=== PATIENT | female | born 1940 | race Caucasian/White ===

== ENCOUNTER 2019-12-21 12:44 | Inpatient (IN) | payer MEDICARE, OTHER, SELFPAY ==
[2019-12-14 10:08] VITALS: BMI 32.5
--- NOTE | 2019-12-14 10:16 | ECG_ITS ---
Measurements Intervals [place] Rate: 62 P: 70 IA: 159 QRS: -4 QRSD: 134 T: 3 QT: 373 QTc: 381 SINUS RHYTHM RIGHT BUNDLE BRANCH BLOCK [120+ ms QRS DURATION, UPRIGHT V1, 40+ ms S IN I/aVL/V4/V5/V6] Compared to ECG 12/09/2018 08:31:39 Sinus bradycardia no longer present Electronically Signed On 12-14-2019 15:29:10 ASSEMBLER BONDING by Sofía Flower M.D. [email or web address]
--- NOTE | 2019-12-14 10:28 | P.ANESASSM_ITS ---
Pre-Anesthetic Assessment Pre-Anesthetic Assessment: Height/Weight: Height 1.63 m Weight 86.183 kg Preop Diagnosis: osteoarthritis right hip Proposed Procedure: Operation Date: 12/21/19 09:20 Proposed Procedures p Total Hip Arthroplasty 34743 M16.11(Right) - Brandon Grullon MD Social: Packs per day: 1 Pack years: 65+ Comment: quit 2 y ago Exam: Pre-Anes Outpt Exam: alert, oriented x 3, clear to auscultation bilaterally and regular rate & rhythm Airway: Submandibular: WNL Cervical ROM: Other MP: 2 Dentition: Partials Pulmonary: Pulmonary: COPD Comments: '18 pneumonia, without sequale CV/HEM: CV/HEM: HTN Comments: rx'd 10y stress test ' negative : : UTI Musc/skel: Musc/skel: Lower Back Pain Comments: bilateral radiculopathy PFSH Anesthesia PFSH: Medical History (Updated 12/14/19 @ 10:13 by Marietta Rodriguez) Osteoarthritis of right hip Family History (Updated 11/19/19 @ 15:00 by Shasha Landeros LPN) Brother Diabetes Cancer Son Diabetes Social History (Updated 11/19/19 @ 15:00 by Shasha Landeros LPN) Smoking and tobacco status: former smoker Alcohol intake: current Alcohol intake frequency: holidays/special occasions o nly Female Reproductive History: Date of last menstrual period: 10/21/79 Data Anesthesia Cardiac Studies: No Data to Display
[2019-12-21] VITALS (25 sets, daily range): BP systolic 101–149; BP diastolic 58–84; PULSE 63–73; RESP 13–24; TEMP 36.3–36.9; O2SAT 95–100
--- NOTE | 2019-12-21 08:53 | P.ANESUD_ITS ---
Pre-Anesthetic Update Pre-Anesthetic Assessment: Date of Surgery/Procedure: 12/21/19 Preop Senait gnosis: osteoarthritis right hip Proposed Procedure: Operation Date: 12/21/19 09:30 Proposed Procedures p Total Hip Arthroplasty 58862 M16.11(Right) - Brandon Grullon MD Any changes to Pre-Anesthetic Assessment?: No Last Intake: Intake NPO > 8 hrs Last Liquid Date 12/20/19 Last Solid Date 12/20/19 Vitals: Temperature 98.1 F 12/21/19 08:12 Temperature Source Temporal Artery S can 12/21/19 08:12 Pulse Rate 66 12/21/19 08:12 Pulse Rhythm 12/21/19 08:14 Pulse Strength 3+ Normal 12/21/19 08:14 Respiratory Rate 18 12/21/19 08:12 Blood Pressure 133/82 12/21/19 08:12 Blood Pressure Milly n 99 12/21/19 08:12 Pulse Oximetry 95 12/21/19 08:12 Oxygen Delivery Me thod 12/21/19 08:14 Exam: Pre-Anes Outpt Exam: alert, oriented x 3, clear to auscultation bilaterally and regular rate & rhythm Cardiac Studies: No Data to Display
[2019-12-21] MEDS: sodium chloride 0.9% 1,000 ML 30 ML IV (09:00)
--- NOTE | 2019-12-21 10:11 | W.PM.OPSUD ---
Surgery/Procedure H&P Update DATE OF PROCEDURE: December 21, 2019 DATE H&P PERFORMED: 12/14/19 H&P UPDATE INFORMATION: I have reviewed H&P completed within last 30 days and No changes to prior documentation PREOP DIAGNOSIS: osteoarthritis right hip PRIMARY INDICATION FOR PROCEDURE: Right hip pain due to osteoarthriis PLANNED PROCEDURE: Operation Date: 12/21/19 09:30 Proposed Procedures p Total Hip Arthroplasty 69879 M16.11(Right) - Brandon Grullon MD
--- NOTE | 2019-12-21 12:32 | XR_ITS ---
WS: [id number] XR hip RT 1V wo/w pel [id number] REASON FOR EXAM: s/p R RAJIV FINDINGS: Total hip replacement on the right side. The stem of the prosthesis is satisfactory. The ac etabular prosthesis remains satisfactory. XR/XR hip RT 1V wo/w pel [id number] IMPRESSION: Total hip replacement satisfactory alignment.
--- NOTE | 2019-12-21 12:34 | P.OP_ITS ---
Operative Report Date of procedure: December 21, 2019 Pre-op Diagnosis: osteoarthritis right hip Post-op diagnosis: same Post-op Findings: Same Procedure Done: Right total hip arthroplasty Implants: 1) Fernando 50 mm ADM acetabular shell 2) Size 6 Fernando 127 degree neck angle SecureFit Max stem 3} +2.5 mm 28 mm femoral head 4} Restorationa ADM X3 insert Surgeon: Brandon Grullon Anesthesia: General Estimated blood loss (mL): 200 Findings: Patient severe degenerative changes of the femoral head and acetabulum with eburnated bone over both Condition: stable Disposition: PACU Procedure: The patient was taken to the operating room and anesthesia provided by the anesthesia service. The patient was placed in the lateral position on a beanbag. A timeout was performed. The patient was draped in the usual fashion. A 15 cm long incision was made beginning just proximal to the greater trochanter and extending posteriorly to a point just distal to the trochanter on the posterior border of the trochanter. Dissection was carried down with electrocautery through the subcutaneous fat to the fascia christin which was divided proximally and distally with curved scissors. The anterior two thirds of the gluteus medius and minimus were elevated off the hip with electrocautery. The capsule was divided in a H-like fashion. The hip was dislocated and a neck cut made just above the level of the lesser trochanter. Exposure of the acetabulum was facilitated with the acetabular retractors. Remnants of labrum and peripheral osteophytes were removed with electrocautery and a rongeur. A reamer 2 mm under the size the femoral head was utilized to ream medially to the base of the palm and are. Reaming was then increased in 1 mm intervals until a healthy rim a trabecular bone was encountered. A trial ADM cup was placed and its position marked with electrocautery In the acetabulum. A final was press-fit into place. Attention was then focused on the femur. Sequential reaming was done under power until cortical chatter was encountered. Broaching was then accomplished until a stable broach size was obtained. A trial reduction with the head and neck provided excellent stability. The wound was irrigated with saline and antibiotic solution. The final [place] SecureFit Max stem was press-fit into place. The femoral head was placed and the hip was reduced. The hip was brought through range of motion and found to be free of impingement and stable. The anterior capsule was reapproximated with 1 Ethibond. The gluteus medius and minimus were repaired through bone with 5 Ethibond and reinforced with 1 Ethibond. The fascial christin was closed with 1 Ethibond. The subcutaneous tissue closed with 2-0 Vicryl. The skin was closed with skin payal. A sterile dressing was applied. The patient was taken to the recovery room in an abduction pillow in stable condition.
--- NOTE | 2019-12-21 12:42 | SUR.PHASEI ---
1237 PATIENT TO PACU AT THIS TIME. RR EVEN AND UNLABORED. PLACED ON SIMPLE MASK AT 8L, SPO2 100%. ABD PILLOW IN PLACE, DRESSING TO RIGHT HIP, CDI. WANG IN PLACE, SECURED TO RIGHT LEG. RIGHT PEDAL PULSE INTACT AND MARKED.
[2019-12-21] MEDS: fentaNYL 50 mcg/mL INJ 2mL IVP ×3 (12:47→13:21)
--- NOTE | 2019-12-21 13:28 | SUR.PHASEI ---
1325 PATIENTS SPOUSE UPDATED.
--- NOTE | 2019-12-21 13:58 | SUR.PHASEI ---
1342 PATIENT TO MED SURG AT THIS TIME. A/OX3. RR EVEN AND UNLABORED. DRESSING DRY AND INTACT TO RIGHT HIP. PULSE PALPABLE AND MARKED. ABD PILLOW IN PLACE, WITH FIRST ICE TO RIGHT HIP. SPOUSE PRESENT.
[2019-12-21] MEDS: TRAMadol 50 mg Tablet PO ×2 (14:38→20:58)
[2019-12-21] MEDS: CELEcoxib 200 mg Capsule PO (14:44)
[2019-12-21] MEDS: sennosides-docusate Tablet 2 TAB PO (18:51)
[2019-12-21] MEDS: chlorhexidine gluconate 0.12% Btl 473 mL 30 ML MUCOUS MEM ×2 (18:54→20:58)
[2019-12-22] VITALS (9 sets, daily range): BP systolic 78–148; BP diastolic 51–78; PULSE 73–90; RESP 16–20; TEMP 36.5–37.3; O2SAT 90–93
[2019-12-22] MEDS: CELEcoxib 200 mg Capsule PO ×2 (02:14→16:45)
[2019-12-22] MEDS: TRAMadol 50 mg Tablet PO (03:02)
[2019-12-22 05:45] LABS: Basophils % 0.2 %; Eosinophils % 0.1 %; Hemoglobin 10.8 g/dL (11.5-15.3); Lymphocytes # 1.3 10^3/uL (0.8-4.8); Lymphocytes % 10.6 %; Mean Corpuscular HGB Conc 31.8 g/dL (30.0-36.0); Mean Corpuscular Volume 100.9 fL (81-99); Monocytes # 1.5 10^3/uL (0.2-0.9); Monocytes % 11.9 %; Neutrophils # 9.7 10^3/uL (1.8-7.7); Neutrophils % 76.8 %; Nucleated Red Blood Cells % 0 %; Platelet Count 223 10^3/cmm (130-400); Red Blood Count 3.37 10^6/uL (4.1-5.3); Red Cell Distribution Width 14.8 % (12.1-15.1); White Blood Count 12.6 10^3/uL (4.0-10.0)
[2019-12-22 06:07] LABS: Anion Gap 14.7 (5-19); Blood Urea Nitrogen 12 mg/dL (8-23); Calcium 8.4 mg/dL (8.5-10.5); Carbon Dioxide 25 mmol/L (22-29); Chloride 103 mmol/L (98-107); Glucose 130 mg/dL (65-115); Osmolality Calculated 284 mOsm/kg (285-295); Potassium 4.7 mmol/L (3.5-5.1); Sodium 138 mmol/L (136-145)
[2019-12-22] MEDS: hydroCHLOROthiazide 25 mg Tablet 12.5 MG PO (06:13)
--- NOTE | 2019-12-22 07:54 | P.PN_ITS ---
Subjective Subjective: Interval history: Managing pain with ultam and IV Tylenol. Bartlett discontinued. Tolerated po liquids Vitals/I&O/Wt Last Vital Signs Temp 98.3 F 12/22/19 04:21 Pulse 81 12/22/19 04:21 Resp 17 12/22/19 04:21 BP 112/70 12/22/19 04:21 Pulse Ox 93 12/22/19 04:21 12/21/19 12/22/19 12/22/19 22:59 06:59 14:59 Intake Total 900 / 1060 Output Total 250 / 650 500 / 1150 Balance 650 / 410 -500 / -90 Physical Exam Narrative: EXAM NARRATIVE: Right hip dressing clean and dry. Expected swelling. Urinary Catheter Management^: Bartlett: Cath Placed During This Visit: yes, but has since been removed by the nurse Reason for Continuing Indwelling Catheter: Required Immobilization for Trauma or Surgery or Anesthesia Urinary Catheter Date of Insertion: 12/21/19 Urinary Catheter Time of Insertion: 10:55 Date Urinary Catheter Removed: 12/22/19 Time Urinary Catheter Discontinued: 06:00 Data : 12/22/19 04:15 12/22/19 04:15 A&P Assessment and plan (1) Status post right hip replacement: Continue to mobilize with therapy. Patient's age she will be slow to mobilize. Anticipate discharge in a.m. if all goes well. With multiple drug allergies pain management has been difficult. Continue with Ultram and supplemental IV Tylenol for now. Status: Acute Code(s): Z96.641 - Presence of right artificial hip joint Attestations Medical Necessity Statement*: Patient requiring IV Tylenol for pain control. Will require 1 additional night hospitalization. Anticipate discharge tomorrow. Coding Level of Care Code Acute Turn Out Worker for Margauxg Fwd Diagnoses Status post right hip replacement Z96.641
[2019-12-22] MEDS: atorvastatin 40 mg Tablet 20 MG PO (09:06)
[2019-12-22] MEDS: losartan 50 mg Tablet PO (09:07)
[2019-12-22] MEDS: sennosides-docusate Tablet 2 TAB PO ×2 (09:07→18:33)
[2019-12-22] MEDS: cyclobenzaprine 10 mg Tablet PO ×2 (09:09→21:49)
[2019-12-22] MEDS: aspirin 325 mg EC Tablet PO (09:09)
[2019-12-22] MEDS: chlorhexidine gluconate 0.12% Btl 473 mL 30 ML MUCOUS MEM ×3 (11:44→21:47)
--- NOTE | 2019-12-22 15:33 | PC.CHAP ---
Pastoral Care Encounter/Spiritual Assessment Type of Contact [x] Declined cmo visit [] Patient/Family/Request visit [] Outpatient visit [] Follow-up visit [] Physician referral [] Code/Alert [] Routine visit [] Staff referral [] Actively dying [] Patient sleeping [] Family support [] [] Out of room [] Palliative care [] [x] Receiving care in room [] Pre-surgical visit [] Trauma [] Long length of stay [] ICU visit [] Other: Relational/Emotional Strength [] Patient feels connected with others/family/visitors/staff [] Distress [] Loneliness/isolation [] Abandonment Spirituality of Patient [] Person of Hannah [] Attends [employer] their [place] [] Believes in Prayer [] Reads Bible or Worship materials [] There are Spiritual issues to be addressed Angledozer Operator Interventions [] Prayer [] Active listening [] Non-anxious presence [] Spiritual/emotional support [] Crisis/trauma care [] Spiritual counseling [] Bereavement support [] Provided bereavement packet [] Provided Bible/devotional materials [] Provided toy/stuffed animal, coloring book to patient or family member [] Provided Communion [] Anointing/[place] [] Salvation [x] Completed spiritual assessment [] Other: Impact on Illness or Injury [] Angry [] Fearful [] Anxious [] Often cries [] Exhaustion [] Unable to work [] Unable to attend orthodox [] Unable to walk/stand [] Unable to read [] Unable to drive [] Unable to eat/drink [] Unable to sleep [] Unable to be with family [] Patient intubated [] Other: Summary Pt. was being treated by staff. Family member (3)) requested no cmo visit. Pt in great discomfort and family seemed embarrassed that cmo saw her Time spent with patient 2 min
[2019-12-23] VITALS (8 sets, daily range): BP systolic 90–119; BP diastolic 55–75; PULSE 75–109; RESP 17–20; TEMP 36.6–37.2; O2SAT 89–97
[2019-12-23] MEDS: CELEcoxib 200 mg Capsule PO ×2 (02:38→13:44)
[2019-12-23 03:54] LABS: Basophils % 0.1 %; Eosinophils % 0.1 %; Hematocrit 33.1 % (37.0-47.0); Hemoglobin 10.7 g/dL (11.5-15.3); Lymphocytes # 1.8 10^3/uL (0.8-4.8); Lymphocytes % 13.9 %; Mean Corpuscular HGB Conc 32.3 g/dL (30.0-36.0); Mean Corpuscular Hemoglobin 31.8 pg (28.0-34.0); Mean Corpuscular Volume 98.5 fL (81-99); Mean Platelet Volume 10.8 fL (7.4-10.4); Monocytes # 1.9 10^3/uL (0.2-0.9); Monocytes % 14.9 %; Neutrophils # 9.1 10^3/uL (1.8-7.7); Neutrophils % 70.7 %; Nucleated Red Blood Cells % 0 %; Platelet Count 209 10^3/cmm (130-400); Red Blood Count 3.36 10^6/uL (4.1-5.3); Red Cell Distribution Width 14.5 % (12.1-15.1); White Blood Count 12.9 10^3/uL (4.0-10.0)
[2019-12-23] MEDS: hydroCHLOROthiazide 25 mg Tablet 12.5 MG PO (06:14)
[2019-12-23] MEDS: TRAMadol 50 mg Tablet PO ×3 (07:57→19:45)
[2019-12-23] MEDS: losartan 50 mg Tablet PO (08:04)
[2019-12-23] MEDS: atorvastatin 40 mg Tablet 20 MG PO (08:04)
[2019-12-23] MEDS: sennosides-docusate Tablet 2 TAB PO ×2 (08:05→17:12)
[2019-12-23] MEDS: aspirin 325 mg EC Tablet PO (08:05)
[2019-12-23] MEDS: chlorhexidine gluconate 0.12% Btl 473 mL 30 ML MUCOUS MEM ×4 (08:05→21:34)
--- NOTE | 2019-12-23 10:16 | PC.SOCIAL ---
Patient was given the [facility] Beneficiary Notification Letter. Signed and placed in chart.
--- NOTE | 2019-12-23 17:40 | PM.PN ---
Subjective Subjective: Interval history: Patient ambulating short distances with therapy. Tolerating oral intake. Pain control reasonable with Ultracet. Vitals/I&O/Wt Last Vital Signs Temp 98.2 F 12/23/19 15:38 Pulse 75 12/23/19 15:38 Resp 18 12/23/19 15:38 BP 119/75 12/23/19 15:38 Pulse Ox 93 12/23/19 15:38 12/23/19 12/23/19 12/23/19 06:59 14:59 22:59 Intake Total 200 / 1282 598 / 598 740 / 1338 Output Total 500 / 500 1000 / 1000 Balance -300 / 782 598 / 598 -260 / 338 Physical Exam Narrative: EXAM NARRATIVE: Right hip dressing clean and dry. Minimal swelling right thigh. Urinary Catheter Management^: Bartlett: Cath Placed During This Visit: yes, but has since been removed by the nurse Reason for Continuing Indwelling Catheter: Not indwelling catheter Urinary Catheter Date of Insertion: 12/21/19 Urinary Catheter Time of Insertion: 10:55 Date Urinary Catheter Removed: 12/22/19 Time Urinary Catheter Discontinued: 06:00 Data : 12/23/19 03:10 12/22/19 04:15 A&P Assessment and plan (1) Status post right hip replacement: The patient is slower to progress with therapy. She is really not able to ambulate beyond her room. We will continue with physical therapy and anticipate discharge tomorrow. Status: Acute Code(s): Z96.641 - Presence of right artificial hip joint Attestations Medical Necessity Statement*: With patient's increased age and patient's weight her mobility has been slow to recover. She will require 1 more midnight and anticipate sufficient ambulatory status for discharge tomorrow. Coding Level of Care Code Acute Chemical Dependency Therapist for Zita Root Diagnoses Status post right hip replacement Z96.641
--- NOTE | 2019-12-23 17:48 | PM.DCS ---
Discharge Providers Date of Admission: 12/21/19 12:44 Date of Discharge: December 23, 2019 Attending Provider at Admission: Brandon Grullon MD Attending Provider at Discharge: Brandon Grullon MD Primary Care Provider: Emery Ragland MD Diagnoses at Discharge Discharge Diagnosis (1) Status post right hip replacement: Status: Acute (2) Osteoarthritis of right hip: Status: Resolved Reason for Visit Reason for Visit: Reason For Visit: primary osteoarthritis of hip Hospital Course Hospital Course: The patient underwent elective right total hip arthroplasty on 12/21/2019. She did well. She remained hemodynamically stable. Her pain was tolerated with oral medications by the second postoperative day. Due to her weight and age she was slower to improve with therapy. Ultimately by 12/24/2019 she was thought stable for discharge home. She is met with aspirin and sequential compression dressings for DVT prophylaxis Physical Exam Narrative: EXAM NARRATIVE: On the day 12/24/19 of discharge her incision was clean and free of drainage. She had minimal swelling in her thigh. Urinary Catheter Management^: Bartlett: Cath Placed During This Visit: yes, but has since been removed by the nurse Reason for Continuing Indwelling Catheter: Not indwelling catheter Urinary Catheter Date of Insertion: 12/21/19 Urinary Catheter Time of Insertion: 10:55 Date Urinary Catheter Removed: 12/22/19 Time Urinary Catheter Discontinued: 06:00 Discharge Data Data Completed and Pending: Completed Studies During Hospitalization Category Date Time Status XR hip RT 1V wo/w pel [id number] Routine Exams 12/21/19 12:32 Completed Pending at discharge Category Date Time Status Complete Blood Co unt w/Auto AM LABS Lab 12/24/19 04:00 Ordered Labs from last 24 hours 12/23/19 03:10 WBC 12.9 H RBC 3.36 L Hgb 10.7 L Hct 33.1 L MCV 98.5 MCH 31.8 MCHC 32.3 RDW 14.5 Plt Count 209 MPV 10.8 H Neut % (Auto) 70.7 Lymph % (Auto) 13.9 [place] % (Auto) 14.9 Eos % (Auto) 0.1 Baso % (Auto) 0.1 Neut # (Auto) 9.1 H Lymph # (Auto) 1.8 [place] # (Auto) 1.9 H Eos # (Auto) 0.0 Baso # (Auto) 0.0 Nucleated RBC % (a uto) 0 Nucleated RBCs # 0.0 Vitals: Last Vital Signs Temp 98.2 F 12/23/19 15:38 Pulse 75 12/23/19 15:38 Resp 18 12/23/19 15:38 BP 119/75 12/23/19 15:38 Pulse Ox 93 12/23/19 15:38 Discharge Plan Discharge Patient Disposition: Home, Self-Care Condition: Stable Prescriptions: New tramadol 50 mg Tablet 50 mg PO Q4H PRN (Reason: Mild To Moderate Pain) Qty: 40 RF: 0 aspirin 325 mg Tablet,Delayed Release (Dr/Ec) 325 mg PO DAILY Qty: 30 RF: 0 Continued hydrochlorothiazide 12.5 mg tablet 12.5 mg PO QAM RF: 0 sulindac 150 mg tablet 150 mg PO BID RF: 0 mupirocin 2 % ointment 1 applic TOPICAL BID Qty: 30 RF: 0 losartan 50 mg tablet 50 mg PO QDAY 90 Days Qty: 90 RF: 3 simvastatin 10 mg tablet 10 mg PO QDAY 90 Days Qty: 90 RF: 0 acetaminophen [Tylenol 8 Hour] 650 mg Tablet Extended Release 650 mg PO Q8H PRN (Reason: Pain) RF: 0 albuterol sulfate 90 mcg/actuation HFA aerosol inhaler 1 puff INHALATION PRN PRN (Reason: Shortness Of Breath) RF: 0 fluticasone furoate 27.5 mcg/actuation [place],Suspension 1 spray INTRANASAL PRN PRN (Reason: Nasal Congestion) RF: 0 Discharge Orders: Discharge Order (Routine); Ordered 12/24/19 Ordered By: Brandon Grullon Other Ambulatory Orders: DME: Kevin (Order) Location: None Selected Ordered By: Brandon Grullon Referrals: [facility] ([facility]) [Outside] Discharge Diet: Advance as tolerated Discharge Activity: As per PT/OT instructions Activity Restrictions/Additional Instructions: May shower once incisions completely free of drainage. Discontinue right hip dressing in 24-48 hours. Replaced dressings as needed. Take Celebrex twice a day for the next 15 days for pain , discontinue other anti-inflammatories bg oxycodone for breakthrough pain. Exercises per physical therapy. May discontinue abduction pillow Discharge Attestations Time Spent in Discharge Care*: other Quality Metrics Clinical Quality Measures During this hospital stay, did patient experience: None Coding Level of Care Code Acute Solo Truck Driver for Margauxg Fwd Diagnoses Status post right hip replacement Z96.641 Osteoarthritis of right hip M16.11
[2019-12-24] VITALS (8 sets, daily range): BP systolic 97–120; BP diastolic 60–87; PULSE 70–79; RESP 16–18; TEMP 36.4–36.9; O2SAT 90–95
[2019-12-24] MEDS: CELEcoxib 200 mg Capsule PO ×2 (02:07→13:40)
[2019-12-24 05:14] LABS: Basophils % 0.3 %; Eosinophils # 0.1 10^3/uL (0.0-0.8); Eosinophils % 0.7 %; Hemoglobin 10.4 g/dL (11.5-15.3); Lymphocytes # 1.3 10^3/uL (0.8-4.8); Mean Corpuscular HGB Conc 31.5 g/dL (30.0-36.0); Mean Corpuscular Volume 101.5 fL (81-99); Mean Platelet Volume 11.2 fL (7.4-10.4); Monocytes # 1.6 10^3/uL (0.2-0.9); Monocytes % 13.8 %; Neutrophils # 8.6 10^3/uL (1.8-7.7); Neutrophils % 73.8 %; Nucleated Red Blood Cells % 0 %; Platelet Count 200 10^3/cmm (130-400); Red Blood Count 3.25 10^6/uL (4.1-5.3); Red Cell Distribution Width 14.3 % (12.1-15.1); White Blood Count 11.7 10^3/uL (4.0-10.0)
[2019-12-24] MEDS: hydroCHLOROthiazide 25 mg Tablet 12.5 MG PO (06:24)
[2019-12-24] MEDS: losartan 50 mg Tablet PO (09:39)
[2019-12-24] MEDS: atorvastatin 40 mg Tablet 20 MG PO (09:39)
[2019-12-24] MEDS: chlorhexidine gluconate 0.12% Btl 473 mL 30 ML MUCOUS MEM (09:40)
[2019-12-24] MEDS: TRAMadol 50 mg Tablet PO ×2 (09:40→12:53)
[2019-12-24] MEDS: aspirin 325 mg EC Tablet PO (09:40)
--- NOTE | 2019-12-24 11:00 | PC.SOCIAL ---
Pg 2 IMM Explained to pt Pg 2 IMM & provided pt a copy. No questions voiced. Signed, dated, timed, & placed in pt's chart.
== END 2019-12-24 16:00 | disposition home or self-care (01) | DRG 470 ==
LOC: MEDSURG 12:45
PROVIDERS: Admitting Provider Orthopaedic Surgery; Family Provider Family Medicine; PCP Family Medicine; Visit Provider Orthopaedic Surgery
PROC: 0SR90J9 Replacement of Right Hip Joint with Synthetic Substitute, Cemented, Open Approach (ICD-10-PCS; CPT 27130; principal; 2019-12-21 09:30)
DX: M16.11 Unilateral primary osteoarthritis, right hip (principal)
CPT/HCPCS: 12345; 36415; 51702; 73501; 80048; 85025; 93005; 96365; 97110; 97116; 97162; 97166; 97530; 97535; C1776; J0131; J0690; J1580; J2405; J2704; J3010; J3490; J7030

== ENCOUNTER 2020-01-26 06:00 | Outpatient (RCR) | payer MEDICARE, OTHER, SELFPAY | END 2020-02-18 23:59 | disposition home or self-care (01) | LOC: SPT 06:00 | PROVIDERS: Family Provider Family Medicine; PCP Family Medicine; Referring Provider Orthopaedic Surgery; Visit Provider Orthopaedic Surgery | DX: Z47.1 Aftercare following joint replacement surgery (principal); Z96.641 Presence of right artificial hip joint | CPT/HCPCS: 97110; 97161 ==

== ENCOUNTER → 2020-02-01 13:53 | Outpatient (BNVA) | payer MEDICARE, OTHER, SELFPAY | PROVIDERS: Family Provider Family Medicine; PCP Family Medicine; Visit Provider Orthopaedic Surgery | DX: Z48.89 Encounter for other specified surgical aftercare (principal); Z96.641 Presence of right artificial hip joint | CPT/HCPCS: 73502 ==

== ENCOUNTER 2020-03-10 06:00 | Outpatient (RCR) | payer MEDICARE, OTHER, SELFPAY | END 2020-03-20 23:59 | disposition home or self-care (01) | LOC: SPT 06:00 | PROVIDERS: PCP Family Medicine; Referring Provider Orthopaedic Surgery; Visit Provider Orthopaedic Surgery | DX: Z47.1 Aftercare following joint replacement surgery (principal); Z96.641 Presence of right artificial hip joint; M25.551 Pain in right hip | CPT/HCPCS: 97110; 97161 ==

== ENCOUNTER 2020-03-21 06:00 | Outpatient (RCR) | payer MEDICARE, OTHER, SELFPAY | END 2020-04-19 23:59 | disposition home or self-care (01) | LOC: SPT 06:00 | PROVIDERS: PCP Family Medicine; Visit Provider Orthopaedic Surgery | DX: Z47.1 Aftercare following joint replacement surgery (principal); Z96.641 Presence of right artificial hip joint | CPT/HCPCS: 97110 ==

== ENCOUNTER → 2020-04-04 16:01 | Outpatient (BNVA) | payer MEDICARE, OTHER, SELFPAY | PROVIDERS: PCP Family Medicine; Visit Provider Orthopaedic Surgery | DX: Z96.641 Presence of right artificial hip joint (principal) | CPT/HCPCS: 72100 ==

== ENCOUNTER 2020-04-20 06:00 | Outpatient (RCR) | payer MEDICARE, OTHER, SELFPAY | END 2020-05-20 23:59 | disposition home or self-care (01) | LOC: SPT 06:00 | PROVIDERS: PCP Family Medicine; Visit Provider Orthopaedic Surgery | DX: Z47.1 Aftercare following joint replacement surgery (principal); Z96.641 Presence of right artificial hip joint | CPT/HCPCS: 97110 ==

== ENCOUNTER 2020-05-02 14:47 | Outpatient (CLI) | payer MEDICARE, OTHER, SELFPAY ==
--- NOTE | 2020-05-02 14:56 | XR_ITS ---
WS: [id number] Right hip, AP and frog-leg views standing, AP pelvis standing, 05/02/2020 Clinical Data: right total hip arthroplasty Comparison: Right hip, 02/01/2020. Findings: The right hip total arthroplasty is in good position. The components are in satisfactory alignment. T he left hip shows moderate osteoarthritic narrowing. There are no fractures seen. XR/XR hip RT 2-3V wo/w pel* [id number] Impression: 1. Total right hip arthroplasty. 2. Narrowing of the left hip joint.
== END 2020-05-02 14:48 | disposition home or self-care (01) ==
LOC: RAD 14:51
PROVIDERS: PCP Family Medicine; Visit Provider Orthopaedic Surgery
DX: Z96.641 Presence of right artificial hip joint (principal)
CPT/HCPCS: 73502

== ENCOUNTER → 2020-05-03 10:53 | Outpatient (BNVA) | payer MEDICARE, OTHER, SELFPAY | PROVIDERS: PCP Family Medicine; Visit Provider Dermatology | DX: D48.9 Neoplasm of uncertain behavior, unspecified (principal); L57.0 Actinic keratosis; L82.0 Inflamed seborrheic keratosis; D18.01 Hemangioma of skin and subcutaneous tissue; Z85.828 Personal history of other malignant neoplasm of skin | CPT/HCPCS: 11102; 11310; 17000; 17003; 17110; 88305; 99203 ==

== ENCOUNTER 2020-05-12 10:50 | Outpatient (CLI) | payer MEDICARE, OTHER, SELFPAY ==
--- NOTE | 2020-05-12 11:00 | MR_ITS ---
WS: [id number] MRI LUMBAR SPINE NONCONTRAST HISTORY: M54.5 Low back pain COMPARISON: None available. TECHNIQUE: Sagittal and axial multisequence imaging is submitted. Straightening and reversal of the normal cervical lordosis. Mild straightening of the normal lumbar lordosis. No marrow edema or fracture. Mild disc desiccation throughout the lumbar spine. Small nodes superior endplate of L1 and inferior e ndplate of L2. Conus terminates normally at L1-2 disc level. L1-L2: Small amount of fluid in the RIGHT facet joint and mild facet hypertrophy. Mild LEFT foraminal stenosis. L2-L3: Mild annular disc bulging with ligamentum flavum disease and facet arthritis. Very mild bilate ral foraminal narrowing. L3-L4: Mild annular disc bulging with facet and ligamentum flavum arthritis. Fluid in the facet joint s bilaterally. Small nerve root sleeve diverticulum in the LEFT foramen. L4-L5: Mild annular disc bulging and facet arthritis. Moderate ligamentum flavum hypertrophy. Fluid i n the facet joints bilaterally. There is encroachment upon the ventral thecal sac with mild central, bilateral subarticular recess and foraminal stenosis. L5-S1: Mild annular disc bulging. Small amount of fluid in the facet joints bilaterally. Mild narrowi ng of the foramen bilaterally. Cholelithiasis. Bilateral renal cysts. Mild enlargement of the liver. MR/MR lumbar spine wo con* [id number] IMPRESSION: 1. No significant central or foraminal stenosis or disc protrusions. 2. Facet arthritis throughout the lumbar spine and ligamentum flavum hypertrop hy and osteophytes contribute to mild central and foraminal stenosis as above. Most significant at the L4-5 level. 3. Cholelithiasis.
== END 2020-05-12 10:51 | disposition home or self-care (01) ==
LOC: RADSHAW 10:57
PROVIDERS: PCP Family Medicine; Visit Provider Orthopaedic Surgery
DX: M54.5 Low back pain (principal); K80.20 Calculus of gallbladder without cholecystitis without obstruction; M13.88 Other specified arthritis, other site
CPT/HCPCS: 72148

== ENCOUNTER → 2020-06-22 13:14 | Outpatient (BNVA) | payer MEDICARE, OTHER, SELFPAY | PROVIDERS: PCP Family Medicine; Visit Provider Urology | DX: N30.20 Other chronic cystitis without hematuria (principal); R33.9 Retention of urine, unspecified | CPT/HCPCS: 80053; 81001 ==

== ENCOUNTER 2020-06-23 11:10 | Outpatient (CLI) | payer MEDICARE, OTHER, SELFPAY ==
--- NOTE | 2020-06-23 11:16 | XR_ITS ---
WS: [id number] PROCEDURE: XR chest 2V* [id number] CLINICAL INFORMATION: shortness of breath COMPARISON: FINDINGS: Heart: Normal cardiac silhouette. Lungs: Moderate chronic emphysematous changes. No acute pulmonary infiltrates. No focal pneumonia. Bones: Reversed left TSA. XR/XR chest 2V* [id number] IMPRESSION: 1. Moderate chronic emphysematous changes. No acute pulmonary infiltrates. 2. No acute chest findings.
== END 2020-06-23 11:11 | disposition home or self-care (01) ==
LOC: RADWPI 11:14
PROVIDERS: Family Provider Family Medicine; PCP Family Medicine; Visit Provider Family Medicine
DX: R06.02 Shortness of breath (principal)
CPT/HCPCS: 71046

== ENCOUNTER 2020-07-14 10:50 | Outpatient (CLI) | payer MEDICARE, OTHER, SELFPAY ==
--- NOTE | 2020-07-14 10:57 | MM_ITS ---
WS: [id number] BILATERAL DIGITAL SCREENING MAMMOGRAPHY WITH CAD CLINICAL INFORMATION: SCREENING HISTORY: Screening mammogram. No current complaints. COMPARISON: TECHNIQUE: Bilateral CC and MLO views. FINDINGS: Scattered fibroglandular densities bilaterally. No suspicious focal mass, asymmetry, calcifications, or architectural distortion. No evidence of malignancy. Incidental stable axillary tail lymph nodes. Vascular calcification. MM/[place] [id number] IMPRESSION: BI-RADS: 2-Benign FOLLOW UP: 1 Year Follow-up Recommend return to annual screening mammography.
== END 2020-07-14 10:51 | disposition home or self-care (01) ==
LOC: RADSHAW 10:55
PROVIDERS: PCP Family Medicine; Visit Provider Family Medicine
DX: Z12.31 Encounter for screening mammogram for malignant neoplasm of breast (principal)
CPT/HCPCS: 77067

== ENCOUNTER → 2020-09-01 11:07 | Outpatient (BNVA) | payer MEDICARE, OTHER, SELFPAY | PROVIDERS: PCP Family Medicine; Visit Provider Family Medicine | DX: I10 Essential (primary) hypertension (principal); I48.0 Paroxysmal atrial fibrillation; J41.0 Simple chronic bronchitis; G44.229 Chronic tension-type headache, not intractable; D50.0 Iron deficiency anemia secondary to blood loss (chronic) | CPT/HCPCS: 80053; 83880; 85025 ==

== ENCOUNTER 2020-09-13 11:54 | Inpatient (IN) | payer MEDICARE, OTHER, SELFPAY ==
[2020-09-13] VITALS (49 sets, daily range): BP systolic 108–132; BP diastolic 65–85; PULSE 60–75; RESP 15–36; TEMP 36.5–36.7; O2SAT 89–96; BMI 34.9
--- NOTE | 2020-09-13 12:09 | XR_ITS ---
WS: [id number] XR chest 1V portable [id number] REASON FOR EXAM: syncope FINDINGS: The chest is unchanged compared to 06/23/2020. Moderate tortuosity and ectasia of the thoracic aorta. The heart is nonenlarged. Calcified granulomatous changes in both hemithoraces. Chronic interstitial changes in both lung bases . Symmetric apical pleural scarring. No active pulmonary parenchymal or pleural disease. Left shoulder reverse arthroplasty. XR/XR chest 1V portable [id number] IMPRESSION: No acute chest abnormality.
--- NOTE | 2020-09-13 12:10 | ECG_ITS ---
[facility] Test Date: 2020-09-13 Pat Name: Brijesh Middleton Department: Room: Gender: Female Laborer Syrup Machine: : [id number] Requested By: Andra Sutton Order Number: [id number] Jacque MD: WILIAM SIBLEY Measurements Intervals [place] Rate: 67 P: 73 DC: 160 QRS: 30 QRSD: 129 T: 55 QT: 401 QTc: 426 Interpretive Statements SINUS RHYTHM RIGHT BUNDLE BRANCH BLOCK [120+ ms QRS DURATION, UPRIGHT V1, 40+ ms S IN I/aVL/V4/V5/V6] Compared to ECG 12/14/2019 10:22:03 No significant changes Electronically Signed On 09-15-2020 15:26:35 HEAT REGULATOR by WILIAM SIBLEY [email or web address]
--- NOTE | 2020-09-13 12:10 | W.ED.SOB ---
Documented by User: Andra Sutton SKYLER Arauz 09/13/20 16:43 HPI - SOB/Dyspnea General: Chief Complaint: Shortness of Breath/Dyspnea Stated Complaint: SHORT OF BREATH Time Seen by Provider: 09/13/20 12:08 Source: patient and EMS Mode of arrival: EMS Limitations: physical limitation (weakness) History of Present Illness: HPI Narrative: 80-year-old female patient presents to the emergency department via EMS. She reports shortness of breath x3 days with nausea. Per EMS, patient is oxygen saturation 88% on room air, increased to 95% on 4 L nasal cannula. She reports light green cough for 3 months, work-up by her primary care physician Dr. Ragland for possible COPD. She reports decreased appetite, body aches all over, nausea with decreased appetite. Reports negative Covid contacts with exception of going to the grocery store 5 days ago. Her spouse is also evaluated today for similar symptoms. EMS questioned carbon monoxide poisoning but fire department investigated without positive findings. MD elicited complaint: shortness of breath and cough Pertinent past history: COPD Onset (ago): day(s) (3) Timing: constant and progressively worsening Severity: severe Exacerbating factors: movement and talking Relieving factors: oxygen and rest Known history of: COPD Associated symptoms: Reports chest congestion, cough, myalgias and nausea; Deny abdominal pain, chest pain, diaphoresis, fever(s), palpitations or vomiting Treatment prior to arrival: oxygen Review of Systems General: Reports: 10 or more systems reviewed and unremarkable except in HPI and below Const: Denies: fever(s), chills or diaphoresis Eyes: Denies: blurry vision or eye redness ENMT: Denies: throat pain, dental pain or disequilibrium Card: Denies: chest pain, palpitations or irregular heart rhythm Resp: Reports: dyspnea, productive cough and chest congestion; Denies: non-productive cough or wheezing GI: Reports: nausea; Denies: abdominal pain, vomiting or early satiety : Denies: difficulty voiding or dysuria Musc: Reports: joint pain (generalized arthritis); Denies: neck pain or back pain Skin/Breast: Denies: rash or pruritus Neuro: Denies: headache(s), weakness in extremities or behavioral changes Psych: Reports: anxiety and change in appetite; Denies: depression Joe/Lymph: Denies: easy bruising PFSH ED PFSH: Medical History (Updated 09/13/20 @ 15:17 by Quirino Decker MD) Asthma Atrial fibrillation Chronic cystitis COPD (chronic obstructive pulmonary disease) Dyslipidemia History of deviated nasal septum Hypertension Incomplete bladder emptying Osteoarthritis of right hip Vaginal prolapse Surgical History (Updated 09/13/20 @ 15:08 by Quirino Decker MD) H/O shoulder replacement left H/O: hysterectomy History of appendectomy History of hip replacement Hx of bilateral cataract extraction Hx of foot surgery BUNIONS EXCISED BILATERAL FEET Family History Brother Diabetes Cancer Son Diabetes Father , AT AGE 75 Lung disease Mother , AT AGE 37 Complications specific to or after delivery Social History Smoking and tobacco status: former smoker Alcohol intake: current Alcohol intake frequency: holidays/special occasions only Household members: spouse Marital status: Current occupational status: retired History of recent travel: No Female Reproductive History: Date of last menstrual period: 10/21/79 Physical Exam Const: COMMON NORMALS: patient oriented x3, healthy appearing and alert GENERAL APPEARANCE: cooperative, well kempt, in distress and well hydrated NUTRITIONAL APPEARANCE: obese ORIENTATION/CONSCIOUSNESS: Yes awake, Yes oriented to person, Yes oriented to place and Yes oriented to time HENMT: COMMON NORMALS: normocephalic, atraumatic, Normal external nose present and moist oral mucous membranes HEAD & SCALP: normocephalic and atraumatic FACE & SINUS: normal facial exam and face symmetric NOSE: Normal external nose present and Normal nares present MOUTH: Normal oral and palatal mucosa present THROAT: posterior oropharynx normal Eye: COMMON NORMALS: Equal, round and reactive pupils present and EOMs intact bilaterally GENERAL EYE: appearance normal, both eyes and all related structures PUPIL: Yes Equal, round and reactive pupils present Neck/C-Spine: COMMON NORMALS: full ROM and no lymphadenopathy GENERAL: Yes normal visual inspection and Yes trachea midline CERVICAL SPINE: Yes cervical ROM normal Lymph: LYMPHATIC: no lymphadenopathy noted Chest: COMMONS NORMALS: normal inspection of the chest and normal palpation of entire chest wall Resp: COMMON NORMALS: No retractions EFFORT & INSPECTION: Yes able to speak in complete sentences, Yes symmetric chest movement, Yes tachypneic, Yes respiratory distress, Yes uses accessory muscles, No paradoxical thoraco-abdominal movements, No tracheal deviation and No tripod positioning AUSCULTATION: diminished lung sounds bilateral throughout Cardio: COMMON NORMALS: regular rate, regular rhythm, S1 normal heart sound present, S2 normal heart sound present and Peripheral pulses 2+ throughout RATE: regular rate RHYTHM: regular rhythm HEART SOUNDS: S1 normal heart sound present and S2 normal heart sound present PERIPHERAL PULSES: Peripheral pulses 2+ throughout GI: COMMON NORMALS: Normal to inspection, nondistended, normoactive bowel sounds present, Soft to palpation and non-tender INSPECTION: Yes normal to inspection PALPATION: Yes Soft to palpation : COMMON NORMALS: Yes no CVA tenderness BLADDER/KIDNEY EXAM: Yes no CVA tenderness Back/Pelvis: COMMON NORMALS: no CVA tenderness and thoracic and lumbar spine normal to inspection Extremity: COMMON NORMALS: normal to inspection GENERAL: No edema and Yes other findings (pale discoloration perioral area) Neuro: COMMON NORMALS: patient oriented x3 and no focal motor deficits SENSORIUM/ORIENTATION: Yes alert, Yes oriented to person, Yes oriented to place and Yes oriented to time Psych: COMMON NORMALS: mental status grossly normal, Normal thought process present and cooperative APPEARANCE: Yes well kempt ACTIVITY/MOTOR BEHAVIOR: Yes appropriate eye contact THOUGHT PROCESS: Normal thought process present Skin: COMMON NORMALS: no rashes or lesions noted GENERAL SKIN EXAM: no rashes or lesions noted RASHES: no rashes HAIR: normal NAILS: normal Course Vital Signs: Vital signs: Vital Signs Temperature 98.1 F 09/13/20 12:07 Pulse Rate 65 09/13/20 15:17 Respiratory Rate 22 H 09/13/20 15:17 Blood Pressure 109/65 09/13/20 15:17 Pulse Oximetry 92 09/13/20 15:17 MDM - SOB/Dyspnea Lab Data: Labs: Lab Results 09/13/20 09/13/20 09/13/20 Range/Units 11:24 11:24 11:24 WBC 6.4 (4.0-10.0) 10^3/ uL RBC 4.43 (4.1-5.3) 10^6/u L Hgb 13.7 (11.5-15.3) g/dL Hct 41.7 (37.0-47.0) % MCV 94.1 (81-99) fL MCH 30.9 (28.0-34.0) pg MCHC 32.9 (30.0-36.0) g/dL RDW 14.0 (12.1-15.1) % Plt Count 188 (130-400) 10^3/c mm MPV 11.4 H (7.4-10.4) fL Neut % (Auto) 52.9 % Lymph % (Auto) 27.1 % [place] % (Auto) 18.9 % Eos % (Auto) 0.6 % Baso % (Auto) 0.3 % Neut # (Auto) 3.39 (1.8-7.7) 10^3/u L Lymph # (Auto) 1.7 (0.8-4.8) 10^3/u L [place] # (Auto) 1.2 H (0.2-0.9) 10^3/u L Eos # (Auto) 0.0 (0.0-0.8) 10^3/u L Baso # (Auto) 0.0 (0.0-0.1) 10^3/u L Nucleated RBC % (a uto) 0 % Nucleated RBCs # 0.0 /100WBC ESR 24 H (0-15) mm/hr PT (12.1-14.9) SECO NDS INR (0.8-1.2) APTT (23.9-36.7) SECO NDS D-Dimer (0-0.59) ug/mIFE U Specimen Type Sample Site ABG pH (7.35-7.45) ABG pCO2 (35-45) mmHg ABG pO2 (80.0-100.0) mmH g ABG HCO3 (22-26) mmol/L ABG O2 Saturation ABG Base Excess (-2.0-2.0) mmol/ L Clement Test A-a O2 Gradient (5-10) mmHg Hematocrit (37-47) % Hgb O2 Saturation (95-100) % Carboxyhemoglobin (0.4-20.1) %THgb Methemoglobin (0.4-1.5) % Total Hemoglobin (12-16) g/dL Ionized Calcium (1.1-1.4) mmol/L O2 Delivery Device O2 Liters/Min % FiO2 % Profiling Machine Setup Operator ID Sodium 131 L (136-145) mmol/L Potassium 4.4 (3.5-5.1) mmol/L Chloride 95 L (98-107) mmol/L Carbon Dioxide 21 L (22-29) mmol/L Anion Gap 19.4 H (5-19) BUN 27 H (8-23) mg/dL Creatinine 1.4 H (0.5-0.9) mg/dL GFR Calculation Not Reportable Glucose 99 (65-115) mg/dL Calculated Osmolal ity 277 L (285-295) mOsm/k g Lactate (0.5-2.2) mmol/L Calcium 8.7 (8.5-10.5) mg/dL Iron (37-145) ug/dL TIBC mcg/dl % Saturation (20-50) % Unsat Iron Binding (112-347) ug/dL Total Bilirubin 0.3 (0.15-1.2) mg/dL AST 29 (0-32) U/L ALT 17 (0-33) U/L Alkaline Phosphata se 78 (35-105) IU/L Troponin T Baselin e (0-10) ng/L Troponin T 120 Min elim ira (0-10) ng/L Delta Troponin T (0-10) ABS# C-Reactive Protein 59.3 H (0.0-4.9) mg/L NT-Pro-B Natriuret Pep 607 H (0-450) pg/mL Total Protein 7.4 (6.6-8.7) g/dL Albumin 3.9 (3.5-5.2) g/dL Globulin 3.5 (1.3-4.6) g/dL Procalcitonin 0.16 (0-0.5) ng/mL TSH (0.27-4.20) uIU/ mL Influenza Type A A g (Negative) Influenza Type B A g (Negative) SARS-CoV-2 Ag (Rap id) (Negative) 09/13/20 09/13/20 09/13/20 Range/Units 11: 11: 11:24 WBC (4.0-10.0) 10^3/ uL RBC (4.1-5.3) 10^6/u L Hgb (11.5-15.3) g/dL Hct (37.0-47.0) % MCV (81-99) fL MCH (28.0-34.0) pg MCHC (30.0-36.0) g/dL RDW (12.1-15.1) % Plt Count (130-400) 10^3/c mm MPV (7.4-10.4) fL Neut % (Auto) % Lymph % (Auto) % [place] % (Auto) % Eos % (Auto) % Baso % (Auto) % Neut # (Auto) (1.8-7.7) 10^3/u L Lymph # (Auto) (0.8-4.8) 10^3/u L [place] # (Auto) (0.2-0.9) 10^3/u L Eos # (Auto) (0.0-0.8) 10^3/u L Baso # (Auto) (0.0-0.1) 10^3/u L Nucleated RBC % (a uto) % Nucleated RBCs # /100WBC ESR (0-15) mm/hr PT 14.00 (12.1-14.9) SECO NDS INR 1.05 (0.8-1.2) APTT 36.7 (23.9-36.7) SECO NDS D-Dimer 1.07 H (0-0.59) ug/mIFE U Specimen Type Sample Site ABG pH (7.35-7.45) ABG pCO2 (35-45) mmHg ABG pO2 (80.0-100.0) mmH g ABG HCO3 (22-26) mmol/L ABG O2 Saturation ABG Base Excess (-2.0-2.0) mmol/ L Clement Test A-a O2 Gradient (5-10) mmHg Hematocrit (37-47) % Hgb O2 Saturation (95-100) % Carboxyhemoglobin (0.4-20.1) %THgb Methemoglobin (0.4-1.5) % Total Hemoglobin (12-16) g/dL Ionized Calcium (1.1-1.4) mmol/L O2 Delivery Device O2 Liters/Min % FiO2 % Profiling Machine Setup Operator ID Sodium (136-145) mmol/L Potassium (3.5-5.1) mmol/L Chloride (98-107) mmol/L Carbon Dioxide (22-29) mmol/L Anion Gap (5-19) BUN (8-23) mg/dL Creatinine (0.5-0.9) mg/dL GFR Calculation Glucose (65-115) mg/dL Calculated Osmolal ity (285-295) mOsm/k g Lactate (0.5-2.2) mmol/L Calcium (8.5-10.5) mg/dL Iron 26 L (37-145) ug/dL TIBC 221 mcg/dl % Saturation 11.7 L (20-50) % Unsat Iron Binding 195 (112-347) ug/dL Total Bilirubin (0.15-1.2) mg/dL AST (0-32) U/L ALT (0-33) U/L Alkaline Phosphata se (35-105) IU/L Troponin T Baselin e 29 H (0-10) ng/L Troponin T 120 Min elim ira (0-10) ng/L Delta Troponin T (0-10) ABS# C-Reactive Protein (0.0-4.9) mg/L NT-Pro-B Natriuret Pep (0-450) pg/mL Total Protein (6.6-8.7) g/dL Albumin (3.5-5.2) g/dL Globulin (1.3-4.6) g/dL Procalcitonin 0.17 (0-0.5) ng/mL TSH 3.74 (0.27-4.20) uIU/ mL Influenza Type A A g (Negative) Influenza Type B A g (Negative) SARS-CoV-2 Ag (Rap id) (Negative) 09/13/20 09/13/20 09/13/20 Range/Units 12:20 12:20 12:20 WBC (4.0-10.0) 10^3/ uL RBC (4.1-5.3) 10^6/u L Hgb (11.5-15.3) g/dL Hct (37.0-47.0) % MCV (81-99) fL MCH (28.0-34.0) pg MCHC (30.0-36.0) g/dL RDW (12.1-15.1) % Plt Count (130-400) 10^3/c mm MPV (7.4-10.4) fL Neut % (Auto) % Lymph % (Auto) % [place] % (Auto) % Eos % (Auto) % Baso % (Auto) % Neut # (Auto) (1.8-7.7) 10^3/u L Lymph # (Auto) (0.8-4.8) 10^3/u L [place] # (Auto) (0.2-0.9) 10^3/u L Eos # (Auto) (0.0-0.8) 10^3/u L Baso # (Auto) (0.0-0.1) 10^3/u L Nucleated RBC % (a uto) % Nucleated RBCs # /100WBC ESR (0-15) mm/hr PT (12.1-14.9) SECO NDS INR (0.8-1.2) APTT (23.9-36.7) SECO NDS D-Dimer (0-0.59) ug/mIFE U Specimen Type Sample Site ABG pH (7.35-7.45) ABG pCO2 (35-45) mmHg ABG pO2 (80.0-100.0) mmH g ABG HCO3 (22-26) mmol/L ABG O2 Saturation ABG Base Excess (-2.0-2.0) mmol/ L Clement Test A-a O2 Gradient (5-10) mmHg Hematocrit (37-47) % Hgb O2 Saturation (95-100) % Carboxyhemoglobin (0.4-20.1) %THgb Methemoglobin (0.4-1.5) % Total Hemoglobin (12-16) g/dL Ionized Calcium (1.1-1.4) mmol/L O2 Delivery Device O2 Liters/Min % FiO2 % Profiling Machine Setup Operator ID Sodium (136-145) mmol/L Potassium (3.5-5.1) mmol/L Chloride (98-107) mmol/L Carbon Dioxide (22-29) mmol/L Anion Gap (5-19) BUN (8-23) mg/dL Creatinine (0.5-0.9) mg/dL GFR Calculation Glucose (65-115) mg/dL Calculated Osmolal ity (285-295) mOsm/k g Lactate 0.9 (0.5-2.2) mmol/L Calcium (8.5-10.5) mg/dL Iron (37-145) ug/dL TIBC mcg/dl % Saturation (20-50) % Unsat Iron Binding (112-347) ug/dL Total Bilirubin (0.15-1.2) mg/dL AST (0-32) U/L ALT (0-33) U/L Alkaline Phosphata se (35-105) IU/L Troponin T Baselin e (0-10) ng/L Troponin T 120 Min elim ira (0-10) ng/L Delta Troponin T (0-10) ABS# C-Reactive Protein (0.0-4.9) mg/L NT-Pro-B Natriuret Pep (0-450) pg/mL Total Protein (6.6-8.7) g/dL Albumin (3.5-5.2) g/dL Globulin (1.3-4.6) g/dL Procalcitonin (0-0.5) ng/mL TSH (0.27-4.20) uIU/ mL Influenza Type A A g Negative (Negative) Influenza Type B A g Negative (Negative) SARS-CoV-2 Ag (Rap id) Positive H (Negative) 09/13/20 09/13/20 Range/Units 12:23 13:53 WBC (4.0-10.0) 10^3/ uL RBC (4.1-5.3) 10^6/u L Hgb (11.5-15.3) g/dL Hct (37.0-47.0) % MCV (81-99) fL MCH (28.0-34.0) pg MCHC (30.0-36.0) g/dL RDW (12.1-15.1) % Plt Count (130-400) 10^3/c mm MPV (7.4-10.4) fL Neut % (Auto) % Lymph % (Auto) % [place] % (Auto) % Eos % (Auto) % Baso % (Auto) % Neut # (Auto) (1.8-7.7) 10^3/u L Lymph # (Auto) (0.8-4.8) 10^3/u L [place] # (Auto) (0.2-0.9) 10^3/u L Eos # (Auto) (0.0-0.8) 10^3/u L Baso # (Auto) (0.0-0.1) 10^3/u L Nucleated RBC % (a uto) % Nucleated RBCs # /100WBC ESR (0-15) mm/hr PT (12.1-14.9) SECO NDS INR (0.8-1.2) APTT (23.9-36.7) SECO NDS D-Dimer (0-0.59) ug/mIFE U Specimen Type Arterial Sample Site Radial, right ABG pH 7.43 (7.35-7.45) ABG pCO2 34.4 L (35-45) mmHg ABG pO2 63.8 L (80.0-100.0) mmH g ABG HCO3 22.7 (22-26) mmol/L ABG O2 Saturation 94.7 ABG Base Excess -1.1 (-2.0-2.0) mmol/ L Clement Test Pos A-a O2 Gradient 21.3 H (5-10) mmHg Hematocrit 42.1 (37-47) % Hgb O2 Saturation 93.0 L (95-100) % Carboxyhemoglobin 1.2 (0.4-20.1) %THgb Methemoglobin 0.6 (0.4-1.5) % Total Hemoglobin 13.7 (12-16) g/dL Ionized Calcium 1.2 (1.1-1.4) mmol/L O2 Delivery Device Nc O2 Liters/Min 4.5 % FiO2 38.0 % Profiling Machine Setup Operator ID Monro Sodium 130.0 L (136-145) mmol/L Potassium 4.0 (3.5-5.1) mmol/L Chloride (98-107) mmol/L Carbon Dioxide (22-29) mmol/L Anion Gap (5-19) BUN (8-23) mg/dL Creatinine (0.5-0.9) mg/dL GFR Calculation Glucose 102.0 (65-115) mg/dL Calculated Osmolal ity (285-295) mOsm/k g Lactate (0.5-2.2) mmol/L Calcium (8.5-10.5) mg/dL Iron (37-145) ug/dL TIBC mcg/dl % Saturation (20-50) % Unsat Iron Binding (112-347) ug/dL Total Bilirubin (0.15-1.2) mg/dL AST (0-32) U/L ALT (0-33) U/L Alkaline Phosphata se (35-105) IU/L Troponin T Baselin e (0-10) ng/L Troponin T 120 Min elim ira 27.31 H (0-10) ng/L Delta Troponin T -1.69 L (0-10) ABS# C-Reactive Protein (0.0-4.9) mg/L NT-Pro-B Natriuret Pep (0-450) pg/mL Total Protein (6.6-8.7) g/dL Albumin (3.5-5.2) g/dL Globulin (1.3-4.6) g/dL Procalcitonin (0-0.5) ng/mL TSH (0.27-4.20) uIU/ mL Influenza Type A A g (Negative) Influenza Type B A g (Negative) SARS-CoV-2 Ag (Rap id) (Negative) Imaging Data^: CXR: Radiologist's impression: [address] [address] XRay Report Signed Patient: Brijesh Middleton Unit #: [id number] : [id number] Age/Sex: 80 / F ADM Date: 09/13/20 Loc: ER Room/Bed: Attending Dr: Ordering Provider/Ordering MD: Andra Arauz Date of Service: 09/13/20 Procedure(s): XR chest 1V portable [id number] Accession Number(s): [id number] Report Number: [id number] WS: [id number] XR chest 1V portable [id number] REASON FOR EXAM: syncope FINDINGS: The chest is unchanged compared to 06/23/2020. Moderate tortuosity and ectasia of the thoracic aorta. The heart is nonenlarged. Calcified granulomatous changes in both hemithoraces. Chronic interstitial changes in both lung bases. Symmetric apical pleural scarring. No active pulmonary parenchymal or pleural disease. Left shoulder reverse arthroplasty. XR/XR chest 1V portable [id number] IMPRESSION: No acute chest abnormality. Dictated By: Mahad Hussein Jr, MD Signed By: Mahad Hussein Jr, MD Signed Date/Time: 09/13/20 1245 DD/ 1242 EKG Data^: EKG 1: EKG Interpretation Date: 09/13/20 EKG interpretation time: 12:25 Other EKG Comments: Sinus rhythm, right bundle branch block, abnormal ECG, ventricular rate 67 Discharge Plan Discharge Prescriptions: No Action furosemide 40 mg tablet 40 mg PO DAILY Qty: 20 RF: 1 hydrochlorothiazide 12.5 mg tablet 12.5 mg PO QAM Qty: 90 RF: 2 losartan 50 mg tablet 50 mg PO QDAY 90 Days Qty: 90 RF: 3 potassium chloride 20 mEq tablet extended release 20 meq PO DAILY Qty: 30 RF: 1 acetaminophen [Tylenol 8 Hour] 650 mg Tablet Extended Release 650 mg PO Q8H PRN (Reason: Pain) RF: 0 albuterol sulfate 90 mcg/actuation HFA aerosol inhaler 1 puff INHALATION PRN PRN (Reason: Shortness Of Breath) RF: 0 fluticasone furoate 27.5 mcg/actuation Hines,Suspension 1 spray INTRANASAL PRN PRN (Reason: Nasal Congestion) RF: 0 tramadol 50 mg Tablet 50 mg PO Q4H PRN (Reason: Mild To Moderate Pain) Qty: 40 RF: 0 aspirin 325 mg Tablet,Delayed Release (Dr/Ec) 325 mg PO DAILY Qty: 30 RF: 0 One-A-Day 50 Plus Tablet 1 tab PO DAILY RF: 0 Vitamin D3 1 tab PO DAILY RF: 0 Coding Level of Care Code ED Supervisor Color Making for Chg Fwd Exam Comprehensive Documented by User: Alia Rogers MD 09/13/20 16:37 HPI - SOB/Dyspnea General: Chief Complaint: Shortness of Breath/Dyspnea Stated Complaint: SHORT OF BREATH Time Seen by Provider: 09/13/20 12:08 PFSH ED PFSH: Medical History (Updated 09/13/20 @ 15:17 by Quirino Decker MD) Asthma Atrial fibrillation Chronic cystitis COPD (chronic obstructive pulmonary disease) Dyslipidemia History of deviated nasal septum Hypertension Incomplete bladder emptying Osteoarthritis of right hip Vaginal prolapse Surgical History (Updated 09/13/20 @ 15:08 by Quirino Decker MD) H/O shoulder replacement left H/O: hysterectomy History of appendectomy History of hip replacement Hx of bilateral cataract extraction Hx of foot surgery BUNIONS EXCISED BILATERAL FEET Family History Brother Diabetes Cancer Son Diabetes Father , AT AGE 75 Lung disease Mother , AT AGE 37 Complications specific to or after delivery Social History Smoking and tobacco status: former smoker Alcohol intake: current Alcohol intake frequency: holidays/special occasions only Household members: spouse Marital status: Current occupational status: retired History of recent travel: No Course ED course: I assumed care of this patient from Andra Bonilla NP. It is clear that she is going to need to be admitted. She is tachypneic and was hypoxic on arrival however she is now satting 95% on 5 L nasal cannula. Chest x-ray is fairly unremarkable. Her labs are most significant for a slightly elevated D-dimer at 1.07 and a CRP of 59. Her Covid test was positive. ABG showed a pH of 7.43, PaCO2 at 34, PaO2 63, bicarb 23 with a base excess of -1. She looks quite dry clinically. She and her are both here in the hospital with Covid. They are both going to be admitted. She will be getting Decadron and remdesivir as well as a dose of Lovenox. Vital Signs: Vital signs: Vital Signs Temperature 98.1 F 09/13/20 12:07 Pulse Rate 65 09/13/20 15:17 Respiratory Rate 22 H 09/13/20 15:17 Blood Pressure 109/65 09/13/20 15:17 Pulse Oximetry 92 09/13/20 15:17 MDM - SOB/Dyspnea Lab Data: Labs: Lab Results 09/13/20 09/13/20 09/13/20 Range/Units 11:24 11:24 11:24 WBC 6.4 (4.0-10.0) 10^3/ uL RBC 4.43 (4.1-5.3) 10^6/u L Hgb 13.7 (11.5-15.3) g/dL Hct 41.7 (37.0-47.0) % MCV 94.1 (81-99) fL MCH 30.9 (28.0-34.0) pg MCHC 32.9 (30.0-36.0) g/dL RDW 14.0 (12.1-15.1) % Plt Count 188 (130-400) 10^3/c mm MPV 11.4 H (7.4-10.4) fL Neut % (Auto) 52.9 % Lymph % (Auto) 27.1 % [place] % (Auto) 18.9 % Eos % (Auto) 0.6 % Baso % (Auto) 0.3 % Neut # (Auto) 3.39 (1.8-7.7) 10^3/u L Lymph # (Auto) 1.7 (0.8-4.8) 10^3/u L [place] # (Auto) 1.2 H (0.2-0.9) 10^3/u L Eos # (Auto) 0.0 (0.0-0.8) 10^3/u L Baso # (Auto) 0.0 (0.0-0.1) 10^3/u L Nucleated RBC % (a uto) 0 % Nucleated RBCs # 0.0 /100WBC ESR 24 H (0-15) mm/hr PT (12.1-14.9) SECO NDS INR (0.8-1.2) APTT (23.9-36.7) SECO NDS D-Dimer (0-0.59) ug/mIFE U Specimen Type Sample Site ABG pH (7.35-7.45) ABG pCO2 (35-45) mmHg ABG pO2 (80.0-100.0) mmH g ABG HCO3 (22-26) mmol/L ABG O2 Saturation ABG Base Excess (-2.0-2.0) mmol/ L Clement Test A-a O2 Gradient (5-10) mmHg Hematocrit (37-47) % Hgb O2 Saturation (95-100) % Carboxyhemoglobin (0.4-20.1) %THgb Methemoglobin (0.4-1.5) % Total Hemoglobin (12-16) g/dL Ionized Calcium (1.1-1.4) mmol/L O2 Delivery Device O2 Liters/Min % FiO2 % Profiling Machine Setup Operator ID Sodium 131 L (136-145) mmol/L Potassium 4.4 (3.5-5.1) mmol/L Chloride 95 L (98-107) mmol/L Carbon Dioxide 21 L (22-29) mmol/L Anion Gap 19.4 H (5-19) BUN 27 H (8-23) mg/dL Creatinine 1.4 H (0.5-0.9) mg/dL GFR Calculation Not Reportable Glucose 99 (65-115) mg/dL Calculated Osmolal ity 277 L (285-295) mOsm/k g Lactate (0.5-2.2) mmol/L Calcium 8.7 (8.5-10.5) mg/dL Iron (37-145) ug/dL TIBC mcg/dl % Saturation (20-50) % Unsat Iron Binding (112-347) ug/dL Total Bilirubin 0.3 (0.15-1.2) mg/dL AST 29 (0-32) U/L ALT 17 (0-33) U/L Alkaline Phosphata se 78 (35-105) IU/L Troponin T Baselin e (0-10) ng/L Troponin T 120 Min elim ira (0-10) ng/L Delta Troponin T (0-10) ABS# C-Reactive Protein 59.3 H (0.0-4.9) mg/L NT-Pro-B Natriuret Pep 607 H (0-450) pg/mL Total Protein 7.4 (6.6-8.7) g/dL Albumin 3.9 (3.5-5.2) g/dL Globulin 3.5 (1.3-4.6) g/dL Procalcitonin 0.16 (0-0.5) ng/mL TSH (0.27-4.20) uIU/ mL Influenza Type A A g (Negative) Influenza Type B A g (Negative) SARS-CoV-2 Ag (Rap id) (Negative) 09/13/20 09/13/20 09/13/20 Range/Units 11:24 11: 11:24 WBC (4.0-10.0) 10^3/ uL RBC (4.1-5.3) 10^6/u L Hgb (11.5-15.3) g/dL Hct (37.0-47.0) % MCV (81-99) fL MCH (28.0-34.0) pg MCHC (30.0-36.0) g/dL RDW (12.1-15.1) % Plt Count (130-400) 10^3/c mm MPV (7.4-10.4) fL Neut % (Auto) % Lymph % (Auto) % [place] % (Auto) % Eos % (Auto) % Baso % (Auto) % Neut # (Auto) (1.8-7.7) 10^3/u L Lymph # (Auto) (0.8-4.8) 10^3/u L [place] # (Auto) (0.2-0.9) 10^3/u L Eos # (Auto) (0.0-0.8) 10^3/u L Baso # (Auto) (0.0-0.1) 10^3/u L Nucleated RBC % (a uto) % Nucleated RBCs # /100WBC ESR (0-15) mm/hr PT 14.00 (12.1-14.9) SECO NDS INR 1.05 (0.8-1.2) APTT 36.7 (23.9-36.7) SECO NDS D-Dimer 1.07 H (0-0.59) ug/mIFE U Specimen Type Sample Site ABG pH (7.35-7.45) ABG pCO2 (35-45) mmHg ABG pO2 (80.0-100.0) mmH g ABG HCO3 (22-26) mmol/L ABG O2 Saturation ABG Base Excess (-2.0-2.0) mmol/ L Clement Test A-a O2 Gradient (5-10) mmHg Hematocrit (37-47) % Hgb O2 Saturation (95-100) % Carboxyhemoglobin (0.4-20.1) %THgb Methemoglobin (0.4-1.5) % Total Hemoglobin (12-16) g/dL Ionized Calcium (1.1-1.4) mmol/L O2 Delivery Device O2 Liters/Min % FiO2 % Profiling Machine Setup Operator ID Sodium (136-145) mmol/L Potassium (3.5-5.1) mmol/L Chloride (98-107) mmol/L Carbon Dioxide (22-29) mmol/L Anion Gap (5-19) BUN (8-23) mg/dL Creatinine (0.5-0.9) mg/dL GFR Calculation Glucose (65-115) mg/dL Calculated Osmolal ity (285-295) mOsm/k g Lactate (0.5-2.2) mmol/L Calcium (8.5-10.5) mg/dL Iron 26 L (37-145) ug/dL TIBC 221 mcg/dl % Saturation 11.7 L (20-50) % Unsat Iron Binding 195 (112-347) ug/dL Total Bilirubin (0.15-1.2) mg/dL AST (0-32) U/L ALT (0-33) U/L Alkaline Phosphata se (35-105) IU/L Troponin T Baselin e 29 H (0-10) ng/L Troponin T 120 Min elim ira (0-10) ng/L Delta Troponin T (0-10) ABS# C-Reactive Protein (0.0-4.9) mg/L NT-Pro-B Natriuret Pep (0-450) pg/mL Total Protein (6.6-8.7) g/dL Albumin (3.5-5.2) g/dL Globulin (1.3-4.6) g/dL Procalcitonin 0.17 (0-0.5) ng/mL TSH 3.74 (0.27-4.20) uIU/ mL Influenza Type A A g (Negative) Influenza Type B A g (Negative) SARS-CoV-2 Ag (Rap id) (Negative) 09/13/20 09/13/20 09/13/20 Range/Units 12:20 12:20 12:20 WBC (4.0-10.0) 10^3/ uL RBC (4.1-5.3) 10^6/u L Hgb (11.5-15.3) g/dL Hct (37.0-47.0) % MCV (81-99) fL MCH (28.0-34.0) pg MCHC (30.0-36.0) g/dL RDW (12.1-15.1) % Plt Count (130-400) 10^3/c mm MPV (7.4-10.4) fL Neut % (Auto) % Lymph % (Auto) % [place] % (Auto) % Eos % (Auto) % Baso % (Auto) % Neut # (Auto) (1.8-7.7) 10^3/u L Lymph # (Auto) (0.8-4.8) 10^3/u L [place] # (Auto) (0.2-0.9) 10^3/u L Eos # (Auto) (0.0-0.8) 10^3/u L Baso # (Auto) (0.0-0.1) 10^3/u L Nucleated RBC % (a uto) % Nucleated RBCs # /100WBC ESR (0-15) mm/hr PT (12.1-14.9) SECO NDS INR (0.8-1.2) APTT (23.9-36.7) SECO NDS D-Dimer (0-0.59) ug/mIFE U Specimen Type Sample Site ABG pH (7.35-7.45) ABG pCO2 (35-45) mmHg ABG pO2 (80.0-100.0) mmH g ABG HCO3 (22-26) mmol/L ABG O2 Saturation ABG Base Excess (-2.0-2.0) mmol/ L Clement Test A-a O2 Gradient (5-10) mmHg Hematocrit (37-47) % Hgb O2 Saturation (95-100) % Carboxyhemoglobin (0.4-20.1) %THgb Methemoglobin (0.4-1.5) % Total Hemoglobin (12-16) g/dL Ionized Calcium (1.1-1.4) mmol/L O2 Delivery Device O2 Liters/Min % FiO2 % Profiling Machine Setup Operator ID Sodium (136-145) mmol/L Potassium (3.5-5.1) mmol/L Chloride (98-107) mmol/L Carbon Dioxide (22-29) mmol/L Anion Gap (5-19) BUN (8-23) mg/dL Creatinine (0.5-0.9) mg/dL GFR Calculation Glucose (65-115) mg/dL Calculated Osmolal ity (285-295) mOsm/k g Lactate 0.9 (0.5-2.2) mmol/L Calcium (8.5-10.5) mg/dL Iron (37-145) ug/dL TIBC mcg/dl % Saturation (20-50) % Unsat Iron Binding (112-347) ug/dL Total Bilirubin (0.15-1.2) mg/dL AST (0-32) U/L ALT (0-33) U/L Alkaline Phosphata se (35-105) IU/L Troponin T Baselin e (0-10) ng/L Troponin T 120 Min elim ira (0-10) ng/L Delta Troponin T (0-10) ABS# C-Reactive Protein (0.0-4.9) mg/L NT-Pro-B Natriuret Pep (0-450) pg/mL Total Protein (6.6-8.7) g/dL Albumin (3.5-5.2) g/dL Globulin (1.3-4.6) g/dL Procalcitonin (0-0.5) ng/mL TSH (0.27-4.20) uIU/ mL Influenza Type A A g Negative (Negative) Influenza Type B A g Negative (Negative) SARS-CoV-2 Ag (Rap id) Positive H (Negative) 09/13/20 09/13/20 Range/Units 12:23 13:53 WBC (4.0-10.0) 10^3/ uL RBC (4.1-5.3) 10^6/u L Hgb (11.5-15.3) g/dL Hct (37.0-47.0) % MCV (81-99) fL MCH (28.0-34.0) pg MCHC (30.0-36.0) g/dL RDW (12.1-15.1) % Plt Count (130-400) 10^3/c mm MPV (7.4-10.4) fL Neut % (Auto) % Lymph % (Auto) % [place] % (Auto) % Eos % (Auto) % Baso % (Auto) % Neut # (Auto) (1.8-7.7) 10^3/u L Lymph # (Auto) (0.8-4.8) 10^3/u L [place] # (Auto) (0.2-0.9) 10^3/u L Eos # (Auto) (0.0-0.8) 10^3/u L Baso # (Auto) (0.0-0.1) 10^3/u L Nucleated RBC % (a uto) % Nucleated RBCs # /100WBC ESR (0-15) mm/hr PT (12.1-14.9) SECO NDS INR (0.8-1.2) APTT (23.9-36.7) SECO NDS D-Dimer (0-0.59) ug/mIFE U Specimen Type Arterial Sample Site Radial, right ABG pH 7.43 (7.35-7.45) ABG pCO2 34.4 L (35-45) mmHg ABG pO2 63.8 L (80.0-100.0) mmH g ABG HCO3 22.7 (22-26) mmol/L ABG O2 Saturation 94.7 ABG Base Excess -1.1 (-2.0-2.0) mmol/ L Clement Test Pos A-a O2 Gradient 21.3 H (5-10) mmHg Hematocrit 42.1 (37-47) % Hgb O2 Saturation 93.0 L (95-100) % Carboxyhemoglobin 1.2 (0.4-20.1) %THgb Methemoglobin 0.6 (0.4-1.5) % Total Hemoglobin 13.7 (12-16) g/dL Ionized Calcium 1.2 (1.1-1.4) mmol/L O2 Delivery Device Nc O2 Liters/Min 4.5 % FiO2 38.0 % Profiling Machine Setup Operator ID Monro Sodium 130.0 L (136-145) mmol/L Potassium 4.0 (3.5-5.1) mmol/L Chloride (98-107) mmol/L Carbon Dioxide (22-29) mmol/L Anion Gap (5-19) BUN (8-23) mg/dL Creatinine (0.5-0.9) mg/dL GFR Calculation Glucose 102.0 (65-115) mg/dL Calculated Osmolal ity (285-295) mOsm/k g Lactate (0.5-2.2) mmol/L Calcium (8.5-10.5) mg/dL Iron (37-145) ug/dL TIBC mcg/dl % Saturation (20-50) % Unsat Iron Binding (112-347) ug/dL Total Bilirubin (0.15-1.2) mg/dL AST (0-32) U/L ALT (0-33) U/L Alkaline Phosphata se (35-105) IU/L Troponin T Baselin e (0-10) ng/L Troponin T 120 Min elim ira 27.31 H (0-10) ng/L Delta Troponin T -1.69 L (0-10) ABS# C-Reactive Protein (0.0-4.9) mg/L NT-Pro-B Natriuret Pep (0-450) pg/mL Total Protein (6.6-8.7) g/dL Albumin (3.5-5.2) g/dL Globulin (1.3-4.6) g/dL Procalcitonin (0-0.5) ng/mL TSH (0.27-4.20) uIU/ mL Influenza Type A A g (Negative) Influenza Type B A g (Negative) SARS-CoV-2 Ag (Rap id) (Negative) Discharge Plan Discharge Prescriptions: No Action furosemide 40 mg tablet 40 mg PO DAILY Qty: 20 RF: 1 hydrochlorothiazide 12.5 mg tablet 12.5 mg PO QAM Qty: 90 RF: 2 losartan 50 mg tablet 50 mg PO QDAY 90 Days Qty: 90 RF: 3 potassium chloride 20 mEq tablet extended release 20 meq PO DAILY Qty: 30 RF: 1 acetaminophen [Tylenol 8 Hour] 650 mg Tablet Extended Release 650 mg PO Q8H PRN (Reason: Pain) RF: 0 albuterol sulfate 90 mcg/actuation HFA aerosol inhaler 1 puff INHALATION PRN PRN (Reason: Shortness Of Breath) RF: 0 fluticasone furoate 27.5 mcg/actuation Hines,Suspension 1 spray INTRANASAL PRN PRN (Reason: Nasal Congestion) RF: 0 tramadol 50 mg Tablet 50 mg PO Q4H PRN (Reason: Mild To Moderate Pain) Qty: 40 RF: 0 aspirin 325 mg Tablet,Delayed Release (Dr/Ec) 325 mg PO DAILY Qty: 30 RF: 0 One-A-Day 50 Plus Tablet 1 tab PO DAILY RF: 0 Vitamin D3 1 tab PO DAILY RF: 0 Coding Level of Care Code ED Supervisor Color Making for Chg Fwd Exam Comprehensive
[2020-09-13 12:20] LABS: Basophils % 0.3 %; Eosinophils % 0.6 %; Hematocrit 41.7 % (37.0-47.0); Hemoglobin 13.7 g/dL (11.5-15.3); Lymphocytes # 1.7 10^3/uL (0.8-4.8); Lymphocytes % 27.1 %; Mean Corpuscular HGB Conc 32.9 g/dL (30.0-36.0); Mean Corpuscular Hemoglobin 30.9 pg (28.0-34.0); Mean Corpuscular Volume 94.1 fL (81-99); Mean Platelet Volume 11.4 fL (7.4-10.4); Monocytes # 1.2 10^3/uL (0.2-0.9); Monocytes % 18.9 %; Neutrophils # 3.39 10^3/uL (1.8-7.7); Neutrophils % 52.9 %; Nucleated Red Blood Cells % 0 %; Platelet Count 188 10^3/cmm (130-400); Red Blood Count 4.43 10^6/uL (4.1-5.3); White Blood Count 6.4 10^3/uL (4.0-10.0)
[2020-09-13 12:29] LABS: INR 1.05 (0.8-1.2)
[2020-09-13 12:30] LABS: Partial Thromboplastin Time 36.7 SECONDS (23.9-36.7)
[2020-09-13 12:32] LABS: D Dimer 1.07 ug/mIFEU (0-0.59)
[2020-09-13 12:37] LABS: ABG PCO2 34.4 mmHg (35-45); ABG PH Result 7.43 (7.35-7.45); Alveolar-Arterial Oxygen Gradi 21.3 mmHg (5-10); Arterial Blood Gas Hematocrit 42.1 % (37-47); Base Excess ABG -1.1 mmol/L (-2.0-2.0); Blood Gas Allen Test Pos; Blood Gas LPM 4.5 %; Blood Gas Operator Identificat MONRO; Blood Gas Sample Site Radial, right; Blood Gas Sample Type Arterial; Carboxyhemoglobin 1.2 %THgb (0.4-20.1); HCO3 ABG 22.7 mmol/L (22-26); Ionized Calcium Level - ABG 1.2 mmol/L (1.1-1.4); Methemoglobin 0.6 % (0.4-1.5); Oxygen Device NC; Oxygen Saturation ABG 94.7; PO2 ABG 63.8 mmHg (80.0-100.0); Total Hemoglobin 13.7 g/dL (12-16)
[2020-09-13 12:43] LABS: Troponin(5th) Baseline 29 ng/L (0-10)
[2020-09-13] MEDS: sodium chloride 0.9% 500 ML 999 ML IV (12:45)
[2020-09-13 12:49] LABS: Lactate (Lactic Acid level) 0.9 mmol/L (0.5-2.2)
[2020-09-13 12:54] LABS: NT Pro B Type Natriuretic Pept 607 pg/mL (0-450); Procalcitonin 0.16 ng/mL (0-0.5)
[2020-09-13 13:02] LABS: Influenza A by IFA Negative (Negative); Influenza B by IFA Negative (Negative); SARS Covid-2 Antigen Positive (Negative)
[2020-09-13 13:02] LABS: Alanine Aminotransferase 17 U/L (0-33); Albumin Level 3.9 g/dL (3.5-5.2); Alkaline Phosphatase 78 IU/L (35-105); Anion Gap 19.4 (5-19); Aspartate Amino Transferase 29 U/L (0-32); Blood Urea Nitrogen 27 mg/dL (8-23); C Reactive Protein 59.3 mg/L (0.0-4.9); Calcium 8.7 mg/dL (8.5-10.5); Carbon Dioxide 21 mmol/L (22-29); Chloride 95 mmol/L (98-107); Globulin 3.5 g/dL (1.3-4.6); Glucose 99 mg/dL (65-115); Osmolality Calculated 277 mOsm/kg (285-295); Potassium 4.4 mmol/L (3.5-5.1); Sodium 131 mmol/L (136-145); Total Bilirubin 0.3 mg/dL (0.15-1.2); Total Protein 7.4 g/dL (6.6-8.7)
--- NOTE | 2020-09-13 13:08 | CT_ITS ---
WS: [id number] CT CHEST ANGIOGRAPHY WITH REFORMATS HISTORY: COVID with elevated d-dimer TECHNIQUE: Contiguous axial images are obtained through the chest during arterial injection of intrav enous contrast. Images are reconstructed to evaluate the pulmonary arteries. MIP imaging also reviewe d. All CT scans at [facility] use at least one of these dose optimization techniques: aut omated exposure control; mA and/or kV adjustment per patient size (includes targeted exams where dose is matched to clinical indication); or iterative reconstruction. CONTRAST: Visipaque 320; 95 mL IV. DLP: 804.61 mGy.cm COMPARISON: 12/02/2018 Good opacification of the pulmonary arteries. No pulmonary embolism is identified. Normal size pulmon nahum artery. Atherosclerosis and mild ectasia thoracic aorta. Mild enlargement of the LEFT heart chamb ers. No pericardial or pleural effusions. Subsolid opacifications in the upper lobes along the pleural fissures and also in the periphery of th e lower lung culver. Changes are superimposed on chronic emphysema. 8mm nodule superior segment RIGHT lower lobe. Mildly prominent lymphoid tissue at the hilar regions with the largest lymph node measur ing 7 mm. Small hiatal hernia. Exophytic cyst upper pole RIGHT kidney at 2.5 cm. There is an additional loculat ed fluid collection extending posterior to the RIGHT lobe of the liver and along the RIGHT upper abdo men. May be an exophytic cyst from the liver. The cystic mass was not present on the prior studies an d measures 4.[address]/CT angio chest PE protcl [id number] IMPRESSION: 1. No pulmonary embolism. 2. Bilateral subsolid areas of opacification superimposed on chronic emphysema . 3. Mild enlargement of the LEFT heart chambers. 4. Lobulated cystic mass extends inferiorly from the RIGHT lobe of the liver. May be hepatic cysts. Not present on prior studies and of uncertain etiology.
[2020-09-13 13:28] LABS: Erythrocyte Sedimentation Rate 24 mm/hr (0-15)
[2020-09-13] MEDS: iodixanol 320 mg/mL 100mL Btl IV (13:35)
--- NOTE | 2020-09-13 14:10 | ECG_ITS ---
[facility] Test Date: 2020-09-13 Pat Name: Brijesh Middleton Department: Room: Gender: Female Egg Caser: : 1940 Requested By: Andra Sutton Order Number: [id number] Jacque MD: WILIAM SIBLEY Measurements Intervals Markle Rate: 64 P: 73 LA: 162 QRS: 19 QRSD: 134 T: 35 QT: 441 QTc: 458 Interpretive Statements SINUS RHYTHM RIGHT BUNDLE BRANCH BLOCK [120+ ms QRS DURATION, UPRIGHT V1, 40+ ms S IN I/aVL/V4/V5/V6] Compared to ECG 09/13/2020 12:24:57 No significant changes Electronically Signed On 09-15-2020 15:34:10 FIELDWORK COORDINATOR by WILIAM SIBLEY [id number]
[2020-09-13] MEDS: dexamethasone 4 mg/mL INJ 6 MG IVP (14:30)
[2020-09-13] MEDS: enoxaparin 100 mg/mL Syringe 90 MG SUBCUT (14:30)
[2020-09-13 14:32] LABS: Troponin 5 2HR 27.31 ng/L (0-10)
[2020-09-13 14:38] LABS: Troponin 5 2HR Delta -1.69 ABS# (0-10)
--- NOTE | 2020-09-13 15:05 | USCV_ITS ---
Brijesh Middleton Age: 80 Gender: F : 1940 Exam Date: 09/13/2020 15:23 Ordering Phys: Quirino Decker MD Technologist: Frieda Hopkins [place] [facility] [place]: [place] + SOB BP: / HR: 64 Rhythm: Sinus Technical Quality: suboptimal MEASUREMENTS (Male / Female) Normal Values 2D ECHO LV Diastolic Diameter PLAX 3.9 cm 4.2 - 5.9 / 3.9 - 5.3 cm LV Systolic Diameter PLAX 2.1 cm LV Chamber Size 4.2 cm IVS Diastolic Thickness 1.1 cm 0.6 - 1.0 / 0.6 - 0.9 cm IVS Systolic Thickness 1.1 cm LVPW Diastolic Thickness 1.1 cm 0.6 - 1.0 / 0.6 - 0.9 cm LVPW Systolic Thickness 1.4 cm RV Chamber Size 2.1 cm LVOT Diameter 2.1 cm LV Ejection Fraction 2D Teich 77.9 % LV Ejection Fraction MOD 2C 39.7 % LV Ejection Fraction 2C AL 42.9 % LA Diameter 3.4 cm LA Width 2.5 cm LA Height 3.4 cm RA Width 2.5 cm RA Height 2.6 cm Aorta at Sinotubular Diameter 3.0 cm M-MODE LV Diastolic Diameter MM 3.1 cm 4.2 - 5.9 / 3.9 - 5.3 cm LV Systolic Diameter MM 1.7 cm LV Ejection Fraction MM Teich 77.0 % IVS Diastolic Thickness MM 0.8 cm 0.6 - 1.0 / 0.6 - 0.9 cm IVS Systolic Thickness MM 1.2 cm LVPW Diastolic Thickness MM 1.3 cm 0.6 - 1.0 / 0.6 - 0.9 cm LVPW Systolic Thickness MM 1.6 cm RV Diastolic Diameter MM 0.9 cm Aortic Annulus Diameter 3.2 cm LA Ao Ratio MM 1.1 MV E Point Septal Separation 0.3 cm DOPPLER AV Peak Velocity 154.0 cm/s LVOT Peak Velocity 88.0 cm/s AV Area Cont Eq vti 2.2 cm squared AV Area Cont Eq pk 1.9 cm squared MV Area PHT 2.4 cm squared Mitral E to A Ratio 0.9 MV E' Velocity 34.5 cm/s Mitral E to MV E' Ratio 8.1 Mitral E to LV E' Lateral Ratio 7.6 Mitral E to LV E' Septal Ratio 8.8 TR Peak Velocity 252.3 cm/s TR Peak Gradient 25.5 mmHg TR Mean Velocity 176.9 cm/s TR Mean Gradient 14.7 mmHg TR Velocity Time Integral 82.2 cm TV Peak E Velocity 50.0 cm/s Right Atrial Pressure 3.0 mmHg Pulmonary Artery Systolic Pressu 28.5 mmHg PV Peak Velocity 56.0 cm/s RV Acceleration Time 0.1 s RV Ejection Time 0.4 s RV AcT/ET 0.4 FINDINGS Left Ventricle Normal left ventricular cavity size. Normal left ventricular systolic function. Left ventricular ejection fraction is estimated at 55 %. Right Ventricle The right ventricle is normal in size and function. Right Atrium The right atrium is normal in size. Left Atrium The left atrium is normal in size. Mitral Valve Moderately thickened mitral valve. Severe mitral annular calcification. Trace mitral valve regurgitation. Aortic Valve Aortic valve sclerosis without stenosis or regurgitation. Tricuspid Valve Mild tricuspid valve regurgitation. Pulmonic Valve Pulmonic valve not well visualized. Pericardium Normal pericardium without effusion. Aorta Normal ascending aorta dimension. CONCLUSIONS Technical very difficult study with suboptimal images therefore full detailed is not possible 1-Normal left ventricular cavity size. Normal left ventricular systolic function. Left ventricular ejection fraction is estimated at 55 %. 2-Moderately thickened mitral valve. Severe mitral annular calcification. Trace mitral valve regurgitation. 3-Mild tricuspid valve regurgitation. 4-There is no pericardial effusion. 5-Right atrial pressure is around 5 mm of mercury. 6-No significant change since the prior echocardiogram study of 12/07/2018. Gauri Alonzo MD (Electronically Signed) Final Date: 13 September 2020 22:24 S
--- NOTE | 2020-09-13 15:06 | PM.HP ---
Providers/Chief Complaint Primary Care Provider: Emery Ragland MD Chief Complaint: SHORT OF BREATH History of Present Illness Brijesh Middleton is a 80 year old female with past medical history of COPD, chronic smoker, hypertension who presents to the ER today with generalized myalgias, diarrhea, difficulty in breathing, cough, headache worsening for last 4 days. Patient states today she was not able to catch her breath so she presented to the ER. She denies any nausea, vomiting, abdominal pain, dizziness, palpitation, chest pain, known exposure to COVID-19. She was brought into the ER today by EMS. When EMS reached home she was saturating 88% on room air and required up to 5 L to keep oxygen supplementation at 94%. On my examination patient was lying comfortably in bed becomes tachypneic on having small conversations saturating 92% on 2 L nasal cannula with heart rate at 63 bpm and blood pressure of 120/60. She does not seem to be in acute distress. Blood work in the ER showed a white count of 6.4, hemoglobin of 13.7, ESR of 24, D-dimer of 1.07, ABG showing a PCO2 of 34, PO2 of 63 on 4.5 L nasal cannula, sodium of 131, creatinine of 1.4, BUN of 27, baseline troponin of 29, BNP of 607, procalcitonin of 0.16 and her rapid COVID-19 antigen was positive. CTA was done in the ER which showed no pulmonary embolism and bilateral subsolid areas of opacification superimposed with chronic emphysema with mild enlargement of left heart chambers. Review of Systems General: Reports: 10 or more systems reviewed and unremarkable except in HPI and below Const: Denies: fever(s), chills, body aches, change in appetite, change in weight, malaise, night sweats, diaphoresis, change in sleep pattern, daytime sleepiness or snoring Eyes: Denies: change in vision, blurry vision, photophobia, eye discomfort or eye discharge ENMT: Denies: throat pain, enlarged tonsils, hoarseness, mouth pain, oral sores, dry mouth, tinnitus, nasal congestion or post nasal drip Card: Denies: chest pain, palpitations, irregular heart rhythm, edema, swelling of feet/ankles, lightheadedness, syncope, pre-syncope, dyspnea on exertion, orthopnea, leg pain with exertion or acrocyanosis Resp: Denies: dyspnea, productive cough, non-productive cough, wheezing, stridor, pain on inspiration, change in phlegm color, hemoptysis or chest congestion GI: Denies: abdominal pain, nausea, vomiting, hematemesis, coffee ground emesis, dysphagia, heartburn, diarrhea, constipation, bloating, GI cramping, change in bowel habits, pain on defecation, hematochezia or melena : Denies: flank pain, dysuria, urinary frequency, urinary urgency, urinary hesitancy, nocturia or hematuria Musc: Denies: neck pain, back pain, extremity pain, joint pain, joint swelling, joint redness, joint stiffness or limited range of motion Neuro: Denies: headache(s), numbness in extremities, weakness in extremities, sensory changes, lack of coordination, difficulty walking, frequent falls, dizziness, vertigo, confusion, Slurred speech present, difficulty communicating thoughts or seizure-like activity Psych: Denies: anxiety, depression, mood swings, panic attacks, hopelessness or irritability Endo: Denies: polyuria, polydipsia, tired all the time, cold intolerance, excessive sweating, flushing or heat intolerance Joe/Lymph: Denies: easy bruising or easy bleeding All/Imm: Denies: tongue swelling, facial swelling or acute wheezing Medications/Allergies Home Medications Medication Instructions Recorded Confirmed Last Taken Type acetaminophen [Tylenol 8 Hour] 650 mg PO Q8H PRN 12/14/19 09/13/20 09/10/20 History albuterol sulfate 1 puff INHALATION PRN PRN 12/14/19 09/13/20 09/12/20 History fluticasone furoate 1 spray INTRANASAL PRN PRN 12/14/19 09/13/20 Unknown History aspirin 325 mg PO DAILY #30 tab 12/23/19 09/13/20 09/10/20 Rx tramadol 50 mg PO Q4H PRN #40 tab 12/23/19 09/13/20 Unknown Rx hydrochlorothiazide 12.5 mg tablet 12.5 mg PO QAM #90 tab 04/07/20 09/13/20 09/10/20 Rx losartan 50 mg tablet 50 mg PO QDAY 90 Days #90 tab 04/07/20 09/13/20 09/10/20 Rx furosemide 40 mg tablet 40 mg PO DAILY #20 tab 06/23/20 09/13/20 09/10/20 Rx potassium chloride 20 mEq 20 meq PO DAILY #30 tab 09/02/20 09/13/20 09/10/20 Rx tablet,extended release Vitamin D3 1 tab PO DAILY 09/13/20 09/13/20 09/10/20 History geriatric multivitamin-min 1 tab PO DAILY 09/13/20 09/13/20 09/10/20 History [One-A-Day 50 Plus] Allergies Allergy/AdvReac Type Severity Reaction Status Date / Time Opioids - Morphine Analogues Allergy Severe rash/difficulty Verified 09/01/20 07:44 breathing nickel Allergy Mild ALGY-Redness Verified 09/01/20 07:44 of Skin PFSH Acute PFSH: Medical History Atrial fibrillation Chronic cystitis COPD (chronic obstructive pulmonary disease) Dyslipidemia History of deviated nasal septum Hypertension Incomplete bladder emptying Osteoarthritis of right hip Surgical History H/O: hysterectomy History of appendectomy History of hip replacement Hx of bilateral cataract extraction Hx of foot surgery BUNIONS EXCISED BILATERAL FEET Family History Brother Diabetes Cancer Son Diabetes Father , AT AGE 75 Lung disease Mother , AT AGE 37 Complications specific to or after delivery Social History Smoking and tobacco status: former smoker Alcohol intake: current Alcohol intake frequency: holidays/special occasions only Household members: spouse Marital status: Current occupational status: retired History of recent travel: No Female Reproductive History: Date of last menstrual period: 10/21/79 Vitals/I&O/Wt Last Vital Signs Temp 98.1 F 09/13/20 12:07 Pulse 63 09/13/20 14:35 Resp 27 H 09/13/20 14:35 BP 119/68 09/13/20 14:35 Pulse Ox 92 09/13/20 14:35 09/13/20 09/13/20 09/13/20 06:59 14:59 22:59 Intake Total 600 / 600 Balance 600 / 600 Weight last 48 hrs Weight 89.358 kg Weight 89.358 kg Physical Exam Narrative: EXAM NARRATIVE: General: No acute distress, AO x3 HEENT: PERRLA, pupils bilaterally equal and reactive Chest: Normal vesicular breath sounds, diffuse ronchi present all over the lung culver, equal good air entry bilaterally CVS: S1-S2 regular, no murmurs, no tachycardia, no gallops, no rubs Abdomen: Soft, nontender, no organomegaly, bowel sounds present Neuro: No focal deficits, no facial deformity, AO x3, power 5/5 in all limbs Data : 09/13/20 11:24 09/13/20 11:24 A&P Assessment and plan (1) Hypoxia: Status: Acute (2) COVID-19: Status: Acute (3) COPD (chronic obstructive pulmonary disease): Status: Acute Qualifiers: COPD type: chronic bronchitis Chronic bronchitis type: simple Qualified Code(s): J41.0 - Simple chronic bronchitis (4) Diarrhea: Most likely secondary to viral prodrome. We will do stool studies before starting on Lomotil to rule out C. difficile. Status: Acute (5) ZULEMA (acute kidney injury): Status: Acute (6) Iron deficiency anemia due to chronic blood loss: Status: Acute (7) Dyslipidemia: Status: Acute (8) Hypertension: Status: Acute Qualifiers: Hypertension type: essential hypertension Qualified Code(s): I10 - Essential (primary) hypertension Additional A&P Information Hypoxia secondary to COVID-19 pneumonia on baseline COPD/asthma: Moderate disease. Oxygen supplementation keeping saturation over 90%. Antiviral treatment with remdesivir. We will finish a 5-day course. Dexamethasone 6 mg IV daily. Advair, Spiriva. Vitamin C, zinc, Tessalon Perles [id number]. Aggressive pulmonary toilet with incentive spirometry and flutter valve. CTA negative for pulmonary embolism but as patient is extremely tachypneic and COVID-19 positive will start patient on full dose Lovenox for now with 1 mg/kg body weight every 12 hourly. Chances of superimposed bacterial infection are low. Check procalcitonin, MRSA swab, urine Legionella, bacterial antigen, sputum culture, blood culture. For now start patient on azithromycin and ceftriaxone for community-acquired pneumonia. Will de-escalate antibiotics as per the culture results and clinical picture. Strict input output charting, daily weights. Hypertension: Goal blood pressure less than 140/90 millimeters G. At home patient is on hydrochlorothiazide and losartan. For now we will hold off on medications and continue to monitor blood pressures. ZULEMA: Most likely secondary to dehydration from diarrhea, COVID-19, losartan and hydrochlorothiazide at home. Medical reconciliation done for nephrotoxic drugs. IV hydration with normal saline at 50 cc/h. We will continue to trend BMP daily. Check HbA1c, iron panel, lipid panel, TSH. Continue other chronic medications like tramadol. CODE STATUS: Patient states in case she is not able to make her own decisions her will be the one making medical decisions for her. She says no to mechanical ventilation but is okay with chest compressions per ACLS protocols to give it a try. Cardiac diet. Insulin sliding scale at low-dose protocol as patient is on high-dose steroids. Full dose Lovenox. Attestations Medical Necessity Statement*: Admission for more than 2 midnights for hypoxia due to COVID-19 pneumonia. Time Spent in Patient Care: Greater than 35 minutes (>than 50% of time spent in counselling and/or direct pt care on unit). Coding Level of Care Code Acute Special Education Resource Teacher for [facility] Fwd Diagnoses Hypoxia R09.02 COVID-19 U07.1 COPD (chronic obstructive pulmonary disease) J41.0 COPD type: chronic bronchitis Chronic bronchitis type: simple Diarrhea R19.7 ZULEMA (acute kidney injury) N17.9 Iron deficiency anemia due to chronic blood loss D50.0 Dyslipidemia E78.5 Hypertension I10 Hypertension type: essential hypertension
[2020-09-13 15:39] LABS: Procalcitonin 0.17 ng/mL (0-0.5); Thyroid Stimulating Hormone 3.74 uIU/mL (0.27-4.20)
[2020-09-13 15:50] LABS: Iron 26 ug/dL (37-145); Percent Saturation 11.7 % (20-50); Total Iron Binding Capacity 221 mcg/dl; Unsaturated Iron Binding 195 ug/dL (112-347)
[2020-09-13] MEDS: cefTRIAXone 1,000 MG in sodium chloride 0.9% (plus) 50 ML 100 MG IV (17:29)
--- NOTE | 2020-09-13 17:30 | PC.NURSE ---
Pt resting quietly with eyes closed, appears to be asleep. Antibiotics infusing, no immediate needs identified, vss, will continue to monitor.
--- NOTE | 2020-09-13 18:10 | ECG_ITS ---
[facility] Test Date: 2020-09-13 Pat Name: Brijesh Middleton Department: Room: ICU19 Gender: Female Needle Loom Operator: : 1940 Requested By: Andra Sutton Order Number: [id number] Reading MD: WILIAM SIBLEY Measurements Intervals Wiley Rate: 63 P: 71 MO: 163 QRS: 27 QRSD: 138 T: 44 QT: 445 QTc: 458 Interpretive Statements SINUS RHYTHM RIGHT BUNDLE BRANCH BLOCK [120+ ms QRS DURATION, UPRIGHT V1, 40+ ms S IN I/aVL/V4/V5/V6] Compared to ECG 09/13/2020 14:29:56 No significant changes Electronically Signed On 09-15-2020 15:33:41 ASSOCIATE PROFESSOR OF ANTHROPOLOGY by WILIAM SIBLEY [id number]
[2020-09-13 18:55] LABS: Lactic Sepsis W/Reflex 0.7 mmol/L (0.5-2.2); Troponin 5 6HR 23.99 ng/L (0-10)
[2020-09-13 18:57] LABS: Troponin 5 6HR Delta -5.01 ng/L (0-12)
--- NOTE | 2020-09-13 19:38 | PC.NURSE ---
Received report from JADON Arambula
[2020-09-13] MEDS: ascorbic acid 500 mg Tablet 1000 MG PO (20:40)
[2020-09-13] MEDS: sodium chloride 0.9% 1,000 ML 50 ML IV (20:40)
[2020-09-13] MEDS: benzonatate 100 mg Capsule PO (20:41)
[2020-09-14] VITALS (122 sets, daily range): BP systolic 96–154; BP diastolic 57–107; PULSE 59–77; RESP 12–40; TEMP 36.4–36.7; O2SAT 81–96
[2020-09-14 04:57] LABS: Hematocrit 40.1 % (37.0-47.0); Lymphocytes # 0.9 10^3/uL (0.8-4.8); Lymphocytes % 30.1 %; Mean Corpuscular HGB Conc 32.4 g/dL (30.0-36.0); Mean Corpuscular Volume 95.5 fL (81-99); Mean Platelet Volume 11.3 fL (7.4-10.4); Monocytes # 0.5 10^3/uL (0.2-0.9); Monocytes % 17.4 %; Neutrophils # 1.47 10^3/uL (1.8-7.7); Neutrophils % 52.1 %; Nucleated Red Blood Cells % 0 %; Platelet Count 155 10^3/cmm (130-400); Red Cell Distribution Width 13.7 % (12.1-15.1); White Blood Count 2.8 10^3/uL (4.0-10.0)
[2020-09-14 05:17] LABS: INR 1.03 (0.8-1.2)
[2020-09-14 05:26] LABS: Alanine Aminotransferase 18 U/L (0-33); Albumin Level 3.5 g/dL (3.5-5.2); Alkaline Phosphatase 72 IU/L (35-105); Anion Gap 14.8 (5-19); Aspartate Amino Transferase 29 U/L (0-32); Blood Urea Nitrogen 26 mg/dL (8-23); Carbon Dioxide 24 mmol/L (22-29); Chloride 101 mmol/L (98-107); Globulin 3.4 g/dL (1.3-4.6); Glucose 168 mg/dL (65-115); Osmolality Calculated 289 mOsm/kg (285-295); Potassium 4.8 mmol/L (3.5-5.1); Sodium 135 mmol/L (136-145); Total Bilirubin 0.2 mg/dL (0.15-1.2); Total Protein 6.9 g/dL (6.6-8.7)
[2020-09-14 05:28] LABS: Fibrinogen 416 mg/dL (174-498)
[2020-09-14 05:31] LABS: D Dimer 0.76 ug/mIFEU (0-0.59)
[2020-09-14 05:39] LABS: C Reactive Protein 49.6 mg/L (0.0-4.9); Creatine Phosphokinase 190 U/L (26-192); Ferritin 416 ng/mL (15-150); Lactate Dehydrogenase 219 U/L (135-214); NT Pro B Type Natriuretic Pept 509 pg/mL (0-450)
[2020-09-14 05:59] LABS: Calcium 8.7 mg/dL (8.5-10.5)
--- NOTE | 2020-09-14 06:00 | XR_ITS ---
WS: [id number] XR chest 1V portable [id number] REASON FOR EXAM: covid FINDINGS: Compared to the previous days examination there are some patchy areas of consolidation in both lung b ases. Groundglass density along the major fissures of both lungs superimposed on cystic disease was noted o n the CT scan of the prior day is difficult to identify on the plain chest x-ray. There is an area in the right mid lung field which may represent the abnormality in the right lung and does appear to be more prominent than on the prior day. XR/XR chest 1V portable [id number] IMPRESSION: New patchy areas of density in both lower lungs and increased density in the ri ght midlung which may correlate with CT defined abnormalities as above.
[2020-09-14 07:35] LABS: Glucose Point of Care 118 mg/dL (70-110)
[2020-09-14] MEDS: azithromycin 500 MG in sodium chloride 0.9% 250 ML 250 MG IV (08:12)
[2020-09-14] MEDS: benzonatate 100 mg Capsule PO ×2 (08:12→20:01)
[2020-09-14] MEDS: ascorbic acid 500 mg Tablet 1000 MG PO ×2 (08:12→17:56)
[2020-09-14] MEDS: zinc gluconate 50 mg Tablet PO (08:12)
[2020-09-14] MEDS: dexamethasone 4 mg/mL INJ 6 MG IVP (08:12)
[2020-09-14] MEDS: enoxaparin 100 mg/mL Syringe 90 MG SUBCUT ×2 (08:13→20:02)
[2020-09-14 11:04] LABS: Glucose Point of Care 205 mg/dL (70-110)
--- NOTE | 2020-09-14 13:46 | PC.RESP ---
Pulmonary Rehab information sent to patient.
--- NOTE | 2020-09-14 15:19 | P.PN_ITS ---
Subjective Subjective: Interval history: No acute events overnight. Patient is on 3 L nasal cannula saturating more than 90%. He is comfortable but fairly tachypneic on minimal exertion and upon talking. Denies any nausea, vomiting, headache. Working well with incentive spirometry and Acapella. Appetite is fair. Vitals and labs noted. Vitals/I&O/Wt Last Vital Signs Temp 97.5 F L 09/14/20 15:16 Pulse 70 09/14/20 09:04 Resp 18 09/14/20 09:04 BP 96/74 09/14/20 08:00 Pulse Ox 92 09/14/20 09:04 09/14/20 09/14/20 09/14/20 06:59 14:59 22:59 Intake Total 0 / 750 240 / 240 Output Total 100 / 100 Balance -100 / 650 240 / 240 Weight last 48 hrs Weight 89.358 kg Weight 89.358 kg Physical Exam Narrative: EXAM NARRATIVE: General: No acute distress, AO x3 HEENT: PERRLA, pupils bilaterally equal and reactive Chest: Normal vesicular breath sounds, diffuse ronchi present all over the lung culver, equal good air entry bilaterally CVS: S1-S2 regular, no murmurs, no tachycardia, no gallops, no rubs Abdomen: Soft, nontender, no organomegaly, bowel sounds present Neuro: No focal deficits, no facial deformity, AO x3, power 5/5 in all limbs Data : 09/14/20 04:05 09/14/20 04:05 Micro: Microbiology 09/13/20 18:10 Blood Culture - Preliminary Blood SPECIMEN COLLECTED 09/13/20 16:05 Blood Culture - Preliminary Blood SPECIMEN COLLECTED A&P Assessment and plan (1) Hypoxia: Status: Acute (2) COVID-19: Status: Acute (3) COPD (chronic obstructive pulmonary disease): Status: Acute Qualifiers: COPD type: chronic bronchitis Chronic bronchitis type: simple Qualified Code(s): J41.0 - Simple chronic bronchitis (4) Diarrhea: Most likely secondary to viral prodrome. We will do stool studies before starting on Lomotil to rule out C. difficile. Status: Acute (5) ZULEMA (acute kidney injury): Status: Acute (6) Iron deficiency anemia due to chronic blood loss: Status: Acute (7) Dyslipidemia: Status: Acute (8) Hypertension: Status: Acute Qualifiers: Hypertension type: essential hypertension Qualified Code(s): I10 - Essential (primary) hypertension (9) Leukopenia: Most likely secondary to COVID-19 pneumonia. We will continue to monitor for neutropenia. Status: Acute Additional A&P Information Hypoxia secondary to COVID-19 pneumonia on baseline COPD/asthma: Moderate disease. Oxygen supplementation keeping saturation over 90%. Antiviral treatment with remdesivir. We will finish a 5-day course. Dexamethasone 6 mg IV daily. Advair, Spiriva. Vitamin C, zinc, Tessalon Perles [id number]. Aggressive pulmonary toilet with incentive spirometry and flutter valve. CTA negative for pulmonary embolism but as patient is extremely tachypneic and COVID-19 positive will start patient on full dose Lovenox for now with 1 mg/kg body weight every 12 hourly. If hemoglobin remains stable will transition over to Eliquis tomorrow. Chances of superimposed bacterial infection are low. Check procalcitonin, MRSA swab, urine Legionella, bacterial antigen, sputum culture, blood culture. For now start patient on azithromycin and ceftriaxone for community-acquired pneumonia. Will de-escalate antibiotics as per the culture results and clinical picture. Strict input output charting, daily weights. Hypertension: Goal blood pressure less than 140/90 mmhg. At home patient is on hydrochlorothiazide and losartan. For now we will hold off on medications and continue to monitor blood pressures. ZULEMA: Most likely secondary to dehydration from diarrhea, COVID-19, losartan and hydrochlorothiazide at home. Resolved today. Patient is euvolemic. Medical reconciliation done for nephrotoxic drugs. IV hydration with normal saline at 50 cc/h. We will continue to trend BMP daily. Continue other chronic medications like tramadol. CODE STATUS: Patient states in case she is not able to make her own decisions her will be the one making medical decisions for her. She says no to mechanical ventilation but is okay with chest compressions per ACLS protocols to give it a try. Cardiac diet. Insulin sliding scale at low-dose protocol as patient is on high-dose steroids. Full dose Lovenox. Plan for today: Continue to monitor inflammatory markers. Continue with aggressive pulmonary toilet, antibiotic treatment while trying to wean down oxygen keeping saturation over 90%. Continue with gentle IV hydration for r esolving ZULEMA. Continue to monitor blood pressures while holding off on antihypertensives. Attestations Medical Necessity Statement*: Patient requires further hospitalization for management of hypoxia secondary to COVID-19 pneumonia, ZULEMA, leukopenia Time Spent in Patient Care: Greater than 35 minutes (>than 50% of time spent in counselling and/or direct pt care on unit) . Coding Level of Care Code Acute Director Of Materials Management for [facility] Fwd Diagnoses Hypoxia R09.02 COVID-19 U07.1 COPD (chronic obstructive pulmonary disease) J41.0 COPD type: chronic bronchitis Chronic bronchitis type: simple Diarrhea R19.7 ZULEMA (acute kidney injury) N17.9 Iron deficiency anemia due to chronic blood loss D50.0 Dyslipidemia E78.5 Hypertension I10 Hypertension type: essential hypertension Leukopenia D72.819
[2020-09-14] MEDS: cefTRIAXone 1,000 MG in sodium chloride 0.9% (plus) 50 ML 100 MG IV (15:30)
[2020-09-14 15:53] LABS: Glucose Point of Care 209 mg/dL (70-110)
[2020-09-14] MEDS: ferrous gluconate 324 mg Tablet PO (17:56)
[2020-09-14 18:45] LABS: Add Urine Microscopic? NO
[2020-09-14 19:01] LABS: Glucose Urine UA Norm (Normal); Protein Urine Neg (Negative); Specific Gravity, Urine 1.015 (1.005-1.030); Urine Appearance Clear (CLEAR); Urine Color Yellow (Yellow); pH Urine 5 (5-7)
[2020-09-14 19:02] LABS: Bilirubin Urine Neg (Negative); Blood Urine Neg (Negative); Ketones Urine Negative (Negative); Leukocyte Esterase Urine Negative (Negative); Nitrate Urine Negative (Negative); Urobilinogen Urine Neg (Negative)
[2020-09-14 20:12] LABS: Glucose Point of Care 166 mg/dL (70-110)
[2020-09-14] MEDS: TRAMadol 50 mg Tablet PO (21:09)
[2020-09-15] VITALS (190 sets, daily range): BP systolic 115–160; BP diastolic 64–97; PULSE 55–189; RESP 13–46; TEMP 36.3–37.4; O2SAT 87–98
[2020-09-15 04:43] LABS: Hematocrit 38.2 % (37.0-47.0); Hemoglobin 12.6 g/dL (11.5-15.3); Lymphocytes % 16.2 %; Mean Corpuscular Hemoglobin 30.8 pg (28.0-34.0); Mean Corpuscular Volume 93.4 fL (81-99); Mean Platelet Volume 11.9 fL (7.4-10.4); Monocytes % 15.3 %; Neutrophils # 4.27 10^3/uL (1.8-7.7); Neutrophils % 67.9 %; Nucleated Red Blood Cells % 0 %; Platelet Count 174 10^3/cmm (130-400); Red Blood Count 4.09 10^6/uL (4.1-5.3); Red Cell Distribution Width 13.5 % (12.1-15.1); White Blood Count 6.3 10^3/uL (4.0-10.0)
[2020-09-15 05:09] LABS: Fibrinogen 362 mg/dL (174-498)
[2020-09-15 05:13] LABS: D Dimer 0.59 ug/mIFEU (0-0.59)
[2020-09-15 05:21] LABS: Alanine Aminotransferase 20 U/L (0-33); Albumin Level 3.4 g/dL (3.5-5.2); Alkaline Phosphatase 70 IU/L (35-105); Anion Gap 16.1 (5-19); Aspartate Amino Transferase 30 U/L (0-32); Blood Urea Nitrogen 24 mg/dL (8-23); Calcium 8.3 mg/dL (8.5-10.5); Carbon Dioxide 22 mmol/L (22-29); Chloride 103 mmol/L (98-107); Glucose 145 mg/dL (65-115); Osmolality Calculated 291 mOsm/kg (285-295); Potassium 4.1 mmol/L (3.5-5.1); Sodium 137 mmol/L (136-145); Total Bilirubin 0.2 mg/dL (0.15-1.2); Total Protein 6.4 g/dL (6.6-8.7)
[2020-09-15 05:29] LABS: C Reactive Protein 24.6 mg/L (0.0-4.9); Creatine Phosphokinase 138 U/L (26-192); Ferritin 436 ng/mL (15-150); Lactate Dehydrogenase 217 U/L (135-214); NT Pro B Type Natriuretic Pept 1029 pg/mL (0-450)
[2020-09-15] MEDS: ferrous gluconate 324 mg Tablet PO ×2 (09:43→15:00)
[2020-09-15] MEDS: TRAMadol 50 mg Tablet PO (09:44)
[2020-09-15] MEDS: zinc gluconate 50 mg Tablet PO (09:44)
[2020-09-15] MEDS: ascorbic acid 500 mg Tablet 1000 MG PO ×2 (09:44→15:00)
[2020-09-15] MEDS: dexamethasone 4 mg/mL INJ 6 MG IVP (09:45)
[2020-09-15] MEDS: azithromycin 500 MG in sodium chloride 0.9% 250 ML 250 MG IV (09:46)
[2020-09-15] MEDS: benzonatate 100 mg Capsule PO ×3 (09:52→20:56)
[2020-09-15] MEDS: enoxaparin 100 mg/mL Syringe 90 MG SUBCUT (09:52)
[2020-09-15 10:42] LABS: Glucose Point of Care 166 mg/dL (70-110)
[2020-09-15 11:41] LABS: Bilirubin Urine Neg (Negative); Blood Urine Neg (Negative); Glucose Urine UA Norm (Normal); Ketones Urine Negative (Negative); Leukocyte Esterase Urine Negative (Negative); Nitrate Urine Negative (Negative); Protein Urine Neg (Negative); Specific Gravity, Urine 1.005 (1.005-1.030); Urine Appearance Clear (CLEAR); Urine Color Straw (Yellow); Urobilinogen Urine Norm (Negative); pH Urine 6.5 (5-7)
[2020-09-15 11:42] LABS: Add Urine Culture? No; Bacteria Urine TRACE /hpf; WBC Urine 0-4 /hpf (0-5)
[2020-09-15] MEDS: FUROsemide 40 mg Tablet PO (13:06)
[2020-09-15] MEDS: amlodipine 5 mg Tablet PO (13:41)
[2020-09-15] MEDS: cefTRIAXone 1,000 MG in sodium chloride 0.9% (plus) 50 ML 100 MG IV (13:42)
[2020-09-15] MEDS: apixaban 5 mg Tablet PO (15:03)
--- NOTE | 2020-09-15 16:11 | P.PN_ITS ---
Subjective Subjective: Interval history: No acute events overnight. Patient lying comfortably in bed. Able to get up to the bathroom for bowel movements. Denies any nausea, vomiting, headache. States she is feeling better and more energetic. He was able to get her onto room air during the day today. Vitals and labs noted. States she is really worried about her who is also admitted to the hospital with COVID-19 pneumonia. Vitals/I&O/Wt Last Vital Signs Temp 98.8 F 09/15/20 10:36 Pulse 65 09/15/20 15:15 Resp 21 H 09/15/20 15:15 BP 129/71 09/15/20 15:15 Pulse Ox 89 L 09/15/20 15:15 09/15/20 09/15/20 09/15/20 06:59 14:59 22:59 Intake Total 0 / 1207 700 / 700 300 / 1000 Output Total 650 / 1550 700 / 700 781 / 1481 Balance -650 / -343 0 / 0 -481 / -481 Weight last 48 hrs Weight 88.632 kg Physical Exam Narrative: EXAM NARRATIVE: General: No acute distress, AO x3 HEENT: PERRLA, pupils bilaterally equal and reactive Chest: Normal vesicular breath sounds, diffuse ronchi present all over the lung culver, equal good air entry bilaterally CVS: S1-S2 regular, no murmurs, no tachycardia, no gallops, no rubs Abdomen: Soft, nontender, no organomegaly, bowel sounds present Neuro: No focal deficits, no facial deformity, AO x3, power 5/5 in all limbs Data : 09/15/20 03:22 09/15/20 03:22 Micro: Microbiology 09/15/20 09:00 Legionella Urinary Antigen - Final Urine,Clean Catch Bacterial Antigens - Final 09/13/20 18:10 Blood Culture - Preliminary Blood NEGATIVE TO DATE 09/13/20 16:05 Blood Culture - Preliminary Blood NEGATIVE TO DATE A&P Assessment and plan (1) Hypoxia: Status: Acute (2) COVID-19: Status: Acute (3) COPD (chronic obstructive pulmonary disease): Status: Acute Qualifiers: COPD type: chronic bronchitis Chronic bronchitis type: simple Qualified Code(s): J41.0 - Simple chronic bronchitis (4) Diarrhea: Most likely secondary to viral prodrome. We will do stool studies before starting on Lomotil to rule out C. difficile. Status: Acute (5) ZULEMA (acute kidney injury): Status: Acute (6) Iron deficiency anemia due to chronic blood loss: Status: Acute (7) Dyslipidemia: Status: Acute (8) Hypertension: Status: Acute Qualifiers: Hypertension type: essential hypertension Qualified Code(s): I10 - Essential (primary) hypertension (9) Leukopenia: Most likely secondary to COVID-19 pneumonia. We will continue to monitor for neutropenia. Status: Acute Additional A&P Information Hypoxia secondary to COVID-19 pneumonia on baseline COPD/asthma: Moderate disease. Oxygen supplementation keeping saturation over 90%. Antiviral treatment with remdesivir. We will finish a 5-day course. Dexamethasone 6 mg IV daily. Advair, Spiriva. Vitamin C, zinc, Tessalon Perles [id number]. Aggressive pulmonary toilet with incentive spirometry and flutter valve. CTA negative for pulmonary embolism but as patient is extremely tachypneic and COVID-19 positive. Switch over from full dose Lovenox to Eliquis 5 mg twice daily. Most likely will require 2 weeks course. Chances of superimposed bacterial infection are low. Check procalcitonin, MRSA swab, urine Legionella, bacterial antigen, sputum culture, blood culture. For now start patient on azithromycin and ceftriaxone for community-acquired pneumonia. Will de-escalate antibiotics as per the culture results and clinical picture. Strict input output charting, daily weights. Hypertension: Goal blood pressure less than 140/90 mmhg. Blood pressures as well as elevated weight. We will start patient on amlodipine 5 mg daily but will hold off on hydrochlorothiazide and losartan because of resolving ZULEMA. Continue to monitor blood pressure daily. ZULEMA: Resolved. Most likely secondary to dehydration from diarrhea, COVID-19, losartan and hydrochlorothiazide at home. Medical reconciliation done for nephrotoxic drugs. Trend BMP daily. If creatinine remains stable can start him on home dose of Lasix orally tomorrow. Continue other chronic medications like tramadol. CODE STATUS: Patient states in case she is not able to make her own decisions her will be the one making medical decisions for her. She says no to mechanical ventilation but is okay with chest compressions per ACLS protocols to give it a try. Cardiac diet. Insulin sliding scale at low-dose protocol as patient is on high-dose steroids. Full dose Lovenox. Plan for today: Continue with remdesivir and aggressive pulmonary toilet. Continue with ambulation while monitoring oxygen status. Start on amlodipine for borderline elevated blood pressures today. Attestations Medical Necessity Statement*: Needs further hospitalization for management of hypoxia secondary to COVID-19 pneumonia. Time Spent in Patient Care: Greater than 35 minutes (>than 50% of time spent in counselling and/or direct pt care on unit) . 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
[2020-09-15 16:42] LABS: Glucose Point of Care 163 mg/dL (70-110)
--- NOTE | 2020-09-15 18:12 | PC.NURSE ---
PATIENT GIVEN A CHAIR AND WAS UP ALL DAY IN IT FOR MEALS EXCEPT FOR A SHORT NAP AFTER LUNCH. SHE WAS IN A GOOD MOOD ALL SHIFT. SHE COMPLAINED OF DIZZINESS IN THE MORNING WHILE UP TO VOID BUT DENIED IT IN THE LATE AFTERNOON WHEN SHE WAS UP AGAIN. HER APPETITE NEEDS TO IMPROVE BUT ENJOYED A HALF A PIECE OF PIE WHEN I PUT WHIPPED CREAM ON IT.PATIENT IS ON ROOM AIR.
--- NOTE | 2020-09-15 19:00 | PC.NURSE ---
Report received, care assumed. Monitor alarms, plan of care et previous orders reviewed. Please see physical assessment et vital sign flow sheet for details.
[2020-09-15 21:02] LABS: Glucose Point of Care 216 mg/dL (70-110)
[2020-09-16] VITALS (27 sets, daily range): BP systolic 112–152; BP diastolic 66–94; PULSE 59–92; RESP 15–27; TEMP 36.4; O2SAT 86–97
--- NOTE | 2020-09-16 00:15 | PC.NURSE ---
Patient sleeping in bed. SpO2 88-89%. 2 liters nasal cannula applied. Updated patient on treatment plan. Will continue to monitor.
--- NOTE | 2020-09-16 00:30 | PC.NURSE ---
Patient's SpO2 improved after adding 2 L nasal cannula. Will continue to monitor.
[2020-09-16 04:33] LABS: Basophils % 0.2 %; Hematocrit 37.9 % (37.0-47.0); Hemoglobin 12.4 g/dL (11.5-15.3); Lymphocytes # 0.9 10^3/uL (0.8-4.8); Lymphocytes % 16.5 %; Mean Corpuscular HGB Conc 32.7 g/dL (30.0-36.0); Mean Corpuscular Hemoglobin 30.8 pg (28.0-34.0); Mean Platelet Volume 11.8 fL (7.4-10.4); Monocytes # 0.4 10^3/uL (0.2-0.9); Monocytes % 8.2 %; Neutrophils # 3.99 10^3/uL (1.8-7.7); Neutrophils % 74.2 %; Nucleated Red Blood Cells % 0 %; Platelet Count 174 10^3/cmm (130-400); Red Blood Count 4.03 10^6/uL (4.1-5.3); Red Cell Distribution Width 13.9 % (12.1-15.1); White Blood Count 5.4 10^3/uL (4.0-10.0)
[2020-09-16 05:07] LABS: Alanine Aminotransferase 29 U/L (0-33); Albumin Level 3.3 g/dL (3.5-5.2); Alkaline Phosphatase 69 IU/L (35-105); Anion Gap 14.5 (5-19); Aspartate Amino Transferase 44 U/L (0-32); Blood Urea Nitrogen 24 mg/dL (8-23); C Reactive Protein 13.6 mg/L (0.0-4.9); Calcium 8.5 mg/dL (8.5-10.5); Carbon Dioxide 23 mmol/L (22-29); Chloride 105 mmol/L (98-107); Creatine Phosphokinase 109 U/L (26-192); Ferritin 384 ng/mL (15-150); Glucose 147 mg/dL (65-115); Lactate Dehydrogenase 240 U/L (135-214); NT Pro B Type Natriuretic Pept 1262 pg/mL (0-450); Osmolality Calculated 293 mOsm/kg (285-295); Potassium 4.5 mmol/L (3.5-5.1); Sodium 138 mmol/L (136-145); Total Bilirubin 0.2 mg/dL (0.15-1.2); Total Protein 6.3 g/dL (6.6-8.7)
[2020-09-16 05:09] LABS: Fibrinogen 337 mg/dL (174-498)
[2020-09-16 05:10] LABS: D Dimer 0.52 ug/mIFEU (0-0.59)
--- NOTE | 2020-09-16 06:00 | XR_ITS ---
WS: [id number] PORTABLE CHEST HISTORY: covid COMPARISON: 09/14/2020 Mild pulmonary hyperexpansion with slight elevation of the RIGHT hemidiaphragm. Linear atelectasis at the lingula is stable. Interstitial thickening is minimal and unchanged. No pneumonia. No pleural ef fusion or pneumothorax. Cardiac size: Normal. Mediastinum/Aorta: Mild atherosclerosis aorta. Prior LEFT shoulder replacement. XR/XR chest 1V portable [id number] IMPRESSION: Chronic emphysema with interstitial thickening, no progression.
[2020-09-16 06:34] LABS: Estmated Average Glucose 120; Hemoglobin A1C 5.8 % (4.0-6.0)
[2020-09-16 08:12] LABS: Glucose Point of Care 121 mg/dL (70-110)
[2020-09-16] MEDS: azithromycin 500 MG in sodium chloride 0.9% 250 ML 250 MG IV (08:33)
[2020-09-16] MEDS: apixaban 5 mg Tablet PO ×2 (08:34→18:30)
[2020-09-16] MEDS: ascorbic acid 500 mg Tablet 1000 MG PO ×2 (08:34→18:31)
[2020-09-16] MEDS: zinc gluconate 50 mg Tablet PO (08:34)
[2020-09-16] MEDS: benzonatate 100 mg Capsule PO ×2 (08:34→15:56)
[2020-09-16] MEDS: ferrous gluconate 324 mg Tablet PO ×2 (08:34→18:31)
[2020-09-16] MEDS: amlodipine 5 mg Tablet PO (08:34)
[2020-09-16] MEDS: dexamethasone 4 mg/mL INJ 6 MG IVP (08:34)
[2020-09-16 11:43] LABS: Glucose Point of Care 141 mg/dL (70-110)
[2020-09-16] MEDS: FUROsemide 40 mg Tablet PO (11:48)
--- NOTE | 2020-09-16 12:58 | PC.SOCIAL ---
Pg 2 IMM Explained to pt via phone, Pg 2 IMM. No questions voiced. Signed, dated, & timed a copy to be scanned into chart.
[2020-09-16] MEDS: cefTRIAXone 1,000 MG in sodium chloride 0.9% (plus) 50 ML 100 MG IV (15:56)
--- NOTE | 2020-09-16 16:27 | PM.PN ---
Subjective Subjective: Interval history: No acute events overnight. Patient and comfortably in bed. Working with incentive spirometry and Acapella. Trying to get up out of bed to the commode without any having difficulty. Continues to remain on room air to saturate more than 90%. Appetite is good. States she is really worried about her who is also admitted to the hospital with COVID-19 pneumonia. Vitals/I&O/Wt Last Vital Signs Temp 97.6 F 09/16/20 08:00 Pulse 92 09/16/20 12:01 Resp 18 09/16/20 12:01 BP 152/86 09/16/20 12:01 Pulse Ox 94 09/16/20 12:01 09/16/20 09/16/20 09/16/20 06:59 14:59 22:59 Intake Total 1150 / 1150 Output Total 600 / 4131 Balance -600 / -2581 1150 / 1150 Weight last 48 hrs Weight 86.5 kg Weight 88.632 kg Physical Exam Narrative: EXAM NARRATIVE: General: No acute distress, AO x3 HEENT: PERRLA, pupils bilaterally equal and reactive Chest: Normal vesicular breath sounds, diffuse ronchi present all over the lung culver, equal good air entry bilaterally CVS: S1-S2 regular, no murmurs, no tachycardia, no gallops, no rubs Abdomen: Soft, nontender, no organomegaly, bowel sounds present Neuro: No focal deficits, no facial deformity, AO x3, power 5/5 in all limbs Data : 09/16/20 04:15 09/16/20 04:15 Micro: Microbiology 09/15/20 09:00 MRSA Culture - Final Nose 09/15/20 09:00 Urine Culture - Preliminary Urine,Clean Catch 09/15/20 09:00 Legionella Urinary Antigen - Final Urine,Clean Catch Bacterial Antigens - Final A&P Assessment and plan (1) Hypoxia: Status: Acute (2) COVID-19: Status: Acute (3) COPD (chronic obstructive pulmonary disease): Status: Acute Qualifiers: COPD type: chronic bronchitis Chronic bronchitis type: simple Qualified Code(s): J41.0 - Simple chronic bronchitis (4) Diarrhea: Most likely secondary to viral prodrome. We will do stool studies before starting on Lomotil to rule out C. difficile. Status: Acute (5) ZULEMA (acute kidney injury): Status: Acute (6) Iron deficiency anemia due to chronic blood loss: Status: Acute (7) Dyslipidemia: Status: Acute (8) Hypertension: Status: Acute Qualifiers: Hypertension type: essential hypertension Qualified Code(s): I10 - Essential (primary) hypertension (9) Leukopenia: Most likely secondary to COVID-19 pneumonia. We will continue to monitor for neutropenia. Status: Acute Additional A&P Information Hypoxia secondary to COVID-19 pneumonia on baseline COPD/asthma: Moderate disease. Oxygen supplementation keeping saturation over 90%. Antiviral treatment with remdesivir. We will finish a 5-day course. Dexamethasone 6 mg IV daily. Advair, Spiriva. Vitamin C, zinc, Tessalon Perles [id number]. Aggressive pulmonary toilet with incentive spirometry and flutter valve. CTA negative for pulmonary embolism but as patient is extremely tachypneic and COVID-19 positive. Switch over from full dose Lovenox to Eliquis 5 mg twice daily. Most likely will require 2 weeks course. Chances of superimposed bacterial infection are low. Check procalcitonin, MRSA swab, urine Legionella, bacterial antigen, sputum culture, blood culture. Stop azithromycin and ceftriaxone. Strict input output charting, daily weights. Hypertension: Goal blood pressure less than 140/90 mmhg. Blood pressures as well as elevated weight. Increase the dose of amlodipine to 10 mg daily. Continue holding home dose of URVASHI inhibitor. We will start patient on Lasix oral 40 mg daily. ZULEMA: Resolved. Most likely secondary to dehydration from diarrhea, COVID-19, losartan and hydrochlorothiazide at home. Medical reconciliation done for nephrotoxic drugs. Trend BMP daily. Lasix as above. Continue other chronic medications like tramadol. CODE STATUS: Patient states in case she is not able to make her own decisions her will be the one making medical decisions for her. She says no to mechanical ventilation but is okay with chest compressions per ACLS protocols to give it a try. Cardiac diet. Insulin sliding scale at low-dose protocol as patient is on high-dose steroids. Full dose Lovenox. Plan for today: Continue with remdesivir and aggressive pulmonary toilet. Continue with ambulation while monitoring oxygen status. Increased dose of amlodipine to maintain blood pressure less than 140/90 mmHg. Monitor for fever and hemodynamic stopping antibiotics. Attestations Medical Necessity Statement*: Requires further hospitalization for management of hypoxia because of COVID-19 pneumonia while she finished the course of remdesivir. Time Spent in Patient Care: Greater than 35 minutes (>than 50% of time spent in counselling and/or direct pt care on unit). 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
[2020-09-16 20:15] LABS: Glucose Point of Care 217 mg/dL (70-110)
[2020-09-16 20:28] LABS: Glucose Point of Care 174 mg/dL (70-110)
[2020-09-17] VITALS (28 sets, daily range): BP systolic 122–148; BP diastolic 68–102; PULSE 57–70; RESP 15–28; TEMP 36.4–36.9; O2SAT 90–98
[2020-09-17 07:26] LABS: Glucose Point of Care 108 mg/dL (70-110)
[2020-09-17] MEDS: ascorbic acid 500 mg Tablet 1000 MG PO ×2 (09:05→17:28)
[2020-09-17] MEDS: apixaban 5 mg Tablet PO ×2 (09:05→17:28)
[2020-09-17] MEDS: zinc gluconate 50 mg Tablet PO (09:05)
[2020-09-17] MEDS: benzonatate 100 mg Capsule PO ×3 (09:05→21:26)
[2020-09-17] MEDS: amlodipine 10 mg Tablet PO (09:05)
[2020-09-17] MEDS: FUROsemide 40 mg Tablet PO (09:05)
[2020-09-17] MEDS: ferrous gluconate 324 mg Tablet PO ×2 (09:06→17:28)
[2020-09-17] MEDS: dexamethasone 4 mg/mL INJ 6 MG IVP (09:06)
[2020-09-17 11:47] LABS: Glucose Point of Care 124 mg/dL (70-110)
[2020-09-17 16:50] LABS: Glucose Point of Care 164 mg/dL (70-110)
--- NOTE | 2020-09-17 17:02 | P.PN_ITS ---
Subjective Subjective: Interval history: No acute events overnight. Patient and comfortably in bed. Working with incentive spirometry and Acapella. Trying to get up out of bed to the commode without any having difficulty. Continues to remain on room air to saturate more than 90%. Appetite is good. Vitals/I&O/Wt Last Vital Signs Temp 98.0 F 09/17/20 12:00 Pulse 70 09/17/20 11:01 Resp 19 H 09/17/20 12:00 BP 142/87 09/17/20 12:00 Pulse Ox 94 09/17/20 12:00 09/17/20 09/17/20 09/17/20 06:59 14:59 22:59 Intake Total 840 / 840 Output Total 800 / 1300 800 / 800 Balance -800 / 350 40 / 40 Weight last 48 hrs Weight 86.545 kg Weight 86.5 kg Physical Exam Narrative: EXAM NARRATIVE: General: No acute distress, AO x3 HEENT: PERRLA, pupils bilaterally equal and reactive Chest: Normal vesicular breath sounds, diffuse ronchi present all over the lung culver, equal good air entry bilaterally CVS: S1-S2 regular, no murmurs, no tachycardia, no gallops, no rubs Abdomen: Soft, nontender, no organomegaly, bowel sounds present Neuro: No focal deficits, no facial deformity, AO x3, power 5/5 in all limbs Data : 09/16/20 04:15 09/16/20 04:15 Micro: Microbiology 09/15/20 09:00 Urine Culture - Final Urine,Clean Catch A&P Assessment and plan (1) Hypoxia: Status: Acute (2) COVID-19: Status: Acute (3) COPD (chronic obstructive pulmonary disease): Status: Acute Qualifiers: COPD type: chronic bronchitis Chronic bronchitis type: simple Qualified Code(s): J41.0 - Simple chronic bronchitis (4) Diarrhea: Most likely secondary to viral prodrome. We will do stool studies before starting on Lomotil to rule out C. difficile. Status: Acute (5) ZULEMA (acute kidney injury): Status: Acute (6) Iron deficiency anemia due to chronic blood loss: Status: Acute (7) Dyslipidemia: Status: Acute (8) Hypertension: Status: Acute Qualifiers: Hypertension type: essential hypertension Qualified Code(s): I10 - Essential (primary) hypertension (9) Leukopenia: Most likely secondary to COVID-19 pneumonia. We will continue to monitor for neutropenia. Status: Acute Additional A&P Information Hypoxia secondary to COVID-19 pneumonia on baseline COPD/asthma: Moderate disease. Oxygen supplementation keeping saturation over 90%. Antiviral treatment with remdesivir. We will finish a 5-day course. Switch over to oral prednisone. Will require slow taper as an outpatient. Advair, Spiriva. Vitamin C, zinc, Tessalon Perles [id number]. Aggressive pulmonary toilet with incentive spirometry and flutter valve. CTA negative for pulmonary embolism but as patient is extremely tachypneic and COVID-19 positive. Switch over from full dose Lovenox to Eliquis 5 mg twice daily. Most likely will require 2 weeks course. Chances of superimposed bacterial infection are low. Check procalcitonin, MRSA swab, urine Legionella, bacterial antigen, sputum culture, blood culture. Continue holding antibiotics and monitor for fever and leukocytosis. Strict input output charting, daily weights. Hypertension: Goal blood pressure less than 140/90 mmhg. Blood pressures as well as elevated weight. Continue amlodipine 10 mg. Continue holding home dose of URVASHI inhibitor's. Continue home dose of Lasix. ZULEMA: Resolved. Most likely secondary to dehydration from diarrhea, COVID-19, losartan and hydrochlorothiazide at home. Medical reconciliation done for nephrotoxic drugs. Trend BMP daily. Lasix as above. Continue other chronic medications like tramadol. CODE STATUS: Patient states in case she is not able to make her own decisions her will be the one making medical decisions for her. She says no to mechanical ventilation but is okay with chest compressions per ACLS protocols to give it a try. Cardiac diet. Insulin sliding scale at low-dose protocol as patient is on high-dose steroids. Full dose Lovenox. Plan for today: Continue with remdesivir and aggressive pulmonary toilet. Continue with ambulation while monitoring oxygen status in preparation for discharge tomorrow after finishing of remdesivir course. Continue with amlodipine and monitoring blood pressures. Attestations Medical Necessity Statement*: Requires further hospitalization for completion of remdesivir course for treatment of hypoxia because of COVID-19 pneumonia Time Spent in Patient Care: Greater than 35 minutes (>than 50% of time spent in counselling and/or direct pt care on unit) . 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
[2020-09-17 21:02] LABS: Glucose Point of Care 169 mg/dL (70-110)
[2020-09-18] VITALS (14 sets, daily range): BP systolic 108–136; BP diastolic 65–84; PULSE 58–70; RESP 13–20; TEMP 35.8–36.6; O2SAT 90–96
--- NOTE | 2020-09-18 04:31 | PC.NURSE ---
Urine Output: pt stated she had been up to the bathroom 3 times, but had emptied her own hat since they haven't been measuring it the last few times. pt could not recall exactly how much she had emptied out.
[2020-09-18 04:41] LABS: Basophils % 0.2 %; Hematocrit 39.6 % (37.0-47.0); Hemoglobin 13.2 g/dL (11.5-15.3); Lymphocytes # 1.5 10^3/uL (0.8-4.8); Mean Corpuscular HGB Conc 33.3 g/dL (30.0-36.0); Mean Corpuscular Hemoglobin 30.6 pg (28.0-34.0); Mean Corpuscular Volume 91.9 fL (81-99); Mean Platelet Volume 11.7 fL (7.4-10.4); Monocytes # 0.6 10^3/uL (0.2-0.9); Monocytes % 6.9 %; Neutrophils # 6.81 10^3/uL (1.8-7.7); Neutrophils % 75.1 %; Nucleated Red Blood Cells % 0 %; Platelet Count 207 10^3/cmm (130-400); Red Blood Count 4.31 10^6/uL (4.1-5.3); Red Cell Distribution Width 13.9 % (12.1-15.1); White Blood Count 9.1 10^3/uL (4.0-10.0)
[2020-09-18 05:18] LABS: Alanine Aminotransferase 62 U/L (0-33); Albumin Level 3.5 g/dL (3.5-5.2); Alkaline Phosphatase 66 IU/L (35-105); Anion Gap 15.2 (5-19); Aspartate Amino Transferase 46 U/L (0-32); Blood Urea Nitrogen 24 mg/dL (8-23); C Reactive Protein 6.2 mg/L (0.0-4.9); Calcium 8.9 mg/dL (8.5-10.5); Carbon Dioxide 22 mmol/L (22-29); Chloride 102 mmol/L (98-107); Creatine Phosphokinase 52 U/L (26-192); Ferritin 411 ng/mL (15-150); Glucose 147 mg/dL (65-115); Lactate Dehydrogenase 244 U/L (135-214); NT Pro B Type Natriuretic Pept 1355 pg/mL (0-450); Osmolality Calculated 287 mOsm/kg (285-295); Potassium 4.2 mmol/L (3.5-5.1); Sodium 135 mmol/L (136-145); Total Bilirubin 0.3 mg/dL (0.15-1.2); Total Protein 6.5 g/dL (6.6-8.7)
[2020-09-18 05:19] LABS: Fibrinogen 313 mg/dL (174-498)
[2020-09-18 05:21] LABS: D Dimer 0.62 ug/mIFEU (0-0.59)
--- NOTE | 2020-09-18 06:00 | XRR_ITS ---
PROCEDURE INFORMATION: Exam: XR Chest, 1 View Exam date and time: 09/17/2020 11:59 PM Age: 80 years old Clinical indication: Dyspnea; Additional info: Covid TECHNIQUE: Imaging protocol: XR of the chest Views: 1 view. COMPARISON: CR XR chest 1V portable [id number] 09/16/2020 4:40 AM FINDINGS: Lungs: Continued prominent lung volumes. Continued slight atelectasis in both lung bases. Still no consolidation. Pleural space: Still no apparent pneumothorax or pleural fluid. Heart/Mediastinum: Stable cardiomegaly. Vasculature: Continued aortic elongation. Continued probable arterial calcification over the left lung apex. Bones/joints: Continued intact alignment of the left glenohumeral prosthesis. No visible acute bony disease. XR/XR chest 1V portable [id number] IMPRESSION: No significant change. Emphysema still likely. Continued slight bibasilar atelectasis. Stable cardiomegaly. Other findings detailed above.
--- NOTE | 2020-09-18 07:57 | PC.NURSE ---
Blood sugar was checked this morning. level was 126. Glucometer would not download when docked. No insulin given
[2020-09-18] MEDS: FUROsemide 40 mg Tablet PO (09:25)
[2020-09-18] MEDS: ferrous gluconate 324 mg Tablet PO (09:25)
--- NOTE | 2020-09-18 09:25 | PC.SOCIAL ---
IMM Updated Updated pt on Pg 2 IMM, via phone. No questions voiced. Signed, dated, & timed copy for chart.
[2020-09-18] MEDS: benzonatate 100 mg Capsule PO (09:26)
[2020-09-18] MEDS: ascorbic acid 500 mg Tablet 1000 MG PO (09:26)
[2020-09-18] MEDS: dexamethasone 4 mg/mL INJ 6 MG IVP (09:26)
[2020-09-18] MEDS: apixaban 5 mg Tablet PO (09:26)
[2020-09-18] MEDS: zinc gluconate 50 mg Tablet PO (09:26)
[2020-09-18] MEDS: amlodipine 10 mg Tablet PO (09:26)
[2020-09-18 11:24] LABS: Glucose Point of Care 119 mg/dL (70-110)
--- NOTE | 2020-09-18 12:10 | PM.DCS ---
Discharge Providers Date of Admission: 09/13/20 14:25 Date of Discharge: September 18, 2020 Attending Provider at Admission: Quirino Decker MD Attending Provider at Discharge: Quirino Decker MD Primary Care Provider: Emery Ragland MD Diagnoses at Discharge Discharge Diagnosis (1) Hypoxia: Status: Acute (2) COVID-19: Status: Acute (3) COPD (chronic obstructive pulmonary disease): Status: Acute Qualifiers: COPD type: chronic bronchitis Chronic bronchitis type: simple Qualified Code(s): J41.0 - Simple chronic bronchitis (4) Diarrhea: Status: Acute (5) ZULEMA (acute kidney injury): Status: Acute (6) Iron deficiency anemia due to chronic blood loss: Status: Acute (7) Dyslipidemia: Status: Acute (8) Hypertension: Status: Acute Qualifiers: Hypertension type: essential hypertension Qualified Code(s): I10 - Essential (primary) hypertension (9) Leukopenia: Status: Acute Reason for Visit Reason for Visit: SHORT OF BREATH Hospital Course Hospital Course Brijesh Middleton is a 80 year old female with past medical history of COPD, chronic smoker, hypertension who presents to the ER today with generalized myalgias, diarrhea, difficulty in breathing, cough, headache worsening for last 4 days. Patient states today she was not able to catch her breath so she presented to the ER. She denies any nausea, vomiting, abdominal pain, dizziness, palpitation, chest pain, known exposure to COVID-19. She was brought into the ER today by EMS. When EMS reached home she was saturating 88% on room air and required up to 5 L to keep oxygen supplementation at 94%. On my examination patient was lying comfortably in bed becomes tachypneic on having small conversations saturating 92% on 2 L nasal cannula with heart rate at 63 bpm and blood pressure of 120/60. She does not seem to be in acute distress. Blood work in the ER showed a white count of 6.4, hemoglobin of 13.7, ESR of 24, D-dimer of 1.07, ABG showing a PCO2 of 34, PO2 of 63 on 4.5 L nasal cannula, sodium of 131, creatinine of 1.4, BUN of 27, baseline troponin of 29, BNP of 607, procalcitonin of 0.16 and her rapid COVID-19 antigen was positive. CTA was done in the ER which showed no pulmonary embolism and bilateral subsolid areas of opacification superimposed with chronic emphysema with mild enlargement of left heart chambers. Patient and patient's was admitted together for hypoxia from COVID-19 pneumonia. Liver admitted in viral ICU. Patient was started on IV remdesivir, Decadron along with inhalation treatment for COVID-19 pneumonia. She was started on aggressive pulmonary toilet with incentive spirometry and Acapella. She responded well to the treatment and has been on room air for last 3 to 4 days. Her appetite has been good and she has been monitored for 24 hours post completion of antiviral treatment. She has been discharged in medically stable condition with advised to follow-up with a primary care provider in the next 1 to 3 days. Home O2 evaluation has been done. Anticoagulation with Eliquis for 2 weeks, in addition treatment with Advair next 2 weeks. She has been explained in detail danger signs. Physical Exam Narrative: EXAM NARRATIVE: General: No acute distress, AO x3 HEENT: PERRLA, pupils bilaterally equal and reactive Chest: Normal vesicular breath sounds, diffuse ronchi present all over the lung culver, equal good air entry bilaterally CVS: S1-S2 regular, no murmurs, no tachycardia, no gallops, no rubs Abdomen: Soft, nontender, no organomegaly, bowel sounds present Neuro: No focal deficits, no facial deformity, AO x3, power 5/5 in all limbs Discharge Data Data Completed and Pending: Completed Studies During Hospitalization Category Date Time Status CT angio chest PE protcl [id number] Urge nt Cat Scan 09/13/20 13:08 Completed XR chest 1V nuha ble 34124 Q48H Exams 09/14/20 06:00 Completed XR chest 1V nuha ble 50512 Q48H Exams 09/16/20 06:00 Completed XR chest 1V nuha ble 76209 Q48H Exams 09/18/20 06:00 Completed XR chest 1V nuha ble [id number] Stat Exams 09/13/20 12:09 Completed CV echo complete* [id number] Routine Ultrasound 09/13/20 15:05 Completed Pending at discharge Category Date Time Status Blood Culture Sta t Lab 09/13/20 18:10 Results C Reactive Protei n AM LABS Lab 09/19/20 04:00 Ordered C Reactive Protei n AM LABS Lab 09/20/20 04:00 Ordered Creatine Phosphok inase AM LABS Lab 09/19/20 04:00 Ordered Creatine Phosphok inase AM LABS Lab 09/20/20 04:00 Ordered D Dimer AM LABS Lab 09/19/20 04:00 Ordered D Dimer AM LABS Lab 09/20/20 04:00 Ordered Ferritin AM LABS Lab 09/19/20 04:00 Ordered Ferritin AM LABS Lab 09/20/20 04:00 Ordered Fibrinogen AM LAB S Lab 09/19/20 04:00 Ordered Fibrinogen AM LAB S Lab 09/20/20 04:00 Ordered Lactate Dehydroge nase AM LABS Lab 09/19/20 04:00 Ordered Lactate Dehydroge nase AM LABS Lab 09/20/20 04:00 Ordered NT Pro B Type Nusrat riuretic Pept AM L ABS Lab 09/19/20 04:00 Ordered NT Pro B Type Nusrat riuretic Pept AM L ABS Lab 09/20/20 04:00 Ordered Sputum Culture an d Gram Stain Stat Lab 09/13/20 15:05 Uncollected Labs from last 24 hours 09/18/20 09/18/20 09/18/20 11:19 04:08 04:08 WBC RBC Hgb Hct MCV MCH MCHC RDW Plt Count MPV Neut % (Auto) Lymph % (Auto) [place] % (Auto) Eos % (Auto) Baso % (Auto) Neut # (Auto) Lymph # (Auto) [place] # (Auto) Eos # (Auto) Baso # (Auto) Nucleated RBC % (a uto) Nucleated RBCs # Fibrinogen 313 D-Dimer 0.62 H Sodium 135 L Potassium 4.2 Chloride 102 Carbon Dioxide 22 Anion Gap 15.2 BUN 24 H Creatinine 0.9 GFR Calculation Not Reportable Glucose 147 H POC Glucose 119 Calculated Osmolal ity 287 Calcium 8.9 Ferritin 411 H Total Bilirubin 0.3 AST 46 H ALT 62 H Alkaline Phosphata se 66 Lactate Dehydrogen ase 244 H Creatine Kinase 52 C-Reactive Protein 6.2 H NT-Pro-B Natriuret Pep 1355 H Total Protein 6.5 L Albumin 3.5 Globulin 3.0 09/18/20 09/17/20 09/17/20 04:08 21:00 16:44 WBC 9.1 RBC 4.31 Hgb 13.2 Hct 39.6 MCV 91.9 MCH 30.6 MCHC 33.3 RDW 13.9 Plt Count 207 MPV 11.7 H Neut % (Auto) 75.1 Lymph % (Auto) 16.0 [place] % (Auto) 6.9 Eos % (Auto) 0.0 Baso % (Auto) 0.2 Neut # (Auto) 6.81 Lymph # (Auto) 1.5 [place] # (Auto) 0.6 Eos # (Auto) 0.0 Baso # (Auto) 0.0 Nucleated RBC % (a uto) 0 Nucleated RBCs # 0.0 Fibrinogen D-Dimer Sodium Potassium Chloride Carbon Dioxide Anion Gap BUN Creatinine GFR Calculation Glucose POC Glucose 169 164 Calculated Osmolal ity Calcium Ferritin Total Bilirubin AST ALT Alkaline Phosphata se Lactate Dehydrogen ase Creatine Kinase C-Reactive Protein NT-Pro-B Natriuret Pep Total Protein Albumin Globulin Vitals: Last Vital Signs Temp 96.5 F L 09/18/20 08:00 Pulse 66 09/18/20 09:13 Resp 18 09/18/20 09:13 BP 108/72 09/18/20 08:00 Pulse Ox 94 09/18/20 09:13 Discharge Plan Discharge Patient Disposition: Home Health Service Condition: Stable Prescriptions: New Advair Diskus 250-50 mcg/dose Blister With Device 1 puff inhalation BID.RESPIRATORY Qty: 28 RF: 0 Vitamin C 500 mg Tablet 1,000 mg PO BID Qty: 28 RF: 0 amlodipine 10 mg Tablet 10 mg PO DAILY Qty: 30 RF: 0 benzonatate 100 mg Capsule 100 mg PO TID PRN (Reason: cough) Qty: 10 RF: 0 zinc gluconate 50 mg Tablet 50 mg PO DAILY Qty: 30 RF: 0 Spiriva with HandiHaler 18 mcg Capsule, W/Inhalation Device 18 mcg inhalation DAILY.RESPIRATORY Qty: 30 RF: 0 ferrous gluconate 324 mg (37.5 mg iron) Tablet 324 mg PO BIDWM Qty: 60 RF: 0 Eliquis 5 mg Tablet 5 mg PO BID Qty: 30 RF: 0 Medrol ([place]) 4 mg tablets,dose pack See Rx Instructions .ROUTE .COMPLEX Qty: 21 RF: 0 Continued furosemide 40 mg tablet 40 mg PO DAILY Qty: 20 RF: 1 potassium chloride 20 mEq tablet extended release 20 meq PO DAILY Qty: 30 RF: 1 acetaminophen [Tylenol 8 Hour] 650 mg Tablet Extended Release 650 mg PO Q8H PRN (Reason: Pain) RF: 0 albuterol sulfate 90 mcg/actuation HFA aerosol inhaler 1 puff INHALATION PRN PRN (Reason: Shortness Of Breath) RF: 0 fluticasone furoate 27.5 mcg/actuation [place],Suspension 1 spray INTRANASAL PRN PRN (Reason: Nasal Congestion) RF: 0 tramadol 50 mg Tablet 50 mg PO Q4H PRN (Reason: Mild To Moderate Pain) Qty: 40 RF: 0 geriatric multivitamin-min Tablet 1 tab PO DAILY RF: 0 Vitamin D3 1 tab PO DAILY RF: 0 Held aspirin 325 mg Tablet,Delayed Release (Dr/Ec) 325 mg PO DAILY Qty: 30 RF: 0 Hold Instructions: Resume on 10/01/20. Discontinued hydrochlorothiazide 12.5 mg tablet 12.5 mg PO QAM Qty: 90 RF: 2 losartan 50 mg tablet 50 mg PO QDAY 90 Days Qty: 90 RF: 3 Discharge Orders: Discharge Order (Routine); Ordered 09/18/20 Ordered By: Quirino Decker Referrals: [facility] [Outside] Emery Ragland MD [Primary Care Provider] - 1-3 days Discharge Diet: Cardiac Discharge Activity: Resume usual activity Patient Instructions: Benzonatate (By mouth), Iron Supplements (By mouth), Zinc Sulfate (By mouth), Ascorbic Acid (Vitamin C) (By mouth), Methylprednisolone (By mouth), Amlodipine (By mouth), Fluticasone/Salmeterol (By breathing), Tiotropium (By breathing), Apixaban (By mouth) Activity Restrictions/Additional Instructions: Please see your primary care provider within next 1 to 3 days. Patient to make appointment with Dr Ragland. [phone] You will be on Eliquis for blood thinner for next 2 weeks, vitamin C and zinc for next 2 weeks, inhaler with Spiriva and Advair for next 2 weeks. Continue doing incentive spirometry and flutter valve. Aspirin has been stopped. You are on Eliquis. You can restart your aspirin after finishing your course of Eliquis. Your blood pressure medication has been changed. He will not be taking losartan and hydrochlorothiazide for next 2 weeks. Maintain a blood pressure diary and follow-up with a primary care provider. For now you are on amlodipine 10 mg daily. Repeat BMP in 1 week. Please monitor for fever, difficulty in breathing, hemoptysis or bleeding from your nose. If you have any of those please come to the ER. Discharge Attestations Time Spent in Discharge Care*: greater than 30 min Specific Discharge Activities: educating patient, educating and/or supporting family/caregiver, discussing with immigration case manager/social workers/dc planners, documenting/other paperwork and evaluating patient/reviewing data Status at Discharge: Cognitive status at discharge: cognitively intact, Behavioral status at discharge: cooperative, Functional status at discharge: independent ambulation Overall status at discharge: patient is back to baseline Quality Metrics Clinical Quality Measures During this hospital stay, did patient experience: None Coding Level of Care Code Acute Crane Assembler for Margauxg Fwd Diagnoses Hypoxia R09.02 COVID-19 U07.1 COPD (chronic obstructive pulmonary disease) J41.0 COPD type: chronic bronchitis Chronic bronchitis type: simple Diarrhea R19.7 ZULEMA (acute kidney injury) N17.9 Iron deficiency anemia due to chronic blood loss D50.0 Dyslipidemia E78.5 Hypertension I10 Hypertension type: essential hypertension Leukopenia D72.819
--- NOTE | 2020-09-18 14:41 | PC.NURSE ---
Patient is being discharged. Nurse reviewed discharge information (medications, activity, PCP followup). Nurse discontinued IV, patient was able to dress self. Nurse alerted scalehouse attendant to Covid 19 discharge.
--- NOTE | 2020-09-19 14:33 | PC.SOCIAL ---
Spoke with the patient on the phone about the discharge information they received spoke about signs and symptoms to watch for such as; blue lips or face, fever of 104 or higher, trouble breathing or catching breath, chest pain lasting longer than 5 minute, confusion or trouble waking up. We also spoke about ways to improve the immune system, these included; eating and drinking well, eating fruits and vegetables, lean meat, low fat dairy products, keeping up with immunizations such as flu/pneumonia/shingles shots, going to all appointments and follow ups, lessening and stress. We also spoke about ways to stop or prevent the spread of the COVID 19. These included; social distancing at all times, washing hands longer than 20 seconds with a good lather, sanitizing surfaces in home and in vehicle, masking up when possible and washing any cloth masks after use and allow them to dry completely before next use, sneezing or coughing into arm, restricting company or going out in public. We spoke a little about the benefits of plasma donation. Both this patient and her were inpatient at the same time due to complications of COVID. 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 I informed the [place] of the current situation and the Dr office for Dr. Ragland as well. They are all aware of the situation. The patient and has an appointment with Dr. Ragland on 09/26/2020 at 10:00 and home health will be in tomorrow morning. The patient has been informed of this.
== END 2020-09-18 15:15 | disposition home health service (06) | DRG 177 ==
LOC: ER 13:30 → ICU 16:46
PROVIDERS: Nurse Practitioner Family; Admitting Provider Student in an Organized Health Care Education/Training Program; Emergency Provider Emergency Medicine; PCP Family Medicine; Visit Provider Student in an Organized Health Care Education/Training Program
DX: U07.1 COVID-19 (principal); J12.89 Other viral pneumonia; N17.9 Acute kidney failure, unspecified; J44.0 Chronic obstructive pulmonary disease with (acute) lower respiratory infection; R19.7 Diarrhea, unspecified; E78.5 Hyperlipidemia, unspecified; I10 Essential (primary) hypertension; R09.02 Hypoxemia; D50.0 Iron deficiency anemia secondary to blood loss (chronic); Z79.82 Long term (current) use of aspirin; Z87.891 Personal history of nicotine dependence
CPT/HCPCS: 12345; 36415; 36416; 36600; 71045; 71275; 80051; 80053; 81001; 81003; 82330; 82550; 82728; 82805; 82962; 83036; 83540; 83550; 83605; 83615; 83880; 84145; 84443; 84484; 85025; 85378; 85384; 85610; 85651; 85730; 86140; 86403; 87040; 87086; 87426; 87449; 87641; 87804; 93005; 93306; 94640; 94664; 96372; 96375; 97161; 99282; J0131; J0456; J0696; J1100; J1650; J1815; J7030; J7040; J7050; Q9967

== ENCOUNTER 2020-09-24 00:41 | Inpatient (IN) | payer MEDICARE, OTHER, SELFPAY ==
[2020-09-24] VITALS (78 sets, daily range): BP systolic 92–127; BP diastolic 54–87; PULSE 61–180; RESP 9–35; TEMP 36.6–37.1; O2SAT 90–97; BMI 33.6
--- NOTE | 2020-09-24 00:54 | XRR_ITS ---
PROCEDURE INFORMATION: Exam: XR Chest, 1 View Exam date and time: 09/24/2020 2:53 AM Age: 80 years old Clinical indication: Shortness of breath; Prior surgery; Surgery type: Shoulder; Patient HX: Resp distress. SOB. Covid + TECHNIQUE: Imaging protocol: XR of the chest Views: 1 view. COMPARISON: CR (CHEST, ) 09/18/2020 4:49 AM FINDINGS: Lungs: Bilateral extensive heterogenous lung infiltrates are present showing worsening since previous examination. No consolidation. Pleural space: Unremarkable. No pleural effusion. No pneumothorax. Heart/Mediastinum: Unremarkable. No cardiomegaly. Bones/joints: Unremarkable. XR/XR chest 1V portable [id number] IMPRESSION: Bilateral worsening lung infiltrates are seen. Consistent with patient's known history of COVID-19 status.
--- NOTE | 2020-09-24 00:54 | ECG_ITS ---
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
[2020-09-24 01:07] LABS: ABG PCO2 27.8 mmHg (35-45); ABG PH Result 7.47 (7.35-7.45); Blood Gas Allen Test Pos; Blood Gas Sample Type Arterial; Carboxyhemoglobin 1.3 %THgb (0.4-20.1); HCO3 ABG 20.4 mmol/L (22-26); HGB O2 Sat 95.8 % (95-100); Methemoglobin < 0.0 % (0.4-1.5); PO2 ABG 69.7 mmHg (80.0-100.0); Total Hemoglobin 12.4 g/dL (12-16)
[2020-09-24 01:10] LABS: Blood Gas Operator Identificat HARKR; Blood Gas Sample Site Radial, right; Oxygen Device NC
[2020-09-24 01:33] LABS: Basophils % 0.1 %; Eosinophils % 0.1 %; Hematocrit 36.4 % (37.0-47.0); Hemoglobin 12.3 g/dL (11.5-15.3); Lymphocytes # 1.8 10^3/uL (0.8-4.8); Lymphocytes % 12.7 %; Mean Corpuscular HGB Conc 33.8 g/dL (30.0-36.0); Mean Corpuscular Hemoglobin 31.3 pg (28.0-34.0); Mean Corpuscular Volume 92.6 fL (81-99); Mean Platelet Volume 11.2 fL (7.4-10.4); Monocytes # 1.6 10^3/uL (0.2-0.9); Monocytes % 11.6 %; Neutrophils # 10.38 10^3/uL (1.8-7.7); Neutrophils % 74.9 %; Nucleated Red Blood Cells % 0 %; Platelet Count 252 10^3/cmm (130-400); Red Blood Count 3.93 10^6/uL (4.1-5.3); Red Cell Distribution Width 14.6 % (12.1-15.1); White Blood Count 13.8 10^3/uL (4.0-10.0)
--- NOTE | 2020-09-24 01:48 | W.ED.SOB ---
HPI - SOB/Dyspnea General: Chief Complaint: Shortness of Breath/Dyspnea Stated Complaint: respiratory distress Time Seen by Provider: 09/24/20 00:50 History of Present Illness: HPI Narrative: 80-year-old female recently discharged from the hospital 5 days ago after being admitted for COVID-19 pneumonia. She was hypoxic. She was treated with remdesivir and Decadron. She improved, and went home on room air. She notes that she has had some continued diarrhea. She began to get short of breath yesterday, which progressively worsened today, and she was quite short of breath and called an ambulance this evening. She has had no fever. She still coughing some. Associated symptoms: Reports nausea; Deny abdominal pain, chest pain, dizziness, fever(s), palpitations or vomiting Review of Systems Const: Denies: fever(s) or chills Eyes: Denies: change in vision ENMT: Denies: odynophagia, swelling of lips/tongue or sinus pain Card: Denies: chest pain, palpitations, irregular heart rhythm or edema Resp: Reports: dyspnea and non-productive cough; Denies: productive cough or wheezing GI: Reports: nausea; Denies: abdominal pain, vomiting, rectal pain, hematochezia or melena : Denies: dysuria or hematuria Musc: Denies: neck pain or back pain Skin/Breast: Denies: rash or erythema Neuro: Denies: headache(s), dizziness or vertigo Psych: Denies: anxiety [facility] ED PFSH: Medical History (Updated 09/24/20 @ 03:41 by Sam Villalpando DO) Asthma Atrial fibrillation Chronic cystitis COPD (chronic obstructive pulmonary disease) Dyslipidemia History of deviated nasal septum Hypertension Incomplete bladder emptying Osteoarthritis of right hip Pneumonia Vaginal prolapse Surgical History (Updated 09/13/20 @ 15:08 by Quirino Decker MD) H/O shoulder replacement left H/O: hysterectomy History of appendectomy History of hip replacement Hx of bilateral cataract extraction Hx of foot surgery BUNIONS EXCISED BILATERAL FEET Family History Brother Diabetes Cancer Son Diabetes Father , AT AGE 75 Lung disease Mother , AT AGE 37 Complications specific to or after delivery Social History Smoking and tobacco status: former smoker Alcohol intake: current Alcohol intake frequency: holidays/special occasions only Household members: spouse Marital status: Current occupational status: retired History of recent travel: No Female Reproductive History: Date of last menstrual period: 10/21/79 Physical Exam Const: GENERAL APPEARANCE: well developed and ill appearing ORIENTATION/CONSCIOUSNESS: Yes oriented to person, Yes oriented to place and Yes oriented to time HENMT: COMMON NORMALS: normocephalic, external ears normal and Normal external nose present HEAD & SCALP: normocephalic FACE & SINUS: normal facial exam NOSE: Normal external nose present and No nasal discharge present EXTERNAL EAR: Yes external ears normal Eye: COMMON NORMALS: Equal, round and reactive pupils present, EOMs intact bilaterally and conjunctivae normal EYELID: eyelids normal CONJUNCTIVA: Yes conjunctivae normal PUPIL: Yes Equal, round and reactive pupils present Neck/C-Spine: GENERAL: No tracheal deviation Chest: COMMONS NORMALS: normal inspection of the chest CHEST: No tenderness Resp: COMMON NORMALS: clear to auscultation bilaterally EFFORT & INSPECTION: Yes tachypneic, Yes respiratory distress, No retractions, Yes uses accessory muscles and No tracheal deviation AUSCULTATION: clear to auscultation bilaterally, no rhonchi, no wheezes and diminished lung sounds Cardio: COMMON NORMALS: regular rate and regular rhythm RATE: regular rate RHYTHM: regular rhythm HEART SOUNDS: no murmurs PERIPHERAL PULSES: radial pulses present GI: INSPECTION: No abdominal distension AUSCULTATION: No Hyperactive bowel sounds present and No Hypoactive bowel sounds present PALPATION: No Guarding due to palpation present (GI) and No Rigid due to palpation PERCUSSION: no dullness to percussion and no tympanic to percussion Neuro: SENSORIUM/ORIENTATION: Yes oriented to person, Yes oriented to place and Yes oriented to time Psych: COMMON NORMALS: mental status grossly normal Skin: COMMON NORMALS: no rashes or lesions noted GENERAL SKIN EXAM: no rashes or lesions noted Course ED course: 80-year-old Covid positive female. She presents with shortness of breath. She is found to be significantly hypoxic. She was placed on high flow heated nasal cannula, and has done quite well with this. Her respiratory rate is come down nicely to the low 20s. Her oxygen saturations are 92 to 94%. Her heart rate is 100 or less. Her white blood cell count is 13.8. Her bicarbonate level is 20. BUN 27 creatinine 1.3. Her chest x-ray is still pending. She is on oxygen, with high flow nasal cannula, she will be admitted for hypoxic respiratory failure Vital Signs: Vital signs: Vital Signs Temperature 98.8 F 09/24/20 00:42 Pulse Rate 96 09/24/20 02:16 Respiratory Rate 20 H 09/24/20 02:16 Blood Pressure 124/67 09/24/20 02:16 Pulse Oximetry 92 09/24/20 02:16 MDM - SOB/Dyspnea Lab Data: Labs: Lab Results 09/24/20 09/24/20 09/24/20 Range/Units 00:45 00:45 00:45 WBC 13.8 H (4.0-10.0) 10^3/ uL RBC 3.93 L (4.1-5.3) 10^6/u L Hgb 12.3 (11.5-15.3) g/dL Hct 36.4 L (37.0-47.0) % MCV 92.6 (81-99) fL MCH 31.3 (28.0-34.0) pg MCHC 33.8 (30.0-36.0) g/dL RDW 14.6 (12.1-15.1) % Plt Count 252 (130-400) 10^3/c mm MPV 11.2 H (7.4-10.4) fL Neut % (Auto) 74.9 % Lymph % (Auto) 12.7 % [place] % (Auto) 11.6 % Eos % (Auto) 0.1 % Baso % (Auto) 0.1 % Neut # (Auto) 10.38 H (1.8-7.7) 10^3/u L Lymph # (Auto) 1.8 (0.8-4.8) 10^3/u L [place] # (Auto) 1.6 H (0.2-0.9) 10^3/u L Eos # (Auto) 0.0 (0.0-0.8) 10^3/u L Baso # (Auto) 0.0 (0.0-0.1) 10^3/u L Nucleated RBC % (a uto) 0 % Nucleated RBCs # 0.0 /100WBC D-Dimer 0.80 H (0-0.59) ug/mIFE U Specimen Type Sample Site ABG pH (7.35-7.45) ABG pCO2 (35-45) mmHg ABG pO2 (80.0-100.0) mmH g ABG HCO3 (22-26) mmol/L ABG Base Excess (-2.0-2.0) mmol/ L Clement Test Hematocrit (37-47) % Hgb O2 Saturation (95-100) % Carboxyhemoglobin (0.4-20.1) %THgb Methemoglobin (0.4-1.5) % Total Hemoglobin (12-16) g/dL O2 Delivery Device O2 Liters/Min % Aircraft Engine Cylinder Mechanic ID Sodium 130 L (136-145) mmol/L Potassium 4.0 (3.5-5.1) mmol/L Chloride 99 (98-107) mmol/L Carbon Dioxide 20 L (22-29) mmol/L Anion Gap 15.0 (5-19) BUN 27 H (8-23) mg/dL Creatinine 1.3 H (0.5-0.9) mg/dL GFR Calculation Not Reportable Glucose 135 H (65-115) mg/dL Calculated Osmolal ity 277 L (285-295) mOsm/k g Lactic Acid (0.5-2.2) mmol/L Calcium 8.4 L (8.5-10.5) mg/dL Total Bilirubin 0.6 (0.15-1.2) mg/dL AST 27 (0-32) U/L ALT 21 (0-33) U/L Alkaline Phosphata se 61 (35-105) IU/L NT-Pro-B Natriuret Pep 1199 H (0-450) pg/mL Total Protein 6.3 L (6.6-8.7) g/dL Albumin 3.1 L (3.5-5.2) g/dL Globulin 3.2 (1.3-4.6) g/dL 09/24/20 09/24/20 Range/Units 00:45 01:00 WBC (4.0-10.0) 10^3/ uL RBC (4.1-5.3) 10^6/u L Hgb (11.5-15.3) g/dL Hct (37.0-47.0) % MCV (81-99) fL MCH (28.0-34.0) pg MCHC (30.0-36.0) g/dL RDW (12.1-15.1) % Plt Count (130-400) 10^3/c mm MPV (7.4-10.4) fL Neut % (Auto) % Lymph % (Auto) % [place] % (Auto) % Eos % (Auto) % Baso % (Auto) % Neut # (Auto) (1.8-7.7) 10^3/u L Lymph # (Auto) (0.8-4.8) 10^3/u L [place] # (Auto) (0.2-0.9) 10^3/u L Eos # (Auto) (0.0-0.8) 10^3/u L Baso # (Auto) (0.0-0.1) 10^3/u L Nucleated RBC % (a uto) % Nucleated RBCs # /100WBC D-Dimer (0-0.59) ug/mIFE U Specimen Type Arterial Sample Site Radial, right ABG pH 7.47 H (7.35-7.45) ABG pCO2 27.8 L (35-45) mmHg ABG pO2 69.7 L (80.0-100.0) mmH g ABG HCO3 20.4 L (22-26) mmol/L ABG Base Excess -2.0 (-2.0-2.0) mmol/ L Clement Test Pos Hematocrit 38.0 (37-47) % Hgb O2 Saturation 95.8 (95-100) % Carboxyhemoglobin 1.3 (0.4-20.1) %THgb Methemoglobin < 0.0 L (0.4-1.5) % Total Hemoglobin 12.4 (12-16) g/dL O2 Delivery Device Nc O2 Liters/Min 8.0 % Aircraft Engine Cylinder Mechanic ID Harkr Sodium (136-145) mmol/L Potassium (3.5-5.1) mmol/L Chloride (98-107) mmol/L Carbon Dioxide (22-29) mmol/L Anion Gap (5-19) BUN (8-23) mg/dL Creatinine (0.5-0.9) mg/dL GFR Calculation Glucose (65-115) mg/dL Calculated Osmolal ity (285-295) mOsm/k g Lactic Acid 1.8 (0.5-2.2) mmol/L Calcium (8.5-10.5) mg/dL Total Bilirubin (0.15-1.2) mg/dL AST (0-32) U/L ALT (0-33) U/L Alkaline Phosphata se (35-105) IU/L NT-Pro-B Natriuret Pep (0-450) pg/mL Total Protein (6.6-8.7) g/dL Albumin (3.5-5.2) g/dL Globulin (1.3-4.6) g/dL Discharge Plan Discharge Patient Disposition: Admitted As Inpatient Clinical Impression: Acute respiratory failure with hypoxemia, 2019 novel coronavirus–infected pneumonia (NCIP)#8211;infected pneumonia (NCIP) Condition: Stable Coding Level of Care Code ED Cashier Courtesy Booth for Zita Fwd Exam Comprehensive
[2020-09-24 01:57] LABS: Lactic Sepsis W/Reflex 1.8 mmol/L (0.5-2.2)
[2020-09-24 02:06] LABS: Alanine Aminotransferase 21 U/L (0-33); Albumin Level 3.1 g/dL (3.5-5.2); Alkaline Phosphatase 61 IU/L (35-105); Aspartate Amino Transferase 27 U/L (0-32); Blood Urea Nitrogen 27 mg/dL (8-23); Calcium 8.4 mg/dL (8.5-10.5); Carbon Dioxide 20 mmol/L (22-29); Chloride 99 mmol/L (98-107); Globulin 3.2 g/dL (1.3-4.6); Glucose 135 mg/dL (65-115); NT Pro B Type Natriuretic Pept 1199 pg/mL (0-450); Osmolality Calculated 277 mOsm/kg (285-295); Sodium 130 mmol/L (136-145); Total Bilirubin 0.6 mg/dL (0.15-1.2); Total Protein 6.3 g/dL (6.6-8.7)
--- NOTE | 2020-09-24 03:56 | P.HP_ITS ---
Providers/Chief Complaint Primary Care Provider: Emery Ragland MD Chief Complaint: respiratory distress History of Present Illness Brijesh Middleton is a 80 year old female with past medical history of COPD, chronic smoker, hypertension, a.fib, recent discharged after being managed for COVID 19 on 09/18/2020 came in today from home with c/o worsening SOB since yesterday upon arrival in the ER She is found to be significantly hypoxic. She was placed on high flow heated nasal cannula post that she has been able to maintain saturation above 90 %. ON ROS she is denying any chest pain,fever,nausea,vomiting,headache. ECA Course : Xray chest: Woresing B/L infiltrate. AB.47, pco2: 27, PO2: 69, Fio2: 40 % D-dimer : 0.80 Review of Systems Const: Denies: chills or body aches Card: Denies: edema or swelling of feet/ankles Resp: Denies: pain on inspiration GI: Denies: abdominal pain, nausea, vomiting, diarrhea or constipation : Denies: flank pain Musc: Denies: back pain, extremity pain or extremity swelling Neuro: Denies: headache(s), difficulty walking or confusion Medications/Allergies Home Medications Medication Instructions Recorded Confirmed Last Taken Type acetaminophen [Tylenol 8 Hour] 650 mg PO Q8H PRN 12/14/19 09/13/20 09/10/20 History albuterol sulfate 1 puff INHALATION PRN PRN 12/14/19 09/13/20 09/12/20 History fluticasone furoate 1 spray INTRANASAL PRN PRN 12/14/19 09/13/20 Unknown History aspirin 325 mg PO DAILY #30 tab 12/23/19 09/13/20 09/10/20 Rx tramadol 50 mg PO Q4H PRN #40 tab 12/23/19 09/13/20 Unknown Rx furosemide 40 mg tablet 40 mg PO DAILY #20 tab 06/23/20 09/13/20 09/10/20 Rx potassium chloride 20 mEq 20 meq PO DAILY #30 tab 09/02/20 09/13/20 09/10/20 Rx tablet,extended release Vitamin D3 1 tab PO DAILY 09/13/20 09/13/20 09/10/20 History geriatric multivitamin-min 1 tab PO DAILY 09/13/20 09/13/20 09/10/20 History amlodipine 10 mg PO DAILY #30 tab 09/17/20 Unknown Rx apixaban [Eliquis] 5 mg PO BID #30 tab 09/17/20 Unknown Rx ascorbic acid (vitamin C) [Vitamin 1,000 mg PO BID #28 tab 09/17/20 Unknown Rx C] benzonatate 100 mg PO TID PRN #10 cap 09/17/20 Unknown Rx ferrous gluconate 324 mg PO BIDWM #60 tab 09/17/20 Unknown Rx fluticasone propion-salmeterol 1 puff INHALATION BID.RESPIRATORY 09/17/20 Unknown Rx [Advair Diskus] #28 ea methylprednisolone [Medrol ([place])] See Rx Instructions .ROUTE 09/17/20 Unknown Rx .COMPLEX #21 ea tiotropium bromide [Spiriva with 18 mcg INHALATION 09/17/20 Unknown Rx HandiHaler] DAILY.RESPIRATORY #30 inh zinc gluconate 50 mg PO DAILY #30 tab 09/17/20 Unknown Rx Allergies Allergy/AdvReac Type Severity Reaction Status Date / Time Opioids - Morphine Analogues Allergy Severe rash/difficulty Verified 09/01/20 07:44 breathing nickel Allergy Mild ALGY-Redness Verified 09/01/20 07:44 of Skin PFSH Acute PFSH: Medical History Asthma Atrial fibrillation Chronic cystitis COPD (chronic obstructive pulmonary disease) Dyslipidemia History of deviated nasal septum Hypertension Incomplete bladder emptying Osteoarthritis of right hip Pneumonia Vaginal prolapse Surgical History H/O shoulder replacement left H/O: hysterectomy History of appendectomy History of hip replacement Hx of bilateral cataract extraction Hx of foot surgery BUNIONS EXCISED BILATERAL FEET Family History Brother Diabetes Cancer Son Diabetes Father , AT AGE 75 Lung disease Mother , AT AGE 37 Complications specific to or after delivery Social History Smoking and tobacco status: former smoker Alcohol intake: current Alcohol intake frequency: holidays/special occasions only Household members: spouse Marital status: Current occupational status: retired History of recent travel: No Female Reproductive History: Date of last menstrual period: 10/21/79 Vitals/I&O/Wt Last Vital Signs Temp 98.8 F 09/24/20 00:42 Pulse 96 09/24/20 02:16 Resp 20 H 09/24/20 02:16 BP 124/67 09/24/20 02:16 Pulse Ox 92 09/24/20 02:16 Weight last 48 hrs Weight 86.183 kg Physical Exam Const: COMMON NORMALS: patient oriented x3 HENMT: COMMON NORMALS: normocephalic and atraumatic HEAD & SCALP: normocephalic and atraumatic Eye: COMMON NORMALS: no scleral icterus Chest: COMMONS NORMALS: normal inspection of the chest and normal palpation of entire chest wall CHEST: Yes Symmetrical chest wall rise Resp: COMMON NORMALS: normal respiratory effort, No retractions, No use of accessory muscles and clear to auscultation bilaterally EFFORT & INSPECTION: Yes symmetric chest movement AUSCULTATION: clear to auscultation bilaterally Cardio: COMMON NORMALS: regular rate, regular rhythm, S1 normal heart sound present, S2 normal heart sound present, No gallops present (Cardio), No murmurs present (Cardio), No rub (Cardio) and Peripheral pulses 2+ throughout RATE: regular rate RHYTHM: regular rhythm HEART SOUNDS: S1 normal heart sound present and S2 normal heart sound present PERIPHERAL PULSES: Peripheral p ulses 2+ throughout GI: COMMON NORMALS: Normal to inspection, nondistended, normoactive bowel sounds present, Soft to palpation, non-tender, No hepatosplenomegaly present and no masses AUSCULTATION: Yes normoactive bowel sounds PALPATION: Yes Soft to palpation and Yes No hepatosplenomegaly present RECTAL EXAM: deferred Extremity: COMMON NORMALS: no clubbing, cyanosis or edema and no pedal edema Neuro: COMMON NORMALS: patient oriented x3 Data : 09/24/20 00:45 09/24/20 00:45 Micro: Microbiology 09/24/20 00:45 Blood Culture - Preliminary Blood SPECIMEN COLLECTED A&P Assessment and plan (1) Acute respiratory failure with hypoxemia: 2/2 to COVID PNA/Possible superimposed bacterial/atypical Pna Has recently completed Remdesivir course.Will avoid extended Rem course as has shown no benefit. Will continue with decadron 6 mg I.V daily for now On Eliquis 5 MG Q12 H DAILY Cef 1 gm q24 h Azithromycin 500 mg I.V daily Continue HHFONC ( 35 L and 50 % Fio2 ) NEBS Status: Acute (2) 2019 novel coronavirus–infected pneumonia (NCIP)#8211;infected pneumonia (NCIP): Plan 1 Status: Acute (3) Atrial fibrillation: Currently rate controlled Will start metoprolol S 12.5 mg oral daily Status: Acute Qualifiers: Atrial fibrillation type: paroxysmal Qualified Code(s): I48.0 - P aroxysmal atrial fibrillation (4) COPD (chronic obstructive pulmonary disease): NEB Supplemental oxygen Monitor ABG Monitor x-ray chest Status: Acute Qualifiers: COPD type: chronic bronchitis Chronic bronchitis type: simple Qualified Code(s): J41.0 - Simple chronic bronchitis (5) Hypertension: Currently blood pressure is well controlled. We will continue metoprolol succinate 12.5 mg oral daily. Status: Acute Qualifiers: Hypertension type: essential hypertension Qualified Code(s): I10 - Essential (primary) hypertension Additional A&P Information DVT PPX: Not needed on Eliquis Code Status :Full code Attestations Medical Necessity Statement*: Patient needs to be in hospital for management of respiratory failure secondary to Covid pneumonia. Anticipated length of stay greater than 2 midnight. 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
[2020-09-24] MEDS: dexamethasone 4 mg/mL INJ 6 MG IVP (05:06)
[2020-09-24] MEDS: cefTRIAXone 1,000 MG in sodium chloride 0.9% (plus) 50 ML 100 MG IV (06:09)
[2020-09-24] MEDS: azithromycin 500 MG in sodium chloride 0.9% 250 ML 250 MG IV (06:10)
--- NOTE | 2020-09-24 06:17 | PC.NURSE ---
I have reviewed and agree with the assessment charted by Mita.
--- NOTE | 2020-09-24 08:03 | ECG_ITS ---
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 Measurements Intervals [place] Rate: 71 P: 66 WA: 156 QRS: 2 QRSD: 130 T: -4 QT: 388 QTc: 422 Interpretive Statements SINUS RHYTHM WITH OCCASIONAL SUPRAVENTRICULAR PREMATURE COMPLEXES RIGHT BUNDLE BRANCH BLOCK [120+ ms QRS DURATION, UPRIGHT V1, 40+ ms S IN I/aVL/V4/V5/V6] Compared to ECG 09/24/2020 01:09:44 No significant changes Electronically Signed On 09-27-2020 17:12:55 RETAIL FINANCIAL ANALYST by Sofía Flower M.D. [email or web address] Servicessumma health barberton campus.Sinobpo/store/NU/[id number] f
--- NOTE | 2020-09-24 08:04 | USCV_ITS ---
Brijesh Middleton Age: 80 Gender: F : 1940 Exam Date: 09/24/2020 08:34 Ordering Phys: Vinny Esposito MD Technologist: Tere Perry [place] [facility]: BP: 99 / 67 HR: 67 Rhythm: Sinus Technical Quality: Suboptimal MEASUREMENTS (Male / Female) Normal Values 2D ECHO LV Diastolic Diameter PLAX 3.2 cm 4.2 - 5.9 / 3.9 - 5.3 cm LV Systolic Diameter PLAX 2.1 cm IVS Diastolic Thickness 1.3 cm 0.6 - 1.0 / 0.6 - 0.9 cm IVS Systolic Thickness 1.8 cm LVPW Diastolic Thickness 1.1 cm 0.6 - 1.0 / 0.6 - 0.9 cm LVPW Systolic Thickness 1.3 cm LV Ejection Fraction 2D Teich 64.8 % LV Ejection Fraction MOD 2C 56.0 % LV Ejection Fraction 2C AL 56.7 % M-MODE LV Diastolic Diameter MM 4.0 cm 4.2 - 5.9 / 3.9 - 5.3 cm LV Systolic Diameter MM 2.4 cm LV Ejection Fraction MM Teich 71.4 % IVS Diastolic Thickness MM 1.2 cm 0.6 - 1.0 / 0.6 - 0.9 cm IVS Systolic Thickness MM 1.4 cm LVPW Diastolic Thickness MM 1.1 cm 0.6 - 1.0 / 0.6 - 0.9 cm LVPW Systolic Thickness MM 1.8 cm RV Diastolic Diameter MM 1.6 cm FINDINGS Left Ventricle Normal left ventricular cavity size. Normal left ventricular systolic function. No regional wall motion abnormalities. Left ventricular ejection fraction is estimated at 65 %. Right Ventricle The right ventricle is normal in size and function. RVSP could not be calculated due to incomplete tricuspid regurgitation velocity profile. Right Atrium The right atrium is normal in size. Left Atrium The left atrium is normal in size. Mitral Valve Moderately thickened mitral valve. Moderate mitral annular calcification. No mitral valve stenosis. Trace mitral valve regurgitation. Aortic Valve Aortic valve sclerosis without stenosis or regurgitation. Tricuspid Valve Structurally normal tricuspid valve without significant stenosis or regurgitation. Pulmonary artery systolic pressure is normal. Pulmonic Valve Structurally normal pulmonic valve without significant stenosis. There is no pulmonic regurgitation. Pericardium Normal pericardium without effusion. Aorta Normal ascending aorta dimension. CONCLUSIONS 1-Normal left ventricular cavity size. Normal left ventricular systolic function. No regional wall motion abnormalities. Left ventricular ejection fraction is estimated at 65 %. 2-No significant valve abnormalities. 3-There is no pericardial effusion. 4-The right ventricle is normal in size and function. RVSP could not be calculated due to incomplete tricuspid regurgitation velocity profile. 5-No significant change since the prior echocardiogram study of 09/13/2020. Gauri Alonzo MD (Electronically Signed) Final Date: 24 September 2020 14:36 S
[2020-09-24 08:43] LABS: Thyroid Stimulating Hormone 2.52 uIU/mL (0.27-4.20)
[2020-09-24] MEDS: zinc gluconate 50 mg Tablet PO (09:16)
[2020-09-24] MEDS: cholecalciferol (vitamin D3) 1,000 unit Tablet 1000 UNIT PO (09:16)
[2020-09-24] MEDS: apixaban 5 mg Tablet PO ×2 (09:16→18:24)
[2020-09-24] MEDS: ascorbic acid 500 mg Tablet 1000 MG PO ×2 (09:16→18:24)
[2020-09-24] MEDS: multivitamin therapeutic Tablet 1 TAB PO (09:16)
--- NOTE | 2020-09-24 10:03 | ECG_ITS ---
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 Measurements Intervals [place] Rate: 67 P: 66 NE: 158 QRS: 1 QRSD: 135 T: -13 QT: 397 QTc: 422 Interpretive Statements SINUS RHYTHM WITH OCCASIONAL SUPRAVENTRICULAR PREMATURE COMPLEXES RIGHT BUNDLE BRANCH BLOCK [120+ ms QRS DURATION, UPRIGHT V1, 40+ ms S IN I/aVL/V4/V5/V6] Compared to ECG 09/24/2020 08:03:29 No significant changes Electronically Signed On 09-27-2020 17:19:14 WELDER REPAIR by Sofía Flower M.D. [id number]
[2020-09-24 10:27] LABS: Troponin(5th) Baseline 22 ng/L (0-10)
[2020-09-24 12:34] LABS: Troponin 5 2HR 19.15 ng/L (0-10)
[2020-09-24 12:35] LABS: Troponin 5 2HR Delta -2.85 ABS# (0-10)
[2020-09-24 15:25] LABS: Glucose Point of Care 166 mg/dL (70-110)
[2020-09-24 16:34] LABS: Troponin 5 6HR 18.06 ng/L (0-10)
[2020-09-24 16:37] LABS: Troponin 5 6HR Delta -3.94 ng/L (0-12)
--- NOTE | 2020-09-24 21:09 | PC.NURSE ---
ASSESSMENT Received pt from dayshift resting in bed, AAOx3, stable and pain free. Breathing easily while on HHF. Instructed pt call for any needs and not get out of bed without calling for help.Will continue to monitor patient closely.
--- NOTE | 2020-09-24 21:16 | PM.PN ---
Subjective Subjective: Interval history: She is doing a little bit better. Has been having diarrhea. Denies vomiting. No chest pain or pressure. Vitals/I&O/Wt Last Vital Signs Temp 97.8 F 09/24/20 20:00 Pulse 65 09/24/20 21:00 Resp 19 H 09/24/20 21:00 BP 115/69 09/24/20 21:00 Pulse Ox 94 09/24/20 21:00 09/24/20 09/24/20 09/24/20 06:59 14:59 22:59 Intake Total 300 / 300 400 / 700 Output Total 0 / 0 0 / 0 Balance 300 / 300 400 / 700 Weight last 48 hrs Weight 86.183 kg Physical Exam Const: COMMON NORMALS: no acute distress, patient oriented x3 and alert NUTRITIONAL APPEARANCE: overweight ORIENTATION/CONSCIOUSNESS: Yes awake OTHER: Pleasant, conversant. Does take some breaks when speaking in longer sentences. HENMT: COMMON NORMALS: oropharynx normal Neck/C-Spine: COMMON NORMALS: no JVD Resp: COMMON NORMALS: normal respiratory effort AUSCULTATION: crackles (Few crackles at bases.) Cardio: COMMON NORMALS: no JVD, regular rhythm, S1 normal heart sound present, S2 normal heart sound present and No murmurs present (Cardio) RHYTHM: regular rhythm HEART SOUNDS: S1 normal heart sound present and S2 normal heart sound present GI: COMMON NORMALS: Normal to inspection, nondistended, normoactive bowel sounds present, Soft to palpation and non-tender PALPATION: Yes Soft to palpation Extremity: COMMON NORMALS: no joint enlargement and no pedal edema Neuro: COMMON NORMALS: patient oriented x3 and moves all extremities SENSORIUM/ORIENTATION: Yes alert Skin: COMMON NORMALS: no rashes or lesions noted GENERAL SKIN EXAM: no rashes or lesions noted Data : 09/24/20 00:45 09/24/20 00:45 Micro: Microbiology 09/24/20 09:25 Blood Culture - Preliminary Blood SPECIMEN COLLECTED 09/24/20 00:45 Blood Culture - Preliminary Blood SPECIMEN COLLECTED A&P Assessment and plan (1) Acute respiratory failure with hypoxemia: Subjectively is feeling a little bit better. FiO2 requirement appears to stabilized around 45%. She is tolerating high flow cannula well. Discussed with her and she may try proning today. She states that she was doing much better previously and went home without oxygen. States that she was doing much better than her , who now himself is significantly improving, while she got much worse. After discussion of risks and benefits, limited evidence, she would like to be treated with convalescent plasma, and so a unit is obtained for her for today. We will otherwise continue Decadron, Eliquis, empiric antibiotic with ceftriaxone, azithromycin for superimposed bacterial pneumonia. Inhalers. Continue oxygen support, wean down as tolerating. Status: Acute (2) 2019 novel coronavirus–infected pneumonia (NCIP)#8211;infected pneumonia (NCIP): As above Status: Acute (3) Atrial fibrillation: Run of A. fib with RVR this morning. She had been started on metoprolol 12.5 mg. Hold off on increasing for now due to soft heart rate in the 60s. Monitor. TSH is normal. Electrolytes are good. Echocardiogram requested. Status: Acute Qualifiers: Atrial fibrillation type: paroxysmal Qualified Code(s): I48.0 - Paroxysmal atrial fibrillation (4) COPD (chronic obstructive pulmonary disease): Continue inhalers, antibiotic as above, steroid, oxygen support. Status: Acute Qualifiers: COPD type: chronic bronchitis Chronic bronchitis type: simple Qualified Code(s): J41.0 - Simple chronic bronchitis (5) Hypertension: Currently blood pressure is well controlled. Continue metoprolol succinate 12.5 mg oral daily. Status: Acute Qualifiers: Hypertension type: essential hypertension Qualified Code(s): I10 - Essential (primary) hypertension Additional A&P Information DVT PPX: Eliquis Code Status :Full code Attestations Medical Necessity Statement*: Continue admission for assessment management of severe COVID-19 pneumonia with worsening of symptoms, with hypoxic respiratory failure, possible superimposed bacterial pneumonia, paroxysmal atrial fibrillation with RVR. 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
[2020-09-25] VITALS (27 sets, daily range): BP systolic 99–126; BP diastolic 47–80; PULSE 61–93; RESP 11–24; TEMP 36.6–37.2; O2SAT 89–96; BMI 33.3
[2020-09-25 04:20] LABS: Basophils % 0.2 %; Hematocrit 35.7 % (37.0-47.0); Lymphocytes # 0.5 10^3/uL (0.8-4.8); Lymphocytes % 2.9 %; Mean Corpuscular HGB Conc 33.6 g/dL (30.0-36.0); Mean Corpuscular Hemoglobin 30.9 pg (28.0-34.0); Mean Platelet Volume 11.2 fL (7.4-10.4); Monocytes # 0.8 10^3/uL (0.2-0.9); Monocytes % 5.4 %; Neutrophils # 14.27 10^3/uL (1.8-7.7); Neutrophils % 90.9 %; Nucleated Red Blood Cells % 0 %; Platelet Count 245 10^3/cmm (130-400); Red Blood Count 3.88 10^6/uL (4.1-5.3); Red Cell Distribution Width 14.5 % (12.1-15.1); White Blood Count 15.7 10^3/uL (4.0-10.0)
[2020-09-25 04:49] LABS: Alanine Aminotransferase 21 U/L (0-33); Alkaline Phosphatase 58 IU/L (35-105); Anion Gap 13.2 (5-19); Aspartate Amino Transferase 17 U/L (0-32); Blood Urea Nitrogen 26 mg/dL (8-23); C Reactive Protein 88.6 mg/L (0.0-4.9); Calcium 8.5 mg/dL (8.5-10.5); Carbon Dioxide 23 mmol/L (22-29); Chloride 102 mmol/L (98-107); Globulin 3.2 g/dL (1.3-4.6); Glucose 142 mg/dL (65-115); Osmolality Calculated 285 mOsm/kg (285-295); Potassium 4.2 mmol/L (3.5-5.1); Sodium 134 mmol/L (136-145); Total Bilirubin 0.4 mg/dL (0.15-1.2); Total Protein 6.2 g/dL (6.6-8.7)
[2020-09-25] MEDS: azithromycin 500 MG in sodium chloride 0.9% 250 ML 250 MG IV (04:56)
[2020-09-25] MEDS: dexamethasone 4 mg/mL INJ 6 MG IVP (04:57)
[2020-09-25 05:39] LABS: D Dimer 0.78 ug/mIFEU (0-0.59)
[2020-09-25] MEDS: cefTRIAXone 1,000 MG in sodium chloride 0.9% (plus) 50 ML 100 MG IV (06:15)
--- NOTE | 2020-09-25 07:00 | PC.NURSE ---
AAOX3, calm and smiling this morning. Patient had uneventful night, rested quietly in bed, remained in SR with BP stable. Denies pain and breathing well on HHF-NC.
[2020-09-25] MEDS: ascorbic acid 500 mg Tablet 1000 MG PO ×2 (09:50→17:45)
[2020-09-25] MEDS: apixaban 5 mg Tablet PO ×2 (09:50→17:45)
[2020-09-25] MEDS: cholecalciferol (vitamin D3) 1,000 unit Tablet 1000 UNIT PO (09:50)
[2020-09-25] MEDS: zinc gluconate 50 mg Tablet PO (09:50)
[2020-09-25] MEDS: metoprolol succinate ER (24 HR) 25 mg Tablet 12.5 MG PO (09:51)
[2020-09-25] MEDS: multivitamin therapeutic Tablet 1 TAB PO (09:51)
--- NOTE | 2020-09-25 13:18 | P.PN_ITS ---
Subjective Subjective: Interval history: She is feeling little better today. So far no diarrhea. Denies headache, chest pain. Some tightness like she cannot catch a very deep breath. No abdominal discomfort. Vitals/I&O/Wt Last Vital Signs Temp 97.8 F 09/25/20 03:30 Pulse 66 09/25/20 12:00 Resp 12 09/25/20 12:00 BP 99/57 09/25/20 12:00 Pulse Ox 94 09/25/20 12:00 09/24/20 09/25/20 09/25/20 22:59 06:59 14:59 Intake Total 500 / 800 1118 / 1918 720 / 720 Output Total 0 / 0 Balance 500 / 800 1118 / 1918 720 / 720 Weight last 48 hrs Weight 85.445 kg Weight 86.183 kg Physical Exam 2 Const: COMMON NORMALS: no acute distress, patient oriented x3 and alert NUTRITIONAL APPEARANCE: overweight ORIENTATION/CONSCIOUSNESS: Yes awake OTHER: Pleasant, conversant. More comfortable today. Pleasant, conversant. HENMT: COMMON NORMALS: oropharynx normal Neck/C-Spine: COMMON NORMALS: no JVD Resp: COMMON NORMALS: normal respiratory effort AUSCULTATION: crackles (Few crackles at bases.) Cardio: COMMON NORMALS: no JVD, regular rhythm, S1 normal heart sound present, S2 normal heart sound present and No murmurs present (Cardio) RHYTHM: regular rhythm HEART SOUNDS: S1 normal heart sound present and S2 normal heart sound present GI: COMMON NORMALS: Normal to inspection, nondistended, normoactive bowel sounds present, Soft to palpation and non-tender PALPATION: Yes Soft to palpation Extremity: COMMON NORMALS: no joint enlargement and no pedal edema Neuro: COMMON NORMALS: patient oriented x3 and moves all extremities SENSORIUM/ORIENTATION: Yes alert Skin: COMMON NORMALS: no rashes or lesions noted GENERAL SKIN EXAM: no rashes or lesions noted Data : 09/25/20 03:30 09/25/20 03:30 Micro: Microbiology 09/24/20 09:25 Blood Culture - Preliminary Blood NEGATIVE TO DATE 09/24/20 00:45 Blood Culture - Preliminary Blood NEGATIVE TO DATE A&P Assessment and plan (1) Acute respiratory failure with hypoxemia: She is doing somewhat better. Down to 35% high flow oxygen requirement. Was on 45% requirement overnight. Received plasma last night. Today she is feeling better, but overnight there was minimal subjective improvement. Her CRP is actually higher today at 88.6. D-dimer about stable. Discussed with her, at this time is difficult to say that she is actually had any improvement secondary to plasma, and so difficult to justify repeating an additional unit exposing her to additional risk with limited benefit. At this time we will continue treatment with Decadron, antibiotics for superim posed bacterial infection with Rocephin, azithromycin, Eliquis. Continue oxygen support. Wean down as tolerating. She cannot prone, but says may try laying on her side. Few crackles noted at bases. Continue incentive spirometry, she says has been using it fairly regularly. Status: Acute (2) 2019 novel coronavirus–infected pneumonia (NCIP)#8211;infected pneumonia (NCIP): As above Status: Acute (3) Atrial fibrillation: Heart rate in the 60s-70s. Continue metoprolol low-dose. Monitor. TSH is normal. Electrolytes are good. Limited echocardiogram with normal EF, no significant valve abnormalities, no pericardial effusion, no significant change from prior at the end of August 2020. Status: Acute Qualifiers: Atrial fibrillation type: paroxysmal Qualified Code(s): I48.0 - Paroxysmal atrial fibrillation (4) COPD (chronic obstructive pulmonary disease): Continue inhalers, antibiotic as above, steroid, oxygen support. Status: Acute Qualifiers: COPD type: chronic bronchitis Chronic bronchitis type: simple Qualified Code(s): J41.0 - Simple chronic bronchitis (5) Hypertension: Currently blood pressure is well controlled. Continue metoprolol succinate 12.5 mg oral daily. Status: Acute Qualifiers: Hypertension type: essential hypertension Qualified Code(s): I10 - Essential (primary) hypertension Additional A&P Information DVT PPX: Eliquis Code Status :Full code Attestations Medical Necessity Statement*: Continue admission for treatment of hypoxic respiratory failure secondary to severe COVID-19 infection, superimposed bacterial infection. 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 Diagnoses Acute respiratory failure with hypoxemia J96.01 2019 novel coronavirus–infected pneumonia (NCIP)#8211;infected pneumonia (NCIP) U07.1; J12.89 Atrial fibrillation I48.0 Atrial fibrillation type: paroxysmal COPD (chronic obstructive pulmonary disease) J41.0 COPD type: chronic bronchitis Chronic bronchitis type: simple Hypertension I10 Hypertension type: essential hypertension
--- NOTE | 2020-09-25 18:11 | PC.NURSE ---
PT PLEASANT THIS SHIFT. A&O 3. HAS TITRATED FROM HHFNC TO 3L/NC. HAS BEEN ABLE TO AMBULATE TO TOILET WITH SBA, BECOMES WINDED BUT RECOVERS QUICKLY.
--- NOTE | 2020-09-25 20:23 | PC.NURSE ---
ASSUMING CARE Patient resting in bed on 2L nasal cannula. Patient alert and oriented x 4 and needed to use the bathroom. Patient up to bathroom with standby assistance and just needed help disconnecting herself from monitor cables. Patient denies any needs or pain at this time and is back in bed with call light in reach.
--- NOTE | 2020-09-25 20:25 | PC.NURSE ---
OXYGEN Patient had went to sleep and oxygen decreased to 86%. Patient turned up to 3L NC while sleeping. Respiratory notified.
[2020-09-26] VITALS (17 sets, daily range): BP systolic 101–128; BP diastolic 60–78; PULSE 54–90; RESP 14–30; TEMP 36.6–36.7; O2SAT 83–95
[2020-09-26 04:51] LABS: Basophils % 0.1 %; Hematocrit 36.4 % (37.0-47.0); Hemoglobin 12.1 g/dL (11.5-15.3); Lymphocytes # 0.7 10^3/uL (0.8-4.8); Lymphocytes % 5.4 %; Mean Corpuscular HGB Conc 33.2 g/dL (30.0-36.0); Mean Corpuscular Hemoglobin 30.9 pg (28.0-34.0); Mean Corpuscular Volume 92.9 fL (81-99); Mean Platelet Volume 10.9 fL (7.4-10.4); Monocytes # 0.9 10^3/uL (0.2-0.9); Monocytes % 7.6 %; Neutrophils # 10.66 10^3/uL (1.8-7.7); Neutrophils % 86.3 %; Nucleated Red Blood Cells % 0 %; Platelet Count 226 10^3/cmm (130-400); Red Blood Count 3.92 10^6/uL (4.1-5.3); Red Cell Distribution Width 14.5 % (12.1-15.1); White Blood Count 12.4 10^3/uL (4.0-10.0)
[2020-09-26 05:30] LABS: Alanine Aminotransferase 21 U/L (0-33); Albumin Level 2.8 g/dL (3.5-5.2); Alkaline Phosphatase 68 IU/L (35-105); Anion Gap 12.2 (5-19); Aspartate Amino Transferase 18 U/L (0-32); Blood Urea Nitrogen 25 mg/dL (8-23); Calcium 8.7 mg/dL (8.5-10.5); Carbon Dioxide 24 mmol/L (22-29); Chloride 107 mmol/L (98-107); Globulin 3.2 g/dL (1.3-4.6); Glucose 142 mg/dL (65-115); Osmolality Calculated 295 mOsm/kg (285-295); Potassium 4.2 mmol/L (3.5-5.1); Sodium 139 mmol/L (136-145); Total Bilirubin 0.3 mg/dL (0.15-1.2)
[2020-09-26] MEDS: azithromycin 500 MG in sodium chloride 0.9% 250 ML 250 MG IV (05:55)
[2020-09-26] MEDS: cefTRIAXone 1,000 MG in sodium chloride 0.9% (plus) 50 ML 100 MG IV (05:55)
[2020-09-26] MEDS: dexamethasone 4 mg/mL INJ 6 MG IVP (05:56)
--- NOTE | 2020-09-26 06:25 | PC.NURSE ---
SHIFT SUMMARY Patient has been resting in bed this shift and sleeping. Patient expressed that she felt she had slept well throughout the night and has been on 3L nasal cannula. Alert and oriented x4 and got up one time to use the bathroom. Patient denies pain or any needs at this time.
[2020-09-26] MEDS: multivitamin therapeutic Tablet 1 TAB PO (08:04)
[2020-09-26] MEDS: zinc gluconate 50 mg Tablet PO (08:04)
[2020-09-26] MEDS: ascorbic acid 500 mg Tablet 1000 MG PO ×2 (08:04→17:10)
[2020-09-26] MEDS: cholecalciferol (vitamin D3) 1,000 unit Tablet 1000 UNIT PO (08:04)
[2020-09-26] MEDS: apixaban 5 mg Tablet PO ×2 (08:04→17:10)
[2020-09-26] MEDS: metoprolol succinate ER (24 HR) 25 mg Tablet 12.5 MG PO (08:04)
--- NOTE | 2020-09-26 11:25 | PC.RESP ---
Pulmonary Rehab information sent to patient.
[2020-09-26 15:46] LABS: D Dimer 0.73 ug/mIFEU (0-0.59)
[2020-09-26 17:10] LABS: C Reactive Protein 51.3 mg/L (0.0-4.9)
--- NOTE | 2020-09-26 18:14 | P.DS_ITS ---
Discharge Providers Date of Admission: 09/24/20 04:03 Date of Discharge: September 26, 2020 Attending Provider at Admission: Matisa Vera MD Attending Provider at Discharge: Vinny Esposito Primary Care Provider: Emery Ragland MD Diagnoses at Discharge Discharge Diagnosis (1) Acute respiratory failure with hypoxemia: Status: Acute (2) 2019 novel coronavirus–infected pneumonia (NCIP)#8211;infected pneumonia (NCIP): Status: Acute (3) Atrial fibrillation: Status: Acute Qualifiers: Atrial fibrillation type: paroxysmal Qualified Code(s): I48.0 - Paroxysmal atrial fibrillation (4) COPD (chronic obstructive pulmonary disease): Status: Acute Qualifiers: COPD type: chronic bronchitis Chronic bronchitis type: simple Qualified Code(s): J41.0 - Simple chronic bronchitis (5) Hypertension: Status: Acute Qualifiers: Hypertension type: essential hypertension Qualified Code(s): I10 - Essential (primary) hypertension Reason for Visit Reason for Visit: respiratory distress Hospital Course Hospital Course Very pleasant 80-year-old lady with COPD, HTN, A. fib, on anticoagulation, recently discharged from the hospital after admission for treatment of COVID-19 pneumonia returned to the hospital and was readmitted due to worsening dyspnea, hypoxia, with respiratory failure requiring 35 L oxygen flow by high flow cannula, 45% FiO2 she was resumed on Decadron, continued on Eliquis, covered empirically with antibiotics for possible bacterial superimposed infection which may have been responsible for deterioration in her condition. Was treated with ceftriaxone and azithromycin in the hospital. On presentation also with noted mild acute kidney injury, creatinine 1.3. Diuretic was held. Was continued on metoprolol 12.5 mg for atrial fibrillation, with dose not increased due to intermittent episodes of bradycardia, heart rates 50s-60s, although asymptomatic. Limited echocardiogram was reassessed due to bradycardia, worsening hypoxia, however, noted EF normal at 65%, no pericardial effusion, right ventricle is normal size and function, without significant change from prior echo 09/13/2020. With empiric treatment her condition gradually improved. She weaned down on oxygen quite well. Her D-dimer has been decreasing, and CRP after initial increase currently is decreasing. She is feeling much better. To day at rest she weaned down to room air. On exertion she qualified still for 3 L of oxygen which is ordered for her. She has a way to monitor oxygenation at home, and is encouraged to do so, also on extensive discussion is aware of red flags which should alert her to seek medical help without delay. She is returning home to her who is now much better from his Covid pneumonia. Please reassess her progress on improvement from respiratory failure, reassess renal function. Lasix for now are held due to kidney injury on presentation. Physical Exam Const: COMMON NORMALS: no acute distress, patient oriented x3 and alert NUTRITIONAL APPEARANCE: overweight ORIENTATION/CONSCIOUSNESS: Yes awake OTHER: No complaints. Awake, alert, says she is feeling much better. Ready to return home. HENMT: COMMON NORMALS: oropharynx normal Neck/C-Spine: COMMON NORMALS: no JVD Resp: COMMON NORMALS: normal respiratory effort AUSCULTATION: crackles (Resolving) Cardio: COMMON NORMALS: no JVD, regular rhythm, S1 normal heart sound present, S2 normal heart sound present and No murmurs present (Cardio) RHYTHM: regular rhythm HEART SOUNDS: S1 normal heart sound present and S2 normal heart sound present GI: COMMON NORMALS: Normal to inspection, nondistended, normoactive bowel sounds present, Soft to palpation and non-tender PALPATION: Yes Soft to palpation Extremity: COMMON NORMALS: no joint enlargement and no pedal edema Neuro: COMMON NORMALS: patient oriented x3 and moves all extremities SENSORIUM/ORIENTATION: Yes alert Skin: COMMON NORMALS: no rashes or lesions noted GENERAL SKIN EXAM: no rashes or lesions noted Discharge Data Data Completed and Pending: Completed Studies During Hospitalization Category Date Time Status XR chest 1V nuha ble 93120 Urgent Exams 09/24/20 00:54 Completed CV echo limited 9 5578 Routine Ultrasound 09/24/20 08:04 Completed Pending at discharge Category Date Time Status Blood Culture Sta t Lab 09/24/20 09:25 Results Complete Blood Co unt w/Auto AM LABS Lab 09/27/20 04:00 Ordered Comprehensive Met abolic Panel AM LA BS Lab 09/27/20 04:00 Ordered Labs from last 24 hours 09/26/20 09/26/20 09/26/20 14:15 04:00 04:00 WBC RBC Hgb Hct MCV MCH MCHC RDW Plt Count MPV Neut % (Auto) Lymph % (Auto) [place] % (Auto) Eos % (Auto) Baso % (Auto) Neut # (Auto) Lymph # (Auto) [place] # (Auto) Eos # (Auto) Baso # (Auto) Nucleated RBC % (a uto) Nucleated RBCs # D-Dimer 0.73 H Sodium 139 Potassium 4.2 Chloride 107 Carbon Dioxide 24 Anion Gap 12.2 BUN 25 H Creatinine 0.8 GFR Calculation Not Reportable Glucose 142 H Calculated Osmolal ity 295 Calcium 8.7 Total Bilirubin 0.3 AST 18 ALT 21 Alkaline Phosphata se 68 C-Reactive Protein 51.3 H Total Protein 6.0 L Albumin 2.8 L Globulin 3.2 09/26/20 04:00 WBC 12.4 H RBC 3.92 L Hgb 12.1 Hct 36.4 L MCV 92.9 MCH 30.9 MCHC 33.2 RDW 14.5 Plt Count 226 MPV 10.9 H Neut % (Auto) 86.3 Lymph % (Auto) 5.4 [place] % (Auto) 7.6 Eos % (Auto) 0.0 Baso % (Auto) 0.1 Neut # (Auto) 10.66 H Lymph # (Auto) 0.7 L [place] # (Auto) 0.9 Eos # (Auto) 0.0 Baso # (Auto) 0.0 Nucleated RBC % (a uto) 0 Nucleated RBCs # 0.0 D-Dimer Sodium Potassium Chloride Carbon Dioxide Anion Gap BUN Creatinine GFR Calculation Glucose Calculated Osmolal ity Calcium Total Bilirubin AST ALT Alkaline Phosphata se C-Reactive Protein Total Protein Albumin Globulin Vitals: Last Vital Signs Temp 97.8 F 09/26/20 17:18 Pulse 56 L 09/26/20 17:18 Resp 18 09/26/20 17:18 BP 116/65 09/26/20 17:18 Pulse Ox 91 09/26/20 17:18 Discharge Plan Discharge Patient Disposition: Home Health Service Condition: Stable Prescriptions: New metoprolol succinate 25 mg Tablet Extended Release 24 Hr 12.5 mg PO DAILY Qty: 15 RF: 0 Decadron 4 mg tablet See Rx Instructions .ROUTE .COMPLEX 6 Days Qty: 6 RF: 0 levofloxacin 750 mg tablet 750 mg PO DAILY 5 Days Qty: 5 RF: 0 Continued acetaminophen [Tylenol 8 Hour] 650 mg Tablet Extended Release 650 mg PO Q8H PRN (Reason: Pain) RF: 0 albuterol sulfate 90 mcg/actuation HFA aerosol inhaler 1 puff INHALATION PRN PRN (Reason: Shortness Of Breath) RF: 0 fluticasone furoate 27.5 mcg/actuation Mobile,Suspension 1 spray INTRANASAL PRN PRN (Reason: Nasal Congestion) RF: 0 Vitamin D3 1 tab PO DAILY@0800 RF: 0 Advair Diskus 250-50 mcg/dose blister with device 1 inh INHALATION BID@0800,1700 RF: 0 amlodipine 10 mg tablet 10 mg PO DAILY@0800 RF: 0 benzonatate 100 mg capsule 100 mg PO TID PRN (Reason: Cough) RF: 0 geriatric tuhrkhgb-skhk-ehqs Tablet 1 tab PO DAILY@0800 RF: 0 ferrous gluconate 324 mg (38 mg iron) Tablet 324 mg PO BID@,1930 RF: 0 Eliquis 5 mg tablet 5 mg PO BID@0800,1800 RF: 0 Vitamin C 500 mg tablet 1,000 mg PO BID@0800,1800 RF: 0 zinc gluconate 50 mg Tablet 50 mg PO DAILY@0800 RF: 0 Spiriva with HandiHaler 18 mcg capsule, w/inhalation device 18 mcg INHALATION DAILY@10 RF: 0 potassium chloride 20 mEq tablet extended release 20 meq PO DAILY@0800 RF: 0 Discontinued furosemide 40 mg tablet 40 mg PO DAILY@0800 RF: 0 Discharge Orders: Discharge Order (Routine); Ordered 09/26/20 Ordered By: Vinny Esposito Other Ambulatory Orders: DME: Oxygen (Order) Location: None Selected Ordered By: Vinny Esposito [facility] Emery Ragland MD [Primary Care Provider] - 1 week (Please arrange for a telehealth visit in 72 hours if this is possible, if not otherwise please follow-up with your primary care doctor within 1 week or as instructed by the office. [facility] was unable to make your follow up appointment as your doctor's office was closed. Please call to make a follow up appointment. ) Discharge Diet: Advance as tolerated and Usual diet Discharge Activity: Oxygen as instructed Patient Instructions: Levofloxacin (By mouth), Dexamethasone (By mouth), Atrial Fibrillation (GEN), Viral Pneumonia (GEN), Acute Kidney Injury (GEN), Using Oxygen at Home (GEN), Bradycardia (GEN), Hypoxia (GEN) Activity Restrictions/Additional Instructions: Please continue oxygen, monitor saturation, with target saturation around 90%. Decrease oxygen flow as needed, however, be aware you may need more oxygen while walking. If your oxygen is dropping below 88-90%, please increase flow of oxygen. If even despite taking a rest your oxygenation is not improving, or you experience any other symptoms like severe chest pain, extreme fatigue, change in color of your fingers or lips to blue, fainting, or any other concerning symptoms please call 911 immediately. Please continue to monitor your heart rates and blood pressures 3 times daily, maintain log to bring to your doctor's appointment. Please be aware that your heart rates are slightly on the slow side, in the 60s, and be aware that metoprolol can sometimes slow your heart rates down. If your heart rate is slow, below 60, please do not take the metoprolol. Similarly if your blood pressures are below 100 systolic, or below 60 diastolic, do not take metoprolol. Discuss further with your primary care doctor. He also had mild acute kidney injury on presentation, this is since resolved. Please have your primary care doctor follow-up your renal function. Avoid medications like ibuprofen, Aleve, etc. Avoid overly low blood pressures. Avoid dehydration. For now your Lasix is discontinued. Please discuss with your primary care doctor if this needs to be resumed at some point in the future. 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
--- NOTE | 2020-09-28 09:30 | PC.SOCIAL ---
Spoke with the patient on the phone about the discharge information they received. I have spoken to this same patient recently when she was admitted previously so there was no need to go into detail like before as she stated that she remembered the previous conversation. Ova stated that she already has her appointment set up with the PCP virtually. She has no needs. She has her oxygen and HH all set up. Her only complaint was the hospital food was not very tasteful.
== END 2020-09-26 18:15 | disposition home health service (06) | DRG 177 ==
LOC: ER 03:41 → ICU 04:13
PROVIDERS: Admitting Provider Internal Medicine; Emergency Provider Emergency Medicine; PCP Family Medicine; Visit Provider Internal Medicine
DX: U07.1 COVID-19 (principal); J12.89 Other viral pneumonia; J96.01 Acute respiratory failure with hypoxia; J15.9 Unspecified bacterial pneumonia; N17.9 Acute kidney failure, unspecified; J44.0 Chronic obstructive pulmonary disease with (acute) lower respiratory infection; I48.0 Paroxysmal atrial fibrillation; I10 Essential (primary) hypertension; Z79.01 Long term (current) use of anticoagulants; R00.1 Bradycardia, unspecified; R19.7 Diarrhea, unspecified; E78.5 Hyperlipidemia, unspecified; Z87.891 Personal history of nicotine dependence
CPT/HCPCS: 12345; 36415; 36416; 36430; 36600; 71045; 80053; 82805; 82962; 83605; 83735; 83880; 84443; 84484; 85025; 85378; 86140; 86900; 86927; 87040; 93005; 93308; 94640; 96375; 99282; J0456; J0696; J1100; J7050; P9017

== ENCOUNTER 2020-10-02 09:26 | Emergency (ER) | payer MEDICARE, OTHER, SELFPAY ==
[2020-10-02] VITALS (7 sets, daily range): BP systolic 109–125; BP diastolic 64–75; PULSE 52–64; RESP 14–20; TEMP 36.6; O2SAT 90–93; BMI 33.1
--- NOTE | 2020-10-02 09:29 | XRR_ITS ---
PROCEDURE INFORMATION: Exam: XR Chest, 1 View Exam date and time: 10/02/2020 9:33 AM Age: 80 years old Clinical indication: Dyspnea; Additional info: Dizzy TECHNIQUE: Imaging protocol: XR of the chest Views: 1 view. COMPARISON: CR XR chest 1V portable [id number] 09/24/2020 2:52 AM FINDINGS: Lungs: COPD, bronchiectasis, interstitial disease, and mild airspace disease. Pleural space: Questionable small right pleural effusion. Heart/Mediastinum: Cardiac silhouette upper limits of normal in size. Bones/joints: osteopenia, degenerative change, and left shoulder arthroplasty. XR/XR chest 1V [id number] IMPRESSION: COPD, bronchiectasis, interstitial disease, and mild airspace disease.
--- NOTE | 2020-10-02 09:29 | ECG_ITS ---
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
--- NOTE | 2020-10-02 09:29 | CTR_ITS ---
PROCEDURE INFORMATION: Exam: CT Head Without Contrast Exam date and time: 10/02/2020 9:34 AM Age: 80 years old Clinical indication: Dizziness TECHNIQUE: Imaging protocol: Computed tomography of the head without contrast. Radiation optimization: All CT scans at this facility use at least one of these dose optimization techniques: automated exposure control; mA and/or kV adjustment per patient size (includes targeted exams where dose is matched to clinical indication); or iterative reconstruction. COMPARISON: No relevant prior studies available. RADIATION DOSE METRICS: Total DLP (mGy-cm): 678.3 FINDINGS: Brain: Symmetric prominence of the cortical and cerebellar sulci. Prominent small-vessel ischemic change including bilateral basal ganglia lacunar infarcts, which can be better characterized with MRI if clinically indicated. No acute cortical infarct, mass effect, or intracranial hemorrhage. Cerebral ventricles: Normal configuration of the ventricles. Bones/joints: No acute calvarial pathology. Paranasal sinuses: Left sphenoid sinus fluid. Mastoid air cells: No mastoid effusion. Vasculature: Vascular, basal ganglia, and dural calcifications. Soft tissues: Unremarkable soft tissues. CT/CT head wo con* [id number] IMPRESSION: 1. Prominent small-vessel ischemic change including bilateral basal ganglia lacunar infarcts, which can be better characterized with MRI if clinically indicated. 2. Left sphenoid sinus fluid. Radiation Dose CTDIVOL = (mGy): DLP = 678.3 (mGy-cm)
--- NOTE | 2020-10-02 09:34 | W.ED.GENADLT ---
HPI - General Adult General: Chief complaint: Dizziness Stated complaint: DIZZINESS Time Seen by Provider: 10/02/20 09:26 Source: patient and EMS Mode of arrival: EMS Limitations: no limitations History of Present Illness: HPI narrative: Patient is a very pleasant 80-year-old female who presents to emergency department via EMS for dizziness. She states that has been coming on for the past couple of days but got worse today after she woke up and had her coffee. She states she became more dizzy today. She states she had vertigo in the past and this is very similar to that. She states it has been a while however. Patient had coronavirus 3 weeks ago she is asymptomatic currently and in convalescent phase. Patient denies focal neurologic deficit she has intact on exam. No fever she is alert and oriented, she denies significant nausea, she is not dizzy while laying in the bed. Denies recent fall she is on Eliquis, denies visual changes. No sore throat no headache no rhinorrhea no ear pain. Associated symptoms: Deny chest pain, dyspnea, headache(s), malaise, nausea, rash or vomiting Review of Systems Const: Reports: other (Dizziness); Denies: fever(s), chills, change in appetite or malaise Eyes: Denies: change in vision, blurry vision, eye discharge or eye redness ENMT: Denies: throat pain, uvular edema, odynophagia, mouth pain, dental pain, nasal congestion or sinus pain Card: Denies: chest pain, irregular heart rhythm, swelling of feet/ankles, dyspnea on exertion, orthopnea or leg pain with exertion Resp: Denies: dyspnea, productive cough, wheezing or hemoptysis GI: Denies: abdominal pain, nausea, vomiting, diarrhea, constipation or fecal incontinence : Denies: flank pain, difficulty voiding, dysuria, urinary frequency, urinary urgency or urinary hesitancy Musc: Denies: neck pain, back pain, extremity pain or extremity swelling Skin/Breast: Denies: rash, pruritus, erythema, jaundice or dry skin Neuro: Reports: dizziness and vertigo; Denies: headache(s), numbness in extremities, weakness in extremities, sensory changes, lack of coordination or difficulty walking Psych: Denies: anxiety, depression, mood swings, panic attacks, sleeping less, suicidal ideation or homicidal ideation Endo: Denies: polyuria, polydipsia or tired all the time Joe/Lymph: Denies: easy bruising, petechiae or enlarged lymph nodes All/Imm: Denies: urticaria, throat swelling, facial swelling, acute wheezing or seasonal rhinorrhea PFSH ED PFSH: Medical History Asthma Atrial fibrillation Chronic cystitis COPD (chronic obstructive pulmonary disease) Dyslipidemia History of deviated nasal septum Hypertension Incomplete bladder emptying Osteoarthritis of right hip Pneumonia Vaginal prolapse Surgical History H/O shoulder replacement left H/O: hysterectomy History of appendectomy History of hip replacement Hx of bilateral cataract extraction Hx of foot surgery BUNIONS EXCISED BILATERAL FEET Family History Brother Diabetes Cancer Son Diabetes Father , AT AGE 75 Lung disease Mother , AT AGE 37 Complications specific to or after delivery Social History Smoking and tobacco status: former smoker Alcohol intake: current Alcohol intake frequency: holidays/special occasions only Household members: spouse Marital status: Current occupational status: retired History of recent travel: No Female Reproductive History: Date of last menstrual period: 10/21/79 Physical Exam Const: COMMON NORMALS: no acute distress, patient oriented x3, no limitations, healthy appearing, alert and well nourished GENERAL APPEARANCE: cooperative, comfortable, well kempt and well developed ORIENTATION/CONSCIOUSNESS: Yes awake, Yes oriented to person, Yes oriented to place and Yes oriented to time HENMT: COMMON NORMALS: normocephalic, atraumatic, hearing grossly normal bilaterally, external ears normal, EAC's normal, TM's normal bilaterally, Normal external nose present, Normal nasal mucous membranes and turbinates present, moist oral mucous membranes, oropharynx normal, dentition normal and gingiva normal HEAD & SCALP: normal to inspection, normocephalic and atraumatic FACE & SINUS: normal facial exam NOSE: Normal external nose present and Normal nasal mucous membranes and turbinates present EXTERNAL EAR: Yes external ears normal EXTERNAL AUDITORY CANAL: EAC's normal TYMPANIC MEMBRANE: TM's normal bilaterally MOUTH: Normal oral and palatal mucosa present, lip normal and tongue normal THROAT: no uvular edema Eye: COMMON NORMALS: Equal, round and reactive pupils present, EOMs intact bilaterally, conjunctivae normal, no scleral icterus and normal visual culver by confrontation GENERAL EYE: appearance normal, both eyes and all related structures and normal light reflex VISUAL ACUITY: Yes acuity normal ALIGNMENT: Yes alignment normal PERIORBITAL: periorbital findings normal EYELID: eyelids normal CONJUNCTIVA: Yes conjunctivae normal SCLERA: sclerae normal PUPIL: Yes Equal, round and reactive pupils present and Yes Pupil accommodation reflex normal DIRECT OPHTHALMOSCOPY: Yes normal light reflex Neck/C-Spine: COMMON NORMALS: full ROM, no lymphadenopathy, supple, no meningeal signs and no JVD GENERAL: Yes normal visual inspection CAROTIDS: Yes normal carotid upstroke CERVICAL SPINE: Yes cervical ROM normal Lymph: LYMPHATIC: no lymphadenopathy noted Chest: COMMONS NORMALS: normal inspection of the chest CHEST: Yes Symmetrical chest wall rise Resp: COMMON NORMALS: normal respiratory effort, No retractions, No use of accessory muscles and clear to auscultation bilaterally EFFORT & INSPECTION: Yes able to speak in complete sentences and Yes symmetric chest movement AUSCULTATION: clear to auscultation bilaterally Cardio: COMMON NORMALS: no JVD, regular rate, regular rhythm, S1 normal heart sound present, S2 normal heart sound present, No murmurs present (Cardio) and Peripheral pulses 2+ throughout RATE: regular rate RHYTHM: regular rhythm HEART SOUNDS: S1 normal heart sound present and S2 normal heart sound present PERIPHERAL PULSES: Peripheral pulses 2+ throughout GI: COMMON NORMALS: Normal to inspection, nondistended, normoactive bowel sounds present and non-tender : COMMON NORMALS: Yes no CVA tenderness BLADDER/KIDNEY EXAM: Yes no CVA tenderness Back/Pelvis: COMMON NORMALS: no CVA tenderness, thoracic and lumbar spine normal to inspection, no thoracic nor lumbar tenderness and thoraco-lumbar ROM normal Extremity: COMMON NORMALS: normal to inspection, full ROM, capillary refill normal, no calf tenderness and no pedal edema Neuro: COMMON NORMALS: patient oriented x3, CN's II-XII intact bilaterally, moves all extremities, no focal motor deficits, no sensory deficits noted and gait normal SENSORIUM/ORIENTATION: Yes alert, Yes oriented to person, Yes oriented to place and Yes oriented to time MENINGEAL SIGNS: Yes no meningeal signs SPEECH: speech normal GAIT: Yes Normal gait present MOTOR EXAM: 5/5 motor strength present throughout, Pronator motor function not present and no tremor noted Psych: COMMON NORMALS: mental status grossly normal, Normal thought process present, cooperative, normal affect, speech normal and activity/motor behavior normal APPEARANCE: Yes well kempt SPEECH: Yes normal speech THOUGHT PROCESS: Normal thought process present THOUGHT CONTENT: Yes Normal thought content present INSIGHT: Good insight present (Psych) Skin: COMMON NORMALS: no rashes or lesions noted, no wounds, turgor normal and no jaundice GENERAL SKIN EXAM: no rashes or lesions noted and turgor normal Course ED course: Patient remained stable in the emergency department. MRI was ordered secondary to CT findings of potential lacunar infarcts. This was negative. Patient has been up to the bedside commode without recurrence of dizziness however she states she cannot urinate very much. After catheterization urinalysis reveals no evidence of infection. Will discharge home with as needed meclizine. Follow-up with primary care tomorrow, patient agrees with this plan. Vital Signs: Vital signs: Vital Signs Temperature 97.8 F 10/02/20 09:28 Pulse Rate 52 L 10/02/20 12:28 Respiratory Rate 20 H 10/02/20 12:28 Blood Pressure 116/72 10/02/20 10:55 Pulse Oximetry 93 10/02/20 12:41 MDM - General Adult MDM Narrative: Medical decision making narrative: Although symptoms are consistent with prior episodes of vertigo, patient agrees to undergo lab work and radiographic studies to ensure no other pathology is presenting her symptoms. Differential Diagnosis: Differential Diagnosis: Vertigo, dehydration, urinary tract infection, stroke, TIA, inner ear infection, electrolyte abnormality Lab Data: Labs: Lab Results 10/02/20 10/02/20 10/02/20 Range/Units 09:58 09:58 09:58 WBC 9.7 (4.0-10.0) 10^3/ uL RBC 3.97 L (4.1-5.3) 10^6/u L Hgb 12.3 (11.5-15.3) g/dL Hct 38.0 (37.0-47.0) % MCV 95.7 (81-99) fL MCH 31.0 (28.0-34.0) pg MCHC 32.4 (30.0-36.0) g/dL RDW 14.2 (12.1-15.1) % Plt Count 259 (130-400) 10^3/c mm MPV 10.3 (7.4-10.4) fL Neut % (Auto) 68.6 % Lymph % (Auto) 22.2 % Trimble % (Auto) 8.2 % Eos % (Auto) 0.4 % Baso % (Auto) 0.2 % Neut # (Auto) 6.62 (1.8-7.7) 10^3/u L Lymph # (Auto) 2.1 (0.8-4.8) 10^3/u L Trimble # (Auto) 0.8 (0.2-0.9) 10^3/u L Eos # (Auto) 0.0 (0.0-0.8) 10^3/u L Baso # (Auto) 0.0 (0.0-0.1) 10^3/u L Nucleated RBC % (a uto) 0 % Nucleated RBCs # 0.0 /100WBC Sodium 136 (136-145) mmol/L Potassium 4.1 (3.5-5.1) mmol/L Chloride 103 (98-107) mmol/L Carbon Dioxide 22 (22-29) mmol/L Anion Gap 15.1 (5-19) BUN 21 (8-23) mg/dL Creatinine 1.0 H (0.5-0.9) mg/dL GFR Calculation Not Reportable Glucose 97 (65-115) mg/dL Calculated Osmolal ity 285 (285-295) mOsm/k g Calcium 8.8 (8.5-10.5) mg/dL Total Bilirubin 0.4 (0.15-1.2) mg/dL AST 15 (0-32) U/L ALT 18 (0-33) U/L Alkaline Phosphata se 64 (35-105) IU/L Creatine Kinase 24 L Cancelled (26-192) U/L Troponin T Gen 5 n g/L (0-10) ng/L Total Protein 6.1 L (6.6-8.7) g/dL Albumin 3.3 L (3.5-5.2) g/dL Globulin 2.8 (1.3-4.6) g/dL TSH 2.69 Cancelled (0.27-4.20) uIU/ mL Urine Color (Yellow) Urine Appearance (CLEAR) Urine pH (5-7) Ur Specific Gravit y (1.005-1.030) Urine Protein (Negative) Urine Glucose (UA) (Normal) Urine Ketones (Negative) Urine Blood (Negative) Urine Nitrate (Negative) Urine Bilirubin (Negative) Urine Urobilinogen (Negative) mg/dL Ur Leukocyte Tiki ase (Negative) 10/02/20 10/02/20 Range/Units 09:58 12:25 WBC (4.0-10.0) 10^3/ uL RBC (4.1-5.3) 10^6/u L Hgb (11.5-15.3) g/dL Hct (37.0-47.0) % MCV (81-99) fL MCH (28.0-34.0) pg MCHC (30.0-36.0) g/dL RDW (12.1-15.1) % Plt Count (130-400) 10^3/c mm MPV (7.4-10.4) fL Neut % (Auto) % Lymph % (Auto) % Trimble % (Auto) % Eos % (Auto) % Baso % (Auto) % Neut # (Auto) (1.8-7.7) 10^3/u L Lymph # (Auto) (0.8-4.8) 10^3/u L Trimble # (Auto) (0.2-0.9) 10^3/u L Eos # (Auto) (0.0-0.8) 10^3/u L Baso # (Auto) (0.0-0.1) 10^3/u L Nucleated RBC % (a uto) % Nucleated RBCs # /100WBC Sodium (136-145) mmol/L Potassium (3.5-5.1) mmol/L Chloride (98-107) mmol/L Carbon Dioxide (22-29) mmol/L Anion Gap (5-19) BUN (8-23) mg/dL Creatinine (0.5-0.9) mg/dL GFR Calculation Glucose (65-115) mg/dL Calculated Osmolal ity (285-295) mOsm/k g Calcium (8.5-10.5) mg/dL Total Bilirubin (0.15-1.2) mg/dL AST (0-32) U/L ALT (0-33) U/L Alkaline Phosphata se (35-105) IU/L Creatine Kinase (26-192) U/L Troponin T Gen 5 n g/L 27 H (0-10) ng/L Total Protein (6.6-8.7) g/dL Albumin (3.5-5.2) g/dL Globulin (1.3-4.6) g/dL TSH (0.27-4.20) uIU/ mL Urine Color Straw (Yellow) Urine Appearance Clear (CLEAR) Urine pH 6 (5-7) Ur Specific Gravit y 1.010 (1.005-1.030) Urine Protein Neg (Negative) Urine Glucose (UA) Norm (Normal) Urine Ketones Negative (Negative) Urine Blood Neg (Negative) Urine Nitrate Negative (Negative) Urine Bilirubin Neg (Negative) Urine Urobilinogen Norm (Negative) mg/dL Ur Leukocyte Tiki ase Negative (Negative) EKG Data^: Time 0 931, ventricular rate 61 bpm. Sinus rhythm with a prolonged QRS at 126.: Attestation: I personally reviewed and interpreted this EKG as follows: Computer generated interpretation: Chest X-Ray 10/02/20 09:29 IMPRESSION: COPD, bronchiectasis, interstitial disease, and mild airspace disease. ADDENDUM: 10/02/20 1009 There has been mild interval increase in left upper lobe airspace disease when compared to the prior study. Head CT 10/02/20 09:29 IMPRESSION: 1. Prominent small-vessel ischemic change including bilateral basal ganglia lacunar infarcts, which can be better characterized with MRI if clinically indicated. 2. Left sphenoid sinus fluid. Radiation Dose CTDIVOL = (mGy): DLP = 678.3 (mGy-cm) Head MRI 10/02/20 10:19 IMPRESSION: 1. No evidence of acute intracranial abnormality. No evidence of acute infarction, hemorrhage, or mass. 2. Atrophy and microvascular disease. Discharge Plan Discharge Patient Disposition: Home Clinical Impression: Benign paroxysmal positional vertigo Condition: Stable Prescriptions: New meclizine 25 mg tablet 25 mg PO TID PRN (Reason: dizziness) Qty: 20 RF: 0 No Action albuterol sulfate 90 mcg/actuation HFA aerosol inhaler 1 - 2 puff INHALATION Q4H PRN (Reason: Shortness Of Breath) RF: 0 Vitamin D3 1 tab PO DAILY@08 RF: 0 fluticasone propion-salmeterol [Advair Diskus] 250-50 mcg/dose blister with device 1 inh INHALATION BID@,17 RF: 0 amlodipine 10 mg tablet 10 mg PO DAILY@0800 RF: 0 benzonatate 100 mg capsule 100 mg PO TID PRN (Reason: Cough) RF: 0 ferrous gluconate 324 mg (38 mg iron) Tablet 324 mg PO BID@,13 RF: 0 Eliquis 5 mg tablet 5 mg PO BID@08 RF: 0 ascorbic acid (vitamin C) [Vitamin C] 500 mg tablet 1,000 mg PO BID@,18 RF: 0 Spiriva with HandiHaler 18 mcg capsule, w/inhalation device 18 mcg INHALATION DAILY@08 RF: 0 potassium chloride 20 mEq tablet extended release 20 meq PO DAILY@0800 RF: 0 multivitamin Tablet 1 tab PO DAILY@08 RF: 0 losartan 50 mg tablet 50 mg PO DAILY@08 RF: 0 prednisone 20 mg tablet 20 mg PO DAILY RF: 0 Tylenol Arthritis Pain 650 mg Tablet Extended Release 1,300 mg PO PRN RF: 0 dexamethasone 4 mg tablet See Rx Instructions .ROUTE .COMPLEX RF: 0 levofloxacin 750 mg tablet 750 mg PO DAILY RF: 0 metoprolol succinate 25 mg tablet extended release 24 hr 12.5 mg PO DAILY@08 RF: 0 Discharge Orders: Discharge ED (Routine); Ordered 10/02/20 Ordered By: Tatyana Francis Referrals: Emery Ragland MD [Primary Care Provider] - Discharge Diet: Usual diet Discharge Activity: Resume usual activity Patient Instructions: Vertigo (ED), Dizziness (ED) Coding Level of Care Code ED [place] Reverse Winder for Chg Fwd Exam Comprehensive
[2020-10-02 10:13] LABS: Basophils % 0.2 %; Eosinophils % 0.4 %; Hemoglobin 12.3 g/dL (11.5-15.3); Lymphocytes # 2.1 10^3/uL (0.8-4.8); Lymphocytes % 22.2 %; Mean Corpuscular HGB Conc 32.4 g/dL (30.0-36.0); Mean Corpuscular Volume 95.7 fL (81-99); Mean Platelet Volume 10.3 fL (7.4-10.4); Monocytes # 0.8 10^3/uL (0.2-0.9); Monocytes % 8.2 %; Neutrophils # 6.62 10^3/uL (1.8-7.7); Neutrophils % 68.6 %; Nucleated Red Blood Cells % 0 %; Platelet Count 259 10^3/cmm (130-400); Red Blood Count 3.97 10^6/uL (4.1-5.3); Red Cell Distribution Width 14.2 % (12.1-15.1); White Blood Count 9.7 10^3/uL (4.0-10.0)
--- NOTE | 2020-10-02 10:19 | MRR_ITS ---
PROCEDURE INFORMATION: Exam: MR Head Without Contrast Exam date and time: 10/02/2020 11:25 AM Age: 80 years old Clinical indication: Patient HX: PT came to er this am with severe dizziness and decreased BP; Additional info: Dizzy TECHNIQUE: Imaging protocol: MR of the head without contrast. COMPARISON: CT head wo con* [id number] 10/02/2020 9:35 AM FINDINGS: Brain: The ventricles and sulci are proportionally enlarged, consistent with volume loss / atrophy. There is T2 prolongation in the cerebral white matter, consistent with microvascular disease. Akers white differentiation is intact. Diffusion weighted images show no restricted diffusion or evidence of acute infarct. There is no mass effect or midline shift. There is no acute intracranial hemorrhage. There are no extra-axial fluid collections. Cerebral ventricles: No evidence hydrocephalus. Bones/joints: There is anterolisthesis of C3 on C4 and C4 on C5 with disc bulges. Paranasal sinuses: There is fluid again noted in left sphenoid sinus. Mastoid air cells: No significant mastoid effusion. Orbits: There have been bilateral intraocular lens replacements likely related to cataract surgery. Soft tissues: Unremarkable as visualized. Nasal cavity: Nasal septum is deviated to the right. There is a left marycruz bullosa noted. Other vasculature: Flow voids in main vascular structures are visualized. MR/MR head wo con* [id number] IMPRESSION: 1. No evidence of acute intracranial abnormality. No evidence of acute infarction, hemorrhage, or mass. 2. Atrophy and microvascular disease.
[2020-10-02 10:38] LABS: Troponin T (5th) Once 27 ng/L (0-10)
[2020-10-02 10:48] LABS: Alanine Aminotransferase 18 U/L (0-33); Albumin Level 3.3 g/dL (3.5-5.2); Alkaline Phosphatase 64 IU/L (35-105); Anion Gap 15.1 (5-19); Aspartate Amino Transferase 15 U/L (0-32); Blood Urea Nitrogen 21 mg/dL (8-23); Calcium 8.8 mg/dL (8.5-10.5); Carbon Dioxide 22 mmol/L (22-29); Chloride 103 mmol/L (98-107); Creatine Phosphokinase 24 U/L (26-192); Creatinine Clr Calc Pharmacy 45.5312; Globulin 2.8 g/dL (1.3-4.6); Glucose 97 mg/dL (65-115); Osmolality Calculated 285 mOsm/kg (285-295); Potassium 4.1 mmol/L (3.5-5.1); Sodium 136 mmol/L (136-145); Thyroid Stimulating Hormone 2.69 uIU/mL (0.27-4.20); Total Bilirubin 0.4 mg/dL (0.15-1.2); Total Protein 6.1 g/dL (6.6-8.7)
[2020-10-02 13:06] LABS: Add Urine Microscopic? NO
[2020-10-02 13:20] LABS: Bilirubin Urine Neg (Negative); Blood Urine Neg (Negative); Glucose Urine UA Norm (Normal); Ketones Urine Negative (Negative); Leukocyte Esterase Urine Negative (Negative); Nitrate Urine Negative (Negative); Protein Urine Neg (Negative); Urine Appearance Clear (CLEAR); Urine Color Straw (Yellow); Urobilinogen Urine Norm (Negative); pH Urine 6 (5-7)
[2020-10-02 13:56] LABS: Troponin T (5th) Once 25 ng/L (0-10)
[2020-10-02 14:51] LABS: Free T4 Free Thyroxine 0.95 ng/dL (0.82-1.77)
== END 2020-10-02 13:40 | disposition home or self-care (01) ==
PROVIDERS: Emergency Provider Emergency Medicine; PCP Family Medicine
DX: H81.10 Benign paroxysmal vertigo, unspecified ear (principal); Z79.01 Long term (current) use of anticoagulants; I48.91 Unspecified atrial fibrillation; J44.9 Chronic obstructive pulmonary disease, unspecified; E78.5 Hyperlipidemia, unspecified; I10 Essential (primary) hypertension; Z87.891 Personal history of nicotine dependence
CPT/HCPCS: 12345; 36415; 51701; 70450; 70551; 71045; 80053; 81003; 82550; 84439; 84443; 84484; 85025; 93005; 99282; 99284

== ENCOUNTER → 2021-01-24 14:49 | Outpatient (BNVA) | payer MEDICARE, OTHER, SELFPAY | PROVIDERS: PCP Family Medicine; Visit Provider Family Medicine | DX: E03.9 Hypothyroidism, unspecified (principal); I48.0 Paroxysmal atrial fibrillation; L65.9 Nonscarring hair loss, unspecified; I10 Essential (primary) hypertension; E78.5 Hyperlipidemia, unspecified | CPT/HCPCS: 80048; 84443; 85025 ==

== ENCOUNTER 2021-08-17 13:47 | Outpatient (CLI) | payer MEDICARE, OTHER, SELFPAY ==
--- NOTE | 2021-08-17 13:57 | MM_ITS ---
WS: [id number] BILATERAL SCREENING DIGITAL MAMMOGRAM WITH CAD HISTORY: SCREENING COMPARISON: 07/14/2020 and 05/13/2019 Bilateral CC and MLO views submitted. Computer aided detection analyzed. Breast composition: There are scattered areas of fibroglandular density. No suspicious masses, microc alcifications or architectural distortion. Benign vascular calcifications. MM/[place] [id number] IMPRESSION: BI-RADS: 2-Benign FOLLOW UP: 1 Year Follow-up
== END 2021-08-17 13:48 | disposition home or self-care (01) ==
LOC: RADSHAW 13:54
PROVIDERS: PCP Family Medicine; Visit Provider Family Medicine
DX: Z12.31 Encounter for screening mammogram for malignant neoplasm of breast (principal)
CPT/HCPCS: 77067

== ENCOUNTER → 2021-10-31 12:30 | Outpatient (BNVA) | payer MEDICARE, OTHER, SELFPAY | PROVIDERS: PCP Family Medicine; Visit Provider Family Medicine | DX: I10 Essential (primary) hypertension (principal) | CPT/HCPCS: 80053; 85025 ==

== ENCOUNTER → 2022-06-18 11:01 | Outpatient (BNVA) | payer MEDICARE, OTHER, SELFPAY | PROVIDERS: PCP Family Medicine; Visit Provider Internal Medicine Cardiovascular Disease | DX: I48.0 Paroxysmal atrial fibrillation (principal); I10 Essential (primary) hypertension; Z79.01 Long term (current) use of anticoagulants; Z87.891 Personal history of nicotine dependence | CPT/HCPCS: 99213; 99214 ==

== ENCOUNTER → 2022-06-21 10:16 | Outpatient (BNVA) | payer MEDICARE, OTHER, SELFPAY | PROVIDERS: PCP Family Medicine; Visit Provider Urology | DX: N30.20 Other chronic cystitis without hematuria (principal) | CPT/HCPCS: 81003; 87077; 87086; 87186; 99213 ==

== ENCOUNTER 2022-07-05 21:57 | Observation (INO) | payer MEDICARE, OTHER, SELFPAY ==
[2022-07-05 21:59] VITALS: BP 146/84; PULSE 60; RESP 18; TEMP 36.8; O2SAT 94; BMI 30.8
--- NOTE | 2022-07-05 22:00 | ED_ITS ---
HPI - Chest Pain General: Chief Complaint: Chest Pain Stated Complaint: Chest pain Time Seen by Provider: 07/05/22 22:00 History of Present Illness: Ms. Middleton is a an 81-year-old lady with history of hypertension, hyperlipidemia, COPD, atrial fibrillation on anticoagulation who presents to the emergency department due to chest discomfort. She reports longstanding history of labile blood pressures however it was perhaps more elevated today. When she took it systolic was approximately 170 and she noted chest pressure associated with this. Substernal in location with radiation to the right jaw and on the left arm. Moderate to severe intensity and has somewhat persisted though is currently mild. Did have associated shortness of breath. No other typical cardiac features. Denies frequent episodes of chest pain in the past. No other specific changes in health, exacerbating, or alleviating factors identified. Onset (ago): hour(s) Timing of current episode: constant Prior episodes: No Onset: during rest Pain location: substernal Pain radiation: left arm, jaw/teeth and left shoulder Severity: moderate Quality: tightness and heaviness Associated symptoms: Reports dyspnea Review of Systems General: Reports: 10 or more systems reviewed and unremarkable except in HPI and below Resp: Reports: dyspnea PFSH ED PFSH: Medical History Anticoagulation adequate with anticoagulant therapy Asthma Atrial fibrillation Chronic cystitis COPD (chronic obstructive pulmonary disease) Degenerative lumbar disc Dyslipidemia History of deviated nasal septum Hypertension Incomplete bladder emptying Osteoarthritis of right hip Pneumonia Vaginal prolapse Surgical History H/O shoulder replacement left H/O: hysterectomy History of appendectomy History of hip replacement Hx of bilateral cataract extraction Hx of foot surgery BUNIONS EXCISED BILATERAL FEET Family History Brother Diabetes Cancer Son Diabetes Father , AT AGE 75 Lung disease Mother , AT AGE 37 Complications specific to or after delivery Social History Smoking and tobacco status: former smoker Alcohol intake: former Household members: spouse Marital status: Current occupational status: retired History of recent travel: No Female Reproductive History: Date of last menstrual period: 10/21/79 Physical Exam Const: COMMON NORMALS: alert GENERAL APPEARANCE: cooperative and well developed HENMT: COMMON NORMALS: normocephalic and atraumatic HEAD & SCALP: normocephalic and atraumatic Eye: COMMON NORMALS: conjunctivae normal CONJUNCTIVA: Yes conjunctivae normal SCLERA: sclerae normal Neck/C-Spine: COMMON NORMALS: supple GENERAL: Yes trachea midline Resp: COMMON NORMALS: clear to auscultation bilaterally EFFORT & INSPECTION: Yes able to speak in complete sentences AUSCULTATION: clear to auscultation bilaterally Cardio: COMMON NORMALS: regular rate and regular rhythm RATE: regular rate RHYTHM: regular rhythm GI: COMMON NORMALS: Soft to palpation PALPATION: Yes Soft to palpation and No Tenderness to palpation present (GI) Extremity: GENERAL: Yes normal exam except as noted and No edema Neuro: COMMON NORMALS: moves all extremities SENSORIUM/ORIENTATION: Yes alert and No Orientation impaired Psych: COMMON NORMALS: mental status grossly normal and Normal thought process present THOUGHT PROCESS: Normal thought process present Course Vital Signs: Vital signs: Vital Signs Temperature 97.6 F 07/06/22 15:54 Pulse Rate 55 L 07/06/22 15:54 Respiratory Rate 16 07/06/22 15:54 Blood Pressure 111/62 07/06/22 15:54 Pulse Oximetry 91 07/06/22 15:54 Oxygen Delivery Me thod 07/06/22 11:10 MDM - Chest Pain Medical Decision Making 82-year-old lady presenting due to chest pain. Some focal features associated with this. Aspirin and nitro given prior to arrival. EKG with nonspecific ST segment abnormalities and right bundle branch block. Delta troponin negative. No clear etiology identified on ED evaluation. Patient not low risk by heart score and therefore after discussion with patient admitted for further management and cardiac testing. Medical Records I reviewed the patient's medical records. Lab Data I reviewed the patient's lab results. : 07/05/22 21:25 07/05/22 21:25 Radiology Impressions Chest X-Ray 07/05/22 22:09 IMPRESSION: 1. No definite CHF or pneumonia. 2. Other findings discussed above. 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 No acute brain parenchymal abnormality. Laboratory Results WBC 8.3 10^3/uL (4.0-10.0) 07/05/22: RBC 4.05 10^6/uL (4.1-5.3) L 07/05/22: Hgb 12.6 g/dL (11.5-15.3) 07/05/22: Hct 38.3 % (37.0-47.0) 07/05/22: MCV 94.6 fl (81-99) 07/05/22: MCH 31.1 pg (28.0-34.0) 07/05/22: MCHC 32.9 g/dL (30.0-36.0) 07/05/22: RDW 14.1 % (12.1-15.1) 07/05/22: Plt Count 229 10^3/cmm (130-400) 07/05/22: MPV 11.8 fL (7.4-10.4) H 07/05/22: Neut % (Auto) 47.5 % 07/05/22: Lymph % (Auto) 43.6 % 07/05/22: Gates % (Auto) 6.5 % 07/05/22: Eos % (Auto) 1.6 % 07/05/22: Baso % (Auto) 0.6 % 07/05/22: Neut # (Auto) 3.96 10^3/uL (1.8-7.7) 07/05/22: Lymph # (Auto) 3.6 10^3/uL (0.8-4.8) 07/05/22: Gates # (Auto) 0.5 10^3/uL (0.2-0.9) 07/05/22: Eos # (Auto) 0.1 10^3/uL (0.0-0.8) 07/05/22: Baso # (Auto) 0.1 10^3/uL (0.0-0.1) 07/05/22: Nucleated RBC % (auto) 0 % 07/05/22: Nucleated RBCs # 0.0 /100WBC 07/05/22: Sodium 140 mmol/L (136-145) 07/05/22 21:25 Potassium 3.9 mmol/L (3.5-5.1) 07/05/22 21:25 Chloride 104 mmol/L (98-107) 07/05/22 21:25 Carbon Dioxide 23 mmol/L (22-29) 07/05/22 21:25 Anion Gap 16.9 (5-19) 07/05/22 21:25 BUN 25 mg/dL (8-23) H 07/05/22 21:25 Creatinine 1.2 mg/dL (0.5-0.9) H 07/05/22 21:25 GFR Calculation Not Reportable 07/05/22 21:25 Glucose 153 mg/dL (65-115) H 07/05/22 21:25 Calculated Osmolality 297 mOsm/kg (285-295) H 07/05/22 21:25 Calcium 9.2 mg/dL (8.5-10.5) 07/05/22:25 Total Bilirubin 0.3 mg/dL (0.15-1.2) 07/05/22 21:25 AST 21 U/L (0-32) 07/05/22 21:25 ALT 13 U/L (0-33) 07/05/22 21:25 Alkaline Phosphatase 117 U/L (35-105) H 07/05/22 21:25 Troponin T Baseline 20 ng/L (0-10) H 07/05/22 21:25 Troponin T 120 Minute 20.57 ng/L (0-10) H 07/06/22 00:40 Delta Troponin T 0.57 ABS# (0-10) 07/06/22 00:40 NT-Pro-B Natriuret Pep 947 pg/mL (0-450) H 07/05/22 21:25 Total Protein 6.7 g/dL (6.6-8.7) 07/05/22:25 Albumin 4.1 g/dL (3.5-5.2) 07/05/22: Globulin 2.6 g/dL (1.3-4.6) 07/05/22 21:25 Lipase 64 U/L (13-60) H 07/05/22 21:25 Discharge Plan Discharge Patient Disposition: Placed in Observation Admit Provider: Cassius Benavidez Clinical Impression: Chest pain Discharge Diet: Cardiac and Low Salt Discharge Activity: Increase activity as tolerated Coding Level of Care Code ED Finishing Wire Sawyer for Chg Fwd Exam Comprehensive
--- NOTE | 2022-07-05 22:09 | XRR_ITS ---
PROCEDURE INFORMATION: Exam: XR Chest Exam date and time: 07/05/2022 11:04 PM Age: 81 years old Clinical indication: Other: Chest pain x 2 days; Additional info: Cp TECHNIQUE: Imaging protocol: Radiologic exam of the chest. Views: 1 view. COMPARISON: CR XR chest 1V [id number] 10/02/2020 9:34 AM FINDINGS: Lungs: No CHF/pulmonary edema. Visible lungs appear essentially clear. Pleural spaces: No visible pneumothorax. No definite pleural fluid. Heart/Mediastinum: Heart size is within normal limits. Vasculature: Moderate aortic tortuosity, similar to the prior exam. Bones/joints: As before, there is a left shoulder prosthesis. XR/XR chest 1V portable [id number] IMPRESSION: 1. No definite CHF or pneumonia. 2. Other findings discussed above.
--- NOTE | 2022-07-05 22:09 | ECG_ITS ---
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 Measurements Intervals [place] Rate: 64 P: 72 ND: 162 QRS: -6 QRSD: 130 T: 35 QT: 454 QTc: 471 Interpretive Statements SINUS RHYTHM WITH OCCASIONAL SUPRAVENTRICULAR PREMATURE COMPLEXES RIGHT BUNDLE BRANCH BLOCK [120+ ms QRS DURATION, UPRIGHT V1, 40+ ms S IN I/aVL/V4/V5/V6] Compared to ECG 10/02/2020 09:31:36 Right bundle-branch block now present Electronically Signed On 07-06-2022 0:17:46 CDT by Don Murillo M.D. [id number]
[2022-07-05 22:28] LABS: Basophils # 0.1 10^3/uL (0.0-0.1); Basophils % 0.6 %; Eosinophils # 0.1 10^3/uL (0.0-0.8); Eosinophils % 1.6 %; Hematocrit 38.3 % (37.0-47.0); Hemoglobin 12.6 g/dL (11.5-15.3); Lymphocytes # 3.6 10^3/uL (0.8-4.8); Lymphocytes % 43.6 %; Mean Corpuscular HGB Conc 32.9 g/dL (30.0-36.0); Mean Corpuscular Hemoglobin 31.1 pg (28.0-34.0); Mean Corpuscular Volume 94.6 fl (81-99); Mean Platelet Volume 11.8 fL (7.4-10.4); Monocytes # 0.5 10^3/uL (0.2-0.9); Monocytes % 6.5 %; Neutrophils # 3.96 10^3/uL (1.8-7.7); Neutrophils % 47.5 %; Nucleated Red Blood Cells % 0 %; Platelet Count 229 10^3/cmm (130-400); Red Blood Count 4.05 10^6/uL (4.1-5.3); Red Cell Distribution Width 14.1 % (12.1-15.1); White Blood Count 8.3 10^3/uL (4.0-10.0)
[2022-07-05 22:59] LABS: Troponin(5th) Baseline 20 ng/L (0-10)
[2022-07-05 23:09] LABS: Alanine Aminotransferase 13 U/L (0-33); Albumin Level 4.1 g/dL (3.5-5.2); Alkaline Phosphatase 117 U/L (35-105); Anion Gap 16.9 (5-19); Aspartate Amino Transferase 21 U/L (0-32); Blood Urea Nitrogen 25 mg/dL (8-23); Calcium 9.2 mg/dL (8.5-10.5); Carbon Dioxide 23 mmol/L (22-29); Chloride 104 mmol/L (98-107); Globulin 2.6 g/dL (1.3-4.6); Glucose 153 mg/dL (65-115); Lipase 64 U/L (13-60); NT Pro B Type Natriuretic Pept 947 pg/mL (0-450); Osmolality Calculated 297 mOsm/kg (285-295); Potassium 3.9 mmol/L (3.5-5.1); Sodium 140 mmol/L (136-145); Total Bilirubin 0.3 mg/dL (0.15-1.2); Total Protein 6.7 g/dL (6.6-8.7)
[2022-07-06] VITALS (11 sets, daily range): BP systolic 111–138; BP diastolic 62–83; PULSE 54–92; RESP 14–18; TEMP 36.3–36.9; O2SAT 91–98
--- NOTE | 2022-07-06 00:09 | ECG_ITS ---
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 Measurements Intervals [place] Rate: 56 P: 74 ME: 163 QRS: -15 QRSD: 133 T: 1 QT: 445 QTc: 431 Interpretive Statements SINUS BRADYCARDIA RIGHT BUNDLE BRANCH BLOCK [120+ ms QRS DURATION, UPRIGHT V1, 40+ ms S IN I/aVL/V4/V5/V6] Compared to ECG 07/05/2022 22:12:31 Sinus rhythm no longer present Electronically Signed On 07-06-2022 13:45:04 CDT by Sofía Flower M.D. [id number]
[2022-07-06 01:36] LABS: Troponin 5 2HR 20.57 ng/L (0-10)
[2022-07-06 01:39] LABS: Troponin 5 2HR Delta 0.57 ABS# (0-10)
--- NOTE | 2022-07-06 02:58 | USCV_ITS ---
Brijesh Middleton Age: 81 Gender: F : 1940 Exam Date: 07/06/2022 03:52 Ordering Phys: Cassius Benavidez MD Technologist: JASON Exam Location: [facility] Indication: Chest pain. BP: 133 / 83 HR: 79 Rhythm: Sinus Technical Quality: Adequate MEASUREMENTS (Male / Female) Normal Values 2D ECHO LV Diastolic Diameter PLAX 3.5 cm 4.2 - 5.9 / 3.9 - 5.3 cm LV Systolic Diameter PLAX 2.4 cm IVS Diastolic Thickness 1.5 cm 0.6 - 1.0 / 0.6 - 0.9 cm IVS Systolic Thickness 2.1 cm LVPW Diastolic Thickness 1.3 cm 0.6 - 1.0 / 0.6 - 0.9 cm LVPW Systolic Thickness 1.6 cm LVOT Diameter 2.4 cm LV Ejection Fraction 2D Teich 61.3 % LV Ejection Fraction MOD 2C 75.4 % LV Ejection Fraction 2C AL 78.3 % LA Diameter 4.0 cm LA Width 3.9 cm LA Height 4.8 cm RA Width 3.5 cm RA Height 4.4 cm Aorta at Sinotubular Diameter 3.0 cm IVC Diameter 1.7 cm M-MODE Aortic Annulus Diameter 2.6 cm LA Ao Ratio MM 1.6 MV E Point Septal Separation 0.5 cm DOPPLER AV Peak Velocity 127.0 cm/s LVOT Peak Velocity 79.0 cm/s AV Area Cont Eq vti 2.8 cm squared AV Area Cont Eq pk 2.7 cm squared MV Area PHT 2.1 cm squared Mitral E to A Ratio 0.8 MV E' Velocity 34.0 cm/s Mitral E to MV E' Ratio 9.3 Mitral E to LV E' Lateral Ratio 8.9 Mitral E to LV E' Septal Ratio 9.9 TR Peak Velocity 281.7 cm/s TR Peak Gradient 31.7 mmHg TV Peak E Velocity 49.0 cm/s Right Atrial Pressure 5.0 mmHg Pulmonary Artery Systolic Pressu 36.7 mmHg PV Peak Velocity 66.0 cm/s RV Acceleration Time 0.1 s RV Ejection Time 0.4 s RV AcT/ET 0.3 FINDINGS Left Ventricle Normal left ventricular size, systolic function and wall thickness, with no regional wall motion abnormalities. Left ventricular ejection fraction is estimated at 68 %. Grade I diastolic dysfunction (abnormal relaxation filling pattern), normal to mildly elevated filling pressures. Right Ventricle Normal right ventricular size and systolic function. Right ventricular systolic pressure 37 mmHg. Right Atrium Normal right atrial size. Right atrial pressure estimated at 3 mmHg. Left Atrium Mildly increased left atrial size. Mitral Valve Moderate mitral annular calcification. Mildly thickened mitral valve. No mitral valve stenosis. Trace mitral valve regurgitation. Aortic Valve Structurally normal trileaflet aortic valve. No aortic valve stenosis. No aortic valve regurgitation. Tricuspid Valve Structurally normal tricuspid valve. No tricuspid valve stenosis. Trace to mild tricuspid valve regurgitation. Pulmonic Valve Pulmonic valve not well visualized. No pulmonary valve stenosis. No pulmonary valve regurgitation. Pericardium No pericardial effusion. Prominent epicardial fat. Aorta Normal size aortic root and proximal ascending aorta. IVC Normal IVC dimension with >50% respiratory change of the inferior vena cava. CONCLUSIONS 1. Normal left ventricular size, systolic function and wall thickness, with no regional wall motion abnormalities. Left ventricular ejection fraction is estimated at 68 %. Grade I diastolic dysfunction (abnormal relaxation filling pattern), normal to mildly elevated filling pressures. 2. Normal right ventricular size and systolic function. 3. Mild pulmonary hypertension with pulmonary artery pressure estimated at 37 mmHg. 4. No significant change when compared to prior study dated 09/24/2020. Sofía Flower MD (Electronically Signed) Final Date: 06 July 2022 11:55 S
--- NOTE | 2022-07-06 02:59 | PM.HP ---
Providers/Chief Complaint Admitting Physician: Cassius Benavidez MD Primary Care Provider: Emery Ragland MD Chief Complaint: Chest pain History of Present Illness Brijesh Middleton is a 81 year old female with a past history of paroxysmal atrial fibrillation, hypertension, COPD, who presents to [facility] due to complaints of chest pain. Patient tells me that this evening at about 1030, she was sleeping, when she started to develop severe substernal chest pain, radiating up to her left shoulder, left jaw, associate with diaphoresis, shortness of breath. She also reports word finding difficulty, at this time her systolic blood pressure was in the 170s. Currently she is chest pain-free, no nausea, no vomiting, no chest pain, no shortness of breath. Currently denies any blurry vision, no changes in her vision, no facial droop no slurring of words, no paresthesias, no focal weakness, no word finding difficulty, alert oriented x3, at bedside Review of Systems Const: Denies: fever(s) Eyes: Denies: change in vision Card: Reports: chest pain Resp: Reports: dyspnea GI: Denies: abdominal pain Neuro: Reports: headache(s) and difficulty communicating thoughts; Denies: numbness in extremities, weakness in extremities, dizziness or Slurred speech present Medications/Allergies Home Medications Medication Instructions Recorded Confirmed Last Taken Type albuterol sulfate 90 mcg/actuation 1 - 2 puff inhalation Q4H PRN 12/14/19 06/21/22 09/23/20 History aerosol inhaler Shortness Of Breath ascorbic acid (vitamin C) 500 mg 1,000 mg PO BID@08,18 09/24/20 06/21/22 10/01/20 History tablet (Vitamin C) acetaminophen 650 mg 1,300 mg PO PRN 10/02/20 06/21/22 Unknown History tablet,extended release (Tylenol Arthritis Pain) multivitamin 1 tab PO DAILY@08 10/02/20 06/21/22 Unknown History Vitamin D3 1 tab PO DAILY@08 #90 caps 03/01/21 06/21/22 Unknown Rx potassium chloride 20 mEq 20 meq PO DAILY@0800 #90 tabs 03/13/21 06/21/22 Unknown Rx tablet,extended release apixaban 5 mg tablet (Eliquis) 5 mg PO DAILY 06/21/21 06/21/22 Unknown History calcium 250 mg-D3 400 tab PO DAILY 06/21/21 06/21/22 Unknown History unit-magnesium 40 ja-E9-So-copper-parker tablet losartan 100 mg tablet (Cozaar) 100 mg PO DAILY 06/21/21 06/21/22 Unknown History prevagen PO 11/30/21 06/21/22 Unknown History furosemide 20 mg tablet (Lasix) 20 mg PO DAILY #90 tabs 12/20/21 06/21/22 Unknown Rx alprazolam 0.25 mg tablet 0.25 mg PO BID PRN anxiety/stress 03/22/22 06/21/22 Unknown Rx #20 tabs tiotropium bromide 18 mcg capsule 18 mcg inhalation DAILY@08 PRN 06/18/22 06/21/22 Unknown History with inhalation device (Spiriva with HandiHaler) doxycycline hyclate 100 mg tablet 100 mg PO BID #90 tabs 06/21/22 06/21/22 Unknown Rx Allergies Allergy/AdvReac Type Severity Reaction Status Date / Time Opioids - Morphine Analogues Allergy Severe rash/difficulty Verified 06/21/22 10:29 breathing nickel Allergy Mild ALGY-Redness Verified 06/21/22 10:29 of Skin PFSH Acute PFSH: Medical History Anticoagulation adequate with anticoagulant therapy Asthma Atrial fibrillation Chronic cystitis COPD (chronic obstructive pulmonary disease) Degenerative lumbar disc Dyslipidemia History of deviated nasal septum Hypertension Incomplete bladder emptying Osteoarthritis of right hip Pneumonia Vaginal prolapse Surgical History H/O shoulder replacement left H/O: hysterectomy History of appendectomy History of hip replacement Hx of bilateral cataract extraction Hx of foot surgery BUNIONS EXCISED BILATERAL FEET Family History Brother Diabetes Cancer Son Diabetes Father , AT AGE 75 Lung disease Mother , AT AGE 37 Complications specific to or after delivery Social History Smoking and tobacco status: former smoker Alcohol intake: former Household members: spouse Marital status: Current occupational status: retired History of recent travel: No Female Reproductive History: Date of last menstrual period: 10/21/79 Vitals/I&O/Wt Last Vital Signs Temp 98.2 F 07/05/22 21:59 Pulse 92 07/06/22 02:42 Resp 14 07/06/22 02:42 BP 133/83 07/06/22 02:55 Pulse Ox 94 07/06/22 02:55 O2 Del Method 07/06/22 02:42 Weight last 48 hrs Weight 78.925 kg Physical Exam Const: COMMON NORMALS: no acute distress and patient oriented x3 HENMT: COMMON NORMALS: normocephalic HEAD & SCALP: normocephalic Eye: COMMON NORMALS: Equal, round and reactive pupils present and EOMs intact bilaterally Neck/C-Spine: COMMON NORMALS: no JVD Resp: COMMON NORMALS: normal respiratory effort, No retractions, No use of accessory muscles and clear to auscultation bilaterally AUSCULTATION: clear to auscultation bilaterally Cardio: COMMON NORMALS: no JVD, regular rate, regular rhythm, S1 normal heart sound present and S2 normal heart sound present RATE: regular rate RHYTHM: regular rhythm HEART SOUNDS: S1 normal heart sound present and S2 normal heart sound present GI: COMMON NORMALS: Normal to inspection, nondistended, normoactive bowel sounds present, Soft to palpation, non-tender, No hepatosplenomegaly present, no masses and no bruits PALPATION: Yes Soft to palpation and Yes No hepatosplenomegaly present Extremity: COMMON NORMALS: capillary refill normal, no clubbing, cyanosis or edema, no calf tenderness and no pedal edema Neuro: COMMON NORMALS: patient oriented x3, CN's II-XII intact bilaterally, moves all extremities and no focal motor deficits Psych: COMMON NORMALS: mental status grossly normal Data : 07/05/22 21:25 07/05/22 21:25 A&P Assessment and plan (1) Chest pain: Status: Acute (2) TIA (transient ischemic attack): Status: Acute (3) Hypertensive urgency: Status: Acute (4) Atrial fibrillation: Status: Acute Qualifiers: Atrial fibrillation type: paroxysmal Qualified Code(s): I48.0 - Paroxysmal atrial fibrillation (5) Dyslipidemia: Status: Acute (6) Hypertension: Status: Acute Qualifiers: Hypertension type: essential hypertension Qualified Code(s): I10 - Essential (primary) hypertension (7) ZULEMA (acute kidney injury): Status: Acute Plan Chest pain -Sounds cardiac in nature -Serial EKGs, serial troponins, telemetry monitoring -Aspirin, statin, metoprolol, Eliquis -N.p.o -Cardiac echo -Stress test in the morning -DNR/DNI -Eliquis for DVT prophylaxis TIA symptoms -Word finding difficulty -No other focal neurologic deficits -Currently back to normal, NIH stroke scale 0 -Continue to monitor aspirin, statin, blood pressure management Hypertensive urgency, -Currently blood pressure more reasonable, start metoprolol Atrial fibrillation, she only takes Eliquis 5 mg once daily, I have increased it to 5 mg twice daily, Attestations Medical Necessity Statement*: Patient requires hospitalization, outpatient observation for chest pain, TIA Coding Level of Care Code 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
--- NOTE | 2022-07-06 03:12 | NMCV_ITS ---
NM gamaliel perf SPECT r/s* [id number] Brijesh Middleton Age: 81 Gender: F : 1940 Exam Date: 07/06/2022 07:18 Ordering Phys: Cassius Benavidez MD Technologist: YINA Bradshaw Exam Location: [facility] Indications: CHEST PAIN STRESS TEST Please see separate stress test report in [facility] for full findings IMAGE PROTOCOL Rest/Stress 1 Lexiscan Day Radiopharmaceutical Dose (mCi) Administration Site Administered by Rest: Tc-99m 10.8 IV YINA Sánchez Sestamibi Stress:Tc-99m 32.9 IV YINA Sánchez Sestamibi Rest: 06-Jul-2022 60 Discovery 630 Stress: 06-Jul-2022 30 Discovery 630 0.4mg Lexiscan. Images obtained in supine and prone position. SPECT RESULTS Technical Quality: Excellent Raw Data Analysis: Normal Image Corrections: No attenuation or motion correction applied Summed Stress Score: 0 Summed Rest Score: 0 Summed Difference Score: 0 PERFUSION FINDINGS SPECT images demonstrate homogeneous tracer distribution throughout the myocardium. FUNCTIONAL RESULTS (calculated via Gated SPECT) Stress Image LV EF (%): 73 Stress EDV (mL):64 TID: 0.86 Stress ESV (mL):17 FUNCTIONAL FINDINGS: The left ventricle is normal in size. Transient Ischemia Dilatation of 0.86. There is normal left ventricular systolic function. The left ventricular ejection fraction is normal with a value of 73%. There is normal left ventricular wall thickening. IMPRESSIONS 1. Myocardial perfusion imaging is normal. 2. Overall left ventricular systolic function is normal without regional wall motion abnormalities, LVEF=73%. 3. No EKG changes with Lexiscan infusion. Refer to separate report for details. Sofía Flower MD (Electronically Signed) Final Date: 06 July 2022 11:42 S
--- NOTE | 2022-07-06 03:12 | CT_ITS ---
WS: [id number] CT head wo con* [id number] REASON FOR EXAM: word finding difficulty IV CONTRAST ADMINISTERED: None. TOTAL EXAM DLP: 968.[address] scans at [facility] use at least one of these dose optimization techniques: automat ed exposure control; mA and/or kV adjustment per patient size (includes targeted exams where dose is matched to clinical indication); or iterative reconstruction. FINDINGS: The examination is unchanged compared to previous study of 10/02/2020. There is no midline shift or other significant mass effect. No findings of intracranial hemorrhage Low-attenuation in the periventricular white matter. Symmetric basal ganglia calcifications. Small ol d lacunar infarcts in both basal ganglia. No acute brain parenchymal abnormality. Mild frontal lobe symmetric atrophy. 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 No acute brain pare nchymal abnormality.
[2022-07-06] MEDS: metoprolol tartrate 25 mg Tablet 12.5 MG PO (03:36)
--- NOTE | 2022-07-06 04:09 | ECG_ITS ---
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 Measurements Intervals [place] Rate: 62 P: 75 ID: [id number] QRS: 18 QRSD: 137 T: 23 QT: 447 QTc: 455 Interpretive Statements SINUS RHYTHM RIGHT BUNDLE BRANCH BLOCK [120+ ms QRS DURATION, UPRIGHT V1, 40+ ms S IN I/aVL/V4/V5/V6] Compared to ECG 07/06/2022 00:47:04 Sinus bradycardia no longer present Electronically Signed On 07-07-2022 8:44:45 CDT by Sofía Flower M.D. [id number]
[2022-07-06 04:27] LABS: Troponin 5 6HR 18.75 ng/L (0-10)
[2022-07-06 04:31] LABS: Troponin 5 6HR Delta -1.25 ng/L (0-12)
[2022-07-06 05:46] LABS: Thyroid Stimulating Hormone 5.17 uIU/mL (0.27-4.20)
--- NOTE | 2022-07-06 07:21 | PC.NURSE ---
off unit to stress test
[2022-07-06] MEDS: regadenoson 0.4 Mg/5 ml Syringe IVP (07:50)
[2022-07-06] MEDS: ascorbic acid 500 mg Tablet 1000 MG PO (10:01)
[2022-07-06] MEDS: aspirin 81 mg EC Tablet PO (10:01)
[2022-07-06] MEDS: losartan 50 mg Tablet 100 MG PO (10:02)
[2022-07-06] MEDS: atorvastatin 40 mg Tablet PO (10:02)
[2022-07-06] MEDS: apixaban 5 mg Tablet PO (10:02)
[2022-07-06] MEDS: FUROsemide 20 mg Tablet PO (10:02)
[2022-07-06] MEDS: pantoprazole DR 40 mg Tablet PO (10:03)
[2022-07-06] MEDS: acetaminophen 325 mg Tablet 650 MG PO (10:03)
[2022-07-06] MEDS: potassium chloride ER 20 mEq Tablet PO (10:03)
--- NOTE | 2022-07-06 15:49 | PM.DCS ---
Discharge Providers Date of Admission: 07/06/22 03:12 Date of Discharge: July 06, 2022 Attending Provider at Admission: Cassius Benavidez MD Attending Provider at Discharge: Rebecca José MD Primary Care Provider: Emery Ragland MD Diagnoses at Discharge Discharge Diagnosis (1) Chest pain: Status: Acute (2) TIA (transient ischemic attack): Status: Acute (3) Hypertensive urgency: Status: Acute (4) Atrial fibrillation: Status: Acute Qualifiers: Atrial fibrillation type: paroxysmal Qualified Code(s): I48.0 - Paroxysmal atrial fibrillation (5) Dyslipidemia: Status: Acute (6) Hypertension: Status: Acute Qualifiers: Hypertension type: essential hypertension Qualified Code(s): I10 - Essential (primary) hypertension (7) ZULEMA (acute kidney injury): Status: Acute Reason for Visit Reason for Visit: Chest pain Brief History: Brijesh Middleton is a 81 year old female with a past history of paroxysmal atrial fibrillation, hypertension, COPD, who presents to [facility] due to complaints of chest pain.? Patient tells me that this evening at about 1030, she was sleeping, when she started to develop severe substernal chest pain, radiating up to her left shoulder, left jaw, associate with diaphoresis, shortness of breath.? She also reports word finding difficulty, at this time her systolic blood pressure was in the 170s.? Currently she is chest pain-free, no nausea, no vomiting, no chest pain, no shortness of breath.? Currently denies any blurry vision, no changes in her vision, no facial droop no slurring of words, no paresthesias, no focal weakness, no word finding difficulty, alert oriented x3, at bedside Hospital Course Hospital Course Patient was admitted for chest pain radiating to her left shoulder associated with diaphoresis shortness of breath. During that time she also had some word finding difficulty and her systolic blood pressure was 170s. Ever since being in the hospital patient has been completely chest pain-free and has not no shortness of breath or any other symptoms. Neurologically there are no focal deficits. Stress test was completed which did not show any evidence of ischemia. Myocardial perfusion imaging was normal. LVEF 73%. No EKG changes with left second infusion. Head CT also negative for acute intracranial abnormality. Echo showed EF 68% and no regional wall motion abnormalities. It does show grade 1 diastolic dysfunction. Similar to prior studies. Patient was advised to follow-up with her primary care doctor and circuit walker as an outpatient. She is in agreement. Asymptomatic today. There was some confusion regarding her Eliquis dose. She is supposed to be on 5 mg twice a day. At previous visits with her circuit walker she has been advised to bring her bottle and because there was a confusion with Eliquis. Patient was apparently taking 5 mg once daily. We have adjusted her dose to be twice a day. We have also added aspirin 81 mg daily and atorvastatin 40 mg daily as well. Physical Exam Const: COMMON NORMALS: no acute distress and patient oriented x3 HENMT: COMMON NORMALS: normocephalic HEAD & SCALP: normocephalic Eye: COMMON NORMALS: Equal, round and reactive pupils present and EOMs intact bilaterally PUPIL: Yes Equal, round and reactive pupils present Neck/C-Spine: COMMON NORMALS: no JVD Resp: COMMON NORMALS: normal respiratory effort, No retractions, No use of accessory muscles and clear to auscultation bilaterally AUSCULTATION: clear to auscultation bilaterally Cardio: COMMON NORMALS: no JVD, regular rate, regular rhythm, S1 normal heart sound present and S2 normal heart sound present RATE: regular rate RHYTHM: regular rhythm HEART SOUNDS: S1 normal heart sound present and S2 normal heart sound present GI: COMMON NORMALS: Normal to inspection, nondistended, normoactive bowel sounds present, Soft to palpation, non-tender, No hepatosplenomegaly present, no masses and no bruits PALPATION: Yes Soft to palpation and Yes No hepatosplenomegaly present Extremity: COMMON NORMALS: capillary refill normal, no clubbing, cyanosis or edema, no calf tenderness and no pedal edema Neuro: COMMON NORMALS: patient oriented x3, CN's II-XII intact bilaterally, moves all extremities and no focal motor deficits Psych: COMMON NORMALS: mental status grossly normal Discharge Data Studies Completed and Pending Completed Studies During Hospitalization Category Date Time Status CT head wo con* [id number] Routine Cat Scan 07/06/22 03:12 Completed XR chest 1V portable [id number] Stat Exams 07/05/22 22:09 Completed NM gamaliel perf SPECT r/s* [id number] Routine Nuc Med 07/06/22 03:12 Completed CV. echo complete* [id number] Stat Ultrasound 07/06/22 02:58 Completed Pending at discharge Category Date Time Status Sestamibi Stress Test Request Routine Exams 07/07/22 06:00 Ordered Basic Metabolic Panel AM LABS Lab 07/07/22 04:00 Ordered Complete Blood Count w/Auto AM LABS Lab 07/07/22 04:00 Ordered Radiology Impressions Chest X-Ray 07/05/22 22:09 IMPRESSION: 1. No definite CHF or pneumonia. 2. Other findings discussed above. 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 No acute brain parenchymal abnormality. Laboratory Results WBC 8.3 10^3/uL (4.0-10.0) 07/05/22 21: RBC 4.05 10^6/uL (4.1-5.3) L 07/05/22 21: Hgb 12.6 g/dL (11.5-15.3) 07/05/22: Hct 38.3 % (37.0-47.0) 07/05/22 21: MCV 94.6 fl (81-99) 07/05/22 21: MCH 31.1 pg (28.0-34.0) 07/05/22 21: MCHC 32.9 g/dL (30.0-36.0) 07/05/22: RDW 14.1 % (12.1-15.1) 07/05/22 21: Plt Count 229 10^3/cmm (130-400) 07/05/22: MPV 11.8 fL (7.4-10.4) H 07/05/22 21:25 Neut % (Auto) 47.5 % 07/05/22: Lymph % (Auto) 43.6 % 07/05/22:25 Haines % (Auto) 6.5 % 07/05/22: Eos % (Auto) 1.6 % 07/05/22 21: Baso % (Auto) 0.6 % 07/05/22:25 Neut # (Auto) 3.96 10^3/uL (1.8-7.7) 07/05/22: Lymph # (Auto) 3.6 10^3/uL (0.8-4.8) 07/05/22 21:25 Haines # (Auto) 0.5 10^3/uL (0.2-0.9) 07/05/22 21:25 Eos # (Auto) 0.1 10^3/uL (0.0-0.8) 07/05/22 21:25 Baso # (Auto) 0.1 10^3/uL (0.0-0.1) 07/05/22 21:25 Nucleated RBC % (auto) 0 % 07/05/22 21:25 Nucleated RBCs # 0.0 /100WBC 07/05/22 21:25 Sodium 140 mmol/L (136-145) 07/05/22 21:25 Potassium 3.9 mmol/L (3.5-5.1) 07/05/22 21:25 Chloride 104 mmol/L (98-107) 07/05/22 21:25 Carbon Dioxide 23 mmol/L (22-29) 07/05/22 21:25 Anion Gap 16.9 (5-19) 07/05/22 21:25 BUN 25 mg/dL (8-23) H 07/05/22 21:25 Creatinine 1.2 mg/dL (0.5-0.9) H 07/05/22 21:25 GFR Calculation Not Reportable 07/05/22 21:25 Glucose 153 mg/dL (65-115) H 07/05/22 21:25 Calculated Osmolality 297 mOsm/kg (285-295) H 07/05/22 21:25 Calcium 9.2 mg/dL (8.5-10.5) 07/05/22 21:25 Total Bilirubin 0.3 mg/dL (0.15-1.2) 07/05/22 21:25 AST 21 U/L (0-32) 07/05/22 21:25 ALT 13 U/L (0-33) 07/05/22 21:25 Alkaline Phosphatase 117 U/L (35-105) H 07/05/22 21:25 Troponin T Baseline 20 ng/L (0-10) H 07/05/22 21:25 Troponin T 120 Minute 20.57 ng/L (0-10) H 07/06/22 00:40 Delta Troponin T 0.57 ABS# (0-10) 07/06/22 00:40 Troponin T Hi Sens 6Hr 18.75 ng/L (0-10) H 07/06/22 03:25 Troponin T Hi Sens 6Hr Delta -1.25 ng/L (0-12) L 07/06/22 03:25 NT-Pro-B Natriuret Pep 947 pg/mL (0-450) H 07/05/22 21:25 Total Protein 6.7 g/dL (6.6-8.7) 07/05/22 21:25 Albumin 4.1 g/dL (3.5-5.2) 07/05/22 21:25 Globulin 2.6 g/dL (1.3-4.6) 07/05/22 21:25 Lipase 64 U/L (13-60) H 07/05/22 21:25 TSH 5.17 uIU/mL (0.27-4.20) H 07/06/22 04:45 Vitals Last Vital Signs Temp 97.7 F 07/06/22 11:10 Pulse 57 L 07/06/22 11:10 Resp 16 07/06/22 11:10 BP 129/77 07/06/22 11:10 Pulse Ox 96 07/06/22 11:10 O2 Del Method 07/06/22 11:10 Discharge Plan Discharge Patient Disposition: Home Condition: Stable Prescriptions: New atorvastatin 40 mg Tablet 40 mg PO DAILY 30 Days Qty: 30 0RF aspirin 81 mg Tablet,Delayed Release (Dr/Ec) 81 mg PO DAILY 30 Days Qty: 30 0RF pantoprazole 40 mg Tablet,Delayed Release (Dr/Ec) 40 mg PO DAILY 30 Days Qty: 30 0RF Continued Spiriva with HandiHaler 18 mcg capsule, w/inhalation device 18 mcg INHALATION DAILY@08 losartan [Cozaar] 100 mg tablet 100 mg PO DAILY [id number]-parker 250 mg-400 unit -40 mg-5 mg tablet 1 tab PO DAILY Vitamin D3 1 tab PO DAILY@08 Qty: 90 3RF potassium chloride 20 mEq tablet extended release 20 meq PO DAILY@0800 Qty: 90 3RF furosemide [Lasix] 20 mg tablet 20 mg PO DAILY Qty: 90 3RF albuterol sulfate 90 mcg/actuation HFA aerosol inhaler 1 - 2 puff INHALATION Q4H PRN (Reason: Shortness Of Breath) ascorbic acid (vitamin C) [Vitamin C] 500 mg tablet 1,000 mg PO BID@08,18 multivitamin Tablet 1 tab PO DAILY@08 acetaminophen [Tylenol Arthritis Pain] 650 mg Tablet Extended Release 1,300 mg PO PRN Changed Eliquis 5 mg tablet 5 mg PO BIDWM 30 Days Qty: 60 0RF Discharge Orders: Discharge Order (Routine); Ordered 07/06/22 Ordered By: Rebecca José Referrals: Emery Ragland MD [Primary Care Provider] - 4-7 days Don Murillo M.D [Physician] - 1 week Discharge Diet: Cardiac and Low Salt Discharge Activity: Increase activity as tolerated Patient Instructions: Aspirin (By mouth), Atorvastatin (By mouth), Pantoprazole (By mouth), Transient Ischemic Attack (DC), Chest Pain (DC), Hypertensive Crisis (DC) Activity Restrictions/Additional Instructions: Please return to the ER if your symptoms worsen or new symptoms develop. Please follow-up with your primary care doctor within 4 to 7 days of discharge Please keep an eye on your blood pressure at home check it twice a day and take a blood pressure log sheet to your primary care doctor Please take your Eliquis 5 mg twice a day. I have started you on aspirin and atorvastatin as well. Please continue those. Please keep an eye out for any new symptoms and return to ER immediately if anything develops. Discharge Attestations Time Spent in Discharge Care*: less than 30 min Status at Discharge: Cognitive status at discharge: cognitively intact, Behavioral status at discharge: cooperative, Quality Metrics Clinical Quality Measures [ No reported AMI, CVA or VTE this stay] Coding Level of Care Code Acute Chg FW DC note Diagnoses Chest pain R07.9 TIA (transient ischemic attack) G45.9 Hypertensive urgency I16.0 Atrial fibrillation I48.0 Atrial fibrillation type: paroxysmal Dyslipidemia E78.5 Hypertension I10 Hypertension type: essential hypertension ZULEMA (acute kidney injury) N17.9
== END 2022-07-06 16:15 | disposition home or self-care (01) ==
LOC: ER 07-06 02:20 → MEDSURG 07-06 03:02
PROVIDERS: Admitting Provider Family Medicine; Emergency Provider Emergency Medicine; PCP Family Medicine; Visit Provider Internal Medicine
DX: R07.9 Chest pain, unspecified (principal); G45.9 Transient cerebral ischemic attack, unspecified; I16.0 Hypertensive urgency; I48.0 Paroxysmal atrial fibrillation; E78.5 Hyperlipidemia, unspecified; I10 Essential (primary) hypertension; N17.9 Acute kidney failure, unspecified; Z79.01 Long term (current) use of anticoagulants
CPT/HCPCS: 36415; 70450; 71045; 78452; 80053; 83690; 83880; 84443; 84484; 85025; 93005; 93306; 94664; 99285; A9500; G0378; J2785

== ENCOUNTER → 2022-07-23 09:35 | Outpatient (BNVA) | payer MEDICARE, OTHER, SELFPAY | PROVIDERS: PCP Family Medicine; Visit Provider Obstetrics & Gynecology | DX: R32 Unspecified urinary incontinence (principal); N81.9 Female genital prolapse, unspecified | CPT/HCPCS: 81000 ==

== ENCOUNTER → 2022-08-20 13:34 | Outpatient (BNVA) | payer MEDICARE, OTHER, SELFPAY | PROVIDERS: PCP Family Medicine; Visit Provider Family Medicine | DX: I10 Essential (primary) hypertension (principal); N81.9 Female genital prolapse, unspecified; R32 Unspecified urinary incontinence | CPT/HCPCS: 80053; 85025 ==

== ENCOUNTER 2022-08-24 11:00 | Outpatient (CLI) | payer MEDICARE, OTHER, SELFPAY ==
--- NOTE | 2022-08-24 11:08 | MM_ITS ---
WS: [id number] Bilateral screening 3D tomosynthesis digital mammogram, 08/24/2022 Clinical Data: SCREENING Comparison: 08/17/2021, 07/14/2020, 05/13/2019, 04/14/2018, 03/29/2017, 04/14/2014. Findings: The breast parenchymal pattern shows fibroglandular tissue. No spiculated masses or clustered calcifi cations are seen. There are no secondary signs of carcinoma. There are lymph nodes in both axilla. Th ere is a mole marker on the left breast. MM/[place] [id number] Impression: 1. Negative bilateral mammogram unchanged. 2. Recommend annual screening mammograms. BIRADS: 1-Negative FOLLOW UP: 1 Year Follow-up The CAD odd piece checker was used.
== END 2022-08-24 11:01 | disposition home or self-care (01) ==
LOC: RAD 11:00
PROVIDERS: PCP Family Medicine; Visit Provider Family Medicine
DX: Z12.31 Encounter for screening mammogram for malignant neoplasm of breast (principal)
CPT/HCPCS: 77063; 77067

== ENCOUNTER 2022-08-29 11:45 | Observation (INO) | payer MEDICARE, OTHER, SELFPAY ==
[2022-08-27 10:21] VITALS: BMI 31.3
[2022-08-27 10:55] LABS: Basophils # 0.1 10^3/uL (0.0-0.1); Basophils % 0.8 %; Eosinophils # 0.1 10^3/uL (0.0-0.8); Eosinophils % 0.8 %; Hematocrit 39.8 % (37.0-47.0); Lymphocytes # 2.4 10^3/uL (0.8-4.8); Mean Corpuscular HGB Conc 32.7 g/dL (30.0-36.0); Mean Corpuscular Hemoglobin 30.7 pg (28.0-34.0); Mean Corpuscular Volume 93.9 fl (81-99); Mean Platelet Volume 10.8 fL (7.4-10.4); Monocytes # 0.7 10^3/uL (0.2-0.9); Monocytes % 10.3 %; Neutrophils # 3.45 10^3/uL (1.8-7.7); Neutrophils % 51.9 %; Nucleated Red Blood Cells % 0 %; Platelet Count 248 10^3/cmm (130-400); Red Blood Count 4.24 10^6/uL (4.1-5.3); Red Cell Distribution Width 13.7 % (12.1-15.1); White Blood Count 6.6 10^3/uL (4.0-10.0)
[2022-08-27 10:59] LABS: Add Urine Microscopic? YES; Bilirubin Urine Neg (Negative); Blood Urine Neg (Negative); Glucose Urine UA Norm (Normal); Ketones Urine Negative (Negative); Leukocyte Esterase Urine Trace (Negative); Nitrate Urine Negative (Negative); Protein Urine Trace (Negative); Urine Appearance Clear (CLEAR); Urine Color Straw (Yellow); Urobilinogen Urine Norm (Negative); pH Urine 6.5 (5-7)
[2022-08-27 11:08] LABS: Add Urine Culture? No; Bacteria Urine TRACE /hpf; Squamous Epithelial Cell Urine 0-4 /hpf (0-5)
[2022-08-27 11:11] LABS: INR 0.96 (0.8-1.2)
[2022-08-27 11:16] LABS: Alanine Aminotransferase 15 U/L (0-33); Alkaline Phosphatase 100 U/L (35-105); Anion Gap 13.9 (5-19); Aspartate Amino Transferase 23 U/L (0-32); Blood Urea Nitrogen 15 mg/dL (8-23); Calcium 9.7 mg/dL (8.5-10.5); Carbon Dioxide 25 mmol/L (22-29); Chloride 105 mmol/L (98-107); Globulin 3.2 g/dL (1.3-4.6); Glucose 94 mg/dL (65-115); Osmolality Calculated 291 mOsm/kg (285-295); Potassium 3.9 mmol/L (3.5-5.1); Sodium 140 mmol/L (136-145); Total Bilirubin 0.4 mg/dL (0.15-1.2); Total Protein 7.2 g/dL (6.6-8.7)
--- NOTE | 2022-08-27 12:48 | ANES.PREANE2 ---
Pre-Anesthetic Assessment Height/Weight: Height 1.6 m Weight 80.286 kg Preop Diagnosis: Cystocele stage III Operation Date: 08/29/22 11:30 Proposed Procedures p Anterior colporrhaphy augmented with allograft 66646,N81.10(Not Applicable) - Kamar Win MD Familial anesthetic complications: none Was Beta [place] taken within 24 hours: N/A Was Clonidine taken within 24 hours: N/A Social No alcohol and No tobacco (h/o smoking) Exam alert, oriented x 3, clear to auscultation bilaterally and regular rate & rhythm Airway Submandibular: within normal limits Cervical ROM: within normal limits Mallampati: Class II (limited mouth opening) Dentition: partials Pulmonary Chronic Obstructive Pulmonary Disease CV/HEM Atrial Fibrillation, Anemia and Hypertension Musc/skel Lower Back Pain Neuropsych Transient Ischemic Attack Anesthetic Plan ASA status: 3 Anesthesia: General Medications/Allergies Home Medications Medication Instructions Recorded Confirmed Last Taken Type albuterol sulfate 90 mcg/actuation 1 - 2 puff inhalation Q4H PRN 12/14/19 08/27/22 07/05/22 History aerosol inhaler Shortness Of Breath ascorbic acid (vitamin C) 500 mg 1,000 mg PO BID@08,18 09/24/20 08/27/22 07/05/22 08:00 History tablet (Vitamin C) acetaminophen 650 mg 1,300 mg PO PRN 10/02/20 08/27/22 Unknown History tablet,extended release (Tylenol Arthritis Pain) multivitamin 1 tab PO DAILY@08 10/02/20 08/27/22 07/05/22 08:00 History Vitamin D3 1 tab PO DAILY@08 #90 caps 03/01/21 08/27/22 07/05/22 08:00 Rx potassium chloride 20 mEq 20 meq PO DAILY@0800 #90 tabs 03/13/21 08/27/22 07/05/22 08:00 Rx tablet,extended release calcium 250 mg-D3 400 1 tab PO DAILY 06/21/21 08/27/22 07/05/22 08:00 History unit-magnesium 40 [id number]-copper-parker tablet losartan 100 mg tablet (Cozaar) 100 mg PO DAILY 06/21/21 08/27/22 07/05/22 08:00 History furosemide 20 mg tablet (Lasix) 20 mg PO DAILY #90 tabs 12/20/21 08/27/22 07/05/22 08:00 Rx tiotropium bromide 18 mcg capsule 18 mcg inhalation DAILY@08 06/18/22 08/27/22 07/05/22 08:00 History with inhalation device (Spiriva with HandiHaler) apixaban 5 mg tablet (Eliquis) 5 mg PO BIDWM 30 days #60 tabs 07/06/22 08/27/22 08/12/22 Rx Allergies Allergy/AdvReac Type Severity Reaction Status Date / Time Opioids - Morphine Analogues Allergy Severe rash/difficulty Verified 08/27/22 08:45 breathing nickel Allergy Mild ALGY-Redness Verified 08/27/22 08:45 of Skin [facility] Anesthesia Medical History Anticoagulation adequate with anticoagulant therapy Asthma Atrial fibrillation Chronic cystitis COPD (chronic obstructive pulmonary disease) Degenerative lumbar disc Dyslipidemia History of deviated nasal septum Hypertension Incomplete bladder emptying Osteoarthritis of right hip Pneumonia Vaginal prolapse Surgical History H/O shoulder replacement left H/O: hysterectomy History of appendectomy History of hip replacement Hx of bilateral cataract extraction Hx of foot surgery BUNIONS EXCISED BILATERAL FEET Family History Brother Diabetes Cancer Son Diabetes Father , AT AGE 75 Lung disease Mother , AT AGE 37 Complications specific to or after delivery Social History Smoking and tobacco status: former smoker Alcohol intake: former Household members: spouse Marital status: Current occupational status: retired History of recent travel: No Female Reproductive History Date of last menstrual period: 10/21/79 Data Anesthesia : 08/27/22 10:35 08/27/22 10:35 Short CBC 08/27/22 Range/Units 10:35 WBC 6.6 (4.0-10.0) 10^3/uL Hgb 13.0 (11.5-15.3) g/dL Hct 39.8 (37.0-47.0) % MCV 93.9 (81-99) fl Plt Count 248 (130-400) 10^3/cmm Neut % (Auto) 51.9 % Neut # (Auto) 3.45 (1.8-7.7) 10^3/uL BMP 08/27/22 10:35 Sodium 140 Potassium 3.9 Chloride 105 Carbon Dioxide 25 BUN 15 Creatinine 0.9 Glucose 94 Calcium 9.7 Liver Function 08/27/22 Range/Units 10:35 Total Bilirubin 0.4 (0.15-1.2) mg/dL AST 23 (0-32) U/L ALT 15 (0-33) U/L Alkaline Phosphatase 100 (35-105) U/L Albumin 4.0 (3.5-5.2) g/dL Urine 08/27/22 Range/Units 10:35 Urine Color Straw (Yellow) Urine Appearance Clear (CLEAR) Urine pH 6.5 (5-7) Ur Specific [place] 1.010 (1.005-1.030) Urine Protein Trace (Negative) Urine Glucose (UA) Norm (Normal) Urine Ketones Negative (Negative) Urine Nitrate Negative (Negative) Urine Bilirubin Neg (Negative) Ur Leukocyte Esterase Trace H (Negative) Urine RBC None (0-2) /hpf Urine WBC 5-10 H (0-5) /hpf Blood Bank 08/27/22 10:35 Blood Type O Negative Rho(D) Type Negative Antibody Screen Negative Coags 08/27/22 10:35 PT 13.10 INR 0.96 Cardiac Studies: Echocardiogram 07/06/22 Echocardiogram Limited Views 09/24/20 Echocardiogram Ultrasound 09/13/20
[2022-08-29] VITALS (12 sets, daily range): BP systolic 133–178; BP diastolic 81–104; PULSE 64–76; RESP 15–30; TEMP 36.6–36.8; O2SAT 91–95
[2022-08-29] MEDS: sodium chloride 0.9% 500 ML IV (08:56)
[2022-08-29] MEDS: scopolamine 1.5 Patch 1 PATCH TRANSDERMA (08:57)
[2022-08-29] MEDS: enoxaparin 40 mg/0.4 mL Syringe SUBCUT (08:58)
[2022-08-29] MEDS: sodium chloride 0.9% 1,000 ML 30 ML IV (09:16)
--- NOTE | 2022-08-29 09:53 | W.PM.OPSUD ---
Surgery/Procedure H&P Update DATE OF PROCEDURE: August 29, 2022 DATE H&P PERFORMED: 08/27/22 H&P UPDATE INFORMATION: I have reviewed H&P completed within last 30 days and No changes to prior documentation PREOP DIAGNOSIS: Cystocele stage III PLANNED PROCEDURE: Operation Date: 08/29/22 10:15 Proposed Procedures p Anterior colporrhaphy augmented with allograft 79934,N81.10(Not Applicable) - Kamar Win MD
[2022-08-29] MEDS: ceFAZolin 2,000 MG in sodium chloride 0.9% (plus) 50 ML 100 MG IV (10:19)
[2022-08-29] MEDS: estrogens Conjugated Cream 30 gm 1 APPLIC VAGINAL (11:10)
--- NOTE | 2022-08-29 11:44 | PM.OP ---
Operative Report Date of procedure: August 29, 2022 Pre-op diagnosis: Preop Diagnosis Cystocele stage III Post-op diagnosis: Same as above Procedure done: Anterior colporrhaphy augmented with allograft Estimated blood loss (mL): 25 IV fluids (mL): 700 Urine output (mL): 200 Procedure: After obtaining informed consent, the patient was taken to the operating room and placed in the supine position, given general anesthesia, and prepped and draped in sterile fashion. The abdomen, vulva and vagina were prepped and draped in a sterile manner. A time out procedure was performed. The vaginal mucosa was then injected in the midline with normal saline. The vaginal mucosa was scored in the midline with the Bovie approximately 1 cm medial to the urethral meatus to 1 cm distal to the vaginal cuff. This vaginal mucosa was then undermined and then incised in the midline with the Metzenbaum scissors. The lateral aspects of the vaginal mucosa were then grasped with the Allis clamps and the vaginal mucosa was then dissected off the underlying fascia with the Metzenbaum scissors. Again, there was noted to be quite a bit of oozing at the incision, which was controlled with cautery. After adequate dissection was performed, bilaterally. A Coloplast allograft was modified at time of application to fit spacea, 3x3 cm piece . Coloplast allograft placed in front of cystocele ready to be implanted facing the vagina mucosa. Suture is placed at distal end of graft and placed towards vaginal cuff. Final suture is placed on proximal portion of the graft to complete the placement overlying the bladder. Then Interrupted vertical mattress sutures of 0 Vicryl were used to elevate the cystocele superiorly. The excessive vaginal mucosa was then trimmed with the Metzenbaum scissors and the vaginal mucosa was then reapproximated in the running interlocking fashion with 2-0 Vicryl. Then the Bartlett catheter was removed and cystoscope was inserted. The bladder was filled with sterile water. Complete evaluation of the bladder mucosa was performed noting no lacerations, dimpling, tears, bleeding of the mucosa or muscular layers. Both ureteral orifices were identified. Prompt excretion of urine from both ureteral orifices was noted. Cystoscope was withdrawn. The Bartlett catheter was replaced. Excellent hemostasis was obtained. A vaginal pack is placed overnight as postoperative support for the vaginal tissues after graft placement and closure of vaginal incisions. Sponge, lap, needle, and instrument counts were correct times three. The patient was taken to the recovery room, awake and in stable condition.
--- NOTE | 2022-08-29 12:25 | P.PCN_ITS ---
PACU note Narrative: VSS, Good respiratory effort, report to UPPER SHAPER Exam: awake
--- NOTE | 2022-08-29 12:25 | PM.PACU ---
PACU note Narrative: VSS, Good respiratory effort, report to LAW TUTOR Exam: awake
--- NOTE | 2022-08-29 14:55 | ANE.PACU2 ---
Inpatient post-anesthesia follow up: Airway intact: Yes Vital signs: Temperature 97.8 F Pulse Rate 73 Respiratory Rate 21 Blood Pressure 164/87 Pulse Oximetry 95 Oxygen Delivery Me thod Room Air Oxygen Flow Rate Fraction of Inspir ed Oxygen Hydration adequate: Yes Nausea and vomiting: No Pain level: 2 Mental status: Baseline
[2022-08-29] MEDS: losartan 50 mg Tablet 100 MG PO (15:22)
[2022-08-29] MEDS: dextrose 5%-lactated ringers 1,000 ML 125 ML IV ×2 (15:25→22:28)
[2022-08-29] MEDS: ketorolac 30 mg/mL INJ IVP (19:01)
[2022-08-29] MEDS: docusate sodium 100 mg Capsule PO (19:02)
[2022-08-29] MEDS: ascorbic acid 500 mg Tablet 1000 MG PO (19:03)
[2022-08-30] MEDS: ketorolac 30 mg/mL INJ IVP ×2 (00:35→06:25)
[2022-08-30 05:00] VITALS: BP 130/81; PULSE 64; TEMP 36.4; O2SAT 94
[2022-08-30 05:39] LABS: Hematocrit 34.6 % (37.0-47.0); Hemoglobin 11.4 g/dL (11.5-15.3); Mean Corpuscular HGB Conc 32.9 g/dL (30.0-36.0); Mean Corpuscular Hemoglobin 31.2 pg (28.0-34.0); Mean Corpuscular Volume 94.8 fl (81-99); Mean Platelet Volume 10.9 fL (7.4-10.4); Platelet Count 225 10^3/cmm (130-400); Red Blood Count 3.65 10^6/uL (4.1-5.3); Red Cell Distribution Width 13.4 % (12.1-15.1); White Blood Count 17.6 10^3/uL (4.0-10.0)
[2022-08-30] MEDS: simethicone 80 mg Chew PO (06:25)
--- NOTE | 2022-08-30 08:40 | PM.OBGYDC ---
Discharge Providers COMPUTER LAB ASSISTANT Date of Admission: 08/29/22 11:45 Date of Discharge: 08/30/22 Attending Provider at Admission: Kamar Win MD Attending Provider at Discharge: Kamar Win MD Primary COMPUTER LAB ASSISTANT: Kamar Win MD Primary Care Provider: Emery Ragland MD Reason for Visit Reason for Visit: cystocele, unspecified Hospital Course Hospital Course Mrs. Middleton 82-year-old female with a stage III cystocele admitted for planned anterior colporrhaphy augmented with allograft. The procedure was performed without complication. Overnight observation was uneventful. She is afebrile and hemodynamically stable postoperative day 1. Tolerating diet well. Ambulating without difficulty. Advised regarding postop precautions, and weight lifting limitations to 10 pounds. Counseled regarding pelvic rest for 6 weeks (no sex, no tampons, no vaginal douches). Return to the emergency room if any fever, increased bleeding or pain. I spent 35 minutes with the patient in discussion and counseling as documented above This documentation was created by [id number] header setup operator software (known for inherent header setup operator error). Every effort was made to assure accuracy of header setup operator. Any obvious errors or omissions should be clarified with the author of the document. Physical Exam Narrative: GA: Alert and oriented ?3. HEENT: WNL. Heart: Regular rate and rhythm. Lungs: Clear to auscultation bilaterally. Abdomen: Bowel sounds present, nontender. BARREL DRAINER: spotting. Extremities: No edema, no cyanosis, no calves pain. Urinary Catheter Management: Bartlett Latex: Cath Placed During This Visit: yes Urinary Catheter Date of Insertion: 08/29/22 Urinary Catheter Time of Insertion: 10:48 History History History 4 Term 4 0 Miscarriages/Ectopic 0 Living Children 4 Discharge Data Studies Completed and Pending Laboratory Results WBC 17.6 10^3/uL (4.0-10.0) H 08/30/22 05:20 RBC 3.65 10^6/uL (4.1-5.3) L 08/30/22 05:20 Hgb 11.4 g/dL (11.5-15.3) L 08/30/22 05:20 Hct 34.6 % (37.0-47.0) L 08/30/22 05:20 MCV 94.8 fl (81-99) 08/30/22 05:20 MCH 31.2 pg (28.0-34.0) 08/30/22 05:20 MCHC 32.9 g/dL (30.0-36.0) 08/30/22 05:20 RDW 13.4 % (12.1-15.1) 08/30/22 05:20 Plt Count 225 10^3/cmm (130-400) 08/30/22 05:20 MPV 10.9 fL (7.4-10.4) H 08/30/22 05:20 Neut % (Auto) 51.9 % 08/27/22 10:35 Lymph % (Auto) 36.0 % 08/27/22 10:35 [place] % (Auto) 10.3 % 08/27/22 10:35 Eos % (Auto) 0.8 % 08/27/22 10:35 Baso % (Auto) 0.8 % 08/27/22 10:35 Neut # (Auto) 3.45 10^3/uL (1.8-7.7) 08/27/22 10:35 Lymph # (Auto) 2.4 10^3/uL (0.8-4.8) 08/27/22 10:35 [place] # (Auto) 0.7 10^3/uL (0.2-0.9) 08/27/22 10:35 Eos # (Auto) 0.1 10^3/uL (0.0-0.8) 08/27/22 10:35 Baso # (Auto) 0.1 10^3/uL (0.0-0.1) 08/27/22 10:35 Nucleated RBC % (auto) 0 % 08/27/22 10:35 Nucleated RBCs # 0.0 /100WBC 08/27/22 10:35 PT 13.10 SECONDS (12.1-14.9) 08/27/22 10:35 INR 0.96 (0.8-1.2) 08/27/22 10:35 Sodium 140 mmol/L (136-145) 08/27/22 10:35 Potassium 3.9 mmol/L (3.5-5.1) 08/27/22 10:35 Chloride 105 mmol/L (98-107) 08/27/22 10:35 Carbon Dioxide 25 mmol/L (22-29) 08/27/22 10:35 Anion Gap 13.9 (5-19) 08/27/22 10:35 BUN 15 mg/dL (8-23) 08/27/22 10:35 Creatinine 0.9 mg/dL (0.5-0.9) 08/27/22 10:35 GFR Calculation Not Reportable 08/27/22 10:35 Glucose 94 mg/dL (65-115) 08/27/22 10:35 Calculated Osmolality 291 mOsm/kg (285-295) 08/27/22 10:35 Calcium 9.7 mg/dL (8.5-10.5) 08/27/22 10:35 Total Bilirubin 0.4 mg/dL (0.15-1.2) 08/27/22 10:35 AST 23 U/L (0-32) 08/27/22 10:35 ALT 15 U/L (0-33) 08/27/22 10:35 Alkaline Phosphatase 100 U/L (35-105) 08/27/22 10:35 Total Protein 7.2 g/dL (6.6-8.7) 08/27/22 10:35 Albumin 4.0 g/dL (3.5-5.2) 08/27/22 10:35 Globulin 3.2 g/dL (1.3-4.6) 08/27/22 10:35 Urine Color Straw (Yellow) 08/27/22 10:35 Urine Appearance Clear (CLEAR) 08/27/22 10:35 Urine pH 6.5 (5-7) 08/27/22 10:35 Ur Specific [place] 1.010 (1.005-1.030) 08/27/22 10:35 Urine Protein Trace (Negative) 08/27/22 10:35 Urine Glucose (UA) Norm (Normal) 08/27/22 10:35 Urine Ketones Negative (Negative) 08/27/22 10:35 Urine Blood Neg (Negative) 08/27/22 10:35 Urine Nitrate Negative (Negative) 08/27/22 10:35 Urine Bilirubin Neg (Negative) 08/27/22 10:35 Urine Urobilinogen Norm mg/dL (Negative) 08/27/22 10:35 Ur Leukocyte Esterase Trace (Negative) H 08/27/22 10:35 Urine RBC None /hpf (0-2) 08/27/22 10:35 Urine WBC 5-10 /hpf (0-5) H 08/27/22 10:35 Ur Squamous Epith Cells 0-4 /hpf (0-5) H 08/27/22 10:35 Amorphous Sediment Not Reportable 08/27/22 10:35 Urine Bacteria Trace /hpf (NONE) 08/27/22 10:35 Blood Type O Negative 08/27/22 10:35 Rho(D) Type Negative 08/27/22 10:35 Antibody Screen Negative 08/27/22 10:35 Procedures Performed Anterior colporrhaphy Vitals Last Vital Signs Temp 97.5 F L 08/30/22 05:00 Pulse 64 08/30/22 05:00 Resp 16 08/29/22 22:00 BP 130/81 08/30/22 05:00 Pulse Ox 94 08/30/22 05:00 O2 Del Method 08/30/22 05:00 Discharge Plan Discharge Patient Disposition: Home Condition: Good Prescriptions: New hydrocodone-acetaminophen 5-325 mg tablet 1 tab PO Q4H PRN (Reason: pain) Qty: 10 0RF acetaminophen 325 mg capsule 325 mg PO Q4H PRN (Reason: fever or pain) Qty: 60 0RF ibuprofen 800 mg tablet 800 mg PO TID PRN (Reason: pain) Qty: 60 0RF Continued Spiriva with HandiHaler 18 mcg capsule, w/inhalation device 18 mcg INHALATION DAILY@08 losartan [Cozaar] 100 mg tablet 100 mg PO DAILY [id number]-Wh-Wp-parker 250 mg-400 unit -40 mg-5 mg tablet 1 tab PO DAILY Vitamin D3 1 tab PO DAILY@08 Qty: 90 3RF potassium chloride 20 mEq tablet extended release 20 meq PO DAILY@0800 Qty: 90 3RF furosemide [Lasix] 20 mg tablet 20 mg PO DAILY Qty: 90 3RF albuterol sulfate 90 mcg/actuation HFA aerosol inhaler 1 - 2 puff INHALATION Q4H PRN (Reason: Shortness Of Breath) ascorbic acid (vitamin C) [Vitamin C] 500 mg tablet 1,000 mg PO BID@08,18 multivitamin Tablet 1 tab PO DAILY@08 acetaminophen [Tylenol Arthritis Pain] 650 mg Tablet Extended Release 1,300 mg PO PRN Eliquis 5 mg tablet 5 mg PO BIDWM 30 Days Qty: 60 0RF Discharge Orders: Discharge Order (Routine); Ordered 08/30/22 Ordered By: Kamar Win Referrals: Kamar Win MD [Physician] - 2 weeks Discharge Diet: Usual diet Discharge Activity: Limit activity as instructed Patient Instructions: Opioid Safety Activity Restrictions/Additional Instructions: 1. [facility] call [facility] [place] [facility] on next working day to make your post-operative appointment in 2 weeks. 2. Please stay home until you come back to the clinic on first post-operative check up. 3. Please follow instructions on your medications CAREFULLY. 4. If you have abdominal incision, do not cover it unless dressing is necessary because of drainage. OK to shower, but avoid bath. Leave steri-strips until they fall off. If they are still on one week after surgery, you may remove them. 5. If you had vaginal surgery or vaginal repair, Dr. Win may instruct you to take SITZ bath. 6. Yellow, blood tinged odorous vaginal discharge is usually normal after hysterectomy or vaginal surgeries. 7. No sexual intercourse, tampons, or douches until you are completely released from the post-operative care. 8. Avoid constipation by eating right and maybe using some Metamucil or Milk of Magnesia. 9. All prescription refills are given during the working hours. Please do no wait till it runs out. Call the clinic at [phone] before your medication runs out. The clinic will get in touch with your doctor to prescribe medications if necessary. 10. Please remain within 40 mile radius from our hospital because emergencies do happen now and then during the post-operative period. 11. If you have stairs at home, take one step at a time slowly and minimize the number of trips. It helps to stay in one floor for the next few days. No lifting except what you can lift by one hand until you are released from the post-operative care. 12. Driving is discouraged until you are well healed. It may be 3-4 weeks before you feel strong enough to drive. You should be able to turn and look through the rear window without pain and you should be able to push the brake pedal very hard without pain before you drive. No fast rules, but SAFETY should be your primary concern. DO NOT drive if you are on sedating medications such as narcotics. 13. Call the clinic (during working hours) to make urgent appointment or go to the Emergency room, if any of the following occurs: i. Vaginal bleeding becomes heavy, more than a period. ii. Incision becomes red and sore, or drains pus. iii. Your temperature is over 100.4 or you have chill. iv. IV site becomes red and swollen (a little ``knot?? is usually OK) v. Persistent nausea and vomiting vi. Persistent constipation or diarrhea vii. Rash or allergic reaction to medications. Discharge Attestations COMPUTER LAB ASSISTANT Time Spent in Discharge Care*: greater than 30 min Status at Discharge: Cognitive status at discharge: cognitively intact, Behavioral status at discharge: cooperative, Functional status at discharge: independent ambulation Overall status at discharge: patient is back to baseline Coding Level of Care Code Acute Straight Pin Making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
[2022-08-30] MEDS: FUROsemide 20 mg Tablet PO (09:18)
[2022-08-30] MEDS: potassium chloride ER 10 mEq Tablet 20 MEQ PO (09:18)
[2022-08-30] MEDS: docusate sodium 100 mg Capsule PO (09:18)
[2022-08-30 09:19] VITALS: BP 112/69
[2022-08-30] MEDS: losartan 50 mg Tablet 100 MG PO (09:19)
[2022-08-30] MEDS: multivitamin therapeutic Tablet 1 TAB PO (09:19)
[2022-08-30] MEDS: apixaban 5 mg Tablet PO (09:19)
[2022-08-30] MEDS: cholecalciferol (vitamin D3) 1,000 unit Tablet 1000 UNIT PO (09:19)
[2022-08-30 09:21] VITALS: BP 112/69; PULSE 66; RESP 15; TEMP 36.4; O2SAT 96
[2022-08-30 09:30] VITALS: BP 112/69; PULSE 66; RESP 15; TEMP 36.4; O2SAT 96
== END 2022-08-30 09:30 | disposition home or self-care (01) ==
LOC: OBGYN 11:45
PROVIDERS: Admitting Provider Obstetrics & Gynecology; PCP Family Medicine; Visit Provider Obstetrics & Gynecology
PROC: 0JQC0ZZ Repair Pelvic Region Subcutaneous Tissue and Fascia, Open Approach (ICD-10-PCS; CPT 57240; principal; 2022-08-29 10:05)
PROC: 0TJB8ZZ Inspection of Bladder, Via Natural or Artificial Opening Endoscopic (ICD-10-PCS; CPT 52000; 2022-08-29 10:05)
DX: N81.10 Cystocele, unspecified (principal); J44.9 Chronic obstructive pulmonary disease, unspecified; I48.91 Unspecified atrial fibrillation; I10 Essential (primary) hypertension; Z86.73 Personal history of transient ischemic attack (TIA), and cerebral infarction without residual deficits; Z79.01 Long term (current) use of anticoagulants; Z87.891 Personal history of nicotine dependence; E78.5 Hyperlipidemia, unspecified
CPT/HCPCS: 57240; 36415; 36592; 80053; 81001; 85025; 85027; 85610; 86850; 86900; C1762; G0378; J0690; J1100; J1650; J1885; J2370; J2405; J2704; J3010; J3490; J7030; J7040; J7121; Q9968

== ENCOUNTER → 2022-10-08 15:15 | Outpatient (BNVA) | payer MEDICARE, OTHER, SELFPAY | PROVIDERS: PCP Family Medicine; Visit Provider Urology | DX: N30.20 Other chronic cystitis without hematuria (principal); R33.9 Retention of urine, unspecified; N81.9 Female genital prolapse, unspecified; R32 Unspecified urinary incontinence | CPT/HCPCS: 81003; 99213 ==

== ENCOUNTER → 2022-10-24 09:05 | Outpatient (BNVA) | payer MEDICARE, OTHER, SELFPAY | PROVIDERS: PCP Family Medicine; Visit Provider Family Medicine | DX: I10 Essential (primary) hypertension (principal) | CPT/HCPCS: 80053; 85025 ==

== ENCOUNTER → 2023-01-15 13:48 | Outpatient (BNVA) | payer MEDICARE, OTHER, SELFPAY | PROVIDERS: PCP Family Medicine; Visit Provider Specialist | DX: I48.0 Paroxysmal atrial fibrillation (principal); I10 Essential (primary) hypertension; E78.5 Hyperlipidemia, unspecified; Z79.01 Long term (current) use of anticoagulants; Z87.891 Personal history of nicotine dependence | CPT/HCPCS: 99214 ==

== ENCOUNTER → 2023-03-05 08:30 | Outpatient (BNVA) | payer MEDICARE, OTHER, SELFPAY | PROVIDERS: PCP Family Medicine; Visit Provider Urology | DX: N30.20 Other chronic cystitis without hematuria (principal); N81.9 Female genital prolapse, unspecified; R32 Unspecified urinary incontinence | CPT/HCPCS: 51798; 81003; 99213 ==

== ENCOUNTER → 2023-04-29 14:55 | Outpatient (BNVA) | payer MEDICARE, OTHER, SELFPAY | PROVIDERS: PCP Family Medicine; Visit Provider Family Medicine | DX: I10 Essential (primary) hypertension (principal); E78.5 Hyperlipidemia, unspecified | CPT/HCPCS: 80053; 85025 ==

== ENCOUNTER → 2023-05-03 08:02 | Outpatient (BNVA) | payer MEDICARE, OTHER, SELFPAY | PROVIDERS: PCP Family Medicine; Visit Provider Nurse Practitioner Family | DX: L57.0 Actinic keratosis (principal); L85.3 Xerosis cutis; D22.5 Melanocytic nevi of trunk; L81.4 Other melanin hyperpigmentation; L82.1 Other seborrheic keratosis; L57.8 Other skin changes due to chronic exposure to nonionizing radiation; D69.2 Other nonthrombocytopenic purpura; Z85.828 Personal history of other malignant neoplasm of skin | CPT/HCPCS: 17004; 99213 ==

== ENCOUNTER → 2023-07-16 15:09 | Outpatient (BNVA) | payer MEDICARE, OTHER, SELFPAY | PROVIDERS: PCP Family Medicine; Visit Provider Internal Medicine | DX: I10 Essential (primary) hypertension (principal); I48.0 Paroxysmal atrial fibrillation; J41.0 Simple chronic bronchitis; E78.5 Hyperlipidemia, unspecified; Z87.891 Personal history of nicotine dependence; Z79.01 Long term (current) use of anticoagulants | CPT/HCPCS: 99214 ==

== ENCOUNTER 2023-08-30 14:07 | Outpatient (CLI) | payer MEDICARE, OTHER, SELFPAY ==
--- NOTE | 2023-08-30 14:26 | MM_ITS ---
WS: [id number] BILATERAL 3D TOMOSYNTHESIS DIGITAL SCREENING MAMMOGRAPHY WITH CAD CLINICAL INFORMATION: SCREEN HISTORY: Screening mammogram. No current complaints. COMPARISON: 2021 TECHNIQUE: Bilateral CC and MLO views. FINDINGS: Scattered fibroglandular densities bilaterally. No suspicious focal mass, asymmetry, calcifications, or architectural distortion. No evidence of malignancy. Incidental punctate calcifications. Vascular calcifications. IMPRESSION: MM/[place] [id number] BI-RADS: 2-Benign FOLLOW UP: 1 Year Follow-up Recommend return to annual screening mammography.
== END 2023-08-30 14:08 | disposition home or self-care (01) ==
LOC: RAD 14:09
PROVIDERS: PCP Family Medicine; Visit Provider Family Medicine
DX: Z12.31 Encounter for screening mammogram for malignant neoplasm of breast (principal)
CPT/HCPCS: 77063; 77067

== ENCOUNTER 2023-10-01 21:11 | Emergency (ER) | payer MEDICARE, OTHER, SELFPAY ==
[2023-10-01 21:12] VITALS: BP 181/108; PULSE 98; RESP 16; TEMP 36.4; O2SAT 93; BMI 31.8
--- NOTE | 2023-10-01 21:20 | CTR_ITS ---
PROCEDURE INFORMATION: Exam: CT Head Without Contrast Exam date and time: 10/01/2023 9:29 PM Age: 83 years old Clinical indication: Dizziness TECHNIQUE: Imaging protocol: Computed tomography of the head without contrast. Radiation optimization: All CT scans at this facility use at least one of these dose optimization techniques: automated exposure control; mA and/or kV adjustment per patient size (includes targeted exams where dose is matched to clinical indication); or iterative reconstruction. REPORTING DATA: Count of CT and Cardiac NM exams in prior 12 months: This patient has received 0 known CTs and 0 known cardiac nuclear medicine studies in the 12 months prior to the current study. COMPARISON: CT head wo con* [id number] 07/06/2022 9:18 AM RADIATION DOSE METRICS: Total DLP (mGy-cm): 975.68 FINDINGS: Brain: Large amount of diffuse white matter disease likely reflecting chronic microvascular ischemic changes. Cerebral ventricles: No ventriculomegaly. Paranasal sinuses: Visualized sinuses are unremarkable. No fluid levels. Mastoid air cells: Visualized mastoid air cells are well aerated. Bones/joints: Unremarkable. No acute fracture. Soft tissues: Unremarkable. CT/CT head wo con* [id number] IMPRESSION: Negative for intracranial hemorrhage or mass effect.
--- NOTE | 2023-10-01 21:20 | XRR_ITS ---
PROCEDURE INFORMATION: Exam: XR Chest Exam date and time: 10/01/2023 9:23 PM Age: 83 years old Clinical indication: Other: Dizzy; Prior surgery; Surgery date: 6+ months; Surgery type: Lt shoulder; Additional info: Dizziness TECHNIQUE: Imaging protocol: Radiologic exam of the chest. Views: 1 view. COMPARISON: CR XR chest 1V portable [id number] 07/05/2022 11:04 PM FINDINGS: Lungs: Emphysematous changes. Bibasilar atelectasis. Pleural spaces: Unremarkable. No pleural effusion. No pneumothorax. Heart/Mediastinum: Unremarkable. No cardiomegaly. Bones/joints: Unremarkable. XR/XR chest 1V portable [id number] IMPRESSION: 1. Emphysematous changes. 2. Bibasilar atelectasis.
--- NOTE | 2023-10-01 21:25 | ED_ITS ---
HPI - Dizziness 2 General: Chief Complaint: Dizziness Stated Complaint: HYPERTENSION Time Seen by Provider: 10/01/23 21:13 Source: patient and EMS Mode of arrival: EMS Limitations: no limitations History of Present Illness: HPI Narrative: 83-year-old female states that this even ing she started to feel dizzy where she states she had felt faint and near syncopal. She denies any feelings of the room spinning. States this happened while sitting and she checked her blood pressure her blood pressure was elevated and is elevated here at 181/108. She has a history of paroxysmal A-fib is on metoprolol she denies any chest pains or shortness of breath states she has a foggy feeling in her head. Associated symptoms: Denies chest pain, chills, headache(s), nausea or vomiting Review of Systems 2 Const: Denies: fever(s), chills, body aches or change in appetite Eyes: Denies: blurry vision or eye discomfort ENMT: Denies: throat pain or dental pain Card: Reports: pre-syncope; Denies: chest pain Resp: Denies: dyspnea GI: Denies: abdominal pain, nausea, vomiting or diarrhea : Denies: dysuria Musc: Denies: neck pain or back pain Skin/Breast: Denies: rash Neuro: Reports: dizziness; Denies: headache(s) PFSH ED 2 PFSH: Medical History Anticoagulation adequate with anticoagulant therapy Degenerative lumbar disc Pneumonia Asthma Vaginal prolapse Atrial fibrillation COPD (chronic obstructive pulmonary disease) Incomplete bladder emptying Chronic cystitis History of deviated nasal septum Dyslipidemia Hypertension Osteoarthritis of right hip Surgical History H/O shoulder replacement left Hx of bilateral cataract extraction History of hip replacement History of appendectomy H/O: hysterectomy Hx of foot surgery BUNIONS EXCISED BILATERAL FEET Family History Brother Diabetes Cancer Son Diabetes Father , AT AGE 75 Lung disease Mother , AT AGE 37 complication Social History Smoking and tobacco/nicotine status: former use of tobacco/nicotine Alcohol intake: former Substance/Drug Use: never Household members: spouse Marital status: Current occupational status: retired Physical Exam 2 Const: COMMON NORMALS: patient oriented x3 HENMT: COMMON NORMALS: normocephalic and atraumatic HEAD & SCALP: n ormocephalic and atraumatic Eye: COMMON NORMALS: Equal, round and reactive pupils present and EOMs intact bilaterally PUPIL: Yes Equal, round and reactive pupils present Neck/C-Spine: COMMON NORMALS: full ROM and supple Chest: COMMONS NORMALS: normal inspection of the chest and normal palpation of entire chest wall Resp: COMMON NORMALS: normal respiratory effort, No retractions, No use of accessory muscles and clear to auscultation bilaterally AUSCULTATION: clear to auscultation bilaterally Cardio: COMMON NORMALS: regular rate, regular rhythm and No murmurs present (Cardio) RATE: regular rate RHYTHM: regular rhythm GI: COMMON NORMALS: Normal to inspection, nondistended, normoactive bowel sounds present, Soft to palpation, non-tender and no masses PALPATION: Yes Soft to palpation Extremity: COMMON NORMALS: normal to inspection and full ROM Neuro: COMMON NORMALS: patient oriented x3, moves all extremities and no focal motor deficits CRANIAL NERVES: Yes CN normal except as noted SPEECH: s peech normal GAIT: Yes Normal gait present MOTOR EXAM: 5/5 motor strength present throughout Psych: COMMON NORMALS: mental status grossly normal, Normal thought process present and cooperative THOUGHT PROCESS: Normal thought process present Skin: COMMON NORMALS: no rashes or lesions noted and no wounds GENERAL SKIN EXAM: no rashes or lesions noted Course 2 Vital Signs: Vital signs: Vital Signs Temperature 97.5 F L 10/01/23 21:12 Pulse Rate 98 10/01/23 21:12 Respiratory Rate 16 10/01/23 21:12 Blood Pressure 181/108 10/01/23 21:12 Pulse Oximetry 93 10/01/23 21:12 Oxygen Delivery Me thod Room Air 10/01/23 21:12 MDM - Dizziness Medical Decision Making Patient presents here with some dizziness along with hypertension. She feels much improved here in the states she is in A-fib she does have a history of paroxysmal A-fib she has not been A-fib here her EKG and troponins are normal blood pressure is improved here as well she been able ambulate without any difficulties no signs of stroke or acute coronary syndrome she is stable for discharge she is follow-up with PCP and return if worsening. Medical Records I reviewed the patient's medical records. Lab Data I reviewed the patient's lab results. 10/01/23 20:47 10/01/23 20:47 Radiology Impressions Chest X-Ray 10/01/23 21:20 IMPRESSION: 1. Emphysematous changes. 2. Bibasilar atelectasis. Head CT 10/01/23 21:20 IMPRESSION: Negative for intracranial hemorrhage or mass effect. Laboratory Results WBC 7.96 10^3/uL (3.29-11.43) 10/01/23 20:47 RBC 4.31 10^6/uL (3.85-5.65) 10/01/23 20:47 Hgb 13.60 g/dL (11.27-16.99) 10/01/23 20:47 Hct 40.9 % (36-47) 10/01/23 20:47 MCV 94.9 fl (85-98) 10/01/23 20:47 MCH 31.6 pg (27-33) 10/01/23 20:47 MCHC 33.3 g/dL (30-55) 10/01/23 20:47 RDW 14.4 % (12.1-15.1) 10/01/23 20:47 Plt Count 260 10^3/cmm (157-399) 10/01/23 20:47 MPV 11.4 fL (7.4-10.4) H 10/01/23 20:47 Neut % (Auto) 49.0 % 10/01/23 20:47 Lymph % (Auto) 38.7 % 10/01/23 20:47 [place] % (Auto) 10.8 % 10/01/23 20:47 Eos % (Auto) 0.8 % 10/01/23 20:47 Baso % (Auto) 0.6 % 10/01/23 20:47 Neut # (Auto) 3.90 10^3/uL (1.8-7.7) 10/01/23 20:47 Lymph # (Auto) 3.1 10^3/uL (0.8-4.8) 10/01/23 20:47 [place] # (Auto) 0.9 10^3/uL (0.2-0.9) 10/01/23 20:47 Eos # (Auto) 0.1 10^3/uL (0.0-0.8) 10/01/23 20:47 Baso # (Auto) 0.1 10^3/uL (0.0-0.1) 10/01/23 20:47 Nucleated RBC % (auto) 0 % 10/01/23 20:47 Nucleated RBCs # 0.0 /100WBC 10/01/23 20:47 PT 12.70 SECONDS (12.1-14.9) 10/01/23 20:47 INR 0.93 (0.8-1.2) 10/01/23 20:47 Sodium 141 mmol/L (136-145) 10/01/23 20:47 Potassium 4.5 mmol/L (3.5-5.1) 10/01/23 20:47 Chloride 104 mmol/L (98-107) 10/01/23 20:47 Carbon Dioxide 24 mmol/L (22-29) 10/01/23 20:47 Anion Gap 17.5 (5-19) 10/01/23 20:47 BUN 13 mg/dL (8-23) 10/01/23 20:47 Creatinine 1.2 mg/dL (0.5-0.9) H 10/01/23 20:47 GFR Calculation Not Reportable 10/01/23 20:47 Glucose 147 mg/dL (65-115) H 10/01/23 20:47 Calculated Osmolality 295 mOsm/kg (285-295) 10/01/23 20:47 Calcium 9.7 mg/dL (8.5-10.5) 10/01/23 20:47 Total Bilirubin 0.2 mg/dL (0.15-1.2) 10/01/23 20:47 AST 29 U/L (0-32) 10/01/23 20:47 ALT 19 U/L (0-33) 10/01/23 20:47 Alkaline Phosphatase 119 U/L (35-105) H 10/01/23 20:47 Troponin T Baseline 19 ng/L (0-10) H 10/01/23 20:47 Troponin T 120 Minute 19.42 ng/L (0-10) H 10/01/23 22:19 Delta Troponin T 0.42 ABS# (0-10) 10/01/23 22:19 Total Protein 7.5 g/dL (6.6-8.7) 10/01/23 20:47 Albumin 4.6 g/dL (3.5-5.2) 10/01/23 20:47 Globulin 2.9 g/dL (1.3-4.6) 10/01/23 20:47 All radiology interpretation(s) finalized by discharge EKG Data EKG 1: I personally reviewed and interpreted this EKG as follows: EKG interpretation date: 10/01/23 EKG interpretation time: 21:43 Interpretation: nsr hr [address] or t wave abnormalities qrs 130 qtc 456 Discharge Plan Discharge Patient Disposition: Home Clinical Impression: Hypertension, Dizziness Condition: Stable Prescriptions: No Action Spiriva with HandiHaler 18 mcg capsule, w/inhalation device 18 mcg INHALATION DAILY@08 PRN [id number]-parker 250 mg-400 unit -40 mg-5 mg tablet 1 tab PO DAILY Eliquis 2.5 mg tablet 2.5 mg PO BID Qty: 180 3RF metoprolol tartrate 25 mg tablet 12.5 mg PO DAILY losartan 50 mg tablet 50 mg PO DAILY Qty: 90 3RF Vitamin D3 1 tab PO DAILY@08 Qty: 90 3RF potassium chloride 20 mEq tablet extended release 20 meq PO DAILY@0800 Qty: 90 3RF furosemide [Lasix] 20 mg tablet 20 mg PO DAILY Qty: 90 3RF albuterol sulfate 90 mcg/actuation HFA aerosol inhaler 1 - 2 puff INHALATION Q4H PRN (Reason: Shortness Of Breath) Qty: 8.5 5RF ascorbic acid (vitamin C) [Vitamin C] 500 mg tablet 1,000 mg PO BID@08,18 multivitamin Tablet 1 tab PO DAILY@08 acetaminophen [Tylenol Arthritis Pain] 650 mg Tablet Extended Release 1,300 mg PO PRN ibuprofen 800 mg tablet 800 mg PO TID PRN (Reason: pain) Qty: 60 0RF acetaminophen 325 mg capsule 325 mg PO Q4H PRN (Reason: fever or pain) Qty: 60 0RF Discharge Orders: Discharge ED (Routine); Ordered 10/01/23 Ordered By: Steven Mtz Referrals: Emery Ragland MD [Primary Care Provider] - 1-3 days Discharge Diet: Advance as tolerated Discharge Activity: Resume usual activity Patient Instructions: Hypertension (ED), Dizziness (ED) Coding Level of Care Code ED Inclusion Teacher for Zita Root
--- NOTE | 2023-10-01 21:43 | ECG_ITS ---
[facility] Test Date: 2023-10-01 Pat Name: Brijesh Middleton Department: Room: Gender: Female Whiskey Proof Reader: : 1940 Requested By: Steven Mtz Order Number: [id number] Jacque MD: Don Murillo M.D. Measurements Intervals [place] Rate: 93 P: 80 MT: 168 QRS: 7 QRSD: 130 T: 67 QT: 406 QTc: 505 Interpretive Statements SINUS RHYTHM RIGHT BUNDLE BRANCH BLOCK [120+ ms QRS DURATION, UPRIGHT V1, 40+ ms S IN I/aVL/V4/V5/V6] Compared to ECG 07/06/2022 04:33:05 No significant changes Electronically Signed On 10-02-2023 8:20:33 WASH CREW PERSON by Don Murillo M.D. [email or web address] [id number]
[2023-10-01 21:59] LABS: Basophils # 0.1 10^3/uL (0.0-0.1); Basophils % 0.6 %; Eosinophils # 0.1 10^3/uL (0.0-0.8); Eosinophils % 0.8 %; Hematocrit 40.9 % (36-47); Lymphocytes # 3.1 10^3/uL (0.8-4.8); Lymphocytes % 38.7 %; Mean Corpuscular HGB Conc 33.3 g/dL (30-55); Mean Corpuscular Hemoglobin 31.6 pg (27-33); Mean Corpuscular Volume 94.9 fl (85-98); Mean Platelet Volume 11.4 fL (7.4-10.4); Monocytes # 0.9 10^3/uL (0.2-0.9); Monocytes % 10.8 %; Nucleated Red Blood Cells % 0 %; Platelet Count 260 10^3/cmm (157-399); Red Blood Count 4.31 10^6/uL (3.85-5.65); Red Cell Distribution Width 14.4 % (12.1-15.1); White Blood Count 7.96 10^3/uL (3.29-11.43)
[2023-10-01 22:09] LABS: INR 0.93 (0.8-1.2)
[2023-10-01 22:16] LABS: Troponin(5th) Baseline 19 ng/L (0-10)
[2023-10-01 22:23] LABS: Alanine Aminotransferase 19 U/L (0-33); Albumin Level 4.6 g/dL (3.5-5.2); Alkaline Phosphatase 119 U/L (35-105); Blood Urea Nitrogen 13 mg/dL (8-23); Calcium 9.7 mg/dL (8.5-10.5); Carbon Dioxide 24 mmol/L (22-29); Chloride 104 mmol/L (98-107); Globulin 2.9 g/dL (1.3-4.6); Glucose 147 mg/dL (65-115); Osmolality Calculated 295 mOsm/kg (285-295); Sodium 141 mmol/L (136-145); Total Bilirubin 0.2 mg/dL (0.15-1.2); Total Protein 7.5 g/dL (6.6-8.7)
[2023-10-01 22:31] LABS: Anion Gap 17.5 (5-19); Aspartate Amino Transferase 29 U/L (0-32); Potassium 4.5 mmol/L (3.5-5.1)
[2023-10-01 22:45] LABS: Troponin 5 2HR 19.42 ng/L (0-10); Troponin 5 2HR Delta 0.42 ABS# (0-10)
== END 2023-10-01 22:59 | disposition home or self-care (01) ==
PROVIDERS: Emergency Provider Emergency Medicine; PCP Family Medicine
DX: R42 Dizziness and giddiness (principal); I10 Essential (primary) hypertension; Z79.01 Long term (current) use of anticoagulants; Z87.891 Personal history of nicotine dependence; J44.9 Chronic obstructive pulmonary disease, unspecified; E78.5 Hyperlipidemia, unspecified
CPT/HCPCS: 36415; 70450; 71045; 80053; 84484; 85025; 85610; 93005; 99285

== ENCOUNTER → 2023-12-10 10:30 | Outpatient (BNVA) | payer MEDICARE, OTHER, SELFPAY | PROVIDERS: PCP Family Medicine; Visit Provider Family Medicine | DX: C44.310 Basal cell carcinoma of skin of unspecified parts of face (principal); C44.91 Basal cell carcinoma of skin, unspecified | CPT/HCPCS: 88304 ==

== ENCOUNTER 2023-12-11 20:14 | Emergency (ER) | payer MEDICARE, OTHER, SELFPAY ==
[2023-12-11 20:16] VITALS: BP 127/80; PULSE 81; RESP 18; TEMP 36.7; O2SAT 94; BMI 31.8
--- NOTE | 2023-12-11 20:32 | ECG_ITS ---
[facility] Test Date: 2023-12-11 Pat Name: Brijesh Middleton Department: Room: Gender: Female Cert Occupational Therapy Asst: : 1940 Requested By: Kelvin Payan Order Number: [id number] Jacque MD: Uziel Best M.D. Measurements Intervals [place] Rate: 72 P: 71 IL: 177 QRS: 3 QRSD: 131 T: 24 QT: 423 QTc: 464 Interpretive Statements SINUS RHYTHM RIGHT BUNDLE BRANCH BLOCK [120+ ms QRS DURATION, UPRIGHT V1, 40+ ms S IN I/aVL/V4/V5/V6] Compared to ECG 10/01/2023 21:43:00 No significant changes Electronically Signed On 12-12-2023 10:51:24 PRECISION LATHE OPERATOR by Uziel Best M.D. [id number]
--- NOTE | 2023-12-11 20:32 | XRR_ITS ---
PROCEDURE INFORMATION: Exam: XR Chest Exam date and time: 12/11/2023 8:53 PM Age: 83 years old Clinical indication: Chest wall pain; Additional info: Cxp TECHNIQUE: Imaging protocol: Radiologic exam of the chest. Views: 1 view. COMPARISON: CR XR chest 1V portable [id number] 10/01/2023 9:23 PM FINDINGS: Lungs: Unremarkable. No consolidation. Pleural spaces: Unremarkable. No pleural effusion. No pneumothorax. Heart/Mediastinum: Unremarkable. No cardiomegaly. Bones/joints: Unremarkable. XR/XR chest 1V portable [id number] IMPRESSION: No acute findings.
--- NOTE | 2023-12-11 20:43 | ED_ITS ---
HPI - Chest Pain 2 General: Chief Complaint: Chest Pain Stated Complaint: CP, tachycardia Time Seen by Provider: 12/11/23 20:32 History of Present Illness: 83-year-old female presents to the emerg ency department via EMS personnel. The patient states that she had not taken her metoprolol and noticed that her heart rate was going fast which caused her to have some chest pressure. Patient states that she took current metoprolol and nitro and her called EMS because he was concerned. Patient states that she was not short of breath or nauseated or had diaphoresis. She states she was advised by her primary care provider to take her metoprolol when her heart rate started going fast. She states she does not take it on a regular basis she states she is not having any chest pain or pressure after taking the nitroglycerin she states that she was encouraged to come to the hospital to have everything checked out. She has been chest pain-free since arrival here in the emergency department she has not complained of any shortness of breath. Associated symptoms: Reports palpitations Review of Systems 2 General: Reports: 10 or more systems reviewed and unremarkable except in HPI and below Card: Reports: palpitations PFSH ED 2 PFSH: Medical History Anticoagulation adequate with anticoagulant therapy Degenerative lumbar disc Pneumonia Asthma Vaginal prolapse Atrial fibrillation COPD (chronic obstructive pulmonary disease) Incomplete bladder emptying Chronic cystitis History of deviated nasal septum Dyslipidemia Hypertension Osteoarthritis of right hip Surgical History H/O shoulder replacement left Hx of bilateral cataract extraction History of hip replacement History of appendectomy H/O: hysterectomy Hx of foot surgery BUNIONS EXCISED BILATERAL FEET Family History Brother Diabetes Cancer Son Diabetes Father , AT AGE 75 Lung disease Mother , AT AGE 37 complication Social History Smoking and tobacco/nicotine status: former use of tobacco/nicotine Alcohol intake: former Substance/Drug Use: never Household members: spouse Marital status: Current occupational status: retired Physical Exam 2 Narrative: EXAM NARRATIVE: Constitutional: the patient appears well nourished and with normal development. Vital signs reviewed as documented. HENMT: Normocephalic, atraumatic. External ears normal appearance without drainage. Nose without drainage, normal appearance. Mucus membranes moist. Neck is supple, No jugular venous distension, trachea is midline, no appreciable carotid bruits. No lymphadenopathy. No meningeal signs. Flexion, extension and lateral rotation is without pain. Eyes: Pupils are equal, round, reactive to light and accommodation. No scleral icterus. Extra-ocular movement are intact. Thorax is symmetrical and with equal rise and fall with respirations. Resp: Lungs are clear to auscultation. No wheezes, rales, crackles or ronchi at present. Cardio: Regular rate and rhythm. Positive S1, S2. No appreciable murmurs, rubs or gallops. GI: Abdominal exam reveals normal bowel sounds to all quadrants. No organomegaly. No obvious palpable masses noted. No hepatomegally appreciated. Soft, non-tender to palpation. Extremity: Extremities are non-edematous and both femoral and pedal pulses are 2+ and equal bilaterally. Moves all extremities well, sensation in all extremities. Neuro: Alert and oriented x4, person, place, time and situation. Cranial nerves II through XII are grossly intact, there is no focal neurological deficits that I can appreciate at present. Sensation intact to all extremities. 2-point discrimination intact. Light touch intact to all extremities. Motor strength in the upper and lower extremities are equal and bilateral 5/5. Psych: Cooperative, calm, normal thought process, appropriate judgment. Skin: No lesions, rashes. No gross abnormalities noted. Back: Symmetrical, no obvious deformity, No CVA tenderness Course 2 Reevaluation(s): Reevaluation #1: Vital signs remained stable current blood pressure is 110/70 heart rate is 68 and regular oxygen saturation on room air is 95% I discussed the laboratory findings with the patient as well as her slightly elevated B-type natriuretic peptide and she has requested to be discharged as she has been doing well since she took her home medications. I did advise her she may return to the emergency department at anytime for any reason or if her symptoms worsen or return. 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 Time: 22:32 Vital Signs: Vital signs: Vital Signs Temperature 98.0 F 12/11/23 20:16 Pulse Rate 66 12/11/23 22:42 Respiratory Rate 18 12/11/23 21:44 Blood Pressure 110/70 12/11/23 22:42 Pulse Oximetry 94 12/11/23 22:42 Oxygen Delivery Me thod Room Air 12/11/23 21:44 MDM - Chest Pain Medical Decision Making Physical exam completed and documented, I will obtain serial cardiac enzymes, serial twelve-lead EKGs, chest x-ray, CBC, CMP, urinalysis, B-type natriuretic peptide, PT/PTT/INR, and a chest x-ray. I have reviewed previous and pertinent medical records for assist in obtaining beneficial medical information to improved the care and treatment of the patient. Medical Records I reviewed the patient's medical records. Lab Data I reviewed the patient's lab results. 12/11/23 21:12 12/11/23 21:12 Radiology Impressions Chest X-Ray 12/11/23 20:32 IMPRESSION: No acute findings. Laboratory Results WBC 9.23 10^3/uL (3.29-11.43) 12/11/23 21:12 RBC 4.07 10^6/uL (3.85-5.65) 12/11/23 21:12 Hgb 12.50 g/dL (11.27-16.99) 12/11/23 21:12 Hct 38.1 % (36-47) 12/11/23 21:12 MCV 93.6 fl (85-98) 12/11/23 21:12 MCH 30.7 pg (27-33) 12/11/23 21:12 MCHC 32.8 g/dL (30-55) 12/11/23 21:12 RDW 14.6 % (12.1-15.1) 12/11/23 21:12 Plt Count 221 10^3/cmm (157-399) 12/11/23 21:12 MPV 10.7 fL (7.4-10.4) H 12/11/23 21:12 Neut % (Auto) 59.0 % 12/11/23 21:12 Lymph % (Auto) 27.7 % 12/11/23 21:12 [place] % (Auto) 11.7 % 12/11/23 21:12 Eos % (Auto) 1.0 % 12/11/23 21:12 Baso % (Auto) 0.5 % 12/11/23 21:12 Neut # (Auto) 5.44 10^3/uL (1.8-7.7) 12/11/23 21:12 Lymph # (Auto) 2.6 10^3/uL (0.8-4.8) 12/11/23 21:12 [place] # (Auto) 1.1 10^3/uL (0.2-0.9) H 12/11/23 21:12 Eos # (Auto) 0.1 10^3/uL (0.0-0.8) 12/11/23 21:12 Baso # (Auto) 0.1 10^3/uL (0.0-0.1) 12/11/23 21:12 Nucleated RBC % (auto) 0 % 12/11/23 21:12 Nucleated RBCs # 0.0 /100WBC 12/11/23 21:12 PT 14.00 SECONDS (12.1-14.9) 12/11/23 21:12 INR 1.05 (0.8-1.2) 12/11/23 21:12 Sodium 142 mmol/L (136-145) 12/11/23 21:12 Potassium 4.4 mmol/L (3.5-5.1) 12/11/23 21:12 Chloride 107 mmol/L (98-107) 12/11/23 21:12 Carbon Dioxide 22 mmol/L (22-29) 12/11/23 21:12 Anion Gap 17.4 (5-19) 12/11/23 21:12 BUN 19 mg/dL (8-23) 12/11/23 21:12 Creatinine 1.1 mg/dL (0.5-0.9) H 12/11/23 21:12 GFR Calculation Not Reportable 12/11/23 21:12 Glucose 130 mg/dL (65-115) H 12/11/23 21:12 Calculated Osmolality 298 mOsm/kg (285-295) H 12/11/23 21:12 Calcium 9.2 mg/dL (8.5-10.5) 12/11/23 21:12 Total Bilirubin 0.2 mg/dL (0.15-1.2) 12/11/23 21:12 AST 19 U/L (0-32) 12/11/23 21:12 ALT 12 U/L (0-33) 12/11/23 21:12 Alkaline Phosphatase 91 U/L (35-105) 12/11/23 21:12 Troponin T Baseline 26 ng/L (0-10) H 12/11/23 21:12 NT-Pro-B Natriuret Pep 1421 pg/mL (0-450) H 12/11/23 21:12 Total Protein 6.5 g/dL (6.6-8.7) L 12/11/23 21:12 Albumin 3.9 g/dL (3.5-5.2) 12/11/23 21:12 Globulin 2.6 g/dL (1.3-4.6) 12/11/23 21:12 Urine Color Yellow (Yellow) 12/11/23 21:15 Urine Appearance Hazy (CLEAR) A 12/11/23 21:15 Urine pH 6 (5-7) 12/11/23 21:15 Ur Specific [place] 1.020 (1.005-1.030) 12/11/23 21:15 Urine Protein Neg (Negative) 12/11/23 21:15 Urine Glucose (UA) Norm (Normal) 12/11/23 21:15 Urine Ketones Negative (Negative) 12/11/23 21:15 Urine Blood Neg (Negative) 12/11/23 21:15 Urine Nitrate Negative (Negative) 12/11/23 21:15 Urine Bilirubin Neg (Negative) 12/11/23 21:15 Urine Urobilinogen Neg mg/dL (Negative) 12/11/23 21:15 Ur Leukocyte Esterase 1+ (Negative) H 12/11/23 21:15 Urine RBC 0-4 /hpf (0-2) H 12/11/23 21:15 Urine WBC 10-15 /hpf (0-5) H 12/11/23 21:15 Ur Squamous Epith Cells 15-25 /hpf (0-5) H 12/11/23 21:15 Amorphous Sediment Not Reportable 12/11/23 21:15 Urine Bacteria Trace /hpf (NONE) 12/11/23 21:15 All radiology interpretation(s) finalized by discharge EKG Data EKG 1: Interpretation: Twelve-lead EKG obtained at 2051 and reviewed at 2054 demonstrates sinus rhythm with a right bundle branch block ventricular rate of 72 bpm VT interval 177, QRS duration 131, QT 423, QTc [address] elevation or depression to demonstrate acute ischemia or infarction at present. Discharge Plan Discharge Patient Disposition: Home Clinical Impression: Heart palpitations Condition: Stable Prescriptions: No Action [id number] 250 mg-400 unit -40 mg-5 mg tablet 1 tab PO DAILY Eliquis 2.5 mg tablet 2.5 mg PO BID Qty: 180 3RF lidocaine-epinephrine [Xylocaine with Epinephrine] 2 %-1:100,000 solution 2 ml Infiltration ONCE Qty: 1 0RF penicillin V potassium 500 mg tablet 500 mg PO BID Qty: 10 0RF Vitamin D3 1 tab PO DAILY@08 Qty: 90 3RF potassium chloride 20 mEq tablet extended release 20 meq PO DAILY@0800 Qty: 90 3RF albuterol sulfate 90 mcg/actuation HFA aerosol inhaler 1 - 2 puff INHALATION Q4H PRN (Reason: Shortness Of Breath) Qty: 8.5 5RF losartan 50 mg tablet See Rx Instructions .ROUTE .COMPLEX Qty: 90 3RF Dose Instruction: TAKE 1 TABLET DAILY Rx Instructions: TAKE 1 TABLET DAILY furosemide 20 mg tablet See Rx Instructions .ROUTE .COMPLEX Qty: 90 3RF Dose Instruction: TAKE 1 TABLET DAILY Rx Instructions: TAKE 1 TABLET DAILY ascorbic acid (vitamin C) [Vitamin C] 500 mg tablet 1,000 mg PO BID@08,18 multivitamin Tablet 1 tab PO DAILY@08 acetaminophen [Tylenol Arthritis Pain] 650 mg Tablet Extended Release 1,300 mg PO PRN ibuprofen 800 mg tablet 800 mg PO TID PRN (Reason: pain) Qty: 60 0RF acetaminophen 325 mg capsule 325 mg PO Q4H PRN (Reason: fever or pain) Qty: 60 0RF Discharge Orders: Discharge ED (Routine); Ordered 12/11/23 Ordered By: Kelvin Payan Referrals: Emery Ragland MD [Primary Care Provider] - Discharge Diet: Low Salt Discharge Activity: Resume usual activity Patient Instructions: Opioid Safety, Pain Management Activity Restrictions/Additional Instructions: Activity Restrictions/Additional Instructions: Thank you for choosing [facility] for your healthcare needs today. Please realize that you were seen in the Emergency Department and that we are providing you with an emergency medical screening exam and this may not be a complete and all inclusive of all the testing and or medical work-up that you may need to determine your ailment or severity of your illness. It is very important that you follow-up as instructed with your Primary care provider or Specialist for additional evaluation and to discuss your medical treatment plan. You may return to the Emergency Department should you have concerns or if your condition changes or worsens in any way. Coding Level of Care Code ED [employer] Manager for Zita Root
[2023-12-11 21:17] LABS: Basophils # 0.1 10^3/uL (0.0-0.1); Basophils % 0.5 %; Eosinophils # 0.1 10^3/uL (0.0-0.8); Hematocrit 38.1 % (36-47); Lymphocytes # 2.6 10^3/uL (0.8-4.8); Lymphocytes % 27.7 %; Mean Corpuscular HGB Conc 32.8 g/dL (30-55); Mean Corpuscular Hemoglobin 30.7 pg (27-33); Mean Corpuscular Volume 93.6 fl (85-98); Mean Platelet Volume 10.7 fL (7.4-10.4); Monocytes # 1.1 10^3/uL (0.2-0.9); Monocytes % 11.7 %; Neutrophils # 5.44 10^3/uL (1.8-7.7); Nucleated Red Blood Cells % 0 %; Platelet Count 221 10^3/cmm (157-399); Red Blood Count 4.07 10^6/uL (3.85-5.65); Red Cell Distribution Width 14.6 % (12.1-15.1); White Blood Count 9.23 10^3/uL (3.29-11.43)
[2023-12-11 21:36] LABS: Add Urine Culture? No; Add Urine Microscopic? YES; Bacteria Urine TRACE /hpf; Bilirubin Urine Neg (Negative); Blood Urine Neg (Negative); Glucose Urine UA Norm (Normal); Ketones Urine Negative (Negative); Leukocyte Esterase Urine 1+ (Negative); Nitrate Urine Negative (Negative); Protein Urine Neg (Negative); RBC Urine 0-4 /hpf (0-2); Squamous Epithelial Cell Urine 15-25 /hpf (0-5); Urine Appearance Hazy (CLEAR); Urine Color Yellow (Yellow); Urobilinogen Urine Neg (Negative); pH Urine 6 (5-7)
[2023-12-11 21:37] LABS: Troponin(5th) Baseline 26 ng/L (0-10)
[2023-12-11 21:39] LABS: INR 1.05 (0.8-1.2)
[2023-12-11 21:44] VITALS: BP 121/68; PULSE 67; RESP 18; O2SAT 94
[2023-12-11 21:56] LABS: Alanine Aminotransferase 12 U/L (0-33); Albumin Level 3.9 g/dL (3.5-5.2); Alkaline Phosphatase 91 U/L (35-105); Aspartate Amino Transferase 19 U/L (0-32); Blood Urea Nitrogen 19 mg/dL (8-23); Calcium 9.2 mg/dL (8.5-10.5); Carbon Dioxide 22 mmol/L (22-29); Chloride 107 mmol/L (98-107); Globulin 2.6 g/dL (1.3-4.6); Glucose 130 mg/dL (65-115); NT Pro B Type Natriuretic Pept 1421 pg/mL (0-450); Osmolality Calculated 298 mOsm/kg (285-295); Sodium 142 mmol/L (136-145); Total Bilirubin 0.2 mg/dL (0.15-1.2); Total Protein 6.5 g/dL (6.6-8.7)
[2023-12-11 21:57] LABS: Anion Gap 17.4 (5-19); Potassium 4.4 mmol/L (3.5-5.1)
[2023-12-11 22:42] VITALS: BP 110/70; PULSE 66; O2SAT 94
== END 2023-12-11 22:43 | disposition home or self-care (01) ==
PROVIDERS: Emergency Provider Internal Medicine; PCP Family Medicine
DX: R00.2 Palpitations (principal); Z79.01 Long term (current) use of anticoagulants
CPT/HCPCS: 36415; 71045; 80053; 81001; 83880; 84484; 85025; 85610; 93005; 99285

== ENCOUNTER → 2024-04-16 09:43 | Outpatient (BNVA) | payer MEDICARE, OTHER, SELFPAY | PROVIDERS: PCP Family Medicine; Visit Provider Nurse Practitioner Family | DX: I10 Essential (primary) hypertension (principal); I48.0 Paroxysmal atrial fibrillation; Z87.891 Personal history of nicotine dependence; Z79.01 Long term (current) use of anticoagulants | CPT/HCPCS: 99214 ==

== ENCOUNTER → 2024-05-15 09:42 | Outpatient (BNVA) | payer MEDICARE, OTHER, SELFPAY | PROVIDERS: PCP Family Medicine; Visit Provider Nurse Practitioner Family | DX: L57.0 Actinic keratosis (principal); L85.3 Xerosis cutis; D22.5 Melanocytic nevi of trunk; L81.4 Other melanin hyperpigmentation; L82.1 Other seborrheic keratosis; L57.8 Other skin changes due to chronic exposure to nonionizing radiation; D69.2 Other nonthrombocytopenic purpura; Z85.828 Personal history of other malignant neoplasm of skin | CPT/HCPCS: 17000; 99213 ==

== ENCOUNTER → 2024-05-28 13:28 | Outpatient (BNVA) | payer MEDICARE, OTHER, SELFPAY | PROVIDERS: PCP Family Medicine; Visit Provider Family Medicine | DX: I10 Essential (primary) hypertension (principal) | CPT/HCPCS: 80053; 85025 ==

== ENCOUNTER 2024-06-11 10:46 | Outpatient (CLI) | payer MEDICARE, OTHER, SELFPAY ==
--- NOTE | 2024-06-11 10:53 | XR_ITS ---
WS: [id number] Left hip, 2 views, AP pelvis, 06/11/2024 Clinical Data: M16.12 - Unilateral primary osteoarthritis, left hip Comparison: Right hip, 05/02/2020 Findings: No fractures or dislocations are seen. The left hip shows narrowing with loss of the normal spherical contour of the left femoral head. There may be cystic change in the left femoral head.. The soft tis sues are not remarkable. There is a right hip arthroplasty. The SI joints and pubic symphysis are unremarkable. There are small sutures on the right side of the pelvis and abdomen. XR/XR hip LT 2-3V wo/w pel* [id number] Impression: Moderate osteoarthritis of the left hip. Tonnis classification: grade 2: small cysts in femoral head/acetabulum or moder ate joint space narrowing or moderate loss of head sphericity
== END 2024-06-11 10:47 | disposition home or self-care (01) ==
LOC: RAD 10:50
PROVIDERS: PCP Family Medicine; Visit Provider Family Medicine
DX: M16.12 Unilateral primary osteoarthritis, left hip (principal); Z96.641 Presence of right artificial hip joint
CPT/HCPCS: 73502

== ENCOUNTER → 2024-07-09 10:19 | Outpatient (BNVA) | payer MEDICARE, OTHER, SELFPAY | PROVIDERS: PCP Family Medicine; Referring Provider Family Medicine; Visit Provider Student in an Organized Health Care Education/Training Program | DX: M16.12 Unilateral primary osteoarthritis, left hip (principal) | CPT/HCPCS: 99204 ==

== ENCOUNTER → 2024-07-16 13:40 | Outpatient (BNVA) | payer MEDICARE, OTHER, SELFPAY | PROVIDERS: PCP Family Medicine; Visit Provider Orthopaedic Surgery | DX: M54.9 Dorsalgia, unspecified (principal); M48.062 Spinal stenosis, lumbar region with neurogenic claudication | CPT/HCPCS: 72110; 99204 ==

== ENCOUNTER 2024-08-06 14:25 | Outpatient (CLI) | payer MEDICARE, OTHER, SELFPAY ==
--- NOTE | 2024-08-06 14:45 | MR_ITS ---
WS: [id number] MRI LUMBAR SPINE NONCONTRAST TECHNIQUE: Sagittal T1, T2 and STIR imaging. Axial T1 and T2 imaging. CLINICAL INFORMATION: back pain COMPARISON: MRI 2020 FINDINGS: Mild lumbar curve. No acute compression. Endplate Schmorl's node superior endplate L1 and inferior en dplate L2. No high-grade central canal stenosis. Cholelithiasis. Partially visualized lobulated LEFT greater than RIGHT renal cysts. L1-L2: Mild annular bulging. Mild facet arthropathy. Mild LEFT foraminal narrowing. L2-L3: Mild annular bulging. Mild facet arthropathy. Spinal canal and foramen are patent. L3-L4: Slight retrolisthesis. Mild annular bulging with mild facet arthropathy. Slight narrowing of t he subarticular recess bilaterally. L4-L5: Slight retrolisthesis with mild disc bulging results in mild central canal stenosis. Moderate facet arthropathy and ligamentum flavum hypertrophy. Small facet effusions. Mild RIGHT foraminal narr owing. L5-S1: Mild disc bulging with mild central canal stenosis. Moderate to advanced facet arthropathy wit h ligamentum flavum hypertrophy. Small facet effusions. Mild LEFT foraminal narrowing. Visualized pelvic bony structures: Normal. Paravertebral soft tissues: Normal. MR/MR lumbar spine wo con* [id number] IMPRESSION: 1. Mild central canal stenosis L3-L4 and mild to moderate L4-5 progressed comp ared to previous. 2. Small RIGHT foraminal protrusion L4-5 with mild RIGHT foraminal narrowing s imilar to previous. 3. Disc osteophyte complex L5-S1 with slight impingement on the LEFT greater t myers RIGHT S1 nerve roots. Mild LEFT foraminal narrowing. This appears slightly progressed compared to previous. 4. Moderate to advanced facet arthropathy L4-L5 and L5-S1 with small facet eff usions likely inflammatory or degenerative
== END 2024-08-06 14:26 | disposition home or self-care (01) ==
LOC: RAD 14:26
PROVIDERS: PCP Family Medicine; Visit Provider Orthopaedic Surgery
DX: M47.896 Other spondylosis, lumbar region (principal); M99.61 Osseous and subluxation stenosis of intervertebral foramina of cervical region; M25.78 Osteophyte, vertebrae
CPT/HCPCS: 72148

== ENCOUNTER → 2024-08-13 08:36 | Outpatient (BNVA) | payer MEDICARE, OTHER, SELFPAY | PROVIDERS: PCP Family Medicine; Visit Provider Orthopaedic Surgery | DX: Z09 Encounter for follow-up examination after completed treatment for conditions other than malignant neoplasm | CPT/HCPCS: 99214 ==

== ENCOUNTER → 2024-08-21 09:24 | Outpatient (BNVA) | payer MEDICARE, OTHER, SELFPAY | PROVIDERS: PCP Family Medicine; Visit Provider Student in an Organized Health Care Education/Training Program | DX: M16.12 Unilateral primary osteoarthritis, left hip (principal) | CPT/HCPCS: 20610; 77002; J3301 ==

== ENCOUNTER → 2024-09-07 11:00 | Outpatient (BNVA) | payer MEDICARE, OTHER, SELFPAY | PROVIDERS: PCP Family Medicine; Visit Provider Podiatrist Foot & Ankle Surgery | DX: R26.89 Other abnormalities of gait and mobility (principal); M21.70 Unequal limb length (acquired), unspecified site | CPT/HCPCS: 99203 ==

== ENCOUNTER 2024-09-18 08:29 | Outpatient (CLI) | payer MEDICARE, OTHER, SELFPAY ==
--- NOTE | 2024-09-18 08:32 | MM_ITS ---
WS: [id number] BILATERAL SCREENING DIGITAL TOMOSYNTHESIS MAMMOGRAM WITH CAD HISTORY: SCREENING COMPARISON: 08/30/2023, 08/24/2022, 08/17/2021 Bilateral CC and MLO views with tomosynthesis and synthetic mammography submitted. Computer aided det ection analyzed. Breast composition: The breasts are almost entirely fatty. No suspicious masses, microcalcifications or architectural distortion. Vascular calcifications. MM/MM scr BI tomosynthesis [id number] IMPRESSION: BI-RADS: 2 - Benign. FOLLOW UP: 1 Year Follow-up
== END 2024-09-18 08:30 | disposition home or self-care (01) ==
LOC: RAD 08:30
PROVIDERS: PCP Family Medicine; Visit Provider Family Medicine
DX: Z12.31 Encounter for screening mammogram for malignant neoplasm of breast (principal); R92.313 Mammographic fatty tissue density, bilateral breasts; R92.1 Mammographic calcification found on diagnostic imaging of breast
CPT/HCPCS: 77063; 77067

== ENCOUNTER 2024-10-21 23:23 | Emergency (ER) | payer MEDICARE, OTHER, SELFPAY ==
[2024-10-21 23:24] VITALS: BP 125/84; PULSE 81; RESP 18; TEMP 36.3; O2SAT 92; BMI 31.1
--- NOTE | 2024-10-21 23:29 | ECG_ITS ---
[facility] Date[facility] 2024-10[facility]21 Pat Name: Brijesh Middleton Department: Room: Gender: Female [employer] Architect: : 1940 Requested By: Ash Anthony Order Number: [id number] Jacque MD: Don Murillo M.D. Measurements Intervals Russell Rate: 79 P: 107 WV: 176 QRS: -5 QRSD: 134 T: 30 QT: 407 QTc: 469 Interpretive Statements SINUS RHYTHM RIGHT BUNDLE BRANCH BLOCK [120+ ms QRS DURATION, UPRIGHT V1, 40+ ms S IN I/aVL/V4/V5/V6] Compared to ECG 12/11/2023 20:52:09 No significant changes Electronically Signed On 10-22-2024 12:27:09 CLINICAL INFORMATICS DIRECTOR by Don Murillo M.D. [email or web address]
--- NOTE | 2024-10-21 23:44 | ED_ITS ---
HPI - Chest Pain 2 General: Chief Complaint: Chest Pain Stated Complaint: CP Time Seen by Provider: 10/21/24 23:27 History of Present Illness: Patient presents to the ER for an episode of tachycardia and chest pain. At home patient's heart rate is 150 beats a minute. Upon contacting the evening air her rhythm converted from A-fib to normal sinus rhythm at about 80 bpm. Patient not have any medication on route. Patient does have a history of A-fib and right bundle branch block. Patient is on Eliquis. Related Data Home Medications Medication Instructions Recorded Confirmed ascorbic acid (vitamin C) 500 mg 1,000 mg PO BID@08,18 09/24/20 09/07/24 tablet (Vitamin C) acetaminophen 650 mg 1,300 mg PO PRN 10/02/20 09/07/24 tablet,extended release (Tylenol Arthritis Pain) multivitamin 1 tab PO DAILY@08 10/02/20 09/07/24 calcium 250 mg-D3 400 1 tab PO DAILY 06/21/21 09/07/24 unit-magnesium 40 gb-D8-Kw-copper-parker tablet Previous Rx's Medication Instructions Recorded Vitamin D3 1 tab PO DAILY@08 #90 caps 03/01/21 acetaminophen 325 mg capsule 325 mg PO Q4H PRN fever or pain 08/30/22 #60 caps potassium chloride 20 mEq 20 meq PO DAILY@0800 #90 tabs 09/24/22 tablet,extended release albuterol sulfate 90 mcg/actuation 1 - 2 puff inhalation Q4H PRN 03/21/23 aerosol inhaler Shortness Of Breath #8.5 grams furosemide 20 mg tablet See Rx Instructions .Route 11/28/23 .COMPLEX #90 tabs penicillin V potassium 500 mg 500 mg PO BID dental 12/10/23 tablet procedure/infection #10 tabs metoprolol tartrate 25 mg tablet See Rx Instructions .Route 04/21/24 .COMPLEX #30 tabs apixaban 2.5 mg tablet 2.5 mg PO BID #180 tabs 05/28/24 celecoxib 100 mg capsule See Rx Instructions .Route 05/28/24 .COMPLEX #90 caps hydrocodone 5 mg-acetaminophen 325 1 tab PO Q8H PRN pain 20 days #60 06/15/24 mg tablet tabs prednisone 20 mg tablet 20 mg PO DAILY #15 tabs 07/16/24 orthotics with 1.5 cm heel lift #2 ea 11/27/24 right foot losartan 50 mg tablet See Rx Instructions .Route 09/30/24 .COMPLEX #90 tabs Allergies Allergy/AdvReac Type Severity Reaction Status Date / Time nickel Allergy Mild ALGY-Redness Verified 09/07/24 11:11 of Skin morphine Allergy Unconscious Verified 09/07/24 11:11 Review of Systems 2 General: Reports: 10 or more systems reviewed and unremarkable except in HPI and below PFSH ED 2 PFSH: Medical History Anticoagulation adequate with anticoagulant therapy Degenerative lumbar disc Pneumonia Asthma Vaginal prolapse Atrial fibrillation COPD (chronic obstructive pulmonary disease) Incomplete bladder emptying Chronic cystitis History of deviated nasal septum Dyslipidemia Hypertension Osteoarthritis of right hip Surgical History H/O shoulder replacement left Hx of bilateral cataract extraction History of hip replacement History of appendectomy H/O: hysterectomy Hx of foot surgery BUNIONS EXCISED BILATERAL FEET Family History Brother Diabetes Cancer Son Diabetes Father , AT AGE 75 Lung disease Mother , AT AGE 37 complication Social History Smoking and tobacco/nicotine status: never used tobacco/nicotine Alcohol intake: former Substance/Drug Use: never Household members: spouse Marital status: Current occupational status: retired Physical Exam 2 Const: COMMON NORMALS: no acute distress, average body habitus, patient oriented x3, no limitations, healthy appearing, alert and well nourished HENMT: COMMON NORMALS: normocephalic, atraumatic, hearing grossly normal bilaterally, external ears normal, Normal external nose present and moist oral mucous membranes HEAD & SCALP: normocephalic and atraumatic NOSE: Normal external nose present EXTERNAL EAR: Yes external ears normal Neck/C-Spine: COMMON NORMALS: full ROM, no lymphadenopathy, supple, no meningeal signs, no JVD and Thyroid normal THYROID: Thyroid normal Chest: COMMONS NORMALS: normal inspection of the chest and normal palpation of entire chest wall Resp: COMMON NORMALS: normal respiratory effort, No retractions, No use of accessory muscles and clear to auscultation bilaterally AUSCULTATION: clear to auscultation bilaterally Cardio: COMMON NORMALS: no JVD, regular rate, regular rhythm, S1 normal heart sound present, S2 normal heart sound present, No gallops present (Cardio), No clicks present (Cardio), No murmurs present (Cardio) and No rub (Cardio) R ATE: regular rate RHYTHM: regular rhythm HEART SOUNDS: S1 normal heart sound present and S2 normal heart sound present GI: COMMON NORMALS: Normal to inspection, nondistended, normoactive bowel sounds present, Soft to palpation, non-tender, No hepatosplenomegaly present and no masses PALPATION: Yes Soft to palpation and Yes No hepatosplenomegaly present Neuro: COMMON NORMALS: patient oriented x3 SENSORIUM/ORIENTATION: Yes alert MENINGEAL SIGNS: Yes no meningeal signs Course 2 Vital Signs: Vital signs: Vital Signs Temperature 97.4 F L 10/21/24 23:24 Pulse Rate 81 10/21/24 23:24 Respiratory Rate 18 10/21/24 23:24 Blood Pressure 125/84 10/21/24 23:24 Pulse Oximetry 92 10/21/24 23:24 Oxygen Delivery Me thod Room Air 10/21/24 23:24 MDM - Chest Pain Medical Decision Making Patient is worked up in standard chest pain fashion with serial EKGs, serial cardiac enzymes, labs, chest x-ray, was essentially benign. Patient not have any tachyarrhythmias during her stay. Patient be discharged home. Medical Records I reviewed the patient's medical records. Lab Data I reviewed the patient's lab results. 10/21/24 23:40 10/21/24 23:40 Radiology Impressions Chest X-Ray 10/22/24 00:01 IMPRESSION: No acute cardiopulmonary process. Laboratory Results WBC 8.51 10^3/uL (3.29-11.43) 10/21/24 23:40 RBC 3.86 10^6/uL (3.85-5.65) 10/21/24 23:40 Hgb 11.70 g/dL (11.27-16.99) 10/21/24 23:40 Hct 36.1 % (36-47) 10/21/24 23:40 MCV 93.5 fl (85-98) 10/21/24 23:40 MCH 30.3 pg (27-33) 10/21/24 23:40 MCHC 32.4 g/dL (30-55) 10/21/24 23:40 RDW 15.4 % (12.1-15.1) H 10/21/24 23:40 Plt Count 246 10^3/cmm (157-399) 10/21/24 23:40 MPV 10.3 fL (7.4-10.4) 10/21/24 23:40 Neut % (Auto) 59.8 % 10/21/24 23:40 Lymph % (Auto) 25.7 % 10/21/24 23:40 [place] % (Auto) 12.5 % 10/21/24 23:40 Eos % (Auto) 1.2 % 10/21/24 23:40 Baso % (Auto) 0.6 % 10/21/24 23:40 Neut # (Auto) 5.09 10^3/uL (1.8-7.7) 10/21/24 23:40 Lymph # (Auto) 2.2 10^3/uL (0.8-4.8) 10/21/24 23:40 [place] # (Auto) 1.1 10^3/uL (0.2-0.9) H 10/21/24 23:40 Eos # (Auto) 0.1 10^3/uL (0.0-0.8) 10/21/24 23:40 Baso # (Auto) 0.1 10^3/uL (0.0-0.1) 10/21/24 23:40 Nucleated RBC % (auto) 0 % 10/21/24 23:40 Nucleated RBCs # 0.0 /100WBC 10/21/24 23:40 Sodium 140 mmol/L (136-145) 10/21/24 23:40 Potassium 3.7 mmol/L (3.5-5.1) 10/21/24 23:40 Chloride 107 mmol/L (98-107) 10/21/24 23:40 Carbon Dioxide 22 mmol/L (22-29) 10/21/24 23:40 Anion Gap 14.7 (5-19) 10/21/24 23:40 BUN 19 mg/dL (8-23) 10/21/24 23:40 Creatinine 1.0 mg/dL (0.5-0.9) H 10/21/24 23:40 GFR Calculation Not Reportable 10/21/24 23:40 Glucose 140 mg/dL (65-115) H 10/21/24 23:40 Calculated Osmolality 295 mOsm/kg (285-295) 10/21/24 23:40 Calcium 9.0 mg/dL (8.5-10.5) 10/21/24 23:40 Magnesium 1.9 mg/dL (1.7-2.3) 10/21/24 23:40 Total Bilirubin 0.2 mg/dL (0.15-1.2) 10/21/24 23:40 AST 19 U/L (0-32) 10/21/24 23:40 ALT 11 U/L (0-33) 10/21/24 23:40 Alkaline Phosphatase 111 U/L (35-105) H 10/21/24 23:40 Troponin T Baseline 23 ng/L (0-10) H 10/21/24 23:40 Troponin T 120 Minute 23.13 ng/L (0-10) H 10/22/24 02:03 Delta Troponin T 0.13 ABS# (0-10) 10/22/24 02:03 NT-Pro-B Natriuret Pep 699 pg/mL (0-450) H 10/21/24 23:40 Total Protein 6.3 g/dL (6.6-8.7) L 10/21/24 23:40 Albumin 4.0 g/dL (3.5-5.2) 10/21/24 23:40 Globulin 2.3 g/dL (1.3-4.6) 10/21/24 23:40 All radiology interpretation(s) finalized by discharge Discharge Plan Discharge Patient Disposition: Home Clinical Impression: Atypical chest pain, Tachycardia, paroxysmal Condition: Stable Prescriptions: No Action [id number]-J1-rbzkag-K1-Ys-Ik-parker 250 mg-400 unit -40 mg-5 mg tablet 1 tab PO DAILY penicillin V potassium 500 mg tablet 500 mg PO BID Qty: 10 0RF celecoxib 100 mg capsule See Rx Instructions .ROUTE .COMPLEX Qty: 90 2RF Dose Instruction: TAKE 1 CAPSULE BY MOUTH TWICE DAILY NEEDED FOR PAIN Rx Instructions: TAKE 1 CAPSULE BY MOUTH TWICE DAILY NEEDED FOR PAIN apixaban 2.5 mg tablet 2.5 mg PO BID Qty: 180 3RF methylprednisolone acetate 40 mg/mL suspension 80 mg intrabursal ONCE Qty: 2 0RF hydrocodone-acetaminophen 5-325 mg tablet 1 tab PO Q8H PRN (Reason: pain) 20 Days Qty: 60 0RF prednisone 20 mg tablet 20 mg PO DAILY Qty: 15 0RF Rx Instructions: 60mg for three days,40mg for two days,20mg for two days Vitamin D3 1 tab PO DAILY@08 Qty: 90 3RF potassium chloride 20 mEq tablet extended release 20 meq PO DAILY@0800 Qty: 90 3RF albuterol sulfate 90 mcg/actuation HFA aerosol inhaler 1 - 2 puff INHALATION Q4H PRN (Reason: Shortness Of Breath) Qty: 8.5 5RF furosemide 20 mg tablet See Rx Instructions .ROUTE .COMPLEX Qty: 90 3RF Dose Instruction: TAKE 1 TABLET DAILY Rx Instructions: TAKE 1 TABLET DAILY metoprolol tartrate 25 mg tablet See Rx Instructions .ROUTE .COMPLEX Qty: 30 5RF Dose Instruction: TAKE 1/2 TABLET BY MOUTH EVERY DAY NEEDED FOR FAST HEART BEAT/LOW BLOOD PRESSURE Rx Instructions: TAKE 1/2 TABLET BY MOUTH EVERY DAY NEEDED FOR FAST HEART BEAT/LOW BLOOD PRESSURE (DME) orthotics with 1.5 cm heel lift right foot See Rx Instructions .Route .MEDSUPPLY Qty: 2 0RF Rx Instructions: As directed by court jaime 1.5 cm heel lift incorporated to the back (right foot) losartan 50 mg tablet See Rx Instructions .ROUTE .COMPLEX Qty: 90 3RF Dose Instruction: TAKE 1 TABLET DAILY Rx Instructions: TAKE 1 TABLET DAILY ascorbic acid (vitamin C) [Vitamin C] 500 mg tablet 1,000 mg PO BID@08,18 multivitamin Tablet 1 tab PO DAILY@08 acetaminophen [Tylenol Arthritis Pain] 650 mg Tablet Extended Release 1,300 mg PO PRN acetaminophen 325 mg capsule 325 mg PO Q4H PRN (Reason: fever or pain) Qty: 60 0RF Discharge Orders: Discharge ED (Routine); Ordered 10/22/24 Ordered By: Ash Anthony Referrals: Emery Ragland MD [Primary Care Provider] - 1 week Patient Instructions: Chest Pain (ED), Tachycardia (ED) Activity Restrictions/Additional Instructions: Your evaluation ER that included chest x-ray, serial lab work, EKGs did not show any acute cause of your symptomatology. Please follow-up with your family practice physician in the next 7 days for further evaluation and treatment. Thank you for choosing [facility] for your healthcare needs today. Please realize that you were seen in the emergency department and that we are providing you with an emergency medical screening exam and this may not be a complete and all exclusive of all testing and/or medical workup we may need to determine your element or severity of your illness. It is very important that you follow-up as instructed with your primary care provider or specialist for the additional evaluation and to discuss your medical treatment plan. You may return to the emergency department should you have concerns or if your condition changes or worsens in any way. Coding Level of Care Code ED Chimney Builder for Zita Root
[2024-10-21 23:54] LABS: Basophils # 0.1 10^3/uL (0.0-0.1); Basophils % 0.6 %; Eosinophils # 0.1 10^3/uL (0.0-0.8); Eosinophils % 1.2 %; Hematocrit 36.1 % (36-47); Lymphocytes # 2.2 10^3/uL (0.8-4.8); Lymphocytes % 25.7 %; Mean Corpuscular HGB Conc 32.4 g/dL (30-55); Mean Corpuscular Hemoglobin 30.3 pg (27-33); Mean Corpuscular Volume 93.5 fl (85-98); Mean Platelet Volume 10.3 fL (7.4-10.4); Monocytes # 1.1 10^3/uL (0.2-0.9); Monocytes % 12.5 %; Neutrophils # 5.09 10^3/uL (1.8-7.7); Neutrophils % 59.8 %; Nucleated Red Blood Cells % 0 %; Platelet Count 246 10^3/cmm (157-399); Red Blood Count 3.86 10^6/uL (3.85-5.65); Red Cell Distribution Width 15.4 % (12.1-15.1); White Blood Count 8.51 10^3/uL (3.29-11.43)
--- NOTE | 2024-10-22 00:01 | XRR_ITS ---
PROCEDURE INFORMATION: Exam: XR Chest Exam date and time: 10/22/2024 12:03 AM Age: 84 years old Clinical indication: Pain; Chest pressure; Prior surgery; Surgery date: 6+ months; Surgery type: Left shoulder replacment; Additional info: Chest pain TECHNIQUE: Imaging protocol: Radiologic exam of the chest. Views: 1 view. COMPARISON: CR XR chest 1V portable [id number] 12/11/2023 8:53 PM FINDINGS: Lungs: Bilateral apical fibrotic changes. Bibasilar atelectasis. Pleural spaces: Unremarkable. No pleural effusion. No pneumothorax. Heart/Mediastinum: Unremarkable. No cardiomegaly. Vasculature: Unfolding of the thoracic aorta. Aortic arch calcifications. Bones/joints: Moderate degenerative disease of bilateral acromioclavicular joints. Reverse total left shoulder arthroplasty. XR/XR chest 1V portable [id number] IMPRESSION: No acute cardiopulmonary process.
[2024-10-22 00:13] LABS: Troponin(5th) Baseline 23 ng/L (0-10)
[2024-10-22 00:25] LABS: Alanine Aminotransferase 11 U/L (0-33); Alkaline Phosphatase 111 U/L (35-105); Anion Gap 14.7 (5-19); Aspartate Amino Transferase 19 U/L (0-32); Blood Urea Nitrogen 19 mg/dL (8-23); Carbon Dioxide 22 mmol/L (22-29); Chloride 107 mmol/L (98-107); Creatinine Clr Calc Pharmacy 41.1483; Globulin 2.3 g/dL (1.3-4.6); Glucose 140 mg/dL (65-115); Magnesium 1.9 mg/dL (1.7-2.3); NT Pro B Type Natriuretic Pept 699 pg/mL (0-450); Osmolality Calculated 295 mOsm/kg (285-295); Potassium 3.7 mmol/L (3.5-5.1); Sodium 140 mmol/L (136-145); Total Bilirubin 0.2 mg/dL (0.15-1.2); Total Protein 6.3 g/dL (6.6-8.7)
[2024-10-22 00:30] VITALS: BP 121/86; PULSE 68; RESP 23; O2SAT 92
[2024-10-22 01:30] VITALS: BP 116/82; PULSE 63; RESP 21; O2SAT 93
[2024-10-22 02:28] LABS: Troponin 5 2HR 23.13 ng/L (0-10); Troponin 5 2HR Delta 0.13 ABS# (0-10)
[2024-10-22 02:30] VITALS: BP 119/74; PULSE 63; RESP 30; O2SAT 93
[2024-10-22 02:50] VITALS: BP 119/74; PULSE 60; RESP 23; O2SAT 93
== END 2024-10-22 03:03 | disposition home or self-care (01) ==
PROVIDERS: Emergency Provider Emergency Medicine; PCP Family Medicine
DX: R07.89 Other chest pain (principal); I47.9 Paroxysmal tachycardia, unspecified; E78.5 Hyperlipidemia, unspecified; J44.9 Chronic obstructive pulmonary disease, unspecified
CPT/HCPCS: 36415; 71045; 80053; 83735; 83880; 84484; 85025; 93005; 93010; 99285

== ENCOUNTER → 2024-11-12 13:18 | Outpatient (BNVA) | payer MEDICARE, OTHER, SELFPAY | PROVIDERS: PCP Family Medicine; Visit Provider Orthopaedic Surgery | DX: M54.9 Dorsalgia, unspecified (principal); M48.062 Spinal stenosis, lumbar region with neurogenic claudication | CPT/HCPCS: 99213 ==

== ENCOUNTER → 2024-11-24 13:45 | Outpatient (BNVA) | payer MEDICARE, OTHER, SELFPAY | PROVIDERS: PCP Family Medicine; Visit Provider Student in an Organized Health Care Education/Training Program | DX: M16.12 Unilateral primary osteoarthritis, left hip (principal) | CPT/HCPCS: 99213 ==

== ENCOUNTER → 2024-12-07 13:53 | Outpatient (BNVA) | payer MEDICARE, OTHER, SELFPAY | PROVIDERS: PCP Family Medicine; Referring Provider Orthopaedic Surgery; Visit Provider Anesthesiology Pain Medicine | DX: M48.062 Spinal stenosis, lumbar region with neurogenic claudication (principal) | CPT/HCPCS: 99204 ==

== ENCOUNTER 2024-12-30 10:30 | Outpatient (RCR) | payer MEDICARE, OTHER, SELFPAY | END 2025-01-18 23:59 | disposition home or self-care (01) | LOC: SPT 10:30 | PROVIDERS: Visit Provider Anesthesiology Pain Medicine | DX: M48.062 Spinal stenosis, lumbar region with neurogenic claudication (principal) | CPT/HCPCS: 97161 ==

== ENCOUNTER 2025-01-12 12:01 | Outpatient (CLI) | payer MEDICARE, OTHER, SELFPAY ==
--- NOTE | 2025-01-12 12:30 | CT_ITS ---
WS: [id number] CT ABDOMEN PELVIS TECHNIQUE: Contrast-enhanced CT of the abdomen and pelvis with coronal and sagittal reformatted images. CLINICAL INFORMATION: wt loss change in stool calibur, diarrhea x16 days COMPARISON: None. DLP: 458.[address] scans at [facility] use at least one of these dose optimization techniques: automated exposure control; mA and/or kV adjustment per patient size (includes targeted exams where dose is matched to clinical indication); or iterative reconstruction. FINDINGS: Images of the pelvis degraded by RIGHT hip replacement. Thickening with mild inflammatory stranding and induration about the sigmoid colon compatible with mild acute diverticulitis. No evidence of drainable abscess or fluid collection. Transverse colon is normal in appearance. No evidence of small or large bowel obstruction. Tiny esophageal hiatal hernia. Evidence of gastritis and duodenitis. Emphysematous changes in the lung bases. Normal liver. Normal spleen. Normal portal vein and splenic vein. Cholelithiasis. Moderate aortic atheromatous disease. Slightly aneurysmal distal abdominal aorta measuring 2.8 x 2.8 cm. Aortic calcification. Celiac and SMA are patent. Adrenal glands are normal. No hydronephrosis in either kidney. Bilateral renal cysts. Largest cyst LEFT kidney measures 3.3 x 3.1 cm. Advanced degenerative arthritis LEFT hip. Postoperative changes RIGHT abdominal wall. CT/CT abdomen pelvis w con* [id number] IMPRESSION: 1. Mild thickening and induration sigmoid colon compatible with acute divertic ulitis. No evidence of drainable abscess or fluid collection. 2. Evidence of mild gastritis and duodenitis. 3. Tiny esophageal hiatal hernia. 4. Cholelithiasis. No gallbladder wall thickening or pericholecystic fluid. Ga llbladder could be followed up with ultrasound. 5. Bilateral renal cysts. 6. Slightly aneurysmal infrarenal abdominal aorta measuring 2.8 x 2.8 cm.
[2025-01-12] MEDS: iohexol 350 mg/mL 500 mL Btl (per mL) IV (12:48)
== END 2025-01-12 12:02 | disposition home or self-care (01) ==
LOC: RAD 12:02
PROVIDERS: PCP Family Medicine; Visit Provider Family Medicine
DX: K56.609 Unspecified intestinal obstruction, unspecified as to partial versus complete obstruction (principal); R93.89 Abnormal findings on diagnostic imaging of other specified body structures; K80.20 Calculus of gallbladder without cholecystitis without obstruction; N28.1 Cyst of kidney, acquired; I71.43 Infrarenal abdominal aortic aneurysm, without rupture; Z96.641 Presence of right artificial hip joint; J43.9 Emphysema, unspecified; I70.0 Atherosclerosis of aorta; R93.421 Abnormal radiologic findings on diagnostic imaging of right kidney; M16.12 Unilateral primary osteoarthritis, left hip; Z98.890 Other specified postprocedural states
CPT/HCPCS: 74177; 80053; 82378; 85025

== ENCOUNTER → 2025-01-21 08:27 | Outpatient (BNVA) | payer MEDICARE, OTHER, SELFPAY | PROVIDERS: PCP Family Medicine; Visit Provider Orthopaedic Surgery | DX: M48.062 Spinal stenosis, lumbar region with neurogenic claudication (principal) | CPT/HCPCS: 99213 ==

== ENCOUNTER 2025-02-09 11:34 | Outpatient (CLI) | payer MEDICARE, OTHER, SELFPAY ==
--- NOTE | 2025-02-09 11:37 | XR_ITS ---
WS: [id number] Exam: XR KUB [id number] Date/Time of Exam: 02/09/2025 11:51 AM Reason For Exam: continued abnormal bowels 5 weeks No bowel obstruction or pneumoperitoneum. Scattered small amounts of large and small bowel gas. Signs of previous RIGHT abdominal and pelvic surgery. Partially visualized RIGHT total hip replacement. No sign of organ enlargement. DJD of the lower lumbar spine and LEFT hip. XR/XR KUB [id number] IMPRESSION: 1. No acute abdominal process.
== END 2025-02-09 11:35 | disposition home or self-care (01) ==
LOC: RAD 11:36
PROVIDERS: PCP Family Medicine; Visit Provider Family Medicine
DX: R19.7 Diarrhea, unspecified (principal); K57.92 Diverticulitis of intestine, part unspecified, without perforation or abscess without bleeding; Z98.890 Other specified postprocedural states; R14.0 Abdominal distension (gaseous); M47.896 Other spondylosis, lumbar region; M16.12 Unilateral primary osteoarthritis, left hip
CPT/HCPCS: 74018; 80053; 85025

== ENCOUNTER → 2025-02-11 11:15 | Outpatient (BNVA) | payer MEDICARE, OTHER, SELFPAY | PROVIDERS: PCP Family Medicine; Visit Provider Family Medicine | DX: K57.32 Diverticulitis of large intestine without perforation or abscess without bleeding (principal) | CPT/HCPCS: 87493 ==

== ENCOUNTER 2025-02-23 10:21 | Emergency (ER) | payer MEDICARE, OTHER, SELFPAY ==
[2025-02-23 10:31] VITALS: BP 124/79; PULSE 60; RESP 18; TEMP 36.8; O2SAT 95
--- NOTE | 2025-02-23 10:55 | ED_ITS ---
HPI - Nausea/Vomiting/Diarrhea General: Chief complaint: Nausea/Vomiting/Diarrhea Stated complaint: N/V/D Time Seen by Provider: 02/23/25 10:43 Related Data Home Medications ?Medication ?Instructions ?Recorded ?Confirmed ascorbic acid (vitamin C) 500 mg 1,000 mg PO BID@08,18 09/24/20 02/09/25 tablet (Vitamin C) acetaminophen 650 mg 1,300 mg PO PRN 10/02/20 tablet,extended release (Tylenol Arthritis Pain) multivitamin 1 tab PO DAILY@08 10/02/20 0 02/09/25 calcium 250 mg-D3 400 1 tab PO DAILY 06/21/2101/20 unit-magnesium 40 zo-P6-Fg-copper-parker tablet Previous Rx's ?Medication ?Instructions ?Recorded Vitamin D3 1 tab PO DAILY@08 #90 caps 0 03/01/21 acetaminophen 325 mg capsule 325 mg PO Q4H PRN fever o r pain 08/30/22 #60 caps potassium chloride 20 mEq 20 meq PO DAILY@0800 #90 tab s 09/24/22 tablet,extended release albuterol sulfate 90 mcg/actuation 1 - 2 puff inhalati on Q4H PRN 03/21/23 aerosol inhaler Shortness Of Breath #8.5 gra ms metoprolol tartrate 25 mg tablet See Rx Instructions . Route 04/21/24 .COMPLEX #30 tabs apixaban 2.5 mg tablet 2.5 mg PO BID #180 tabs 06/13 celecoxib 100 mg capsule See Rx Instructions .Route 0 05/28/24 .COMPLEX #90 caps orthotics with 1.5 cm heel lift #2 ea 09/16/24 right foot losartan 50 mg tablet See Rx Instructions .Route 1 12/01/23 .COMPLEX #90 tabs furosemide 20 mg tablet See Rx Instructions .Route 0 11/16/24 .COMPLEX #90 tabs hydrocodone 5 mg-acetaminophen 325 1 tab PO Q4H PRN pa in 7 days #40 01/12/25 mg tablet tabs cholestyramine-aspartame 4 gram See Rx Instructions .R oute 01/29/25 oral powder (Cholestyramine Light) .COMPLEX #239.4 gra ms dicyclomine 20 mg tablet 20 mg PO TID PRN abdominal 0 02/09/25 pain/cramping #10 tabs Allergies Allergy/AdvReac Type Severity Reaction Status Date / Time nickel Allergy Mild ALGY-Redness Verified 02/09/25 10:03 of Skin morphine Allergy Unconscious Verified 02/09/25 10:03 [facility] ED PFSH: Medical History (Updated 02/09/25 @ 10:59 by Emery Ragland MD) Anticoagulation adequate with anticoagulant therapy Degenerative lumbar disc Pneumonia Asthma Vaginal prolapse Atrial fibrillation COPD (chronic obstructive pulmonary disease) Incomplete bladder emptying Chronic cystitis History of deviated nasal septum Dyslipidemia Hypertension Osteoarthritis of right hip Surgical History H/O shoulder replacement left Hx of bilateral cataract extraction History of hip replacement History of appendectomy H/O: hysterectomy Hx of foot surgery BUNIONS EXCISED BILATERAL FEET Family History Brother Diabetes Cancer Son Diabetes Father , AT AGE 75 Lung disease Mother , AT AGE 37 complication Social History Smoking and tobacco/nicotine status: never used tobacco/nicotine Alcohol intake: former Substance/Drug Use: never Household members: spouse Marital status: Current occupational status: retired Course Vital Signs: Vital signs: Vital Signs Temperature 98.3 F 02/23/25 10:31 Pulse Rate 60 02/23/25 10:31 Respiratory Rate 18 02/23/25 10:31 Blood Pressure 124/79 02/23/25 10:31 Pulse Oximetry 95 02/23/25 10:31 Oxygen Delivery Me thod Room Air 02/23/25 10:31 Discharge Plan Discharge Condition: Stable Prescriptions: No Action fxhd-H6-flmjfy-X1-Hr-Aq-parker 250 mg-400 unit -40 mg-5 mg tablet 1 tab PO DAILY celecoxib 100 mg capsule See Rx Instructions .ROUTE .COMPLEX Qty: 90 2RF Dose Instruction: TAKE 1 CAPSULE BY MOUTH TWICE DAILY NEEDED FOR PAIN Rx Instructions: TAKE 1 CAPSULE BY MOUTH TWICE DAILY NEEDED FOR PAIN apixaban 2.5 mg tablet 2.5 mg PO BID Qty: 180 3RF furosemide 20 mg tablet See Rx Instructions .ROUTE .COMPLEX Qty: 90 3RF Dose Instruction: TAKE 1 TABLET DAILY Rx Instructions: TAKE 1 TABLET DAILY hydrocodone-acetaminophen 5-325 mg tablet 1 tab PO Q4H PRN (Reason: pain) 7 Days Qty: 40 0RF dicyclomine 20 mg tablet 20 mg PO TID PRN (Reason: abdominal pain/cramping) Qty: 10 0RF Vitamin D3 1 tab PO DAILY@08 Qty: 90 3RF potassium chloride 20 mEq tablet extended release 20 meq PO DAILY@0800 Qty: 90 3RF albuterol sulfate 90 mcg/actuation HFA aerosol inhaler 1 - 2 puff INHALATION Q4H PRN (Reason: Shortness Of Breath) Qty: 8.5 5RF metoprolol tartrate 25 mg tablet See Rx Instructions .ROUTE .COMPLEX Qty: 30 5RF Dose Instruction: TAKE 1/2 TABLET BY MOUTH EVERY DAY NEEDED FOR FAST HEART BEAT/LOW BLOOD PRESSURE Rx Instructions: TAKE 1/2 TABLET BY MOUTH EVERY DAY NEEDED FOR FAST HEART BEAT/LOW BLOOD PRESSURE (DME) orthotics with 1.5 cm heel lift right foot See Rx Instructions .Route .MEDSUPPLY Qty: 2 0RF Rx Instructions: As directed by shoe guys 1.5 cm heel lift incorporated to the back (right foot) losartan 50 mg tablet See Rx Instructions .ROUTE .COMPLEX Qty: 90 3RF Dose Instruction: TAKE 1 TABLET DAILY Rx Instructions: TAKE 1 TABLET DAILY Cholestyramine Light 4 gram powder See Rx Instructions .ROUTE .COMPLEX Qty: 239.4 3RF Dose Instruction: TAKE 4 GRAMS BY MOUTH 3 TIMES A DAY WITH MAELS; ADVOID OTHER MEDS WITHIN 1 HOURS BEFORE OR 4-6 HOURS AFTER DOSE Rx Instructions: TAKE 4 GRAMS BY MOUTH 3 TIMES A DAY WITH MAELS; ADVOID OTHER MEDS WITHIN 1 HOURS BEFORE OR 4-6 HOURS AFTER DOSE ascorbic acid (vitamin C) [Vitamin C] 500 mg tablet 1,000 mg PO BID@08,18 multivitamin Tablet 1 tab PO DAILY@08 acetaminophen [Tylenol Arthritis Pain] 650 mg Tablet Extended Release 1,300 mg PO PRN acetaminophen 325 mg capsule 325 mg PO Q4H PRN (Reason: fever or pain) Qty: 60 0RF Referrals: Emery Ragland MD [Primary Care Provider, Family Practice] Print Language: Pashto Coding Level of Care Code ED Quick Sketch Artist for Zita Root
[2025-02-23 11:00] VITALS: BP 151/89; PULSE 64; RESP 16; O2SAT 96
[2025-02-23 11:02] LABS: Basophils % 0.5 %; Eosinophils % 0.2 %; Hematocrit 39.7 % (36-47); Lymphocytes # 1.4 10^3/uL (0.8-4.8); Lymphocytes % 17.5 %; Mean Corpuscular HGB Conc 32.7 g/dL (30-55); Mean Corpuscular Hemoglobin 29.8 pg (27-33); Mean Corpuscular Volume 91.1 fl (85-98); Mean Platelet Volume 10.7 fL (7.4-10.4); Monocytes # 0.9 10^3/uL (0.2-0.9); Monocytes % 10.5 %; Neutrophils # 5.73 10^3/uL (1.8-7.7); Neutrophils % 71.1 %; Nucleated Red Blood Cells % 0 %; Platelet Count 258 10^3/cmm (157-399); Red Blood Count 4.36 10^6/uL (3.85-5.65); White Blood Count 8.07 10^3/uL (3.29-11.43)
[2025-02-23 11:18] LABS: Alanine Aminotransferase < 5 U/L (0-33); Albumin Level 4.1 g/dL (3.5-5.2); Alkaline Phosphatase 115 U/L (35-105); Anion Gap 17.1 (5-19); Aspartate Amino Transferase 17 U/L (0-32); Blood Urea Nitrogen 25 mg/dL (8-23); Calcium 9.5 mg/dL (8.5-10.5); Carbon Dioxide 20 mmol/L (22-29); Chloride 101 mmol/L (98-107); Creatinine Clr Calc Pharmacy 36.0154; Globulin 3.4 g/dL (1.3-4.6); Glucose 98 mg/dL (65-115); Lipase 32 U/L (13-60); Osmolality Calculated 282 mOsm/kg (285-295); Potassium 4.1 mmol/L (3.5-5.1); Sodium 134 mmol/L (136-145); Total Bilirubin 0.5 mg/dL (0.15-1.2); Total Protein 7.5 g/dL (6.6-8.7)
[2025-02-23] MEDS: sodium chloride 0.9% 1,000 ML 999 ML IV (11:30)
--- NOTE | 2025-02-23 11:30 | ED_ITS ---
HPI - Nausea/Vomiting/Diarrhea 2 General: Chief complaint: Nausea/Vomiting/Diarrhea Stated complaint: N/V/D Time Seen by Provider: 02/23/25 10:43 History of Present Illness: 84-year-old female is presenting with 3 months of nonbloody diarrhea that is persistent and has been managed by her primary doctor and tomorrow she has an appointment with general surgery to evaluate for potential colonoscopy. She reports some crampy abdominal pain on and off but no steady pain at this time. Denies any fever or chills. Did have an episode of vomiting yesterday. No urinary symptoms. She was trialed on a course of Cipro and Flagyl without resolution of her diarrhea. Has had decrease in her appetite as well as getting progressively weaker generally. Denies any chest pain or shortness of breath, reports some mucus in the diarrhea sometimes dark sometimes watery and clear. Prior to this denies any antibiotics no real travel no sick contacts. She states she has a history of diarrhea chronically as far as she can remember usually acts a day on and off but over the past months have been persistent. Associated nausea: Yes Associated symtoms: Reports nausea; Denies change in vision, chest pain, dysuria, headache(s) or palpitations Related Data Home Medications ?Medication ?Instructions ?Recorded ?Confirmed acetaminophen 650 mg 650 mg PO BID PRN Pain 10/0202/23/25 tablet,extended release (Tylenol Arthritis Pain) multivitamin 1 tab PO DAILY@08 10/02/20 0 02/23/25 calcium 250 mg-D3 400 1 tab PO DAILY 06/21/2104/14 unit-magnesium 40 qu-U1-Bn-copper-parker tablet apixaban 2.5 mg tablet 2.5 mg PO DAILY 02/23/2504/14 furosemide 20 mg tablet 20 mg PO DAILY 02/23/2504/14 losartan 50 mg tablet 50 mg PO DAILY 02/23/2504/14 Previous Rx's ?Medication ?Instructions ?Recorded orthotics with 1.5 cm heel lift #2 ea 09/16/24 right foot hydrocodone 5 mg-acetaminophen 325 1 tab PO Q4H PRN pa in 7 days #40 01/12/25 mg tablet tabs dicyclomine 20 mg tablet 20 mg PO TID PRN abdominal 0 02/09/25 pain/cramping #10 tabs Allergies Allergy/AdvReac Type Severity Reaction Status Date / Time nickel Allergy Mild ALGY-Redness Verified 02/09/25 10:03 of Skin morphine Allergy Unconscious Verified 02/09/25 10:03 Review of Systems 2 Const: Denies: fever(s) or chills Eyes: Denies: change in vision ENMT: Denies: throat pain Card: Denies: chest pain, palpitations, irregular heart rhythm, edema, swelling of feet/ankles or dyspnea on exertion Resp: Denies: dyspnea, productive cough or non-productive cough GI: Reports: abdominal pain, nausea, vomiting and diarrhea : Denies: flank pain, difficulty voiding or dysuria Skin/Breast: Denies: rash Neuro: Denies: headache(s), numbness in extremities or weakness in extremities Joe/Lymph: Denies: easy bruising or easy bleeding All/Imm: Denies: urticaria PFSH ED 2 PFSH: Medical History (Updated 02/23/25 @ 12:11 by Abena Kohli MD) Anticoagulation adequate with anticoagulant therapy Degenerative lumbar disc Pneumonia Asthma Vaginal prolapse Atrial fibrillation COPD (chronic obstructive pulmonary disease) Incomplete bladder emptying Chronic cystitis History of deviated nasal septum Dyslipidemia Hypertension Osteoarthritis of right hip Surgical History H/O shoulder replacement left Hx of bilateral cataract extraction History of hip replacement History of appendectomy H/O: hysterectomy Hx of foot surgery BUNIONS EXCISED BILATERAL FEET Family History Brother Diabetes Cancer Son Diabetes Father , AT AGE 75 Lung disease Mother , AT AGE 37 complication Social History Smoking and tobacco/nicotine status: never used tobacco/nicotine Alcohol intake: former Substance/Drug Use: never Household members: spouse Marital status: Current occupational status: retired Physical Exam 2 Const: COMMON NORMALS: no acute distress and patient oriented x3 GENERAL APPEARANCE: cooperative and comfortable HENMT: COMMON NORMALS: normocephalic and atraumatic HEAD & SCALP: n ormocephalic and atraumatic Eye: COMMON NORMALS: Equal, round and reactive pupils present, EOMs intact bilaterally, conjunctivae normal and no scleral icterus CONJUNCTIVA: Yes conjunctivae normal PUPIL: Yes Equal, round and reactive pupils present Neck/C-Spine: COMMON NORMALS: full ROM Resp: COMMON NORMALS: normal respiratory effort, No retractions and clear to auscultation bilaterally AUSCULTATION: clear to auscultation bilaterally Cardio: COMMON NORMALS: regular rate, regular rhythm, S1 normal heart sound present, S2 normal heart sound present, No gallops present (Cardio), No murmurs present (Cardio) and No rub (Cardio) RATE: regular rate RHYTHM: regular rhythm HEART SOUNDS: S1 normal heart sound present and S2 normal heart sound present GI: COMMON NORMALS: Normal to inspection, nondistended, normoactive bowel sounds present, Soft to palpation and non-tender PALPATION: Yes Soft to palpation : COMMON NORMALS: Yes no CVA tenderness BLADDER/KIDNEY EXAM: Yes no CVA tenderness Back/Pelvis: COMMON NORMALS: no CVA tenderness Extremity: COMMON NORMALS: normal to inspection Neuro: COMMON NORMALS: patient oriented x3 Skin: COMMON NORMALS: no rashes or lesions noted GENERAL SKIN EXAM: no rashes or lesions noted Course 2 Vital Signs: Vital signs: Vital Signs Temperature 98.3 F 02/23/25 10:31 Pulse Rate 64 02/23/25 11:00 Respiratory Rate 16 02/23/25 11:00 Blood Pressure 151/89 02/23/25 11:00 Pulse Oximetry 96 02/23/25 11:00 Oxygen Delivery Me thod Room Air 02/23/25 10:31 MDM - Nausea/Vomiting/Diarrhea Medical Decision Making Workup remarkable for no significant elevation in leukocytosis, no significant anemia, chemistry consistent with dehydration. Patient was given a liter of normal saline bolus. She is well-appearing her abdomen is benign she is mildly stable vital signs. None of her symptoms are acute and are essentially chronic and require outpatient follow-up for which she has arranged appointment for possible colonoscopy tomorrow. Discussed all results with the patient family at the bedside and she is felt to be stable for discharge at this time. Lab Data 02/23/25 10:52 02/23/25 10:52 Laboratory Results WBC 8.07 10^3/uL (3.29-11.43) 02/23/25 10:52 RBC 4.36 10^6/uL (3.85-5.65) 02/23/25 10:52 Hgb 13.00 g/dL (11.27-16.99) 02/23/25 10:52 Hct 39.7 % (36-47) 02/23/25 10:52 MCV 91.1 fl (85-98) 02/23/25 10:52 MCH 29.8 pg (27-33) 02/23/25 10:52 MCHC 32.7 g/dL (30-55) 02/23/25 10:52 RDW 14.0 % (12.1-15.1) 02/23/25 10:52 Plt Count 258 10^3/cmm (157-399) 02/23/25 10:52 MPV 10.7 fL (7.4-10.4) H 02/23/25 10:52 Neut % (Auto) 71.1 % 02/23/25 10:52 Lymph % (Auto) 17.5 % 02/23/25 10:52 [place] % (Auto) 10.5 % 02/23/25 10:52 Eos % (Auto) 0.2 % 02/23/25 10:52 Baso % (Auto) 0.5 % 02/23/25 10:52 Neut # (Auto) 5.73 10^3/uL (1.8-7.7) 02/23/25 10:52 Lymph # (Auto) 1.4 10^3/uL (0.8-4.8) 02/23/25 10:52 [place] # (Auto) 0.9 10^3/uL (0.2-0.9) 02/23/25 10:52 Eos # (Auto) 0.0 10^3/uL (0.0-0.8) 02/23/25 10:52 Baso # (Auto) 0.0 10^3/uL (0.0-0.1) 02/23/25 10:52 Nucleated RBC % (auto) 0 % 02/23/25 10:52 Nucleated RBCs # 0.0 /100WBC 02/23/25 10:52 Sodium 134 mmol/L (136-145) L 02/23/25 10:52 Potassium 4.1 mmol/L (3.5-5.1) 02/23/25 10:52 Chloride 101 mmol/L (98-107) 02/23/25 10:52 Carbon Dioxide 20 mmol/L (22-29) L 02/23/25 10:52 Anion Gap 17.1 (5-19) 02/23/25 10:52 BUN 25 mg/dL (8-23) H 02/23/25 10:52 Creatinine 1.1 mg/dL (0.5-0.9) H 02/23/25 10:52 GFR Calculation Not Reportable 02/23/25 10:52 Glucose 98 mg/dL (65-115) 02/23/25 10:52 Calculated Osmolality 282 mOsm/kg (285-295) L 02/23/25 10:52 Calcium 9.5 mg/dL (8.5-10.5) 02/23/25 10:52 Magnesium 2.0 mg/dL (1.7-2.3) 02/23/25 10:52 Total Bilirubin 0.5 mg/dL (0.15-1.2) 02/23/25 10:52 AST 17 U/L (0-32) 02/23/25 10:52 ALT < 5 U/L (0-33) 02/23/25 10:52 Alkaline Phosphatase 115 U/L (35-105) H 02/23/25 10:52 Total Protein 7.5 g/dL (6.6-8.7) 02/23/25 10:52 Albumin 4.1 g/dL (3.5-5.2) 02/23/25 10:52 Globulin 3.4 g/dL (1.3-4.6) 02/23/25 10:52 Lipase 32 U/L (13-60) 02/23/25 10:52 Urine Color Yellow (Yellow) 02/23/25 11:12 Urine Appearance Clear (CLEAR) 02/23/25 11:12 Urine pH 5.5 (5-7) 02/23/25 11:12 Ur Specific [place] 1.019 (1.005-1.030) 02/23/25 11:12 Urine Protein Trace (Negative) A 02/23/25 11:12 Urine Glucose (UA) Negative (Normal) 02/23/25 11:12 Urine Ketones Negative (Negative) 02/23/25 11:12 Urine Blood Negative (Negative) 02/23/25 11:12 Urine Nitrate Negative (Negative) 02/23/25 11:12 Urine Bilirubin Negative (Negative) 02/23/25 11:12 Urine Urobilinogen 0.2 mg/dL (Negative) 02/23/25 11:12 Ur Leukocyte Esterase Negative (Negative) 02/23/25 11:12 Urine RBC 0-2 /hpf (0-2) 02/23/25 11:12 Urine WBC 0-5 /hpf (0-5) 02/23/25 11:12 Ur Squamous Epith Cells 6-10 /hpf (0-5) 02/23/25 11:12 Amorphous Sediment Not Reportable 02/23/25 11:12 Urine Bacteria None seen /hpf (NONE) 02/23/25 11:12 Hyaline Casts 5.77 /lpf 02/23/25 11:12 Ur Oval Fat Bodies 1+ /hpf 02/23/25 11:12 No radiology studies performed this visit Discharge Plan Discharge Patient Disposition: Home Clinical Impression: Diarrhea Condition: Stable Prescriptions: No Action rzsw-I0-ytnzyq-C1-Nh-Gv-parker 250 mg-400 unit -40 mg-5 mg tablet 1 tab PO DAILY hydrocodone-acetaminophen 5-325 mg tablet 1 tab PO Q4H PRN (Reason: pain) 7 Days Qty: 40 0RF dicyclomine 20 mg tablet 20 mg PO TID PRN (Reason: abdominal pain/cramping) Qty: 10 0RF (DME) orthotics with 1.5 cm heel lift right foot See Rx Instructions .Route .MEDSUPPLY Qty: 2 0RF Rx Instructions: As directed by shoe guys 1.5 cm heel lift incorporated to the back (right foot) multivitamin Tablet 1 tab PO DAILY@08 acetaminophen [Tylenol Arthritis Pain] 650 mg Tablet Extended Release 650 mg PO BID PRN (Reason: Pain) losartan 50 mg tablet 50 mg PO DAILY furosemide 20 mg tablet 20 mg PO DAILY apixaban 2.5 mg tablet 2.5 mg PO DAILY Discharge Orders: Discharge ED (Routine); Ordered 02/23/25 Ordered By: Abena Kohli Referrals: Emery Ragland MD [Primary Care Provider, Family Practice] Discharge Diet: Advance as tolerated Patient Instructions: Diarrhea - Adult Print Language: [place] Citizen Coding Level of Care 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
[2025-02-23 11:33] LABS: Bilirubin Urine Negative (Negative); Blood Urine Negative (Negative); Glucose Urine UA Negative (Normal); Ketones Urine Negative (Negative); Leukocyte Esterase Urine Negative (Negative); Nitrate Urine Negative (Negative); Protein Urine Trace (Negative); Specific Gravity, Urine 1.019 (1.005-1.030); Urine Appearance Clear (CLEAR); Urine Color Yellow (Yellow); Urobilinogen Urine 0.2 mg/dL (Negative); pH Urine 5.5 (5-7)
[2025-02-23 11:38] LABS: Add Urine Microscopic? YES; Bacteria Urine None Seen /hpf; Hyaline Casts Urine 5.77 /lpf; RBC Urine 0-2 /hpf (0-2); WBC Urine 0-5 /hpf (0-5)
[2025-02-23 11:40] LABS: UA Slide Review UA Slide Review Perf
[2025-02-23 11:41] LABS: Add Urine Culture? No
[2025-02-23 11:45] LABS: Oval Fat Bodies Urine 1+ /hpf
[2025-02-23 12:19] VITALS: BP 175/86; PULSE 66; RESP 16; O2SAT 95
== END 2025-02-23 12:28 | disposition home or self-care (01) ==
PROVIDERS: Family Medicine; Emergency Provider Emergency Medicine; PCP Family Medicine
DX: R19.7 Diarrhea, unspecified (principal); E78.5 Hyperlipidemia, unspecified; J44.9 Chronic obstructive pulmonary disease, unspecified; I10 Essential (primary) hypertension
CPT/HCPCS: 36415; 80053; 81001; 83690; 83735; 85025; 96360; 99284; J7030

== ENCOUNTER → 2025-02-24 11:25 | Outpatient (BNVA) | payer MEDICARE, OTHER, SELFPAY | PROVIDERS: PCP Family Medicine; Referring Provider Family Medicine; Visit Provider Surgery | DX: R19.7 Diarrhea, unspecified (principal); K57.92 Diverticulitis of intestine, part unspecified, without perforation or abscess without bleeding | CPT/HCPCS: 99204 ==

== ENCOUNTER 2025-03-01 09:56 | Outpatient (CLI) | payer MEDICARE, OTHER, SELFPAY ==
[2025-03-01 13:44] LABS: C.Diff PCR (Lab) NEGATIVE (Negative)
== END 2025-03-01 09:57 | disposition home or self-care (01) ==
PROVIDERS: PCP Family Medicine; Visit Provider Surgery
DX: R19.7 Diarrhea, unspecified (principal)
CPT/HCPCS: 82705; 87177; 87209; 87493

== ENCOUNTER 2025-03-04 05:55 | Day surgery (SDC) | payer MEDICARE, OTHER, SELFPAY ==
--- NOTE | 2025-03-04 06:03 | W.PM.OPSUD ---
Surgery/Procedure H&P Update DATE OF PROCEDURE: March 04, 2025 DATE H&P PERFORMED: 02/24/25 H&P UPDATE INFORMATION: I have reviewed H&P completed within last 30 days, I have examined patient prior to procedure, No changes to prior documentation, H&P is in [facility] EMR on date indicated and Risks and benefits of the procedure reviewed PLANNED PROCEDURE: Operation Date: 03/04/25 07:00 Proposed Procedures p EGD [id number] G0105, R19.7 K57.92(Not Applicable) - Alcides Cortes MD s Colonoscopy(Not Applicable) - Alcides Cortes MD
[2025-03-04 06:18] VITALS: BP 120/76; PULSE 77; RESP 18; TEMP 36.4; O2SAT 98; BMI 29.0
[2025-03-04] MEDS: sodium chloride 0.9% 1,000 ML 15 ML IV (06:25)
--- NOTE | 2025-03-04 06:35 | ANES.PREANE2 ---
Pre-Anesthetic Assessment Height/Weight: Height 1.6 m Weight 74.389 kg Temp Pulse Resp BP Pulse Ox O2 Del Method 97.5 F L 77 18 120/76 98 Room Air 03/04/25 06:18 03/04/25 06:18 03/04/25 06:18 03/04/25 06:18 03/04/25 06:18 03/04/25 06:18 Operation Date: 03/04/25 07:00 Proposed Procedures p EGD [id number] G0105, R19.7 K57.92(Not Applicable) - Alcides Cortes MD s Colonoscopy(Not Applicable) - Alcides Cortes MD Familial anesthetic complications: None Was Beta [place] taken within 24 hours: N/A Was Clonidine taken within 24 hours: N/A Last intake: Intake Last Liquid Date 03/03/25 Last Liquid Time 20:15 Last Solid Date 03/02/25 Last Solid Time 18:30 Social No alcohol and No tobacco Exam alert, oriented x 3, clear to auscultation bilaterally and regular rate & rhythm Airway Submandibular: within normal limits Cervical ROM: Other (Decreased ROM) Mallampati: Class III Dentition: full History/ROS No significant history except as noted and No significant complaints Pulmonary Chronic Obstructive Pulmonary Disease and Exertional Dyspnea CV/HEM Atrial Fibrillation, Coronary Artery Disease and Hypertension CONCLUSIONS 1. Normal left ventricular size, systolic function and wall thickness, with no regional wall motion abnormalities. Left ventricular ejection fraction is estimated at 68 %. Grade I diastolic dysfunction (abnormal relaxation filling pattern), normal to mildly elevated filling pressures. 2. Normal right ventricular size and systolic function. 3. Mild pulmonary hypertension with pulmonary artery pressure estimated at 37 mmHg. 4. No significant change when compared to prior study dated 09/24/2020. None reported Hepatic None reported GI Chronic diarrhea Metabolic Hyperlipidemia Musc/skel Lower Back Pain and Osteoarthritis/DJD Neuropsych Transient Ischemic Attack (Only one time a year ago) Anesthetic Plan ASA status: 3 Anesthesia: Anesthesia Evaluation, General and MAC Risk of > 500 ml blood loss (7ml/kg in children): No Medications/Allergies Home Medications ?Medication ?Instructions ?Recorded ?Confirmed ?Last Taken ?Type acetaminophen 650 mg 650 mg PO BID PRN Pain 10/02/20 03/01/25 02/27/25 21:00 History tablet,extended release (Tylenol Arthritis Pain) calcium 250 mg-D3 400 1 tab PO DAILY 06/21/21 03/01/25 03/02/25 History unit-magnesium 40 mr-D9-Wl-copper-parker tablet orthotics with 1.5 cm heel lift #2 ea 09/16/24 02/24/25 Unknown Rx right foot hydrocodone 5 mg-acetaminophen 325 1 tab PO Q4H PRN pain 7 days #40 01/12/25 03/01/25 03/02/25 Rx mg tablet tabs furosemide 20 mg tablet 20 mg PO DAILY 02/23/25 03/01/25 03/02/25 History losartan 50 mg tablet 50 mg PO DAILY 02/23/25 03/01/25 03/02/25 History apixaban 2.5 mg tablet (Eliquis) 2.5 mg PO DAILY 03/03/25 03/03/25 02/23/25 History Allergies Allergy/AdvReac Type Severity Reaction Status Date / Time nickel Allergy Mild ALGY-Redness Verified 03/01/25 09:31 of Skin morphine Allergy Unconscious Verified 03/01/25 09:31 Current Medications Generic Name Dose Route Start Last Admin Trade Name Freq PRN Reason Stop Dose Admin Sodium Chloride 1,000 mls @ 15 mls/hr 03/04/25 06:00 03/04/25 06:25 Sodium Chloride 0.9% IV 03/05/25 05:59 15 mls/hr .Q24H PRN Administration COLONOSCOPY FLUIDS PFSH Anesthesia Medical History Anticoagulation adequate with anticoagulant therapy Degenerative lumbar disc Pneumonia Asthma Vaginal prolapse Atrial fibrillation COPD (chronic obstructive pulmonary disease) Incomplete bladder emptying Chronic cystitis History of deviated nasal septum Dyslipidemia Hypertension Osteoarthritis of right hip Surgical History H/O shoulder replacement left Hx of bilateral cataract extraction History of hip replacement History of appendectomy H/O: hysterectomy Hx of foot surgery BUNIONS EXCISED BILATERAL FEET Family History Brother Diabetes Cancer Son Diabetes Father , AT AGE 75 Lung disease Mother , AT AGE 37 complication Social History Smoking and tobacco/nicotine status: never used tobacco/nicotine Alcohol intake: former Substance/Drug Use: never Household members: spouse Marital status: Current occupational status: retired Data Anesthesia Cardiac Studies: Echocardiogram 07/06/22 Echocardiogram Limited Views 09/24/20 Echocardiogram Ultrasound 09/13/20
[2025-03-04 07:50] VITALS: BP 118/67; PULSE 64; RESP 16; TEMP 36.6; O2SAT 94
[2025-03-04 08:00] VITALS: BP 130/71; PULSE 61; RESP 16; O2SAT 95
[2025-03-04 08:10] VITALS: BP 116/78; PULSE 60; RESP 16; O2SAT 94
--- NOTE | 2025-03-04 08:20 | ANE.PACU2 ---
Inpatient post-anesthesia follow up: Airway intact: Yes Vital signs: Temperature 97.9 F Pulse Rate 60 Respiratory Rate 16 Blood Pressure 116/78 Pulse Oximetry 94 Oxygen Delivery Me thod Room Air Oxygen Flow Rate Fraction of Inspir ed Oxygen Hydration adequate: Yes Nausea and vomiting: No Pain level: 1 Mental status: Baseline
== END 2025-03-04 08:20 | disposition home or self-care (01) ==
PROVIDERS: PCP Family Medicine; Visit Provider Surgery
PROC: 0DJ08ZZ Inspection of Upper Intestinal Tract, Via Natural or Artificial Opening Endoscopic (ICD-10-PCS; principal; 2025-03-04 07:00)
PROC: 0DJD8ZZ Inspection of Lower Intestinal Tract, Via Natural or Artificial Opening Endoscopic (ICD-10-PCS; CPT 45378; 2025-03-04 07:00)
DX: K57.30 Diverticulosis of large intestine without perforation or abscess without bleeding (principal); K62.1 Rectal polyp; K52.9 Noninfective gastroenteritis and colitis, unspecified; K44.9 Diaphragmatic hernia without obstruction or gangrene; K29.70 Gastritis, unspecified, without bleeding; K29.80 Duodenitis without bleeding; J44.9 Chronic obstructive pulmonary disease, unspecified; I48.91 Unspecified atrial fibrillation; I25.10 Atherosclerotic heart disease of native coronary artery without angina pectoris; I10 Essential (primary) hypertension; E78.5 Hyperlipidemia, unspecified; Z86.73 Personal history of transient ischemic attack (TIA), and cerebral infarction without residual deficits; Z79.899 Other long term (current) drug therapy; Z79.01 Long term (current) use of anticoagulants
CPT/HCPCS: 43239; 45380; 88305; J2371; J2704; J7030; J9999

== ENCOUNTER 2025-03-12 01:00 | Emergency (ER) | payer MEDICARE, OTHER, SELFPAY ==
[2025-03-12 01:08] VITALS: BP 116/75; PULSE 64; RESP 18; TEMP 36.5; O2SAT 94; BMI 29.0
--- NOTE | 2025-03-12 01:09 | ECG_ITS ---
[email or web address] Test Date: 2025-03-12 Pat Name: Brijesh Middleton Department: Room: Gender: Female Senior Care Manager: : 1940 Requested By: Pardeep Patel Order Number: [id number] Santillan MD: Uziel Best M.D. Measurements Intervals [place] Rate: 64 P: 217 ID: [id number] QRS: 88 QRSD: 150 T: 76 QT: 417 QTc: 433 Interpretive Statements SINUS RHYTHM POSSIBLE LEFT ATRIAL ENLARGEMENT [-0.1mV P-WAVE IN V1/V2] RIGHT BUNDLE BRANCH BLOCK [120+ ms QRS DURATION, UPRIGHT V1, 40+ ms S IN I/aVL/V4/V5/V6] Compared to ECG 10/21/2024 23:29:34 No significant changes Electronically Signed On 03-12-2025 16:25:50 CDT by Uziel Best M.D. [email or web address]
[2025-03-12 01:37] LABS: Basophils # 0.1 10^3/uL (0.0-0.1); Basophils % 0.7 %; Eosinophils # 0.1 10^3/uL (0.0-0.8); Eosinophils % 0.7 %; Hematocrit 31.7 % (36-47); Lymphocytes # 1.7 10^3/uL (0.8-4.8); Lymphocytes % 25.5 %; Mean Corpuscular HGB Conc 33.4 g/dL (30-55); Mean Corpuscular Hemoglobin 29.9 pg (27-33); Mean Corpuscular Volume 89.5 fl (85-98); Mean Platelet Volume 10.6 fL (7.4-10.4); Monocytes # 0.9 10^3/uL (0.2-0.9); Monocytes % 12.6 %; Neutrophils # 4.05 10^3/uL (1.8-7.7); Neutrophils % 60.2 %; Nucleated Red Blood Cells % 0 %; Platelet Count 208 10^3/cmm (157-399); Red Blood Count 3.54 10^6/uL (3.85-5.65); Red Cell Distribution Width 15.3 % (12.1-15.1); White Blood Count 6.74 10^3/uL (3.29-11.43)
[2025-03-12 01:56] LABS: Troponin(5th) Baseline 23 ng/L (0-10)
[2025-03-12 01:58] LABS: Albumin Level 3.5 g/dL (3.5-5.2); Chloride 110 mmol/L (98-107); Potassium 3.1 mmol/L (3.5-5.1); Sodium 141 mmol/L (136-145)
[2025-03-12 02:12] LABS: Alanine Aminotransferase 8 U/L (0-33); Anion Gap 14.1 (5-19); Aspartate Amino Transferase 13 U/L (0-32); Blood Urea Nitrogen 20 mg/dL (8-23); Calcium 8.4 mg/dL (8.5-10.5); Carbon Dioxide 20 mmol/L (22-29); Creatinine Clr Calc Pharmacy 33.1122; Globulin 2.4 g/dL (1.3-4.6); Glucose 104 mg/dL (65-115); Osmolality Calculated 295 mOsm/kg (285-295); Total Bilirubin 0.3 mg/dL (0.15-1.2); Total Protein 5.9 g/dL (6.6-8.7)
[2025-03-12 02:25] LABS: Alkaline Phosphatase 106 U/L (35-105)
--- NOTE | 2025-03-12 03:17 | ECG_ITS ---
[facility] [employer] Test Date: 2025-03-12 Pat Name: Brijesh Middleton Department: Room: Gender: Female Operating Manager: : 1940 Requested By: Pardeep Patel Order Number: [id number] Santillan MD: Uziel Best M.D. Measurements Intervals [place] Rate: 66 P: 93 [place]: 181 QRS: 37 QRSD: 145 T: 40 QT: 455 QTc: 480 Interpretive Statements SINUS RHYTHM WITH OCCASIONAL SUPRAVENTRICULAR PREMATURE COMPLEXES RIGHT BUNDLE BRANCH BLOCK [120+ ms QRS DURATION, UPRIGHT V1, 40+ ms S IN I/aVL/V4/V5/V6] Compared to ECG 03/12/2025 01:09:09 No significant changes Electronically Signed On 03-12-2025 16:31:34 CDT by Uziel Best M.D. [email or web address]
[2025-03-12 03:42] LABS: Troponin 5 2HR 22.86 ng/L (0-10)
[2025-03-12 03:45] LABS: Troponin 5 2HR Delta -0.14 ABS# (0-10)
--- NOTE | 2025-03-12 05:31 | XRR_ITS ---
PROCEDURE INFORMATION: Exam: XR Chest Exam date and time: 03/12/2025 5:43 AM Age: 84 years old Clinical indication: Pain; Chest pressure; Prior surgery; Surgery date: 6+ months; Surgery type: Lt shoulder; Additional info: Cp TECHNIQUE: Imaging protocol: Radiologic exam of the chest. Views: 1 view. COMPARISON: CR XR chest 1V portable [id number] 10/22/2024 12:03 AM FINDINGS: Lungs: Unremarkable. No consolidation. Pleural spaces: Unremarkable. No pleural effusion. No pneumothorax. Heart/Mediastinum: Unremarkable. No cardiomegaly. Bones/joints: Status post left reverse total shoulder arthroplasty. XR/XR chest 1V portable [id number] IMPRESSION: No acute cardiopulmonary process.
--- NOTE | 2025-03-12 05:55 | W.ED.CHESTPA ---
HPI - Chest Pain General: Chief Complaint: Chest Pain Stated Complaint: CHEST PAIN Time Seen by Provider: 03/12/25 05:23 Source: patient Mode of arrival: ambulatory Limitations: no limitations History of Present Illness: 84-year-old female who states that she had had palpitations at home along with chest pain states that chest pain lasted roughly an hour and resolved before she arrived. She denies any pain currently she denies any shortness of breath denies any worsening or improving factors. Denies any vomiting. Associated symptoms: Deny abdominal pain, dyspnea, fever(s), nausea or vomiting Related Data Home Medications ?Medication ?Instructions ?Recorded ?Confirmed acetaminophen 650 mg 650 mg PO BID PRN Pain 10/02/20 03/01/25 tablet,extended release (Tylenol Arthritis Pain) calcium 250 mg-D3 400 1 tab PO DAILY 06/21/21 03/01/25 unit-magnesium 40 [id number]-copper-parker tablet furosemide 20 mg tablet 20 mg PO DAILY 02/23/25 03/01/25 losartan 50 mg tablet 50 mg PO DAILY 02/23/25 03/01/25 apixaban 2.5 mg tablet (Eliquis) 2.5 mg PO DAILY 03/03/25 03/03/25 Held on 03/04/25. Instructions: Resume on 03/07/25. Previous Rx's ?Medication ?Instructions ?Recorded orthotics with 1.5 cm heel lift #2 ea 09/16/24 right foot hydrocodone 5 mg-acetaminophen 325 1 tab PO Q4H PRN pain 7 days #40 01/12/ mg tablet tabs pantoprazole 40 mg tablet,delayed 40 mg PO BID #60 tabs 03/04/25 release Allergies Allergy/AdvReac Type Severity Reaction Status Date / Time nickel Allergy Mild ALGY-Redness Verified 03/01/25 09:31 of Skin morphine Allergy Unconscious Verified 03/01/25 09:31 Review of Systems Const: Denies: fever(s), chills, body aches or change in appetite ENMT: Denies: throat pain or dental pain Card: Reports: chest pain Resp: Denies: dyspnea GI: Denies: abdominal pain, nausea, vomiting or diarrhea Musc: Denies: neck pain or back pain Skin/Breast: Denies: rash Neuro: Denies: headache(s) PFSH ED PFSH: Medical History Anticoagulation adequate with anticoagulant therapy Degenerative lumbar disc Pneumonia Asthma Vaginal prolapse Atrial fibrillation COPD (chronic obstructive pulmonary disease) Incomplete bladder emptying Chronic cystitis History of deviated nasal septum Dyslipidemia Hypertension Osteoarthritis of right hip Surgical History H/O shoulder replacement left Hx of bilateral cataract extraction History of hip replacement History of appendectomy H/O: hysterectomy Hx of foot surgery BUNIONS EXCISED BILATERAL FEET Family History Brother Diabetes Cancer Son Diabetes Father , AT AGE 75 Lung disease Mother , AT AGE 37 complication Social History Smoking and tobacco/nicotine status: never used tobacco/nicotine Alcohol intake: former Substance/Drug Use: never Household members: spouse Marital status: Current occupational status: retired Physical Exam Const: COMMON NORMALS: no acute distress, patient oriented x3 and healthy appearing HENMT: COMMON NORMALS: normocephalic and atraumatic HEAD & SCALP: normocephalic and atraumatic Neck/C-Spine: COMMON NORMALS: full ROM and supple Chest: COMMONS NORMALS: normal inspection of the chest Resp: COMMON NORMALS: normal respiratory effort, No retractions, No use of accessory muscles and clear to auscultation bilaterally AUSCULTATION: clear to auscultation bilaterally Cardio: COMMON NORMALS: regular rate, regular rhythm and No murmurs present (Cardio) RATE: regular rate RHYTHM: regular rhythm GI: COMMON NORMALS: Normal to inspection, nondistended, normoactive bowel sounds present, Soft to palpation, non-tender and no masses PALPATION: Yes Soft to palpation Extremity: COMMON NORMALS: normal to inspection and full ROM Neuro: COMMON NORMALS: patient oriented x3, moves all extremities and no focal motor deficits Psych: COMMON NORMALS: mental status grossly normal, Normal thought process present and cooperative THOUGHT PROCESS: Normal thought process present Skin: COMMON NORMALS: no rashes or lesions noted and no wounds GENERAL SKIN EXAM: no rashes or lesions noted Course Vital Signs: Vital signs: Vital Signs Temperature 97.7 F 03/12/25 01:08 Pulse Rate 64 03/12/25 01:08 Respiratory Rate 18 03/12/25 01:08 Blood Pressure 116/75 03/12/25 01:08 Pulse Oximetry 94 03/12/25 01:08 Oxygen Delivery Me thod Room Air 03/12/25 01:08 MDM - Chest Pain Medical Decision Making Patient presents for chest pains atypical in nature initial repeat troponin are negative no signs ACS no signs of pulmonary embolism patient stable for discharge follow-up PCP return if worsening. Medical Records I reviewed the patient's medical records. Lab Data I reviewed the patient's lab results. 03/12/25 01:33 03/12/25 01:33 Laboratory Results WBC 6.74 10^3/uL (3.29-11.43) 03/12/25 01:33 RBC 3.54 10^6/uL (3.85-5.65) L 03/12/25 01:33 Hgb 10.60 g/dL (11.27-16.99) L 03/12/25 01:33 Hct 31.7 % (36-47) L 03/12/25 01:33 MCV 89.5 fl (85-98) 03/12/25 01:33 MCH 29.9 pg (27-33) 03/12/25 01:33 MCHC 33.4 g/dL (30-55) 03/12/25 01:33 RDW 15.3 % (12.1-15.1) H 03/12/25 01:33 Plt Count 208 10^3/cmm (157-399) 03/12/25 01:33 MPV 10.6 fL (7.4-10.4) H 03/12/25 01:33 Neut % (Auto) 60.2 % 03/12/25 01:33 Lymph % (Auto) 25.5 % 03/12/25 01:33 [place]vier % (Auto) 12.6 % 03/12/25 01:33 Eos % (Auto) 0.7 % 03/12/25 01:33 Baso % (Auto) 0.7 % 03/12/25 01:33 Neut # (Auto) 4.05 10^3/uL (1.8-7.7) 03/12/25 01:33 Lymph # (Auto) 1.7 10^3/uL (0.8-4.8) 03/12/25 01:33 [place]vier # (Auto) 0.9 10^3/uL (0.2-0.9) 03/12/25 01:33 Eos # (Auto) 0.1 10^3/uL (0.0-0.8) 03/12/25 01:33 Baso # (Auto) 0.1 10^3/uL (0.0-0.1) 03/12/25 01:33 Nucleated RBC % (auto) 0 % 03/12/25 01:33 Nucleated RBCs # 0.0 /100WBC 03/12/25 01:33 Sodium 141 mmol/L (136-145) 03/12/25 01:33 Potassium 3.1 mmol/L (3.5-5.1) L 03/12/25 01:33 Chloride 110 mmol/L (98-107) H 03/12/25 01:33 Carbon Dioxide 20 mmol/L (22-29) L 03/12/25 01:33 Anion Gap 14.1 (5-19) 03/12/25 01:33 BUN 20 mg/dL (8-23) 03/12/25 01:33 Creatinine 1.2 mg/dL (0.5-0.9) H 03/12/25 01:33 GFR Calculation Not Reportable 03/12/25 01:33 Glucose 104 mg/dL (65-115) 03/12/25 01:33 Calculated Osmolality 295 mOsm/kg (285-295) 03/12/25 01:33 Calcium 8.4 mg/dL (8.5-10.5) L 03/12/25 01:33 Total Bilirubin 0.3 mg/dL (0.15-1.2) 03/12/25 01:33 AST 13 U/L (0-32) 03/12/25 01:33 ALT 8 U/L (0-33) 03/12/25 01:33 Alkaline Phosphatase 106 U/L (35-105) H 03/12/25 01:33 Troponin T Baseline 23 ng/L (0-10) H 03/12/25 01:33 Troponin T 120 Minute 22.86 ng/L (0-10) H 03/12/25 03:18 Delta Troponin T -0.14 ABS# (0-10) L 03/12/25 03:18 Total Protein 5.9 g/dL (6.6-8.7) L 03/12/25 01:33 Albumin 3.5 g/dL (3.5-5.2) 03/12/25 01:33 Globulin 2.4 g/dL (1.3-4.6) 03/12/25 01:33 All radiology interpretation(s) finalized by discharge Discharge Plan Discharge Patient Disposition: Home Clinical Impression: Chest pain Condition: Stable Prescriptions: No Action [id number]-[id number]-[id number]-Hu-Yp-parker 250 mg-400 unit -40 mg-5 mg tablet 1 tab PO DAILY hydrocodone-acetaminophen 5-325 mg tablet 1 tab PO Q4H PRN (Reason: pain) 7 Days Qty: 40 0RF (DME) orthotics with 1.5 cm heel lift right foot See Rx Instructions .Route .MEDSUPPLY Qty: 2 0RF Rx Instructions: As directed by shoe guys 1.5 cm heel lift incorporated to the back (right foot) acetaminophen [Tylenol Arthritis Pain] 650 mg Tablet Extended Release 650 mg PO BID PRN (Reason: Pain) losartan 50 mg tablet 50 mg PO DAILY furosemide 20 mg tablet 20 mg PO DAILY Eliquis 2.5 mg tablet 2.5 mg PO DAILY pantoprazole 40 mg tablet,delayed release (DR/EC) 40 mg PO BID Qty: 60 2RF Discharge Orders: Discharge ED (Routine); Ordered 03/12/25 Ordered By: Steven Mtz Referrals: Emery Ragland MD [Primary Care Provider, Family Practice] - 4-7 days Discharge Diet: Advance as tolerated Discharge Activity: Resume usual activity Patient Instructions: Chest Pain (ED) Print Language: Uzbek Coding Level of Care Code ED [employer]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
[2025-03-12 06:14] VITALS: BP 140/66; PULSE 58; RESP 16; O2SAT 96
== END 2025-03-12 06:15 | disposition home or self-care (01) ==
PROVIDERS: General Practice; Emergency Provider Emergency Medicine; PCP Family Medicine
DX: R07.9 Chest pain, unspecified (principal); J44.9 Chronic obstructive pulmonary disease, unspecified; I48.91 Unspecified atrial fibrillation; E78.5 Hyperlipidemia, unspecified; I10 Essential (primary) hypertension; Z79.899 Other long term (current) drug therapy; Z88.5 Allergy status to narcotic agent; Z79.01 Long term (current) use of anticoagulants
CPT/HCPCS: 36415; 71045; 80053; 84484; 85025; 93005; 99285

== ENCOUNTER → 2025-03-17 09:58 | Outpatient (BNVA) | payer MEDICARE, OTHER, SELFPAY | PROVIDERS: PCP Family Medicine; Visit Provider Surgery | DX: Z09 Encounter for follow-up examination after completed treatment for conditions other than malignant neoplasm (principal); K52.9 Noninfective gastroenteritis and colitis, unspecified | CPT/HCPCS: 99214 ==

== ENCOUNTER → 2025-04-08 08:17 | Outpatient (BNVA) | payer MEDICARE, OTHER, SELFPAY | PROVIDERS: PCP Family Medicine; Visit Provider Nurse Practitioner Family | DX: D69.2 Other nonthrombocytopenic purpura (principal); L81.4 Other melanin hyperpigmentation; L57.8 Other skin changes due to chronic exposure to nonionizing radiation; D22.5 Melanocytic nevi of trunk; Z08 Encounter for follow-up examination after completed treatment for malignant neoplasm; Z85.828 Personal history of other malignant neoplasm of skin; D48.5 Neoplasm of uncertain behavior of skin; L57.0 Actinic keratosis | CPT/HCPCS: 11102; 17000; 99213 ==

== ENCOUNTER → 2025-05-18 15:13 | Outpatient (BNVA) | payer MEDICARE, OTHER, SELFPAY | PROVIDERS: PCP Family Medicine; Visit Provider Internal Medicine Cardiovascular Disease | DX: I48.0 Paroxysmal atrial fibrillation (principal); I10 Essential (primary) hypertension; I45.10 Unspecified right bundle-branch block; D64.9 Anemia, unspecified; I25.10 Atherosclerotic heart disease of native coronary artery without angina pectoris; Z87.891 Personal history of nicotine dependence | CPT/HCPCS: 93005; 99214 ==

== ENCOUNTER → 2025-06-02 13:17 | Outpatient (BNVA) | payer MEDICARE, OTHER, SELFPAY | PROVIDERS: PCP Family Medicine; Visit Provider Student in an Organized Health Care Education/Training Program | DX: M16.12 Unilateral primary osteoarthritis, left hip (principal) | CPT/HCPCS: 99213 ==

== ENCOUNTER → 2025-06-22 12:45 | Outpatient (BNVA) | payer MEDICARE, OTHER, SELFPAY | PROVIDERS: PCP Family Medicine; Visit Provider Family Medicine | DX: I10 Essential (primary) hypertension (principal); I48.0 Paroxysmal atrial fibrillation; E78.5 Hyperlipidemia, unspecified | CPT/HCPCS: 80053; 80061 ==

== ENCOUNTER → 2025-08-10 10:25 | Outpatient (BNVA) | payer MEDICARE, OTHER, SELFPAY | PROVIDERS: PCP Family Medicine; Visit Provider Nurse Practitioner Family | DX: L57.8 Other skin changes due to chronic exposure to nonionizing radiation (principal); L81.4 Other melanin hyperpigmentation; L82.1 Other seborrheic keratosis; D18.01 Hemangioma of skin and subcutaneous tissue; Z08 Encounter for follow-up examination after completed treatment for malignant neoplasm; L57.0 Actinic keratosis | CPT/HCPCS: 17000; 99213 ==

== ENCOUNTER → 2025-08-16 12:30 | Outpatient (BNVA) | payer MEDICARE, OTHER, SELFPAY | PROVIDERS: PCP Family Medicine; Visit Provider Family Medicine | DX: I10 Essential (primary) hypertension (principal) | CPT/HCPCS: 80053; 85025 ==

== ENCOUNTER 2025-09-27 09:58 | Outpatient (CLI) | payer MEDICARE, OTHER, SELFPAY ==
--- NOTE | 2025-09-27 10:01 | MM_ITS ---
WS: [id number] BILATERAL SCREENING DIGITAL TOMOSYNTHESIS MAMMOGRAM WITH CAD HISTORY: SCREENING COMPARISON: 09/18/2024, 08/30/2023, 08/24/2022 Bilateral CC and MLO views with tomosynthesis and synthetic mammography submitted. Computer aided detection analyzed. Breast composition: There are scattered areas of fibroglandular density. No suspicious masses, microcalcifications or architectural distortion. Benign calcifications and arterial calcifications. MM/MM scr BI tomosynthesis [id number] IMPRESSION: BI-RADS: 2 - Benign. FOLLOW UP: 1 Year Follow-up
== END 2025-09-27 09:59 | disposition home or self-care (01) ==
LOC: RAD 09:58
PROVIDERS: PCP Family Medicine; Visit Provider Family Medicine
DX: Z12.31 Encounter for screening mammogram for malignant neoplasm of breast (principal); R92.323 Mammographic fibroglandular density, bilateral breasts; R92.1 Mammographic calcification found on diagnostic imaging of breast
CPT/HCPCS: 77063; 77067